=== PATIENT | female | born 1960 | race Caucasian/White ===

== ENCOUNTER 2019-03-04 09:10 | Outpatient (REF) | payer MEDICAID, SELFPAY ==
[2019-03-04 21:50] LABS: Anion Gap 12.1 mmol/L (3-11); BUN 16 mg/dL (7-18); CO2 26.9 mmol/L (21.0-32.0); CREATININE 0.81 mg/dL (0.55-1.02); Calcium 9.1 mg/dL (8.5-10.1); Calculated LDL 205 mg/dL; Chloride 103 mmol/L (98-107); Cholesterol 304 mg/dL (50-200); Glucose 200 mg/dL (70-100); HDL Cholesterol 51 mg/dL (40-60); Potassium 4.1 mmol/L (3.5-5.1); Sodium 142 mmol/L (136-145); Triglyceride 244 mg/dL (30-150)
== END 2019-03-04 09:30 ==
LOC: NCHCN 09:10
PROVIDERS: PCP Nurse Practitioner Family; Visit Provider Internal Medicine
DX: R03.0 Elevated blood-pressure reading, without diagnosis of hypertension (principal); Z13.220 Encounter for screening for lipoid disorders
CPT/HCPCS: 80048; 80061

== ENCOUNTER 2019-03-27 22:30 | Outpatient (REF) | payer MEDICAID, SELFPAY ==
[2019-03-27 21:12] LABS: BUN 13 mg/dL (7-18); CREATININE 0.79 mg/dL (0.55-1.02); Calcium 9.2 mg/dL (8.5-10.1); Chloride 104 mmol/L (98-107); Glucose 98 mg/dL (74-106); Potassium 4.3 mmol/L (3.5-5.1); Sodium 142 mmol/L (136-145)
[2019-03-30 11:51] LABS: Lyme Ab w Rflx to Lyme Confirm Negative (Negative)
[2019-03-31 15:48] LABS: Anaplasma phagocytophilum Negative (Negative); B. miyamotoi PCR Negative (Negative); Babesia divergens/MO-1 Negative (Negative); Babesia duncani Negative (Negative); Babesia microti Negative (Negative); Ehrlichia chaffeensis Negative (Negative); Ehrlichia ewingii/canis Negative (Negative); Ehrlichia muris eauclairensis Negative (Negative)
== END 2019-03-27 22:50 ==
LOC: NCHCN 22:30
PROVIDERS: PCP Nurse Practitioner Family; Visit Provider Internal Medicine
DX: M25.569 Pain in unspecified knee (principal); M54.5 Low back pain; I10 Essential (primary) hypertension
CPT/HCPCS: 80048; 87798; 86618

== ENCOUNTER 2019-06-12 08:41 | Outpatient (REF) | payer MEDICAID, SELFPAY ==
[2019-06-12 21:21] LABS: Calculated LDL 115 mg/dL (<100); Cholesterol 198 mg/dL (<200); HDL Cholesterol 49 mg/dL (40-60); Triglyceride 172 mg/dL (<150)
[2019-06-15 09:48] LABS: CA 125 17 U/mL (<30)
== END 2019-06-12 09:01 ==
LOC: NCHCN 08:41
PROVIDERS: PCP Internal Medicine; Visit Provider Internal Medicine
DX: E78.5 Hyperlipidemia, unspecified (principal); E11.9 Type 2 diabetes mellitus without complications; Z15.01 Genetic susceptibility to malignant neoplasm of breast
CPT/HCPCS: 80061; 86304; 83036

== ENCOUNTER 2019-10-02 16:27 | Outpatient (REF) | payer MEDICAID, SELFPAY ==
[2019-10-02 21:34] LABS: COMMENT (LAB VIEW ONLY) 131.05 mg/dL; Microalb ug/mg Crea 11.3 ug/mg Cr
== END 2019-10-02 16:47 ==
LOC: NCHCN 16:27
PROVIDERS: PCP Internal Medicine; Visit Provider Internal Medicine
DX: E11.9 Type 2 diabetes mellitus without complications (principal)
CPT/HCPCS: 82043; 82570

== ENCOUNTER 2020-04-18 19:16 | Outpatient (REF) | payer MEDICAID, SELFPAY ==
[2020-04-18 21:58] LABS: Hemoglobin A1C 6.9 % (<5.7)
[2020-04-18 22:08] LABS: ALT 31 U/L (14-59); AST 17 U/L (15-37); Albumin 4.2 g/dL (3.4-5.0); Alkaline Phosphatase 131 U/L (46-116); Anion Gap 10.7 mmol/L (3-11); BUN 17 mg/dL (7-18); Bilirubin, Total 0.5 mg/dL (0.2-1.0); CO2 26.3 mmol/L (21.0-32.0); Calcium 9.2 mg/dL (8.5-10.1); Calculated LDL 135 mg/dL (<100); Chloride 104 mmol/L (98-107); Cholesterol 221 mg/dL (<200); Glucose 122 mg/dL (74-106); HDL Cholesterol 56 mg/dL (40-60); Potassium 4.5 mmol/L (3.5-5.1); Sodium 141 mmol/L (136-145); Total Protein 7.2 g/dL (6.4-8.2); Triglyceride 150 mg/dL (<150)
== END 2020-04-18 19:36 ==
LOC: NCHCN 19:16
PROVIDERS: PCP Internal Medicine; Visit Provider Internal Medicine
DX: E11.9 Type 2 diabetes mellitus without complications (principal); E78.5 Hyperlipidemia, unspecified; I10 Essential (primary) hypertension
CPT/HCPCS: 80053; 80061; 83036

== ENCOUNTER 2020-04-25 16:54 | Outpatient (REF) | payer MEDICAID, SELFPAY ==
[2020-04-25 20:52] LABS: Alkaline Phosphatase 123 U/L (46-116); GGT 44 U/L (5-55)
== END 2020-04-25 17:14 ==
LOC: NCHCN 16:54
PROVIDERS: PCP Internal Medicine; Visit Provider Internal Medicine
DX: E11.9 Type 2 diabetes mellitus without complications (principal); R74.8 Abnormal levels of other serum enzymes
CPT/HCPCS: 82977; 84075

== ENCOUNTER 2020-05-18 22:23 | Outpatient (REF) | payer MEDICAID, SELFPAY ==
[2020-05-18 22:43] LABS: TSH 1.41 uIU/mL (0.36-3.74)
[2020-05-20 14:21] LABS: Parathyroid Hormone,Intact 47 pg/mL (19-88)
== END 2020-05-18 22:43 ==
LOC: NCHCN 22:23
PROVIDERS: PCP Internal Medicine; Visit Provider Internal Medicine
DX: R53.83 Other fatigue (principal); R74.8 Abnormal levels of other serum enzymes
CPT/HCPCS: 82306; 83970; 84443

== ENCOUNTER 2020-11-30 20:04 | Outpatient (REF) | payer MEDICAID, SELFPAY ==
[2020-11-30 22:04] LABS: COMMENT (LAB VIEW ONLY) 36.27 mg/dL; Microalb ug/mg Crea 32.3 ug/mg Cr
== END 2020-11-30 20:05 | disposition home or self-care (01) ==
LOC: NCHCN 20:04
PROVIDERS: PCP Internal Medicine; Visit Provider Internal Medicine
DX: E11.9 Type 2 diabetes mellitus without complications (principal)
CPT/HCPCS: 82043; 82570

== ENCOUNTER 2020-12-19 23:15 | Outpatient (REF) | payer MEDICAID, SELFPAY ==
[2020-12-19 21:33] LABS: Abs Immature Grans 0.02 10^3/uL (0.0-0.06); Absolute Basophil Count 0.05 10^3/uL (0.0-0.2); Absolute Eosinophil Count 0.29 10^3/uL (0.0-0.7); Absolute Lymphocyte Count 3.64 10^3/uL (1.2-3.4); Absolute Monocyte Count 0.57 10^3/uL (0.1-0.8); Basophils % 0.5; Eosinophils % 3.2; HCT 51.7 % (36.0-46.0); HGB 17.5 g/dL (11.2-15.7); Immature Grans % 0.2; Lymphocytes % 39.7; MCH 30.4 pg (27.0-33.0); MCHC 33.8 % (32.0-36.0); MCV 89.9 fL (80-95); MPV 12.1 fL (8.0-11.0); Monocytes % 6.2; Neutrophils % 50.2; Nucleated RBC 0 %; Platelet Count 207 10^3/uL (130-400); RBC 5.75 10^6/uL (3.93-5.22); RDW 12.6 % (11.7-14.6); RDW-SD 41.5 fL; WBC 9.17 10^3/uL (4.4-10.8)
[2020-12-19 21:43] LABS: Iron 127 ug/dL (50-170); Total Iron Binding Capacity 331 ug/dL (250-450); Transferrin Sat 38 % (15-50)
[2020-12-19 21:56] LABS: Ferritin 382 ng/mL (8-252)
== END 2020-12-19 23:16 | disposition home or self-care (01) ==
LOC: NCHCN 23:15
PROVIDERS: PCP Internal Medicine; Visit Provider Internal Medicine
DX: D64.9 Anemia, unspecified (principal)
CPT/HCPCS: 82728; 83540; 83550; 85025

== ENCOUNTER 2021-02-20 13:05 | Outpatient (REF) | payer MEDICAID, SELFPAY ==
[2021-02-20 22:28] LABS: Hemoglobin A1C 7.3 % (<5.7)
[2021-02-20 22:39] LABS: ALT 38 U/L (14-59); AST 21 U/L (15-37); Alkaline Phosphatase 139 U/L (46-116); Anion Gap 10.5 mmol/L (3-11); BUN 13 mg/dL (7-18); Bilirubin, Total 0.3 mg/dL (0.2-1.0); CO2 27.5 mmol/L (21.0-32.0); CREATININE 0.9 mg/dL (0.55-1.02); Calcium 9.2 mg/dL (8.5-10.1); Calculated LDL 107 mg/dL (<100); Chloride 107 mmol/L (98-107); Cholesterol 224 mg/dL (<200); Glucose 154 mg/dL (74-106); HDL Cholesterol 43 mg/dL (40-60); Potassium 4.1 mmol/L (3.5-5.1); Sodium 145 mmol/L (136-145); Total Protein 7.1 g/dL (6.4-8.2); Triglyceride 370 mg/dL (<150)
[2021-02-20 22:55] LABS: Vitamin D 25 Total 15.9 ng/mL (30-100)
[2021-02-22 10:02] LABS: CA 125 12 U/mL (<30)
== END 2021-02-20 13:06 | disposition home or self-care (01) ==
LOC: NCHCN 13:05
PROVIDERS: PCP Internal Medicine; Visit Provider Internal Medicine
DX: E11.9 Type 2 diabetes mellitus without complications (principal); E55.9 Vitamin D deficiency, unspecified; E78.5 Hyperlipidemia, unspecified; I10 Essential (primary) hypertension
CPT/HCPCS: 80053; 80061; 82306; 86304; 83036

== ENCOUNTER 2021-07-14 16:23 | Outpatient (REF) | payer MEDICAID, SELFPAY ==
[2021-07-14 14:29] LABS: Alkaline Phosphatase 133 U/L (46-116)
[2021-07-14 15:13] LABS: Hemoglobin A1C 7.2 % (<5.7)
[2021-07-17 03:17] LABS: Vitamin D 25 Total 30.3 ng/mL (30-100)
== END 2021-07-14 16:24 | disposition home or self-care (01) ==
LOC: NCHCN 16:23
PROVIDERS: PCP Internal Medicine; Visit Provider Internal Medicine
DX: E11.9 Type 2 diabetes mellitus without complications (principal); R74.8 Abnormal levels of other serum enzymes; E55.9 Vitamin D deficiency, unspecified
CPT/HCPCS: 82306; 83036; 84075

== ENCOUNTER 2021-09-01 13:34 | Outpatient (REF) | payer MEDICAID, SELFPAY ==
[2021-09-01 14:12] LABS: Hemoglobin A1C 7.3 % (<5.7)
[2021-09-01 14:39] LABS: Vitamin B12 494 pg/mL (193-986)
[2021-09-04 06:12] LABS: Vitamin D 25 Total 38.2 ng/mL (30-100)
== END 2021-09-01 13:35 | disposition home or self-care (01) ==
LOC: NCHCN 13:34
PROVIDERS: PCP Internal Medicine; Visit Provider Internal Medicine
DX: Z86.69 Personal history of other diseases of the nervous system and sense organs (principal); E11.9 Type 2 diabetes mellitus without complications; E55.9 Vitamin D deficiency, unspecified; R74.8 Abnormal levels of other serum enzymes
CPT/HCPCS: 82306; 82607; 83036

== ENCOUNTER 2021-10-09 16:03 | Outpatient (REF) | payer MEDICAID, SELFPAY ==
[2021-10-09 21:00] LABS: COMMENT (LAB VIEW ONLY) 67.43 mg/dL; Microalb ug/mg Crea 28.5 ug/mg Cr
== END 2021-10-09 16:04 | disposition home or self-care (01) ==
LOC: NCHCN 16:03
PROVIDERS: PCP Internal Medicine; Visit Provider Internal Medicine
DX: E11.9 Type 2 diabetes mellitus without complications (principal)
CPT/HCPCS: 82043; 82570

== ENCOUNTER 2022-07-23 09:01 | Outpatient (REF) | payer MEDICAID, SELFPAY ==
[2022-07-23 16:05] LABS: Hemoglobin A1C 6.3 % (<5.7)
[2022-07-23 16:40] LABS: ALT 26 U/L (14-59); AST 22 U/L (15-37); Albumin 4.1 g/dL (3.4-5.0); Alkaline Phosphatase 128 U/L (46-116); Anion Gap 11.6 mmol/L (3-11); BUN 13 mg/dL (7-18); Bilirubin, Total 0.5 mg/dL (0.2-1.0); CO2 24.4 mmol/L (21.0-32.0); CREATININE 0.9 mg/dL (0.55-1.02); Calcium 9.5 mg/dL (8.5-10.1); Calculated LDL 146 mg/dL (<100); Chloride 106 mmol/L (98-107); Cholesterol 241 mg/dL (<200); Estimated GFR 71.83 (mL/min/1.73m2); Glucose 108 mg/dL (74-106); HDL Cholesterol 60 mg/dL (40-60); Potassium 4.5 mmol/L (3.5-5.1); Sodium 142 mmol/L (136-145); Total Protein 7.4 g/dL (6.4-8.2); Triglyceride 178 mg/dL (<150)
[2022-07-24 10:44] LABS: CA 125 27 U/mL (<30)
== END 2022-07-23 09:02 | disposition home or self-care (01) ==
LOC: NCHCN 09:01
PROVIDERS: PCP Internal Medicine; Visit Provider Internal Medicine
DX: Z15.01 Genetic susceptibility to malignant neoplasm of breast (principal); E78.5 Hyperlipidemia, unspecified; E11.9 Type 2 diabetes mellitus without complications; I10 Essential (primary) hypertension
CPT/HCPCS: 80053; 80061; 86304; 83036

== ENCOUNTER 2023-02-04 18:02 | Outpatient (REF) | payer MEDICAID, SELFPAY ==
--- OUTSIDE RECORDS SUMMARY | 2023-02-04 18:10 | XMS_ITS | CCD ---
Author Name Unknown Address [address] [place] [address] [phone] Organization Unknown Address [address] [place] [address] [phone] Care Team Providers Care Nailing Machine Operator Name Role Phone JC SPAULDING Attending Physician [phone] Vital Signs Unknown or Not Available. Allergies Allergy Code Allergy Type Reaction Status CODEINE 2670 Drug allergy Nausea; Vomitin g; STOMACH CRAMPS Active CONTRAST MEDIA, IODINE RELATED 0 Drug allergy Anaphylaxis Active OXYCODONE 7804 Drug allergy Nausea; Vomitin g; STOMACH CRAMPS Active DILAUDID 018655 Drug allergy Vomiting; EXTRE ME SEDATION; Nausea Active Procedures Unknown or Not Available. History of Immunizations Unknown or Not Available. Problems Unknown or Not Available. Results Unknown or Not Available. Active Medications Unknown or Not Available. Medications Administered During Visit Unknown or Not Available. Encounters Encounter Diagnosis Diagnosis Code Start Date Consciousness and/or awareness finding [id number] 08/02/2021 Social History Smoking Status Code Start Date End Date Current every day smoker [id number] Patient Decision Aids Unknown or Not Available. Discharge Instructions You were admitted to [facility] on 08/02/2021 13:10 with a principal diagnosis of Other symptoms and signs involving cognitive functions and awareness You were discharged from [facility] on 08/02/2021 13:10 Should you have any questions prior to discharge, please contact a member of your healthcare team. If you have left the hospital and have any questions, please contact your primary care physician. Chief Complaint and Reason For Visit Chief Complaint Date of Onset COGNITIVE CHANGES Function Status Unknown or Not Available. Plan of Care Unknown or Not Available. Referral/Transition of Care Unknown or Not Available.
--- OUTSIDE RECORDS SUMMARY | 2023-02-04 18:11 | XMS_ITS | CCD ---
Author Name Unknown Address [address] [place] [address] [phone] Organization Unknown Address [address] [place] [address] [phone] Care Team Providers Care Main Entree Cook And Cashier Name Role Phone KAREN HERMOSILLO Attending Physician [phone] Vital Signs Unknown or Not Available. Allergies Allergy Code Allergy Type Reaction Status CODEINE 2670 Drug allergy Nausea; Vomitin g; STOMACH CRAMPS Active CONTRAST MEDIA, IODINE RELATED 0 Drug allergy Anaphylaxis Active OXYCODONE 7804 Drug allergy Nausea; Vomitin g; STOMACH CRAMPS Active DILAUDID 823940 Drug allergy Vomiting; EXTRE ME SEDATION; Nausea Active Procedures Unknown or Not Available. History of Immunizations Unknown or Not Available. Problems Unknown or Not Available. Results Unknown or Not Available. Active Medications Unknown or Not Available. Medications Administered During Visit Unknown or Not Available. Encounters Encounter Diagnosis Diagnosis Code Start Date Bilateral primary osteoarthritis of knee M170 12/25/2021 Social History Smoking Status Code Start Date End Date Current every day smoker [id number] Patient Decision Aids Unknown or Not Available. Discharge Instructions You were admitted to [facility] on 12/25/2021 11:19 with a principal diagnosis of Bilateral primary osteoarthritis of knee You were discharged from [facility] on 12/25/2021 11:19 Should you have any questions prior to discharge, please contact a member of your healthcare team. If you have left the hospital and have any questions, please contact your primary care physician. Chief Complaint and Reason For Visit Chief Complaint Date of Onset BILATERAL KNEE PAIN Function Status Unknown or Not Available. Plan of Care Unknown or Not Available. Referral/Transition of Care Unknown or Not Available.
--- OUTSIDE RECORDS SUMMARY | 2023-02-04 18:11 | XMS_ITS | CCD ---
Author Name Unknown Address [address] [place] [address] [phone] Organization Unknown Address [address] [place] [address] [phone] Care Team Providers Care Manager Of Distribution Name Role Phone JC SPAULDING Attending Physician [phone] Vital Signs Unknown or Not Available. Allergies Allergy Code Allergy Type Reaction Status CODEINE 2670 Drug allergy Nausea; Vomitin g; STOMACH CRAMPS Active CONTRAST MEDIA, IODINE RELATED 0 Drug allergy Anaphylaxis Active OXYCODONE 7804 Drug allergy Nausea; Vomitin g; STOMACH CRAMPS Active DILAUDID 980875 Drug allergy Vomiting; EXTRE ME SEDATION; Nausea Active Procedures Unknown or Not Available. History of Immunizations Unknown or Not Available. Problems Unknown or Not Available. Results Unknown or Not Available. Active Medications Unknown or Not Available. Medications Administered During Visit Unknown or Not Available. Encounters Unknown or Not Available. Social History Smoking Status Code Start Date End Date Current every day smoker [id number] Patient Decision Aids Unknown or Not Available. Discharge Instructions You were admitted to [facility] on 01/29/2023 12:02 You were discharged from [facility] on 01/29/2023 12:02 Should you have any questions prior to discharge, please contact a member of your healthcare team. If you have left the hospital and have any questions, please contact your primary care physician. Chief Complaint and Reason For Visit Unknown or Not Available. Function Status Unknown or Not Available. Plan of Care Unknown or Not Available. Referral/Transition of Care Unknown or Not Available.
--- OUTSIDE RECORDS SUMMARY | 2023-02-04 18:11 | XMS_ITS | CCD ---
Author Name Unknown Address [address] [place] [address] [phone] Organization Unknown Address [address] [place] [address] [phone] Care Team Providers Care Oyster Buyer Name Role Phone JC SPAULDING Attending Physician [phone] Vital Signs Unknown or Not Available. Allergies Allergy Code Allergy Type Reaction Status CODEINE 2670 Drug allergy Nausea; Vomitin g; STOMACH CRAMPS Active CONTRAST MEDIA, IODINE RELATED 0 Drug allergy Anaphylaxis Active OXYCODONE 7804 Drug allergy Nausea; Vomitin g; STOMACH CRAMPS Active DILAUDID 612394 Drug allergy Vomiting; EXTRE ME SEDATION; Nausea Active Procedures Unknown or Not Available. History of Immunizations Unknown or Not Available. Problems Unknown or Not Available. Results Unknown or Not Available. Active Medications Unknown or Not Available. Medications Administered During Visit Unknown or Not Available. Encounters Encounter Diagnosis Diagnosis Code Start Date Encounter for screening for malignant neoplasm of respiratory organs Z122 02/08/2022 Social History Smoking Status Code Start Date End Date Current every day smoker [id number] Patient Decision Aids Unknown or Not Available. Discharge Instructions You were admitted to [facility] on 02/08/2022 07:59 with a principal diagnosis of Encounter for screening for malignant neoplasm of respiratory organs You were discharged from [facility] on 02/08/2022 07:59 Should you have any questions prior to discharge, please contact a member of your healthcare team. If you have left the hospital and have any questions, please contact your primary care physician. Chief Complaint and Reason For Visit Chief Complaint Date of Onset SMOKER Function Status Unknown or Not Available. Plan of Care Unknown or Not Available. Referral/Transition of Care Unknown or Not Available.
[2023-02-04 23:08] LABS: COMMENT (LAB VIEW ONLY) 73.53 mg/dL
[2023-02-04 23:22] LABS: Microalb ug/mg Crea 236.4 ug/mg Cr
== END 2023-02-04 18:03 | disposition home or self-care (01) ==
LOC: NCHCN 18:02
PROVIDERS: PCP Internal Medicine; Visit Provider Internal Medicine
DX: E11.9 Type 2 diabetes mellitus without complications (principal); R39.89 Other symptoms and signs involving the genitourinary system
CPT/HCPCS: 82043; 82570; 87086

== ENCOUNTER 2023-02-12 16:18 | Outpatient (REF) | payer MEDICAID, SELFPAY ==
[2023-02-12 15:40] LABS: Bacteria Moderate HPF (Negative); C & S Indicated? Yes; Casts Negative LPF (Negative); Crystals Negative HPF (Negative); Epithelial Cells Few HPF (Negative); Mucus Negative (Negative)
== END 2023-02-12 16:19 | disposition home or self-care (01) ==
LOC: NCHCN 16:18
PROVIDERS: PCP Internal Medicine; Visit Provider Internal Medicine
DX: R31.9 Hematuria, unspecified (principal)
CPT/HCPCS: 87077; 81015; 87086; 87186

== ENCOUNTER 2023-05-20 05:42 | Outpatient (CLI) | payer MEDICAID, SELFPAY ==
--- OUTSIDE RECORDS SUMMARY | 2023-05-20 05:55 | XMS_ITS | CCD ---
Author Name Unknown Address [address] [place] [address] [phone] Organization Unknown Address [address] [place] [address] [phone] Care Team Providers Care Popcorn Candy Maker Name Role Phone JC SPAULDING Attending Physician [phone] Vital Signs Unknown or Not Available. Allergies Allergy Code Allergy Type Reaction Status CODEINE 2670 Drug allergy Nausea; Vomitin g; STOMACH CRAMPS Active CONTRAST MEDIA, IODINE RELATED 0 Drug allergy Anaphylaxis Active OXYCODONE 7804 Drug allergy Nausea; Vomitin g; STOMACH CRAMPS Active DILAUDID 116904 Drug allergy Vomiting; EXTRE ME SEDATION; Nausea Active Procedures Unknown or Not Available. History of Immunizations Unknown or Not Available. Problems Unknown or Not Available. Results Unknown or Not Available. Active Medications Unknown or Not Available. Medications Administered During Visit Unknown or Not Available. Encounters Unknown or Not Available. Social History Smoking Status Code Start Date End Date Current every day smoker [id number] Patient Decision Aids Unknown or Not Available. Discharge Instructions You were admitted to [facility] on 04/16/2023 13:55 You were discharged from [facility] on 04/16/2023 13:55 Should you have any questions prior to [...]
--- OUTSIDE RECORDS SUMMARY | 2023-05-20 05:55 | XMS_ITS | CCD ---
Author Name Unknown Address [address] [place] [address] [phone] Organization Unknown Address [address] [place] [address] [phone] Care Team Providers Care Chip Separator Name Role Phone JC SPAULDING Attending Physician [phone] Vital Signs Unknown or Not Available. Allergies Allergy Code Allergy Type Reaction Status CODEINE 2670 Drug allergy Nausea; Vomitin g; STOMACH CRAMPS Active CONTRAST MEDIA, IODINE RELATED 0 Drug allergy Anaphylaxis Active OXYCODONE 7804 Drug allergy Nausea; Vomitin g; STOMACH CRAMPS Active DILAUDID 338743 Drug allergy Vomiting; EXTRE ME SEDATION; Nausea Active Procedures Unknown or Not Available. History of Immunizations Unknown or Not Available. Problems Unknown or Not Available. Results Unknown or Not Available. Active Medications Unknown or Not Available. Medications Administered During Visit Unknown or Not Available. Encounters Encounter Diagnosis Diagnosis Code Start Date Chronic obstructive pulmonar y disease with (acute) exacerbation J441 01/29/2023 Social History Smoking Status Code Start Date End Date Current every day smoker [id number] Patient Decision Aids Unknown or Not Available. Discharge Instructions You were admitted to [facility] on 01/29/2023 12:02 with a principal diagnosis of Chronic obstructive pulmonary disease with (acute) exacerbation You were discharged from [facility] on 01/29/2023 12:02 Should you have [...]
--- OUTSIDE RECORDS SUMMARY | 2023-05-20 05:55 | XMS_ITS | CCD ---
Author Name Unknown Address [address] [place] [address] [phone] Organization Unknown Address [address] [place] [address] [phone] Care Team Providers Care Control Clerk Subassembly Name Role Phone JC SPAULDING Attending Physician [phone] Vital Signs Unknown or Not Available. Allergies Allergy Code Allergy Type Reaction Status CODEINE 2670 Drug allergy Nausea; Vomitin g; STOMACH CRAMPS Active CONTRAST MEDIA, IODINE RELATED 0 Drug allergy Anaphylaxis Active OXYCODONE 7804 Drug allergy Nausea; Vomitin g; STOMACH CRAMPS Active DILAUDID 728784 Drug allergy Vomiting; EXTRE ME SEDATION; Nausea Active Procedures Unknown or Not Available. History of Immunizations Unknown or Not Available. Problems Unknown or Not Available. Results Unknown or Not Available. Active Medications Unknown or Not Available. Medications Administered During Visit Unknown or Not Available. Encounters Encounter Diagnosis Diagnosis Code Start Date Consciousness and/or awareness finding [id number] 08/02/2021 Social History Smoking Status Code Start Date End Date Current every day smoker 060168523 Patient Decision Aids Unknown or Not Available. Discharge Instructions You were admitted to [facility] on 08/02/2021 13:10 with a principal diagnosis of Other symptoms and signs involving cognitive functions and awareness You were discharged from [facility] on 08/02/2021 13:10 Should you have any [...]
--- OUTSIDE RECORDS SUMMARY | 2023-05-20 05:55 | XMS_ITS | CCD ---
Author Name Unknown Address [address] [place] [address] [phone] Organization Unknown Address [address] [place] [address] [phone] Care Team Providers Care Statement Request Clerk Name Role Phone KAREN HERMOSILLO Attending Physician [phone] Vital Signs Unknown or Not Available. Allergies Allergy Code Allergy Type Reaction Status CODEINE 2670 Drug allergy Nausea; Vomitin g; STOMACH CRAMPS Active CONTRAST MEDIA, IODINE RELATED 0 Drug allergy Anaphylaxis Active OXYCODONE 7804 Drug allergy Nausea; Vomitin g; STOMACH CRAMPS Active DILAUDID 442101 Drug allergy Vomiting; EXTRE ME SEDATION; Nausea [...] Date End Date Current every day smoker [id number] Patient Decision Aids Unknown or Not Available. Discharge Instructions You were admitted to [facility] on 12/25/2021 11:19 with a principal diagnosis of Bilateral primary osteoarthritis of knee You were discharged from [facility] on 12/25/2021 11:19 Should you have any [...]
[2023-05-20] MEDS: Levalbuterol HFA 15 GM INH 4 PUFF IH (11:30)
[2023-05-20] MEDS: Inhaler, Assist Device 1 EACH MC (11:31)
--- NOTE | 2023-05-20 14:59 | W.PFT ---
Date of service: 05/20/23 Time of Service: 10:04 Pulmonary Function Test Result Indications: COPD Interpretation Spirometry: There is moderate airflow limitation. There is no significant bronchodilator response. The FVC is low. Lung Volumes: There is air trapping. Diffusion Capacity: Normal diffusion Airway Pressure: Increased airways resistance Impression Moderate airflow obstruction with air trapping and a normal diffusion. The FVC is likely low due to airflow obstruction. Clinical Correlation therefore is recommended.
== END 2023-05-20 05:43 | disposition home or self-care (01) ==
PROVIDERS: PCP Internal Medicine; Visit Provider Internal Medicine
DX: J44.9 Chronic obstructive pulmonary disease, unspecified (principal)
CPT/HCPCS: 94060; 94726; 94729

== ENCOUNTER → 2023-06-10 13:46 | Outpatient (BNVA) | payer MEDICAID, SELFPAY | PROVIDERS: PCP Internal Medicine; Referring Provider Internal Medicine; Visit Provider Physician Assistant Surgical | CPT/HCPCS: 94640; 99205; J7620 ==

== ENCOUNTER 2023-06-28 16:08 | Outpatient (REF) | payer MEDICAID, SELFPAY | END 2023-06-28 16:09 | disposition home or self-care (01) | LOC: NCHCN 16:08 | PROVIDERS: PCP Internal Medicine; Referring Provider Internal Medicine; Visit Provider Internal Medicine | DX: N39.0 Urinary tract infection, site not specified (principal) | CPT/HCPCS: 87086 ==

== ENCOUNTER 2023-07-01 18:15 | Outpatient (REF) | payer MEDICAID, SELFPAY ==
[2023-07-01 22:19] LABS: Abs Immature Grans 0.02 10^3/uL (0.0-0.06); Absolute Basophil Count 0.07 10^3/uL (0.0-0.2); Absolute Eosinophil Count 0.39 10^3/uL (0.0-0.7); Absolute Lymphocyte Count 4.06 10^3/uL (1.2-3.4); Absolute Monocyte Count 0.78 10^3/uL (0.1-0.8); Absolute Neutrophil Count 4.68 10^3/uL (1.2-6.7); Basophils % 0.7; Eosinophils % 3.9; HGB 18.5 g/dL (11.2-15.7); Immature Grans % 0.2; Lymphocytes % 40.6; MCH 30.2 pg (27.0-33.0); MCHC 34.3 % (32.0-36.0); MCV 88 fL (80-95); MPV 11.2 fL (8.0-11.0); Monocytes % 7.8; Neutrophils % 46.8; Platelet Count 272 10^3/uL (130-400); RBC 6.12 10^6/uL (3.93-5.22); RDW 12.6 % (11.7-14.6); RDW-SD 40.6 fL
[2023-07-01 22:31] LABS: ALT 26 U/L (14-59); AST 16 U/L (15-37); Albumin 3.9 g/dL (3.4-5.0); Alkaline Phosphatase 138 U/L (46-116); Anion Gap 14.8 mmol/L (3-11); BUN 16 mg/dL (7-18); Bilirubin, Total 0.3 mg/dL (0.2-1.0); CO2 23.2 mmol/L (21.0-32.0); CREATININE 0.8 mg/dL (0.55-1.02); Calcium 9.2 mg/dL (8.5-10.1); Chloride 105 mmol/L (98-107); Estimated GFR 82.23 (mL/min/1.73m2); Glucose 133 mg/dL (74-106); Potassium 4.1 mmol/L (3.5-5.1); Sodium 143 mmol/L (136-145); Total Protein 6.8 g/dL (6.4-8.2)
[2023-07-01 22:47] LABS: Diff Comment RBC Morph Reviewed; RBC Morphology Normal
[2023-07-02 18:38] LABS: CA 125 26 U/mL (<30)
== END 2023-07-01 18:16 | disposition home or self-care (01) ==
LOC: NCHCN 18:15
PROVIDERS: PCP Internal Medicine; Visit Provider Internal Medicine
DX: R30.0 Dysuria (principal); R82.89 Other abnormal findings on cytological and histological examination of urine
CPT/HCPCS: 80053; 86304; 85025; 87086

== ENCOUNTER 2023-08-06 09:01 | Outpatient (REF) | payer MEDICAID, SELFPAY ==
[2023-08-06 14:48] LABS: HCT 52.5 % (36.0-46.0); HGB 17.4 g/dL (11.2-15.7); MCH 30.2 pg (27.0-33.0); MCHC 33.1 % (32.0-36.0); MCV 91 fL (80-95); MPV 11.3 fL (8.0-11.0); Platelet Count 211 10^3/uL (130-400); RBC 5.76 10^6/uL (3.93-5.22); RDW 12.7 % (11.7-14.6); RDW-SD 42.7 fL; WBC 9.86 10^3/uL (4.4-10.8)
[2023-08-06 15:20] LABS: ALT 32 U/L (14-59); AST 19 U/L (15-37); Albumin 3.6 g/dL (3.4-5.0); Alkaline Phosphatase 130 U/L (46-116); BUN 12 mg/dL (7-18); Bilirubin, Total 0.4 mg/dL (0.2-1.0); CREATININE 0.7 mg/dL (0.55-1.02); Calcium 8.9 mg/dL (8.5-10.1); Calculated LDL 106 mg/dL (<100); Chloride 107 mmol/L (98-107); Cholesterol 203 mg/dL (<200); Estimated GFR 96.52 (mL/min/1.73m2); Glucose 125 mg/dL (74-106); HDL Cholesterol 60 mg/dL (40-60); Potassium 3.9 mmol/L (3.5-5.1); Sodium 145 mmol/L (136-145); Total Protein 6.7 g/dL (6.4-8.2); Triglyceride 185 mg/dL (<150)
== END 2023-08-06 09:02 | disposition home or self-care (01) ==
LOC: NCHCN 09:01
PROVIDERS: PCP Internal Medicine; Referring Provider Internal Medicine; Visit Provider Internal Medicine
DX: I10 Essential (primary) hypertension (principal); R73.09 Other abnormal glucose
CPT/HCPCS: 80053; 80061; 85027; 83036

== ENCOUNTER 2023-10-02 13:51 | Outpatient (REF) | payer MEDICAID, SELFPAY ==
[2023-10-02 15:50] LABS: BUN 23 mg/dL (7-18); CREATININE 0.8 mg/dL (0.55-1.02); Chloride 106 mmol/L (98-107); Estimated GFR 82.23 (mL/min/1.73m2); Glucose 192 mg/dL (74-106); Potassium 4.1 mmol/L (3.5-5.1); Sodium 139 mmol/L (136-145)
[2023-10-02 16:38] LABS: Vitamin D 25 Total 25.8 ng/mL (30-100)
== END 2023-10-02 13:52 | disposition home or self-care (01) ==
LOC: NCHCN 13:51
PROVIDERS: PCP Internal Medicine; Visit Provider Internal Medicine
DX: E55.9 Vitamin D deficiency, unspecified (principal); R60.0 Localized edema
CPT/HCPCS: 80048; 82306

== ENCOUNTER 2024-01-20 19:38 | Outpatient (REF) | payer MEDICARE, SELFPAY ==
[2024-01-20 17:48] LABS: COMMENT (LAB VIEW ONLY) 71.56 mg/dL; Microalb ug/mg Crea 22.9 ug/mg Cr
--- OUTSIDE RECORDS SUMMARY | 2024-01-20 19:53 | XMS_ITS | Encounter Summary ---
Author Organization [facility] Address [address] [place] [address] Care Team Providers Care Anode Crew Supervisor Name Role Phone None, Provider Primary Care Provider Unavailabl e Reason for Visit * Reason Onset Date Comments Appointment Related 12/10/2018 Encounter Details Date Type Department Care Team (Late st Contact Info) Description 12/10/[address] [facility] Surgical Oncology - [address] [address] Michelle Cuenca, PAKimberleyC [address] [place] [address], [address] [place] [phone] Appointment Related Social History Tobacco Use Types Packs/Day Years Used Date Smoking Tobacco: Every Day Cigarettes 1 35 Smokeless Tobacco: Never Alcohol Use Standard Drinks/Week Comments Yes 0 (1 standard drink = 0.6 oz pur e alcohol) Sex and Gender Information Value Date Recorded Sex Assigned at Not on file Gender Identity Not on file Sexual Orientation Not on file documented as of this encounter Miscellaneous Notes * Telephone Encounter - Marine Baires - 12/10/2018 1121 EDT LM for Pt saying I was able get her a cancellation spot in on 12/16/18 @ 3:30 @ [facility]. If Pt doesn't take this spot, mammography is booking out until Feb. I called [facility] and I had them send her last Mammo imaging from 2014. Marine Baires 12/10/2018 11:29 documented in this encounter Plan of Treatment Not on file documented as of this encounter Visit Diagnoses Not on filedocumented in this encounter Care Teams Anode Crew Supervisor Relationship Specialty Start Date End Date None, Provider PCP - General 12/02/18 documented as of this encounter
--- OUTSIDE RECORDS SUMMARY | 2024-01-20 19:53 | XMS_ITS | Encounter Summary ---
Author Organization [facility] Address [address] [place] [address] Care Team Providers Care Satellite Instruction Facilitator Name Role Phone Angel Chilel MD Primary Care Provider Unav ailable Reason for Visit * Reason Comments Genetic Evaluation * Consult (Routine) - Closed Specialty Diagnoses / Procedures Referred By Renita pratt Referred To Contact Cancer Genetics Diagnoses BRCA1 positive Delores Puga, MS [address] [place] [address] Referral ID Status Reason Start Date Expiration Date V isits Requested Visits Authorized [id number] Closed Specialty Services Required 10/10/2017 1 1 Encounter Details Date Type Department Care Team (Late st Contact Info) Description 11/26/2017 13:30 EDT Office Visit [facility] Hematology & Oncology - Main [place] [address] [place] [address] Unknown, Provider, Delores Puga, MS [address] [place], [place] [id number] Encounter for nonprocreative genetic counseling (Primary Dx); BRCA1 positive; History of ovarian cancer; Family history of ovarian cancer Discharge Disposition: Auto Discharge Social History Tobacco Use Types Packs/Day Years Used Date Smoking Tobacco: Every Day Cigarettes 1 35 Smokeless Tobacco: Never Alcohol Use Standard Drinks/Week Comments Yes 0 (1 standard drink = 0.6 oz pur e alcohol) Sex and Gender Information Value Date Recorded Sex Assigned at Not on file Gender Identity Not on file Sexual Orientation Not on file documented as of this encounter Discharge Diagnoses Diagnosis Z15.01 Genetic susceptibility to malignant neoplasm of breast-Z15.01[ICD-10-CM] Z71.83 Encounter for nonprocreative genetic counseling-Z71.83[ICD-10-CM] Z85.43 Personal history of malignant neoplasm of ovary-Z85.43[ICD-10-CM] Z80.41 Family history of malignant neoplasm of ovary-Z80.41[ICD-10-CM] Z15.09 Genetic susceptibility to other malignant neoplasm-Z15.09[ICD-10-CM] documented in this encounter Discharge Disposition Disposition Code Departure Means Destination Auto Discharge documented in this encounter Progress Notes * Delores Puga - 11/26/2017 1330 EDT See note dictated by Dr. Susan Munoz same day documented in this encounter Plan of Treatment Not on file documented as of this encounter Visit Diagnoses Diagnosis Encounter for nonprocreative genetic counseling- Primary BRCA1 positive Genetic susceptibility to malignant neoplasm of breast History of ovarian cancer Personal history of malignant neoplasm of ovary Family history of ovarian cancer Family history of malignant neoplasm of ovary documented in this encounter Care Teams Satellite Instruction Facilitator Relationship Specialty Start Date End Date Angel Chilel MD PCP - General 03/12/14 12/01/18 documented as of this encounter
--- OUTSIDE RECORDS SUMMARY | 2024-01-20 19:53 | XMS_ITS | Encounter Summary ---
Author Organization [facility] Address [address] [place] [address] Care Team Providers Care Crocodile Farmer Name Role Phone Angel Chilel MD Primary Care Provider Unav ailable Encounter Details Date Type Department Care Team (Late st Contact Info) Description 11/26/2017 Results Only Imaging [facility] Surgical Oncology - [address] [address] Michelle Cuenca PA-C [address] [facility], [address] [place] [phone] Social History Tobacco Use Types Packs/Day Years Used Date Smoking Tobacco: Every Day Cigarettes 1 35 Smokeless Tobacco: Never Alcohol Use Standard Drinks/Week Comments Yes 0 (1 standard drink = 0.6 oz pur e alcohol) Sex and Gender Information Value Date Recorded Sex Assigned at Not on file Gender Identity Not on file Sexual Orientation Not on file documented as of this encounter Plan of Treatment Not on file documented as of this encounter Visit Diagnoses Not on filedocumented in this encounter Care Teams Crocodile Farmer Relationship Specialty Start Date End Date Angel Chilel MD PCP - General 03/12/14 12/01/18 documented as of this encounter
--- OUTSIDE RECORDS SUMMARY | 2024-01-20 19:53 | XMS_ITS | Encounter Summary ---
Author Organization [facility] Address [address] [place] [address] Care Team Providers Care Customer Experience Strategist Name Role Phone None, Provider Primary Care Provider Unavailabl e Encounter Details Date Type Department Care Team (Late st Contact Info) Description 06/13/[address] [facility] Pathology & Laboratory Medicine - [facility] [address] [place] [address] Unknown, Provider, Social History Tobacco Use Types Packs/Day Years [...] on file documented as of this encounter Procedures Procedure Name Priority Date/Time Associated Diagnosis Comments CA 125 Routine 06/12/2019 8:15 EST documented in this encounter Results * CA 125 (06/12/2019 8:15 EST) CA 125 17 <30 U/mL 06/15/2019 9:43 EST [facility] Comment: NOTE: Serum CA 125 concentration should not be interpreted as absolute evidence for the presence or absence of malignant disease. Assayed on Siemens ADVIA Centaur XPT using chemiluminescent technology. ??Values obtained by using different assay methods cannot be used interchangeably. Blood VENOUS BLOOD / Unknown Venipuncture / Unknown 06/12/2019 8:15 EST 06/14/2019 15:56 EST Provider Unknown MD CHEMISTRY & BLOOD GA S ORDERABLES [facility] [address] [place] [address] documented in this encounter Visit Diagnoses Not on filedocumented in this encounter Care Teams Customer Experience Strategist Relationship Specialty Start Date End Date None, Provider PCP - General 12/02/18 documented as of this encounter
--- OUTSIDE RECORDS SUMMARY | 2024-01-20 19:53 | XMS_ITS | Referral Summary ---
Author Organization [facility] Address [address] [place] [address] Care Team Providers Care Glue Mixer Name Role Phone None, Provider Primary Care Provider Unavailabl e Allergies Active Allergy Reactions Criticality Noted Date Comments Adhesive Tape-Silicones Rash Medium 10/14/2009 Codeine Nausea And Vomiting Medium 08/15/2009 Hydromorphone (Pf) Nausea And Vomiting 08/28/19 10 Nausea & Vomiting with SUPERVISOR IN CIRCUIT TESTING dilaudid 08/27/09 Morphine Other (See Comments) 05/31/2020 Depression, extreme sadness Other - See Comments Hives,Angioedema High 0 CT CONTRAST- IV Oxycodone Shortness Of Breath,Nausea And Vomiting,Other (See Comments) 08/30/2009 Per pt & confirmed by daughter: previous SOB/N&V, diaphoresis with OXYCODONE. Medications Medication Sig Dispensed Refills Start Date End Date Status ibuprofen (MOTRIN) 400 mg tablet Take 400 mg by mouth every 6 hours as needed. Rarely uses due to BP meds 1 Tab 0 05/31/2020 Active albuterol (PROVENTIL, VENTOLIN) 90 mcg/Actuation inhaler Inhale 1 Puff as directed every 4 hours as needed for Wheezing. 2 Inhaler 0 01/12/2010 Active gabapentin (NEURONTIN) 100 mg capsule Take 100 mg by mouth. 200 morning and 600 mg at night Active canagliflozin (INVOKANA) 100 mg tablet Take 100 mg by mouth daily. Active atorvastatin (LIPITOR) 20 mg tablet Take 20 mg by mouth daily. Active amLODIPine (NORVASC) 10 mg tablet Take 10 mg by mouth daily. Active ergocalciferol, vitamin D2, (VITAMIN D2 ORAL) Take 50,000 Units by mouth daily. 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 Social History Tobacco Use Types Packs/Day Years Used Date Smoking Tobacco: Every Day Cigarettes 1 35 Smokeless Tobacco: Never Tobacco Cessation:Ready to Q uit: Yes; Counseling Given: No Alcohol Use Standard Drinks/Week Comments Yes 0 (1 standard drink = 0.6 oz pur e alcohol) Interpersonal Safety Answer Date Record ed Physically Hurt Never 12/06/2019 Verbally Threaten Not on file 12/06/2019 Sex and Gender Information Value Date Recorded Sex Assigned at Not on file Gender Identity Not on file Sexual Orientation Not on file Last Filed Vital Signs Vital Sign Reading Time Taken Comments Blood Pressure 150/86 05/31/2020 1114 EST Pulse 94 05/31/2020 1114 EST Temperature 36.2 ??C (97.2 ??F) 05/31/2020 1114 EST Respiratory Rate 18 03/19/2013 1040 EST Oxygen Saturation 96% 05/31/2020 1114 EST Inhaled Oxygen Concentration - - Weight 88.5 kg (195 lb 3.2 oz) 05/31/[address] Height 157.5 cm (5' 2) 05/31/2020 1114 EST Body Mass Index 35.7 05/31/2020 1114 EST Functional Status Functional Status Response Date of Assess ment Because of a physical, menta l, or emotional condition, does this person have difficulty doing errands alone such as visiting a doctor's office or shopping? No 05/31/2020 Cognitive Status Response Date of Assessm ent Because of a physical, menta l, or emotional condition, does this person have serious difficulty concentrating, remembering, or making decisions? No 05/31/2020 Plan of Treatment Not on file Procedures Procedure Name Priority Date/Time Associated Diagnosis Comments CT CHEST W CONTRAST 08/19/2009 1 5:19 EDT from Last 3 Months or Most Recently Relevant to Health Maintenance Results * CT CHEST W CONTRAST (08/19/2009 15:19 EDT) Anatomical Region Laterality Modality Other 08/19/2009 15:1 9 EDT 08/19/2009 15:52 EDT Narrative 08/19/2009 15:[address] CHEST W/CONTRAST ??Aug 19, 2009 03:19:00 PM Signs and Symptoms/Comments: ??Pt with new diagnosis of pelvic mass and elevated CA-125 Comparison: ??None ?? Technique: A single breath-hold helical CT acquisition was performed through the chest on a multidetector-row scanner with a reconstructed slice thickness of 3 mm and retrospectively reconstructed 0.9 mm thick sections with 0.45 mm overlapping intervals. ??The scans were obtained from the lung apices through the bases during the intravenous administration of 90-100 cc of 370 mg% nonionic contrast injected at a rate of 2 cc/second. Scans were reviewed on a dedicated PACS workstation for analysis. Findings: The chest wall shows no significant abnormality. The mediastinum shows calcified hilar and mediastinal lymph nodes. No enlarged lymph nodes are seen. The heart and pericardium are unremarkable. The lungs and airways show a calcified granuloma in the right upper lobe. A small 2 mm nodule is present in the right base likely a noncalcified granuloma. The airways are mildly diffusely thickened and ill-defined centrilobular groundglass opacities are present in the upper lobes,, likely reflective of respiratory bronchiolitis. No suspicious nodules or consolidations are seen. There is no pleural abnormality. The skeleton shows age-appropriate degenerative changes. No lytic or blastic lesions are seen. Impression: 1. No evidence of metastatic disease in the chest. 2. Findings consistent with probably smoking related chronic bronchitis, emphysema and respiratory bronchiolitis in the upper lobes. 3. Old granulomatous disease 4. Please see separate dictated report for findings in the abdomen and pelvis. I have personally reviewed the images and the above interpretation and agree with the findings. Procedure Note Murali Abdi MD / Murali Abdi MD / Murali Abdi MD - 08/19/2009 CT CHEST W/CONTRAST Aug 19, 2009 03:19:00 PM Signs and Symptoms/Comments: Pt with new diagnosis of pelvic mass and elevated CA-125 Comparison: None Technique: A single breath-hold helical CT acquisition was performed through the chest on a multidetector-row scanner with a reconstructed slice thickness of 3 mm and retrospectively reconstructed 0.9 mm thick sections with 0.45 mm overlapping intervals. The scans were obtained from the lung apices through the bases during the intravenous administration of 90-100 cc of 370 mg% nonionic contrast injected at a rate of 2 cc/second. Scans were reviewed on a dedicated PACS workstation for analysis. Findings: The chest wall shows no significant abnormality. The mediastinum shows calcified hilar and mediastinal lymph nodes. No enlarged lymph nodes are seen. The heart and pericardium are unremarkable. The lungs and airways show a calcified granuloma in the right upper lobe. A small 2 mm nodule is present in the right base likely a noncalcified granuloma. The airways are mildly diffusely thickened and ill-defined centrilobular groundglass opacities are present in the upper lobes,, likely reflective of respiratory bronchiolitis. No suspicious nodules or consolidations are seen. There is no pleural abnormality. The skeleton shows age-appropriate degenerative changes. No lytic or blastic lesions are seen. Impression: 1. No evidence of metastatic disease in the chest. 2. Findings consistent with probably smoking related chronic bronchitis, emphysema and respiratory bronchiolitis in the upper lobes. 3. Old granulomatous disease 4. Please see separate dictated report for findings in the abdomen and pelvis. I have personally reviewed the images and the above interpretation and agree with the findings. Osmar Benavides MD IMG CT ORDERABLES from Last 3 Months or Most Recently Relevant to Health Maintenance Advance Directives For more information, please contact: [phone] * Full Code (Latest Code Status on File) Date Activated Date Inactivated Comments 08/25/2009 22:25 08/31/2009 14:29 Care Teams Glue Mixer Relationship Specialty Start Date End Date None, Provider PCP - General 12/02/18
--- OUTSIDE RECORDS SUMMARY | 2024-01-20 19:53 | XMS_ITS | Encounter Summary ---
Author Organization [facility] Address [address] [place] [address] Care Team Providers Care Premises Technician Name Role Phone Angel Chilel MD Primary Care Provider Unav ailable Reason for Visit * Reason Onset Date Comments Referral Request 10/11/2017 Appointment Related 10/14/2017 Encounter Details Date Type Department Care Team (Late st Contact Info) Description 10/11/2017 Telephone [facility] Surgical Oncology - [facility] [address] [place], [place] [address] Delores Puga, [place] [address] [place], [place] [id number] Referral Request; Appointment Related Social History Tobacco Use Types [...] encounter Miscellaneous Notes * Telephone Encounter - Leticia Perez - 10/14/2017 1306 EDT Spoke with patient regarding new patient referral to the breast care center. Referring: Delores Puga Reason: BRCA 1+, history of ovarian cancer Scheduled to see PRUDENCIO Schultz on 11/26 at 10am. Patient informed to arrive 20 minutes prior to scheduled new patient visit. A letter with this appointment information was sent to the patient via mail along with the new patient paperwork. Referring aware. * Telephone Encounter - Leticia Perez - 10/11/2017 1342 EDT Voicemail left with patient to return music coordinator???s phone call at their earliest convenience. Direct phone number left with patient to discuss new patient referral and her need for an updated mammogram. (last was 04/2015). Will await call back. Leticia Perez [phone] [facility] Booking Supervisor documented in this encounter Plan of Treatment Not on file documented as of this encounter Visit Diagnoses Not on filedocumented in this encounter Care Teams Premises Technician Relationship Specialty Start Date End Date Angel Chilel MD PCP - General 03/12/14 12/01/18 documented as of this encounter
--- OUTSIDE RECORDS SUMMARY | 2024-01-20 19:53 | XMS_ITS | Encounter Summary ---
Author Organization [facility] Address [address] [place] [address] Care Team Providers Care Improvement Coordinator Name Role Phone None, Provider Primary Care Provider Unavailabl e Encounter Details Date Type Department Care Team (Late st Contact Info) Description 03/29/2019 Lab Requisition [facility] Pathology & Laboratory Medicine - [address] [address] Unknown, Provider, Social History Tobacco Use Types [...] Procedure Name Priority Date/Time Associated Diagnosis Comments LYME AB Routine 03/27/2019 14:50 EST documented in this encounter Results * LYME AB (03/27/2019 14:50 EST) Lyme Ab Negative Negative 03/30/2019 11:46 EST [facility] Blood VENOUS BLOOD / Unknown Non-Lab Collect / Unknown 03/27/2019 14:50 EST 03/29/2019 16:15 EST Provider Unknown IMMUNOLOGY AND SEROL OGY ORDERABLES [facility] [address] [place] [address] documented in this encounter Visit Diagnoses Not on filedocumented in this encounter Care Teams Improvement Coordinator Relationship Specialty Start Date End Date None, Provider PCP - General 12/02/18 documented as of this encounter
--- OUTSIDE RECORDS SUMMARY | 2024-01-20 19:53 | XMS_ITS | Encounter Summary ---
Author Organization [facility] Address [address] [place] [address] Care Team Providers Care Shipping Clerk/Admin Name Role Phone None, Provider Primary Care Provider Unavailabl e Reason for Visit * Reason Onset Date Comments Appointment Related 12/03/2019 Encounter Details Date Type Department Care Team (Late st Contact Info) Description 12/03/2019 Telephone [facility] Surgical Oncology - [address] [address] Michelle Cuenca, PA-C [address] [place] [address], [address] [place] [phone] Appointment Related Social History Tobacco Use Types [...] encounter Miscellaneous Notes * Telephone Encounter - Carol Mg - 12/03/2019 1303 EDT Called and lvm for patient; calling to reschedule the appt missed today with Michelle Cuenca. If you'd like to reschedule, please call [phone], Option 2. Noticed that you are due for MRI and Mammo, left number to call and reschedule the imaging. Carol Mg 12/03/2019 13:04 * Telephone Encounter - Carol Mg - 12/03/2019 1303 EDT ----- Message from Michelle Cuenca PA-C sent at 12/03/2019 12:32 EDT ----- Would one of you mind calling this patient to reschedule? I see that she had missed her appointment. I also see that she has not had her breast MRI. Thank you. documented in this encounter Plan of Treatment Not on file documented as of this encounter Visit Diagnoses Not on filedocumented in this encounter Care Teams Shipping Clerk/Admin Relationship Specialty Start Date End Date None, Provider PCP - General 12/02/18 documented as of this encounter
--- OUTSIDE RECORDS SUMMARY | 2024-01-20 19:53 | XMS_ITS | Encounter Summary ---
Author Organization [facility] Address [address] [place] [address] Care Team Providers Care Wire Insulator Name Role Phone None, Provider Primary Care Provider Unavailabl e Encounter Details Date Type Department Care Team (Late st Contact Info) Description 12/16/2018 Results Only Imaging [facility] [place] [facility] Surgical Oncology - [address] [address] Michelle Cuenca, PA-C [address] [facility], [address] [place] [phone] Social History Tobacco Use Types Packs/Day Years [...] on filedocumented in this encounter Care Teams Wire Insulator Relationship Specialty Start Date End Date None, Provider PCP - General 12/02/18 documented as of this encounter
--- OUTSIDE RECORDS SUMMARY | 2024-01-20 19:53 | XMS_ITS | Encounter Summary ---
Author Organization [facility] Address [address] [place] [address] Care Team Providers Care Chronic Specialist Name Role Phone Angel Chilel MD Primary Care Provider Unav ailable Encounter Details Date Type Department Care Team (Late st Contact Info) Description 10/11/2017 Results Only Imaging [facility]IOLOG[facility] [address] [place] [address] Lupis Kelly MD [address] [facility] [address] [place] [phone] Social History Tobacco Use Types Packs/Day Years [...] as of this encounter Plan of Treatment Pending Results Name Type Priority Associated Diagnoses Date /Time OUTSIDE IMAGES - MAMMO BREAST Imaging 05/05/2015 7:24 EST documented as of this encounter Visit Diagnoses Not on filedocumented in this encounter Care Teams Chronic Specialist Relationship Specialty Start Date End Date Angel Chilel MD PCP - General 03/12/14 12/01/18 documented as of this encounter
--- OUTSIDE RECORDS SUMMARY | 2024-01-20 19:53 | XMS_ITS | Encounter Summary ---
Author Organization [facility] Address [address] [place] [address] Care Team Providers Care Stewardesses Teacher Name Role Phone Angel Chilel MD Primary Care Provider Unav ailable Reason for Visit * Reason Comments New Patient Visit * Consult (Routine) - Closed Specialty Diagnoses / Procedures Referred By Renita pratt Referred To Contact Breast Clinic / Breast Center Diagnoses BRCA1 positive Delores Puga, MS [address] [place] [address] [place] [address] Bcc/Vcc [facility] [address] [place] [address] Referral ID Status Reason Start Date Expiration Date V isits Requested Visits Authorized [id number] Closed Specialty Services Required 10/10/2017 1 1 Encounter Details Date Type Department Care Team (Late st Contact Info) Description 11/26/2017 10:00 EDT Office Visit [facility] Surgical Oncology - [facility] [address] [place] [address] Michelle Cuenca PA-C [address] [facility], [address] [place] [address] BRCA1 positive (Primary Dx) Discharge Disposition: Auto Discharge Social History Tobacco [...] on file documented as of this encounter Last Filed Vital Signs Vital Sign Reading Time Taken Comments Blood Pressure 161/80 11/26/2017 1004 EDT Pulse 87 11/26/2017 1004 EDT Temperature 36.4 ??C (97.5 ??F) 11/26/2017 1004 EDT Respiratory Rate - - Oxygen Saturation - - Inhaled Oxygen Concentration - - Weight 79.2 kg (174 lb 11.2 oz) 11/26/2017 1004 EDT Height 154.2 cm (5' 0.71) 11/26/2017 1004 EDT Body Mass Index 33.33 11/26/2017 1004 EDT documented in this encounter Discharge Diagnoses Diagnosis Z15.01 Genetic susceptibility to malignant neoplasm of breast-Z15.01[ICD-10-CM] Z15.09 Genetic susceptibility to other malignant neoplasm-Z15.09[ICD-10-CM] documented in this encounter Discharge Disposition Disposition Code Departure Means Destination Auto Discharge documented in this encounter Progress Notes * Michelle Cuenca PA - 11/26/2017 1000 EDT Subjective: Patient ID: Marisol Lawson is an 57 y.o. y.o. female Chief Complaint: Chief Complaint Patient presents with ??? New Patient Visit HPI: Division of Surgical Oncology- [facility] CONSULTATION- 11/26/2017 PROBLEM: 1. 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 Personal history of ovarian cancer (at age 49). Patient underwent surgery followed by chemotherapy SUBJECTIVE: Marisol Lawson is a 57 year old female who presents to our high-risk clinic as a referral from Delores Puga. Patient has a personal history of ovarian cancer that was diagnosed at age 49. She underwent surgery followed by chemotherapy. Her mother was also diagnosed at ovarian cancer. She was diagnosed at age 76 and soon after diagnosed. Patient's maternal grandmother was also diagnosed with ovarian cancer at age 55. Patient did meet with [facility] as a result of her personal and family history and had genetic testing. Her genetic testing revealed she harbored a likely pathogenic variant in BRCA1. Patient is here today to discuss screening options. She does not have any concerns with respect to her breasts. She does practice breast awareness. She denies any pain, masses, skin changes or nipple discharge. AIRPLANE CLEANER HISTORY: Menarche at age 9. . Age at first childbirth 16. Patient is s/p hysterectomy with removal of both ovaries. She denies any history of OCPs or fertility medications. SOCIAL HISTORY: Patient is . She lives in [place], [place]. 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 She is a smoker. She smokes one pack/day. She has smoked for 40 years. She does not drink alcohol. FAMILY HISTORY: Patient is currently 57. She was diagnosed with ovarian cancer at age 48. She has one daughter who is 39 and two sons, ages 41, 37, who are all healthy. She has two sisters. Neither of these individuals have any malignancies. One of these sisters had genetic testing which patient reports was negative. Patient's father is currently 79 and without any malignancies. Patient's paternal grandfather and grandmother both in their 50s from cardiac issues (55 and 53 respectively). Patient's father has 3 brothers, none are with any malignancies. This side of the family is [place]. Patient's mother was diagnosed with ovarian cancer at age 78. She at 78 from her disease. Patient's maternal grandmother was diagnosed with ovarian cancer at 60 and passed at age 60 from her disease. Patient does not have information on her maternal grandfather. Patient's mother had 2 sisters and 3 brothers, none with cancer. This side of the family is [place]. Patient Active Problem List Diagnosis ??? Basosquamous carcinoma ??? Ovarian cancer (HCC-CMS) ??? Microhematuria Past Medical History: Diagnosis Date ??? Asthma ??? Basal cell carcinoma 12/2008 Left Cheek ??? Bronchospasm ??? Depression ??? Diabetes mellitus (HCC-CMS) diet control ??? GERD (gastroesophageal reflux disease) ??? Hyperlipidemia ??? IBS (irritable bowel syndrome) ??? Microhematuria 12/26/2010 ??? Ovarian cancer (HCC-CMS) 09/27/2010 ??? Ovarian carcinoma (HCC-CMS) stage 3 ??? Urinary tract infection Past Surgical History: Procedure Laterality Date ??? CHOLECYSTECTOMY 1980 ??? HYSTERECTOMY ??? LAPAROSCOPY 2001 removal of ovarian cyst (right?) ??? MOHS SURGERY 05/15/10 Left Cheek, BCC ??? [place] BSO, OMENTECTOMY W/KEE 08/25/2009 ??? [place] TOTAL ABDOM HYSTERECTOMY 08/25/2009 ??? SKIN BIOPSY Family History Problem Relation Age of Onset ??? Cancer Maternal Grandmother Ovarian Cancer Social History Substance Use Topics ??? Smoking status: Current Every Day Smoker Packs/day: 1.00 Years: 35.00 ??? Smokeless tobacco: Never Used ??? Alcohol use Yes Current Outpatient Prescriptions: albuterol (PROVENTIL, VENTOLIN) 90 mcg/Actuation inhaler ibuprofen (MOTRIN) 400 mg tablet No current facility-administered medications for this visit. Allergies Allergen Reactions ??? Other - See Comments Hives and Angioedema CT CONTRAST- IV ??? Adhesive Tape-Silicones Rash ??? Codeine Nausea And Vomiting ??? Dilaudid [Hydromorphone (Pf)] Nausea And Vomiting Nausea & Vomiting with FRONT LINE SUPERVISOR dilaudid 08/27/09 ??? Oxycodone Shortness Of Breath, Nausea And Vomiting and Other (See Comments) Per pt & confirmed by daughter: previous SOB/N&V, diaphoresis with OXYCODONE. BP (!) 161/80 Pulse 87 Temp 36.4 ??C (97.5 ??F) (Tympanic) Ht 154.2 cm (60.71) Wt 79.2 kg (174 lb 11.2 oz) BMI 33.33 kg/m2 Review of Systems: Constitutional: Positive for fatigue (chronic, since chemo), positive for weight gain since chemoNegative for chills, fever and weight loss Eyes: Positive for wears glasses Negative for pain Respiratory: Positive for asthma (under control) Negative for hemoptysis, shortness of breath and wheezing Cardiovascular: Negative for chest pain, claudication and leg swelling Gastrointestinal: Negative for abdominal pain Musculoskeletal: Positive for knee/ankle pain (chronic) Skin: Negative for rash Neurological: Positive for numbness/tingling (since chemo) Negative for speech change, seizures andloss of consciousness Positive for headaches Endo/Heme/Allergies: Does not bruise/bleed easily Psychiatric/Behavioral: Negative for hallucinations, substance abuse and suicidal ideas - See HPI Physical Exam: Constitutional: She is oriented to person, place and time. Vital signs are normal. She appears well-developed and well-nourished. No distress noted. Head: Normocephalic and atraumatic Eyes: Right eye exhibits no discharge. Left eye exhibits no discharge. No scleral icterus. Cardiovascular: Normal rate and regular rhythm. Pulmonary/Chest: Effort normal and breath sounds normal. No respiratory distress. She has no wheezes, rhonchi or rales. Breast Exam: Breasts and axilla are examined in the seated and the supine position. There are no discrete or obvious palpable abnormalities in either breast. There is no skin puckering, dimpling, nipple inversion/change, or nipple discharge. There is no obvious discoloration of the breast. There are no axillary masses Abdominal: Soft, no tenderness Lymphadenopathy: She has no cervical, supraclavicular or axillary adenopathy. Neurological: She is alert and oriented x3 Skin: Skin is warm and dry. No rash is present. No erythema or pallor is present. Psychiatric: Patient has normal mood and affect. Her behavior is normal. Vital signs have been reviewed. Assessment: Marisol presents to our office to establish care in our high-risk due to a personal history of ovarian cancer and well as harboring a likely pathogenic variant in BRCA1. Patient and I discussed risks associated with mutations in BRCA1. We did discuss an elevated risk of breast cancer. With that in mind, I have suggested aggressive screening. We reviewed options for high-risk screening which include breast MRIs, annual mammography and twice annual clinical breast exam. Patient states she had an anaphylactic reaction to IV contrast in the past and she is not interested in proceeding with breast MRI. It should be noted that according to her chart it looks like she had a reaction with IV contrast with a CT scan. This is different IV contrast and patient would likely not have the same reaction.I will call the Radiology Department to discuss this further with them. We did discuss obtaining annual mammography which she is now due. She is not overly interested in this either. We did discuss prophylactic total mastectomies and at this time she is not interested in this option either. [place] meeting with [facility] and Dr. Munoz later today and I will discuss this patient with them. Plan: 1. Schedule screening mammogram, patient due now 2. Strongly suggest breast MRI- Will discuss with Radiology Department 3. Return to clinic in 12 months for CBE, 6 months with PCP or AIRPLANE CLEANER for an additional CBE 4. Encouraged patient to perform self-breast exams/practice breast awareness and report any changesor new concerns to our office. Patient was seen for 45 minutes and 30 minutes were spent in face to face counseling regarding personal history of breast cancer and risk of recurrence. Screening plan for the way forward. I was directly supervised by our clinic physician, Dr. Perkins, who was in the suite and immediately available for the entire time for the above documented service was provided. Encounter Diagnoses Name Primary? BRCA1 positive Yes PRUDENCIO Schultz No orders of the defined types were placed in this encounter. documented in this encounter Plan of Treatment Not on file documented as of this encounter Visit Diagnoses Diagnosis BRCA1 positive- Primary Genetic susceptibility to malignant neoplasm of breast documented in this encounter Care Teams Stewardesses Teacher Relationship Specialty Start Date End Date Angel Chilel MD PCP - General 03/12/14 12/01/18 documented as of this encounter
--- OUTSIDE RECORDS SUMMARY | 2024-01-20 19:53 | XMS_ITS | Encounter Summary ---
Author Organization [facility] Address [address] [place] [address] Care Team Providers Care Water Resource Consultant Name Role Phone Angel Chilel MD Primary Care Provider Unav ailable Encounter Details Date Type Department Care Team (Late st Contact Info) Description 11/26/2017 Phlebotomy Only [facility] [address] [place] [address] Investigative Reporter, Outpatient History of benign ovarian tumor (Primary Dx) Social History Tobacco Use Types Packs/Day Years [...] Date/Time Associated Diagnosis Comments CA 125 Routine 11/26/2017 14:43 EDT History of benign ovarian tumor documented in this encounter Results * CA 125 (11/26/2017 14:43 EDT) CA 125 (New Method) 12 0 - 30 U/mL 11/27/2017 11:18 EDT [facility] Comment: Serum CA125 concentrations should not be interpreted as absolute evidence for the presence or absence of malignant disease. Assayed utilizing Siemens chemiluminescent technology. Values obtained by using different assay methods cannot be used interchangeably. Blood specimen (specimen) BLOOD SPECIMEN / Unknown 11/26/2017 14:43 EDT 11/26/2017 15:14 EDT Elidia Christianson PA-C CHEMISTRY & BL OOD GAS ORDERABLES [facility] [address] [place] [address] documented in this encounter Visit Diagnoses Diagnosis History of benign ovarian tumor- Primary Personal history of other genital system and obstetric disorders documented in this encounter Care Teams Water Resource Consultant Relationship Specialty Start Date End Date Angel Chilel MD PCP - General 03/12/14 12/01/18 documented as of this encounter
--- OUTSIDE RECORDS SUMMARY | 2024-01-20 19:53 | XMS_ITS | Encounter Summary ---
Author Organization [facility] Address [address] [place] [address] Care Team Providers Care Disbursing Agent Name Role Phone None, Provider Primary Care Provider Unavailabl e Encounter Details Date Type Department Care Team (Late st Contact Info) Description 06/30/2020 Results Only [facility] [phone] Susan Casarez MD [address] [place] [phone] Social History Tobacco Use Types Packs/Day Years [...] on file Sexual Orientation Not on file COVID-19 Exposure Response Date Recorded In the last month, have you been in contact with someone who was confirmed or suspected to have Coronavirus / COVID-19? No / Unsure 05/31/2020 11:13 EST documented as of this encounter Functional Status Functional Status Response Date of [...] concentrating, remembering, or making decisions? No 05/31/2020 documented as of this encounter Plan of Treatment Not on file documented as of this encounter Procedures Procedure Name Priority Date/Time Associated Diagnosis Comments POCT GLUCOSE, INTERFACED Routine 06/30/2020 10:02 EST documented in this encounter Results * (ABNORMAL) POCT GLUCOSE, INTERFACED (06/30/2020 10:02 EST) Glucose, POC 115(H) 70 - 100 mg/dL 06/30/2020 10:04 EST [facility] 06/30/2020 10:0 2 EST 06/30/2020 10:04 EST Susan Casarez MD POINT OF CARE TEST ORDERABLES Performing Organization Address City/State/[facility] Co de Phone Number [facility] [address] [place] [phone] documented in this encounter Visit Diagnoses Not on filedocumented in this encounter Care Teams Disbursing Agent Relationship Specialty Start Date End Date None, Provider PCP - General 12/02/18 documented as of this encounter
--- OUTSIDE RECORDS SUMMARY | 2024-01-20 19:53 | XMS_ITS | Encounter Summary ---
Author Organization [facility] Address [address] [place] [address] Care Team Providers Care Deli/Bakery Associate Name Role Phone Angel Chilel MD Primary Care Provider Unav ailable Encounter Details Date Type Department Care Team (Late st Contact Info) Description 09/08/2018 Orders Only [facility] O[facility] - [address] [phone] Elidia Christianson PA-C [address] [place] [address], [address] [place] [address] History of ovarian cancer (Primary Dx) Social History Tobacco Use Types [...] on file documented as of this encounter Progress Notes * Elidia Christianson PA - 09/08/2018 0959 EDT Found letter from [facility], stating that standing order for Ca 125 was going to . Order placed for CA 125, external referral at [facility]. Please fax order to [facility]. documented in this encounter Plan of Treatment Not on file documented as of this encounter Visit Diagnoses Diagnosis History of ovarian cancer- Primary Personal history of malignant neoplasm of ovary documented in this encounter Care Teams Deli/Bakery Associate Relationship Specialty Start Date End Date Angel Chilel MD PCP - General 03/12/14 12/01/18 documented as of this encounter
--- OUTSIDE RECORDS SUMMARY | 2024-01-20 19:53 | XMS_ITS | Clinical Summary ---
Author Organization [facility] Address [address] [place] [address] Care Team Providers Care Balance Bridge Assembler Name Role Phone None, Provider Primary Care Provider Unavailabl e Allergies Active Allergy Reactions Criticality Noted Date Comments Adhesive Tape-Silicones Rash Medium 10/14/2009 Codeine Nausea And Vomiting Medium 08/15/2009 Hydromorphone (Pf) Nausea And Vomiting 08/28/19 10 Nausea & Vomiting with TRAFFIC ROUTING ENGINEER dilaudid 08/27/09 Morphine Other (See Comments) 05/31/2020 [...] Date Diagnosed Date Microhematuria 12/26/2010 Ovarian cancer ([facility]) 09/27/2010 Basosquamous carcinoma 03/29/2009 Surgical History Surgery Date Site/Laterality Comments CHOLECYSTECTOMY 05/06/1980 - 05/05/1981 LAPAROSCOPY 05/06/2001 - 05/05/2002 removal of ovarian cyst (right?) [place] TOTAL ABDOMINAL HYSTERECT W/WO RMVL TUBE OVARY 08/25/2009 [place] BSO W/TOT OMENTECTOMY & HYSTERECTOMY MALIGNANC 08/25/2009 SKIN BIOPSY MOHS SURGERY 05/15/10 Left Cheek, BCC HYSTERECTOMY TONSILLECTOMY APPENDECTOMY Medical History Medical History Date Comments Diabetes mellitus ([facility]) diet control Depression Hyperlipidemia Asthma GERD (gastroesophageal reflux disease) Bronchospasm Urinary tract infection IBS (irritable bowel syndrome) Ovarian carcinoma ([facility]) stag e 3 Basal cell carcinoma 12/2008 Left Cheek Ovarian cancer ([facility]) 09/27/2010 Microhematuria 12/26/2010 Family History Medical History Relation Comments Heart Disease Father Cancer Maternal Grandmother Ovarian Can cer Cancer Mother Diabetes Mother Heart Disease Mother Diabetes Sister 1 Diabetes Sister 2 Relation Status Comments Father Maternal Grandmother Mother ovarian cancer Sister 1 Sister 2 Social History Tobacco Use Types Packs/Day Years [...] on file Sexual Orientation Not on file Obstetrics History Para Term AB IAB SAB Ectopic Multiple Livin g Live Births 6 4 2 2 2 2 3 4 Date Outcome GA Total Labor Labor/2nd/3rd Weight Sex Type Anes PTL Jennifer A1 A5 Name Clin Vag-S pont Living Term Vag-S pont Living Term Vag-S pont Living Vag-S pont SAB SAB Last Filed Vital Signs Vital Sign Reading [...] Body Mass Index 35.7 05/31/2020 1114 EST Plan of Treatment Health Maintenance Due Date Last Done Comments Hepatitis C Screen 1960 RSV Immunization ( o r 60+ Years) (1 - 1-dose 60+ series) 2018 COVID-19 Vaccine (2022-24 season) 2023 Fall Risk Screening 10/08/2023 Lung Cancer Screening Discontinued 08/19/2009 Procedures Procedure Name Priority Date/Time Associated Diagnosis [...] Advance Directives For more information, please contact: [phone] * Full Code (Latest Code Status on File) Date Activated Date Inactivated Comments 08/25/2009 22:25 08/31/2009 14:29 Care Teams Balance Bridge Assembler Relationship Specialty Start Date End Date None, Provider PCP - General 12/02/18
--- OUTSIDE RECORDS SUMMARY | 2024-01-20 19:53 | XMS_ITS | Encounter Summary ---
Author Organization [facility] Address [address] [place] [address] Care Team Providers Care Gore Seamer Name Role Phone None, Provider Primary Care Provider Unavailabl e Reason for Visit * Reason Onset Date Comments Appointment Related 12/16/2018 Encounter Details Date Type Department Care Team (Late st Contact Info) Description 12/16/2018 Telephone [facility] Surgical Oncology - [address] [address] Michelle Cuenca, PAKimberleyC [address] [place] [address], [address] [place] [phone] Appointment Related Social History Tobacco Use Types [...] encounter Miscellaneous Notes * Telephone Encounter - Dequan Marine - 12/16/2018 1119 EDT Left a second message for Pt regarding her mammo scheduled for Dec 16 @ 3:30. Pt called back and side she couldn't make this appt. And that she is not fond of Mammograms and would like [facility]. I rescheduled her appt for 03/26/19 @ 5:15 Spoke with Pt and gave her the new appt. She is aware to check in at 5pm. Marine Baires 12/16/2018 11:50 documented in this encounter Plan of Treatment Not on file documented as of this encounter Visit Diagnoses Not on filedocumented in this encounter Care Teams Gore Seamer Relationship Specialty Start Date End Date None, Provider PCP - General 12/02/18 documented as of this encounter
--- OUTSIDE RECORDS SUMMARY | 2024-01-20 19:53 | XMS_ITS | Encounter Summary ---
Author Organization [facility] Address [address] [place] [address] Care Team Providers Care Review Assistant Name Role Phone None, Provider Primary Care Provider Unavailabl e Reason for Visit * Reason Onset Date Comments Labs Only 06/01/2019 Encounter Details Date Type Department Care Team (Late st Contact Info) Description 06/01/2019 Telephone [facility] OBGYN Services - [address] [address] Elidia Christianson PA-C [address] [facility], [address] [place] [phone] Labs Only Social History Tobacco Use Types Packs/Day Years [...] encounter Miscellaneous Notes * Telephone Encounter - Laura Hyde RN - 06/01/2019 0912 EST Called [facility] Faxed order requisition * Telephone Encounter - Soria Allison - 06/01/2019 0903 EST Patient needs to have a CA125 lab sent to [facility]. She is going there on 06/12 and would like to get the lab done then. Allison Soria 06/01/2019 9:03 documented in this encounter Plan of Treatment Not on file documented as of this encounter Visit Diagnoses Not on filedocumented in this encounter Care Teams Review Assistant Relationship Specialty Start Date End Date None, Provider PCP - General 12/02/18 documented as of this encounter
--- OUTSIDE RECORDS SUMMARY | 2024-01-20 19:53 | XMS_ITS | Encounter Summary ---
Author Organization [facility] Address [address] [place] [address] Care Team Providers Care Microbiology Soil Scientist Name Role Phone None, Provider Primary Care Provider Unavailabl e Reason for Visit * Reason Comments Follow-up history of ovarian c ancer Encounter Details Date Type Department Care Team (Late st Contact Info) Description 01/22/2019 14:00 EDT Office Visit [facility] OBGYN Services - [address] [id number] Elidia Christianson PA-C [address] [place] [address], [address] [place] [address] History of ovarian cancer (Primary [...] Sign Reading Time Taken Comments Blood Pressure 140/84 01/22/2019 1401 EDT Pulse - - Temperature - - Respiratory Rate - - Oxygen Saturation - - Inhaled Oxygen Concentration - - Weight 86.4 kg (190 lb 6.4 oz) 01/22/2019 1401 E DT Height 154.2 cm (5' 0.71) 01/22/2019 1401 EDT Body Mass Index 36.32 01/22/2019 1401 EDT documented in this encounter Progress Notes * Elidia Christianson PA - 01/22/2019 1400 EDT Subjective: Patient ID: Marisol Lawson is an 58 y.o. female. Chief Complaint Patient presents with ??? Follow-up history of ovarian cancer HPI Marisol Lawson is a 58 y.o. 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 Following that, she was treated with 6 cycles of taxol/carboplatin chemotherapy which was completed in January of 2010 with normalization of her CA-125. Following that, she was followed with monthly CA- 125 levels. In April of 2010, she did complain of increasing abdominal discomfort, and at that time her CA 125 continued to be normal. An MRI of he abdomen and pelvis was performed, which did demonstrate some free fluid and evidence of intraabdominal And peritoneal disease. A repeat CA-125 at that time was elevated in the range of 600. At that time, a plan was put in place for her to receive second line chemotherapy with Doxil, however, at the time that her treatment was to begin, her CA-125 had spontaneouslyregressed to 154, then weekly progressively returned to normal, therefore she has received no further therapy. She has been followed regularly since that time and her CA 125 has remained in the rangeof 9-10. She was last seen by me in November, Currently having flank pain, history of kidney stones, seeing her urologist tomorrow. She thinks that she may have recently passed some kidney stones. Her urologist is Dr. Ketty Eddy. ?? Today she continues to feel well, specifically denies any fevers, chills, chest pain, shortness of breath, nausea, vomiting, abdominal pain, pressure or bloating, any changes in her bowel or bladder habits or any change in her urinary habits. She denies any vaginal bleeding. ?? Of note, when we last met, Marisol had not been undergoing routine mammography as she was discouraged that when she would normally have a mammogram it would lead to a finding and further workup with an ultrasound, but ultimately no concerning findings. Santy mother from breast cancer. Marisol therefore underwent BRCA testing and was found to carry a BRCA1 mutation. She met with the Familial Cancer Program and is going to start initiating high-risk breast cancer screening. Her daughter was tested, and also has a BrCa 1 mutation, and sees me for high risk ovarian cancer screening. Marisol has recently reestablished with Michelle Krishnamurthy, and is scheduled for her breast MRI in May, and a mammogram in March. Today she mentions a few concerns. She states that she has had ongoing weight gain since her hysterectomy. Per our records, in 2009 her weight was 63 kg, and is currently 86 kg., So this is consistent. She also notes that at times she will have increased swelling in her feet. When she has this, shewill have some numbness in her feet as well. She wonders if this is due to lymphedema. Patient Active Problem List Diagnosis ??? Basosquamous [...] ??? CHOLECYSTECTOMY 1980 ??? HYSTERECTOMY ??? LAPAROSCOPY 2002 removal of ovarian cyst (right?) ??? MOHS SURGERY 05/15/10 Left Cheek, BCC ??? SC BSO, OMENTECTOMY W/KEE 08/25/2009 ??? SC TOTAL ABDOM HYSTERECTOMY 08/25/2009 ??? SKIN BIOPSY Family History Problem Relation Age of Onset ??? Cancer Maternal Grandmother Ovarian Cancer Social Social History Tobacco Use ??? Smoking status: Current Every Day Smoker Packs/day: 1.00 Years: 35.00 Pack years: 35.00 ??? Smokeless tobacco: Never Used Substance Use Topics ??? Alcohol use: Yes ??? Drug use: No Current Outpatient Medications on File Prior to Visit Medication Sig Dispense Refill ??? albuterol (PROVENTIL, VENTOLIN) 90 mcg/Actuation inhaler Inhale 1 Puff as directed every 4 hours as needed for Wheezing. 2 Inhaler 0 ??? ibuprofen (MOTRIN) 400 mg tablet Take 1 Tab by mouth every 4 hours. 1 Tab 0 No current facility-administered medications on file prior to visit. Allergies Allergen Reactions ??? Other - See Comments Hives and Angioedema CT CONTRAST- IV ??? Adhesive Tape-Silicones Rash ??? Codeine Nausea And Vomiting ??? Dilaudid [Hydromorphone (Pf)] Nausea And Vomiting Nausea & Vomiting with SINGLE SPINDLE SCREW MACHINE OPERATOR dilaudid 08/27/09 ??? Oxycodone Shortness Of Breath, Nausea And Vomiting and Other (See Comments) Per pt & confirmed by daughter: previous SOB/N&V, diaphoresis with OXYCODONE. Review of Systems Constitutional: Negative. HENT: Negative. Eyes: Negative. Respiratory: Negative. Cardiovascular: Negative. Gastrointestinal: Negative. Endocrine: Negative. Genitourinary: Negative. Musculoskeletal: Negative. Skin: Negative. Allergic/Immunologic: Negative. Neurological: Negative. Hematological: Negative. Psychiatric/Behavioral: Negative. - See HPI Objective: BP 140/84 Ht 154.2 cm (60.71) Wt 86.4 kg (190 lb 6.4 oz) BMI 36.32 kg/m?? Physical Exam Constitutional: She is oriented to person, place, and time. She appears well- developed and well-nourished. No distress. HENT: Head: Normocephalic and atraumatic. Eyes: Pupils are equal, round, and reactive to light. Neck: Normal range of motion. No thyromegaly present. Cardiovascular: Normal rate, regular rhythm and normal heart sounds. Exam reveals no gallop and no friction rub. No murmur heard. Pulmonary/Chest: Effort normal and breath sounds normal. No respiratory distress. She has no wheezes. She has no rales. Abdominal: Soft. Bowel sounds are normal. She exhibits no distension. There is no tenderness. Thereis no rebound. Genitourinary: Vagina normal. There is no rash, tenderness, lesion or injury on the right labia. There is no rash, tenderness, lesion or injury on the left labia. No vaginal erythema, tenderness or bleeding. No signs of injury around the vagina. No vaginal discharge found. Speculum exam reveals that the vaginal cuff is well healed, without any evidence of masses or or exophytic lesions. Bimanual exam is without any masses or nodularity. Cervix, uterus and adnexa are surgically absent. Musculoskeletal: Normal range of motion. She exhibits no edema (She does not have significant edemanoted in her lower legs or feet today.). Lymphadenopathy: She has no cervical adenopathy. She has no axillary adenopathy. Neurological: She is alert and oriented to person, place, and time. Skin: Skin is warm and dry. No erythema. No pallor. Psychiatric: She has a normal mood and affect. Her behavior is normal. Judgment and thought contentnormal. Assessment: History of stage IIIC papillary serous ovarian cancer, now 9 years out. And LEGIH. Plan: Marisol was seen today for follow-up. Diagnoses and all orders for this visit: History of ovarian cancer - CA 125; Future Marisol did not have a Ca1 25 level drawn prior to her appointment, and as she is currently experiencing kidney stones she felt that she like to take care of this before having this drawn. She will see Dr. Eddy, and confirm that this is the cause of her flank pain, and will follow up to have a Ca 125 drawn once that is resolved. Discussed that if this remains within normal limits, would advise that she is without evidence of recurrent disease. If any elevation, or if any ongoing symptoms that are not attributed to kidney stones, then would consider imaging for further evaluation of the symptoms. In review of her operative report, she did not undergo pelvic lymph node dissection. The hysterectomy alone and treatment of cancer may be a stretch for lymphedema, she does not have significant swelling in her lower extremities or feet today. She is establishing with a new primary care provider. Iadvised discussing the symptom with them, as it may be due to general health status. If worsening symptoms, then would refer to the lymphedema clinic. In regards to her weight gain over the last 10 years, confirms being approximately 50 pounds. Discussed that I do not know that I can attribute this to her surgery or cancer treatment, but that I would look a general wellness and acknowledged that maintenance or loss of weight following a hysterectomy when her postmenopausal status can be challenging. We briefly touched on strategies such as portion control, eliminating unnecessary calories, and increasing activity level, but other than that encouraged her to follow-up with a senior asset manager for more detailed information about weight loss strategies. Follow-up plan at this time, is to follow-up on her Ca1 25 level when it is drawn, and then touch base after that to follow-up regarding her other symptoms. PRUDENCIO Gleason documented in this encounter Plan of Treatment Not on file documented as of this encounter Visit Diagnoses Diagnosis History of ovarian cancer- Primary Personal history of malignant neoplasm of ovary documented in this encounter Care Teams Microbiology Soil Scientist Relationship Specialty Start Date End Date None, Provider PCP - General 12/02/18 documented as of this encounter
--- OUTSIDE RECORDS SUMMARY | 2024-01-20 19:53 | XMS_ITS | Encounter Summary ---
Author Organization [facility] Address [address] [place] [address] Care Team Providers Care Transport Company Manager Name Role Phone Angel Chilel MD Primary Care Provider Unav ailable Reason for Visit * Reason Onset Date Comments Results 11/28/2017 Encounter Details Date Type Department Care Team (Late st Contact Info) Description 11/28/2017 Telephone [facility] OBGYN Services - Main [address] [id number] Rupal Torrez RN Results Social History Tobacco Use Types Packs/Day Years [...] encounter Miscellaneous Notes * Telephone Encounter - Rupal Torrez RN - 11/28/2017 1707 EDT LM on pt identified VM to advise of below message: CA-125 level normal/stable at 12. Advised to call UTILITY MANAGER triage with further questions. * Telephone Encounter - Rupal Torrez RN - 11/28/2017 3512 EDT ----- Message from PRUDENCIO Gleason sent at 11/28/2017 16:47 EDT ----- Please let pt know her ca 125 is normal/stable at 12. documented in this encounter Plan of Treatment Not on file documented as of this encounter Visit Diagnoses Not on filedocumented in this encounter Care Teams Transport Company Manager Relationship Specialty Start Date End Date Angel Chilel MD PCP - General 03/12/14 12/01/18 documented as of this encounter
--- OUTSIDE RECORDS SUMMARY | 2024-01-20 19:53 | XMS_ITS | Encounter Summary ---
Author Organization [facility] Address [address] [place] [address] Care Team Providers Care Dye Jig Operator Name Role Phone Angel Chilel MD Primary Care Provider Unav ailable Reason for Visit * Reason Onset Date Comments Appointment Related 10/10/2017 Encounter Details Date Type Department Care Team (Late st Contact Info) Description 10/10/2017 Telephone [facility] OBGYN Services - [address] [id number] Elidia Christianson PA-C [address] [facility], [address] [place] [address] Appointment Related Social History Tobacco Use Types [...] encounter Miscellaneous Notes * Telephone Encounter - Tran Webber - 10/10/2017 1614 EDT Correction to previous telephone encounter:Called patient and she was in the car, driving. She willcall back to schedule. Per Claudia, please schedule a YRL appt with jaun Brenner NP documented in this encounter Plan of Treatment Not on file documented as of this encounter Visit Diagnoses Not on filedocumented in this encounter Care Teams Dye Jig Operator Relationship Specialty Start Date End Date Angel Chilel MD PCP - General 03/12/14 12/01/18 documented as of this encounter
--- OUTSIDE RECORDS SUMMARY | 2024-01-20 19:53 | XMS_ITS | Encounter Summary ---
Author Organization [facility] Address [address] [place] [address] Care Team Providers Care Computer Network Support Specialist Name Role Phone Angel Chilel MD Primary Care Provider Unav ailable Reason for Visit * Reason Comments Follow-up ovarian cancer * Consult (Routine) - Closed Specialty Diagnoses / Procedures Referred By Renita pratt Referred To Contact Gynecologic Oncology Diagnoses BRCA1 positive Delores Puga, MS [address] [place] [address] [facility] Human Service Worker Oncology [address] [place] [address] Referral ID Status Reason Start Date Expiration Date V isits Requested Visits Authorized [id number] Closed Specialty Services Required 10/10/2017 1 1 Encounter Details Date Type Department Care Team (Late st Contact Info) Description 11/26/2017 11:00 EDT Office Visit [facility] OBGYN Services - [facility] [address] [place] [address] Elidia Christianson PA-C [address] [facility], [address] [place] [address] History of benign ovarian tumor (Primary Dx); Personal history of ovarian cancer Discharge Disposition: Auto [...] Sign Reading Time Taken Comments Blood Pressure 126/84 11/26/2017 1127 EDT Pulse - - Temperature - - Respiratory Rate - - Oxygen Saturation - - Inhaled Oxygen Concentration - - Weight 78.9 kg (174 lb) 11/26/2017 1127 EDT Height 154.2 cm (5' 0.71) 11/26/2017 1127 EDT Body Mass Index 33.19 11/26/2017 1127 EDT documented in this encounter Discharge Diagnoses Diagnosis Z86.018 Personal history of other benign neoplasm-Z86.018[ICD-10-CM] Z85.43 Personal history of malignant neoplasm of ovary-Z85.43[ICD-10-CM] documented in this encounter Discharge Disposition Disposition Code Departure Means Destination Auto Discharge documented in this encounter Progress Notes * Elidia Christianson PA - 11/26/2017 1100 EDT Subjective: Patient ID: Marisol Lawson is an 57 y.o. female. Chief Complaint Patient presents with ??? Follow-up ovarian cancer HPI Marisol Lawson is a 57 y.o. woman who was initially diagnosed with [...] She was last seen by me in Sep, 2014. ?? Today she continues to feel well, specifically denies any fevers, chills, chest pain, shortness of breath, nausea, vomiting, abdominal pain, pressure or bloating, any changes in her bowel or bladder habits or any change in her urinary habits. She denies any vaginal bleeding or pain or swelling in her lower extremities. ?? Of note, when we last met, Marisol had not been undergoing routine mammography as she was discouraged that when she would normally have a mammogram it would lead to a finding and further workup with an ultrasound, but ultimately no concerning findings. Since we last met, her mother was diagnosed with and from ovarian cancer. Marisol therefore underwent BRCA testing and was found to carry a BRCA1 mutation. She met with the Familial Cancer Program and is going to start initiating high-risk breast cancer screening. Her daughter is with us as well and also plans to undergo testing for BRCA mutation. Patient Active Problem List Diagnosis ??? Basosquamous [...] MOHS SURGERY 05/15/10 Left Cheek, BCC ??? [place] BSO, OMENTECTOMY W/KEE 08/25/2009 ??? [place] TOTAL ABDOM HYSTERECTOMY 08/25/2009 ??? SKIN BIOPSY Family History Problem Relation Age of Onset ??? Cancer Maternal Grandmother Ovarian Cancer Social Social History Substance Use Topics ??? Smoking status: Current Every Day Smoker Packs/day: 1.00 Years: 35.00 ??? Smokeless tobacco: Never Used ??? Alcohol use Yes Current Outpatient Prescriptions on File Prior to Visit Medication Sig [...] Nausea And Vomiting Nausea & Vomiting with POLITICAL ANTHROPOLOGIST dilaudid 08/27/09 ??? Oxycodone Shortness Of Breath, Nausea And Vomiting and Other (See Comments) Per pt & confirmed by daughter: previous SOB/N&V, diaphoresis with OXYCODONE. Review of Systems - See HPI Objective: BP 126/84 Ht 154.2 cm (60.71) Wt 78.9 kg (174 lb) BMI 33.19 kg/m2 Physical Exam Constitutional: She is oriented to [...] has no wheezes. She has no rales. Right breast exhibits no inverted nipple, no mass, no nipple discharge, no skinchange and no tenderness. Left breast exhibits no inverted nipple, no mass, no nipple discharge, noskin change and no tenderness. Breasts are symmetrical. There is no breast swelling. Breast bleeding is absent. Abdominal: Soft. Bowel sounds are normal. She exhibits no distension. There is no tenderness. Thereis no rebound. Genitourinary: Vagina normal. There is no rash, tenderness, lesion or injury on the right labia. There is no rash, tenderness, lesion or injury on the left labia. No vaginal discharge found. Speculum exam reveals that the vaginal cuff is well healed, without any evidence of masses or or exophytic lesions. Bimanual exam is without any masses or nodularity. Cervix, uterus and adnexa are surgically absent. Musculoskeletal: Normal range of motion. Lymphadenopathy: She has no cervical adenopathy. She has no axillary adenopathy. Neurological: She is alert and oriented to person, place, and time. Skin: Skin is warm and dry. No erythema. No pallor. Psychiatric: She has a normal mood and affect. Her behavior is normal. Judgment and thought contentnormal. Assessment: History of stage IIIC papillary serous ovarian cancer, LEIGH. Plan: There are no diagnoses linked to this encounter. Today I reviewed with Marisol that based on her lack of worrisome symptoms and normal CA-125, she continues to be clinically without evidence of recurrent ovarian cancer. We will see her back on an annual basis. She knows to return to see us sooner should she have any new or different abdominal pain, pressure or bloating, change in her bowel or bladder habits, or any other concerns. Marisol's daughter was present for her visit today and she plans to undergo BRCA testing. I discussed with Marisol and her daughter that should she be found to be positive for a BRCA1 mutation, then she will return to us so we can talk about high-risk ovarian cancer screening or the availability of prophylactic bilateral salpingo-oophorectomy for risk reduction if she would like to undergo that. PRUDENCIO Gleason documented in this encounter Plan of Treatment Not on file documented as of this encounter Results * CA 125 (11/26/2017 14:43 EDT) Pathologist [facility] CA 125 (New Method) 12 0 - 30 U/mL 11/27/2017 11:18 EDT [facility] Comment: Serum CA125 concentrations should not be interpreted as absolute evidence for the presence or absence of malignant disease. Assayed utilizing Siemens chemiluminescent technology. Values obtained by using different assay methods cannot be used interchangeably. Blood specimen (specimen) BLOOD SPECIMEN / Unknown 11/26/2017 14:43 EDT 11/26/2017 15:14 EDT Elidia Christianson PA-C CHEMISTRY & BL OOD GAS ORDERABLES [facility] [address] [place] [address] documented in this encounter Visit Diagnoses Diagnosis History of benign ovarian tumor- Primary Personal history of other genital system and obstetric disorders Personal history of ovarian cancer Personal history of malignant neoplasm of ovary documented in this encounter Care Teams Computer Network Support Specialist Relationship Specialty Start Date End Date Angel Chilel MD PCP - General 03/12/14 12/01/18 documented as of this encounter
--- OUTSIDE RECORDS SUMMARY | 2024-01-20 19:53 | XMS_ITS | Encounter Summary ---
Author Organization [facility] Address [address] [place] [address] Care Team Providers Care Bakery Assistant Name Role Phone None, Provider Primary Care Provider Unavailabl e Encounter Details Date Type Department Care Team (Latest Contact Info) Description 05/31/2020 Travel Social History Tobacco Use Types Packs/Day Years [...] on filedocumented in this encounter Care Teams Bakery Assistant Relationship Specialty Start Date End Date None, Provider PCP - General 12/02/18 documented as of this encounter
--- OUTSIDE RECORDS SUMMARY | 2024-01-20 19:53 | XMS_ITS | Encounter Summary ---
Author Organization [facility] Address [address] [place] [address] Care Team Providers Care Automatic Chief Name Role Phone Angel Chilel MD Primary Care Provider Unav ailable None, Provider Primary Care Provider Unavailabl e Reason for Visit * Reason Onset Date Comments Appointment Related 11/26/2018 11/27/18 resc hedule Encounter Details Date Type Department Care Team (Late st Contact Info) Description 11/26/2018 Telephone [facility] Surgical [facility] [address] [place], [place] [phone] Michelle Cuenca, PA-C [address] [facility], [address] [place] [address] Appointment Related (11/27/18 reschedule) Social History Tobacco Use Types Packs/Day Years [...] encounter Miscellaneous Notes * Telephone Encounter - Sivan Jaime - 11/26/2018 1537 EDT Spoke with patient she is rescheduled to 12/03/18 with Michelle Cuenca. * Telephone Encounter - Lorraine Galan - 11/26/2018 1516 EDT Patient needs to reschedule 11/27/18. Please call. She is asking if any openings 12/03/18 or 12/04/18. documented in this encounter Plan of Treatment Not on file documented as of this encounter Visit Diagnoses Not on filedocumented in this encounter Care Teams Automatic Chief Relationship Specialty Start Date End Date Angel Chilel MD PCP - General 03/12/14 12/01/18 None, Provider PCP - General 12/02/18 documented as of this encounter
--- OUTSIDE RECORDS SUMMARY | 2024-01-20 19:53 | XMS_ITS | Encounter Summary ---
Author Organization [facility] Address [address] [place] [address] Care Team Providers Care Vegetable Buncher Name Role Phone None, Provider Primary Care Provider Unavailabl e Encounter Details Date Type Department Care Team (Late st Contact Info) Description 07/02/2023 Lab Requisition [facility] Pathology & Laboratory Medicine - [facility] [address] [place] [address] Outr Resulting Lab, Provider Social History Tobacco Use Types Packs/Day Years [...] on file documented as of this encounter Functional Status [...] Date/Time Associated Diagnosis Comments CA 125 Routine 07/01/2023 15:45 EST documented in this encounter Results * CA 125 (07/01/2023 15:45 EST) CA 125 26 <30 U/mL 07/02/2023 18:33 EST [facility] Comment: NOTE: Serum CA 125 concentration should not be interpreted as absolute evidence for the presence or absence of malignant disease. Assayed on Siemens OfferWire[employer] REQQIaur XPT using chemiluminescent technology. ??Values obtained by using different assay methods cannot be used interchangeably. Blood VENOUS BLOOD / Unknown 07/01/2023 15:45 EST 07/02/2023 16:44 EST Provider Outr Resulting Lab CHEMISTRY & BLOOD GAS ORDERABLES [facility] [address] [place] [address] documented in this encounter Visit Diagnoses Not on filedocumented in this encounter Care Teams Vegetable Buncher Relationship Specialty Start Date End Date None, Provider PCP - General 12/02/18 documented as of this encounter
--- OUTSIDE RECORDS SUMMARY | 2024-01-20 19:53 | XMS_ITS | Encounter Summary ---
Author Organization [facility] Address [address] [place] [address] Care Team Providers Care Heel Sorter Name Role Phone None, Provider Primary Care Provider Unavailabl e Encounter Details Date Type Department Care Team (Late st Contact Info) Description 12/16/2018 6:22 EDT - 12/16/2018 23:59 EDT Hospital Encounter [address] [address] Michelle Cuenca, PAKimberleyC [address] [facility], [address] [place] [address] Discharge Disposition: Home or Self Care Social History Tobacco Use Types Packs/Day Years [...] as of this encounter Discharge Diagnoses Diagnosis Z01.89 Encounter for other specified special examinations-Z01.89[ICD-10-CM] documented in this encounter Medications at Time of Discharge Medication Sig Dispensed Refills Start Date End Date albuterol (PROVENTIL, VENTOLIN) 90 mcg/Actuation inhaler Inhale 1 Puff as directed every 4 hours as needed for Wheezing. 2 Inhaler 0 01/12/2010 ibuprofen (MOTRIN) 400 mg tablet Take 400 mg by mouth every 6 hours as needed. Rarely uses due to BP meds 1 Tab 0 05/31/2020 documented as of this encounter Discharge Disposition Disposition Code Departure Means Destination Home or Self Fdc documented in this encounter Plan of Treatment Not on file documented as of this encounter Visit Diagnoses Not on filedocumented in this encounter Care Teams Heel Sorter Relationship Specialty Start Date End Date None, Provider PCP - General 12/02/18 documented as of this encounter
--- OUTSIDE RECORDS SUMMARY | 2024-01-20 19:53 | XMS_ITS | Encounter Summary ---
Author Organization [facility] Address [address] [place] [address] Care Team Providers Care Greaser Helper Name Role Phone Angel Chilel MD Primary Care Provider Unav ailable Reason for Visit * Reason Comments Genetic Evaluation Encounter Details Date Type Department Care Team (Latest Contact Info) Description 11/26/2017 14:00 EDT Office Visit [facility] Hematology & Oncology - [facility] [address] [place] [address] [place] [id number] [place] [phone] Encounter for nonprocreative genetic counseling (Primary Dx); [...] as of this encounter Discharge Diagnoses Diagnosis Z80.41 Family history of malignant neoplasm of ovary-Z80.41[ICD-10-CM] Z71.83 Encounter for nonprocreative genetic counseling-Z71.83[ICD-10-CM] Z15.01 Genetic susceptibility to malignant neoplasm of breast-Z15.01[ICD-10-CM] Z15.09 Genetic susceptibility to other malignant neoplasm-Z15.09[ICD-10-CM] documented in this encounter Discharge Disposition Disposition Code Departure Means Destination Auto Discharge documented in this encounter Progress Notes * Susan Munoz MD - 11/26/2017 1400 EDT This office note has been dictated. * Susan Munoz MD - 11/26/2017 0000 EDT [facility] NEW PATIENT EVALUATION - 11/26/2017 REASON FOR VISIT: Marisol is a 57-year-old female here to discuss her genetic testing results. HISTORY OF PRESENT ILLNESS: Marisol was diagnosed with ovarian cancer at the age of 49. 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 She underwent surgery followed by chemotherapy and has been disease-free since that time. 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 PAST MEDICAL HISTORY: 1. Ovarian cancer as outlined above. CURRENT MEDICATIONS: Inhalers and Motrin p.r.n. Menstrual History: Marisol does not remember when she started menstruating. She is G3, P3 and she had her first full-term at the age of 16. She did not take oral contraceptives or fertility medications and she became postmenopausal in 2006. SOCIAL HISTORY: Marisol is . She smokes a pack a day for the past 35 years but consumes no alcohol. FAMILY HISTORY: Marisol has 3 children and 8 grandchildren, none of these individuals are affected by malignancy. Marisol has 2 female siblings, one of which had cervical cancer at 34. She has 5 nieces, none of whom are known to have cancer. The patient's mother was diagnosed with ovarian cancer at the age of 76 and soon after her diagnosis. Her mother had 3 brothers and 2 sisters, noneof whom are known to have cancer. The maternal grandmother was also diagnosed with ovarian cancer at the age of 55. This side of the family is [place]. On the paternal side of the family, the patient's father had 3 brothers, none of whom had cancer and there appear to be no cases of cancer on this side of the family. This side of the family is [place]. PHYSICAL EXAMINATION: Not performed. LABORATORY TESTING: Complete sequencing of a 20-gene panel was performed through [facility] and a pathogenic mutation in BRCA1 ([id number]) was identified. IMPRESSION AND PLAN: Marisol is a 57-year-old female with a history of high-grade papillary serous ovarian cancer at 49, who has been disease-free since that time. She is now found to have a pathogenic mutation in BRCA1. We reviewed the risks associated with mutations in BRCA1 and options to addressthose risks. We discussed with Marisol that there is a 50% to 85% lifetime risk for individuals withBRCA1 mutations; however, for those individuals who had a prior diagnosis of ovarian cancer there seems to be about a 10-year incidence of a second primary breast cancer at about 10 years after diagnosis. We reviewed options for screening, which includes annual mammogram, annual screening breast MRI and twice yearly clinical breast exam. Marisol was not particularly interested in either screening mammogram or screening breast MRI, but we will refer her to the breast care center to further discuss these options. She is not interested in bilateral mastectomies at this time. We did review that aggressive screening with the aforementioned regimen does find things at an earlier much more treatable stage. We discussed with Marisol the risk of ovarian cancer associated with BRCA1 mutations. She has been diagnosed with ovarian cancer and no further treatment is recommended. We discussed with Marisol that her children and siblings are each at 50% risk of harboring this same mutation. Marisol came with jerry and her sister and those individuals will go forward with genetic testing. Marisol will return on an as-needed basis and was seen for 1 hour. She was counseled for 50 minutes. Susan Munoz MD 09 53 PM - Susan Munoz MD cn Dictation ID: [id number] documented in this encounter Plan of Treatment Not on file documented as of this encounter Visit Diagnoses Diagnosis Encounter for nonprocreative genetic counseling- Primary BRCA1 positive Genetic susceptibility to malignant neoplasm of breast History of ovarian cancer Personal history of malignant neoplasm of ovary Family history of ovarian cancer Family history of malignant neoplasm of ovary documented in this encounter Care Teams Greaser Helper Relationship Specialty Start Date End Date Angel Chilel MD PCP - General 03/12/14 12/01/18 documented as of this encounter
--- OUTSIDE RECORDS SUMMARY | 2024-01-20 19:53 | XMS_ITS | Encounter Summary ---
Author Organization [facility] Address [address] [place] [address] Care Team Providers Care Sprinkling Truck Driver Name Role Phone None, Provider Primary Care Provider Unavailabl e Reason for Visit * Reason Comments Follow-up Encounter Details Date Type Department Care Team (Late st Contact Info) Description 12/03/2018 9:30 EDT Office Visit [facility] Surgical Oncology - [address] [address] Michelle Cuenca, PA-C [address] [place] [address], [address] [place] [phone] BRCA1 positive (Primary Dx); History of ovarian cancer Social History Tobacco Use Types Packs/Day Years [...] Sign Reading Time Taken Comments Blood Pressure 168/88 12/03/2018 0925 EDT Pulse 88 12/03/2018 0925 EDT Temperature 36.5 ??C (97.7 ??F) 12/03/2018 0925 EDT Respiratory Rate - - Oxygen Saturation - - Inhaled Oxygen Concentration - - Weight - - Height - - Body Mass Index - - documented in this encounter Progress Notes * Michelle Eduardo PA - 12/03/2018 0930 EDT Subjective: Patient ID: Marisol Lawson is an 58 y.o. y.o. female Chief Complaint: Chief Complaint Patient presents with ??? Follow-up HPI: Division of Surgical Oncology- Breast [facility] PROGRESS NOTE/FOLLOW UP- 12/03/2018 PROBLEM: 1. 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 Personal history of ovarian cancer (at age 49). Patient underwent surgery followed by chemotherapy SUBJECTIVE: Marisol Lawson is a 58 year old female who returns to the high-risk clinic for her clinical breast exam. Patient established care in our clinic previously due to her personal history of harboring a BRCA1 mutation. She does have a personal history of ovarian cancer that was diagnosed at age 49. As you'll recall, patient has been very reluctant to proceed with high-risk breast screening. Her last mammogram was performed at another institution in 2014. Patient states that was a bad experience for her as she had pain for two weeks afterwards. She did not end up having a mammogram or breast MRIlast year. She did have some concerns regarding the IV contrast for a breast MRI. We did again review this is different contrast use with a breast MRI compared to the CT scan with contrast that she had a reaction with. I did explain that I had discussed this with Radiology given her concerns previously. Patient does not have any concerns today with respect to her breasts. She denies any masses, skin changes or nipple discharge. Of note, she is scheduled to see PRUDENCIO Gleason for follow up in January. Of note, patient's blood pressure was noted to be elevated at today's visit. She states this has been elevated several times over the past year. She has not discussed this with her PCP. She has remained asymptomatic with this. 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 . Age at first childbirth 16. Patient is s/p hysterectomy with removal of both ovaries. She denies any history of OCPs or fertility medications. ?? SOCIAL HISTORY: Patient is . She lives in [place], [place]. 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 She is a smoker. She smokes one pack/day. She has smoked for 40 years. She does not drink alcohol. ? FAMILY HISTORY: Patient is currently 57. She [...] malignancies. This side of the family is [place]. Patient's mother was diagnosed with ovarian cancer at age 78. She at 78 from her disease. Patient's maternal grandmother was diagnosed with ovarian cancer at 60 and passed at age 60 from her disease. Patient does not have information on her maternal grandfather. Patient's mother had 2 sisters and 3 brothers, none with cancer. This side of the family is Spanish. ?? 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 CHOLECYSTECTOMY 1981 ??? HYSTERECTOMY ??? LAPAROSCOPY 2002 removal of ovarian cyst (right?) ??? MOHS SURGERY 05/15/10 Left Cheek, BCC ??? MO BSO, OMENTECTOMY W/KEE 08/25/2009 ??? MO TOTAL ABDOM HYSTERECTOMY 08/25/2009 ??? SKIN BIOPSY Family History Problem Relation Age of Onset ??? Cancer Maternal Grandmother Ovarian Cancer Social History Tobacco Use ??? Smoking status: Current Every Day Smoker Packs/day: 1.00 Years: 35.00 Pack years: 35.00 ??? Smokeless tobacco: Never Used Substance Use Topics ??? Alcohol use: Yes ??? Drug use: No Current Outpatient Medications: albuterol (PROVENTIL, VENTOLIN) 90 mcg/Actuation inhaler ibuprofen (MOTRIN) 400 mg tablet No current facility-administered medications for this visit. Allergies Allergen Reactions ??? Other - See Comments Hives and Angioedema CT CONTRAST- IV ??? Adhesive Tape-Silicones Rash ??? Codeine Nausea And Vomiting ??? Dilaudid [Hydromorphone (Pf)] Nausea And Vomiting Nausea & Vomiting with STONE CRUSHER OPERATOR dilaudid 08/27/09 ??? Oxycodone Shortness Of Breath, Nausea And Vomiting and Other (See Comments) Per pt & confirmed by daughter: previous SOB/N&V, diaphoresis with OXYCODONE. BP (!) 168/88 Pulse 88 Temp 36.5 ??C (97.7 ??F) (Tympanic) Review of Systems: Constitutional: Negative for chills, fever, malaise/fatigue and weight loss Eyes: Negative for pain Respiratory: Negative for hemoptysis, shortness of breath and wheezing Cardiovascular: Negative for chest pain, claudication and leg swelling Gastrointestinal: Negative for abdominal pain Musculoskeletal: Negative for myalgias Skin: Negative for rash Neurological: Negative for sensory change, speech change, seizures and loss of consciousness Endo/Heme/Allergies: Does not bruise/bleed easily Psychiatric/Behavioral: Negative for hallucinations, substance abuse and suicidal ideas - See HPI Physical Exam: Constitutional: She is oriented to person, place and time. Vital signs are normal. She appears well-developed and well-nourished.No distress noted. Head: Normocephalic and atraumatic Eyes: No discharge. No scleral icterus. Cardiovascular: Normal rate and regular rhythm. Pulmonary/Chest: Effort normal and breath sounds normal. No respiratory distress. She has no wheezes,rhonchi or rales. Breast Exam: Breasts and axilla are examined in the seated and the supine position. Breasts are symmetric, large, pendulous. There are no discrete or obvious palpable abnormalities in either breast. There is no skin puckering, dimpling, nipple inversion/change, or nipple discharge. There are no concerning skin changes to either breast. There are no axillary masses Abdominal: Soft, no tenderness Lymphadenopathy: She has no cervical, supraclavicular or axillary adenopathy. Neurological: She is alert and oriented x3, Coordination is normal Skin: Skin is warm and dry. No rash is present. No erythema or pallor is present. Psychiatric: Patient has normal mood and affect. Her behavior is normal. Vital signs have been reviewed. Assessment: Marisol continues to follow in our high-risk clinic due to her personal history of harboring a pathogenic variant in BRCA1. She does have a personal history of ovarian cancer and does have scheduled follow up with Elidia Christianson in January. Patient and I discussed her elevated risk for breast cancer. We did discuss high-risk screening including annual mammography, breast MRI and twice annual clinical breast exams. Patient has been reluctant to have any breast imaging performed and has not hada screening mammogram since 2014. She states she had a lot of pain following this and didn't want to pursue this. After a thorough discussion, I have offered to contact one of the supervisors in [employer] to be aware of this patient and her needs. She would be willing to try a screening mammogram for this year. We did also discuss a breast MRI which she is also willing to do this year. We did discuss the benefits and limitations of breast MRI including its sensitivity, risk of callbacks, possibility of biopsies and false positives. She does understand this is with IV contrast which is different than what she had a reaction with her CT scan. She is interested in scheduling this 6 months after her screening mammogram. Risk-reducing mastectomies had been discussed in the past and she is not interested in this. Her breast exam today was stable and without any concerning findings suggestive of breast malignancy. Patient's blood pressure was elevated today. She was not symptomatic with this. Patient reports this has been elevated several times of this past year. She is able to recheck this later today. I haveencouraged her to make a follow up appointment with her PCP regarding this. Plan: 1. Schedule screening mammogram, overdue. Will schedule next available appointment 2. Schedule breast MRI, due 05/2019 3. Return to clinic in 6 months for clinical breast exam. 4. Encouraged patient to practice breast awareness and report any changes or new concerns to our office. 5. Follow up with PRUDENCIO Gleason as scheduled 6. Encouraged patient to recheck her blood pressure later today and to follow up with her PCP regarding this 7. Encouraged patient to stop smoking. Patient was seen for 25 minutes and 15 minutes were spent in face to face counseling regarding personal history of harboring a BRCA1 mutation and risk of occurrence. Screening plan was discussed as above. I was directly supervised by our clinic physician, Dr. Ann, who was in the suite and immediatelyavailable for the entire time for the above documented service was provided. Encounter Diagnoses Name Primary? BRCA1 positive Yes ??? History of ovarian cancer PRUDENCIO LUNA No orders of the defined types were placed in this encounter. documented in this encounter Plan of Treatment Not on file documented as of this encounter Procedures Procedure Name Priority Date/Time Associated Diagnosis Comments ORDERS - SCANNED 01/15/2019 12:35 EDT documented in this encounter Results * ORDERS - SCANNED (01/15/2019 12:35 EDT) 01/15/2019 12:3 5 EDT Scan 2 Air Tester ADMISSION ORDERABLE S documented in this encounter Visit Diagnoses Diagnosis BRCA1 positive- Primary Genetic susceptibility to malignant neoplasm of breast History of ovarian cancer Personal history of malignant neoplasm of ovary documented in this encounter Care Teams Sprinkling Truck Driver Relationship Specialty Start Date End Date None, Provider PCP - General 12/02/18 documented as of this encounter
--- OUTSIDE RECORDS SUMMARY | 2024-01-20 19:53 | XMS_ITS | Encounter Summary ---
Author Organization [facility] Address [address] [place] [address] Care Team Providers Care Materials Coordinator Name Role Phone None, Provider Primary Care Provider Unavailabl e Encounter Details Date Type Department Care Team (Late st Contact Info) Description 04/08/2019 Documentation Visit [facility] OBGYN Services - [address] [address] Elidia Christianson PA-C [address] [facility], [address] [place] [phone] Social History Tobacco Use Types Packs/Day Years [...] Progress Notes * Elidia Christianson PA - 04/08/2019 1020 EST TC to pt again to follow up on whether she has, or plans to, go to the lab to have a CA 125 level drawn. Asked that she call back to confirm receipt of message, and let us know. documented in this encounter Plan of Treatment Not on file documented as of this encounter Visit Diagnoses Not on filedocumented in this encounter Care Teams Materials Coordinator Relationship Specialty Start Date End Date None, Provider PCP - General 12/02/18 documented as of this encounter
--- OUTSIDE RECORDS SUMMARY | 2024-01-20 19:53 | XMS_ITS | Encounter Summary ---
Author Organization [facility] Address [address] [place] [address] Care Team Providers Care Fingerprint Technician Name Role Phone None, Provider Primary Care Provider Unavailabl e Reason for Visit * Reason Onset Date Comments Follow-up 12/03/2018 Encounter Details Date Type Department Care Team (Late st Contact Info) Description 12/03/2018 Orders Only [facility] Surgical Oncology - [address] [address] Michelle Cuenca, PA-C [address] [facility], [address] [place] [phone] BRCA1 positive (Primary Dx) Social History Tobacco Use Types [...] breast documented in this encounter Care Teams Fingerprint Technician Relationship Specialty Start Date End Date None, Provider PCP - General 12/02/18 documented as of this encounter
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
--- OUTSIDE RECORDS SUMMARY | 2024-01-20 19:53 | XMS_ITS | Encounter Summary ---
Author Organization [facility] Address [address] [place] [address] Care Team Providers Care Fur Glosser Name Role Phone None, Provider Primary Care Provider Unavailabl e Encounter Details Date Type Department Care Team (Late st Contact Info) Description 07/23/2022 Lab Requisition [facility] Pathology & Laboratory Medicine - [facility] [address] [place] [address] Outr Resulting Lab, Provider Social History Tobacco [...] Date/Time Associated Diagnosis Comments CA 125 Routine 07/23/2022 9:05 EDT documented in this encounter Results * CA 125 (07/23/2022 9:05 EDT) CA 125 27 <30 U/mL 07/24/2022 10:38 EDT [facility] Comment: NOTE: Serum CA 125 concentration should not be interpreted as absolute evidence for the presence or absence of malignant disease. Assayed on Siemens [employer] Apostrophe Appsaur XPT using chemiluminescent technology. ??Values obtained by using different assay methods cannot be used interchangeably. Blood VENOUS BLOOD / Unknown 07/23/2022 9:05 EDT 07/23/2022 21:28 EDT Provider Outr Resulting Lab CHEMISTRY & BLOOD GAS ORDERABLES [facility] [address] [place] [address] documented in this encounter Visit Diagnoses Not on filedocumented in this encounter Care Teams Fur Glosser Relationship Specialty Start Date End Date None, Provider PCP - General 12/02/18 documented as of this encounter
--- OUTSIDE RECORDS SUMMARY | 2024-01-20 19:53 | XMS_ITS | Encounter Summary ---
Author Organization [facility] Address [address] [place] [address] Care Team Providers Care Torque Tester Name Role Phone Angel Chilel MD Primary Care Provider Unav ailable None, Provider Primary Care Provider Unavailabl e Encounter Details Date Type Department Care Team (Late st Contact Info) Description 09/25/2018 Historical Results Only [facility] Radiology Results [address] [place] [address] Suzanne Barrett PA-C [address] [place] [phone] Social History Tobacco Use Types Packs/Day Years [...] Name Priority Date/Time Associated Diagnosis Comments XR KNEE 4 OR MORE VIEWS 09/25/2018 14:33 EDT documented in this encounter Results * XR KNEE 4 OR MORE VIEWS (09/25/2018 14:33 EDT) Anatomical Region Laterality Modality Lower Extremities Other 09/25/2018 14:3 3 EDT Narrative 09/25/2018 14:36 EDT ? EXAM: RADIOLOGY/KNEE COMPLETE RT 4+VIEW ?? EX. D/ (1142) ? CLINICAL INFORMATION: ? M25.561 RIGHT KNEE PAIN ? INDICATION: M25.561 RIGHT KNEE PAIN KNEE PAIN, RIGHT ? TECHNIQUE: 4 views right knee. ? COMPARISON: None. ? FINDINGS: There is mild/moderate narrowing of the medial femorotibial ? compartment joint space and a small osteophyte arises from the medial ? tibial plateau. The lateral compartment joint space is preserved. ? Mild patellofemoral compartment joint base narrowing is present. No ? acute fracture is detected. There is no sizable joint effusion. ? IMPRESSION: ? 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 compartment. ? REPORT SIGNED IN OTHER VENDOR SYSTEM 09/25/2018 ?Reported By: Reyes Alford MD ? CC: ? Transcribed Date/Time: 09/25/2018 (1436) ? Resident Services Coordinator: ? Printed Date/Time: 01/21/2019 (2767) ? PAGE 1 ? Signed Report ? Procedure Note Reyes Alford E - 03/10/2019 EXAM: RADIOLOGY/KNEE COMPLETE RT 4+VIEW EX. D/ (1142) CLINICAL INFORMATION: M25.561 RIGHT KNEE PAIN INDICATION: M25.561 RIGHT KNEE PAIN KNEE PAIN, RIGHT TECHNIQUE: 4 views right knee. COMPARISON: None. FINDINGS: There is mild/moderate narrowing of the medialfemorotibial compartment joint space and a small osteophyte arises from themedial tibial plateau. The lateral compartment joint space is preserved. Mild patellofemoral compartment joint base narrowing is present. No acute fracture is detected. There is no sizable joint effusion. IMPRESSION: Osteoarthritis with preferential involvement of the medial compartment. REPORT SIGNED IN OTHER VENDOR SYSTEM 09/25/2018 Reported By: Reyes Alford MD CC: Transcribed Date/Time: 09/25/2018 (8112) Resident Services Coordinator: Printed Date/Time: 01/21/2019 (1320) PAGE 1 Signed Report Suzanne Barrett PA-C IMG DIAGNOSTIC IMAGING ORDERABLES documented in this encounter Visit Diagnoses Not on filedocumented in this encounter Care Teams Torque Tester Relationship Specialty Start Date End Date Angel Chilel MD PCP - General 03/12/14 12/01/18 None, Provider PCP - General 12/02/18 documented as of this encounter
--- OUTSIDE RECORDS SUMMARY | 2024-01-20 19:53 | XMS_ITS | Encounter Summary ---
Author Organization [facility] Address [address] [place] [address] Care Team Providers Care Bookkeeping Service Sales Agent Name Role Phone None, Provider Primary Care Provider Unavailabl e Reason for Visit * Reason Onset Date Comments Returning Call 12/09/2018 Mammogram 12/09/2018 Thiago 2014 Encounter Details Date Type Department Care Team (Late st Contact Info) Description 12/09/2018 Telephone [facility] Surgical Oncology - [facility] [address] [place], [place] [address] Michelle Cuenca PAJaiden [address] [facility], [address] [place] [address] Returning Call; Mammogram ([facility] 2014) Social History Tobacco Use Types Packs/Day Years [...] encounter Miscellaneous Notes * Telephone Encounter - Jasper Thrasher - 12/09/2018 1159 EDT Rody is returning call to [place]. Last mammo at [facility] was done 2014. Please call Rody back if youhave any other questions. documented in this encounter Plan of Treatment Not on file documented as of this encounter Visit Diagnoses Not on filedocumented in this encounter Care Teams Bookkeeping Service Sales Agent Relationship Specialty Start Date End Date None, Provider PCP - General 12/02/18 documented as of this encounter
--- OUTSIDE RECORDS SUMMARY | 2024-01-20 19:53 | XMS_ITS | Encounter Summary ---
Author Organization [facility] Address [address] [place] [address] Care Team Providers Care Workers' Compensation Mediator Name Role Phone None, Provider Primary Care Provider Unavailabl e Reason for Visit * Reason Onset Date Comments Follow-up 02/16/2019 Encounter Details Date Type Department Care Team (Late st Contact Info) Description 02/16/2019 Telephone [facility] - [address] [phone] Elidia Christianson PA-C [address] [facility], [address] [place] [phone] Follow-up Social History Tobacco Use Types Packs/Day Years [...] encounter Miscellaneous Notes * Telephone Encounter - Elidia Christianson PA - 02/16/2019 1539 EDT TC to pt, in follow up to our last appointment, asking if she had a CA 125 level drawn following our appointment. Asked that she call back to advise. documented in this encounter Plan of Treatment Not on file documented as of this encounter Visit Diagnoses Not on filedocumented in this encounter Care Teams Workers' Compensation Mediator Relationship Specialty Start Date End Date None, Provider PCP - General 12/02/18 documented as of this encounter
--- OUTSIDE RECORDS SUMMARY | 2024-01-20 19:53 | XMS_ITS | Encounter Summary ---
Author Organization [facility] Address [address] [place] [id number] Care Team Providers Care Bark Peeler Name Role Phone None, Provider Primary Care Provider Unavailabl e Encounter Details Date Type Department Care Team (Late st Contact Info) Description 05/19/2020 Lab Requisition [facility] Pathology & Laboratory Medicine - [address] [address] Outr Resulting Lab, Provider Social History Tobacco [...] Procedure Name Priority Date/Time Associated Diagnosis Comments PTH INTACT Routine 05/18/2020 20:50 EST documented in this encounter Results * PTH INTACT (05/18/2020 20:50 EST) Intact PTH 47 19 - 88 pg/mL 05/20/2020 14:15 EST [facility] Blood VENOUS BLOOD / Unknown 05/18/2020 20:50 EST 05/19/2020 16:11 EST Provider Outr Resulting Lab CHEMISTRY & BLOOD GAS ORDERABLES Performing Organization Address [facility]/State/ZIP Co de Phone Number [facility] [address] [place] [address] documented in this encounter Visit Diagnoses Not on filedocumented in this encounter Care Teams Bark Peeler Relationship Specialty Start Date End Date None, Provider PCP - General 12/02/18 documented as of this encounter
--- OUTSIDE RECORDS SUMMARY | 2024-01-20 19:53 | XMS_ITS | Encounter Summary ---
Author Organization [facility] Address [address] [place] [address] Care Team Providers Care Oil Field Laborer Name Role Phone Angel Chilel MD Primary Care Provider Unav ailable Encounter Details Date Type Department Care Team (Latest Contact Info) Description 09/25/2018 14:41 EDT - 09/25/2018 23:59 EDT Hospital Encounter [facility] [address] [place] [address] Unknown, Provider, Discharge Disposition: Home or Self Care Social [...] on file documented as of this encounter Medications at Time of Discharge [...] on filedocumented in this encounter Care Teams Oil Field Laborer Relationship Specialty Start Date End Date Angel Chilel MD PCP - General 03/12/14 12/01/18 documented as of this encounter
--- OUTSIDE RECORDS SUMMARY | 2024-01-20 19:53 | XMS_ITS | Encounter Summary ---
Author Organization [facility] Address [address] [place] [address] Care Team Providers Care Counter Manager Name Role Phone Angel Chilel MD Primary Care Provider Unav ailable Reason for Visit * Reason Onset Date Comments Appointment Related 11/26/2018 Encounter Details Date Type Department Care Team (Late st Contact Info) Description 11/26/2018 Telephone [facility] - [address] [phone] Elidia Christianson PA-C [address] [facility], [address] [place] [address] Appointment Related Social History Tobacco [...] encounter Miscellaneous Notes * Telephone Encounter - Liz Virk - 11/26/2018 1540 EDT The patient called to reschedule her upcoming appointment with us tomorrow. She is rescheduled to 01/22. documented in this encounter Plan of Treatment Not on file documented as of this encounter Visit Diagnoses Not on filedocumented in this encounter Care Teams Counter Manager Relationship Specialty Start Date End Date Angel Chilel MD PCP - General 03/12/14 12/01/18 documented as of this encounter
--- OUTSIDE RECORDS SUMMARY | 2024-01-20 19:53 | XMS_ITS | Encounter Summary ---
Author Organization [facility] Address [address] [place] [address] Care Team Providers Care Ct Mri Technologist Name Role Phone None, Provider Primary Care Provider Unavailabl e Encounter Details Date Type Department Care Team (Late st Contact Info) Description 09/23/2020 Results Only [facility] Interventional Pain [address] [place] [address] Rafael Hardy MD [address] [place] [address] Social History Tobacco Use Types Packs/Day Years [...] Associated Diagnosis Comments POCT GLUCOSE, INTERFACED Routine 09/23/2020 11:08 EDT documented in this encounter Results * (ABNORMAL) POCT GLUCOSE, INTERFACED (09/23/2020 11:08 EDT) Glucose, POC 181(H) 70 - 100 mg/dL 09/26/2020 5:45 EDT [facility] 09/23/2020 11:0 8 EDT 09/26/2020 5:45 EDT Rafael aHrdy MD POINT OF CARE TEST O RDERABLES [facility] [address] [place] [address] documented in this encounter Visit Diagnoses Not on filedocumented in this encounter Care Teams Ct Mri Technologist Relationship Specialty Start Date End Date None, Provider PCP - General 12/02/18 documented as of this encounter
--- OUTSIDE RECORDS SUMMARY | 2024-01-20 19:53 | XMS_ITS | Encounter Summary ---
Author Organization [facility] Address [address] [place] [address] Care Team Providers Care Shrimping Boat Captain Name Role Phone None, Provider Primary Care Provider Unavailabl e Encounter Details Date Type Department Care Team (Late st Contact Info) Description 02/21/2021 Lab Requisition [facility] Pathology & Laboratory Medicine - [facility] [address] [place] [address] Outr Resulting Lab, Provider Social History Tobacco [...] Date/Time Associated Diagnosis Comments CA 125 Routine 02/20/2021 12:00 EDT documented in this encounter Results * CA 125 (02/20/2021 12:00 EDT) CA 125 12 <30 U/mL 02/22/2021 9:57 EDT [facility] Comment: NOTE: Serum CA 125 concentration should not be interpreted as absolute evidence for the presence or absence of malignant disease. Assayed on [employer] XPT using chemiluminescent technology. ??Values obtained by using different assay methods cannot be used interchangeably. Blood VENOUS BLOOD / Unknown 02/20/2021 12:00 EDT 02/21/2021 16:51 EDT Provider Outr Resulting Lab CHEMISTRY & BLOOD GAS ORDERABLES [facility] [address] [place] [address] documented in this encounter Visit Diagnoses Not on filedocumented in this encounter Care Teams Shrimping Boat Captain Relationship Specialty Start Date End Date None, Provider PCP - General 12/02/18 documented as of this encounter
--- OUTSIDE RECORDS SUMMARY | 2024-01-20 19:54 | XMS_ITS | Encounter Summary ---
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 Marisol has successfully completed 6 courses of Taxol/carboplatin chemotherapy Encounter Details Date Type Department Care Team (Late st Contact Info) Description 11/13/2010 15:30 EDT Office Visit [facility] OBGYN Services - [address] [address] Elidia Christianson PA-C [address] [place] [address], [address] [place] [address] Low back pain (Primary Dx) Social History Tobacco Use Types [...] Sign Reading Time Taken Comments Blood Pressure 110/70 11/13/2010 1538 EDT Pulse - - Temperature - - Respiratory Rate - - Oxygen Saturation - - Inhaled Oxygen Concentration - - Weight 70.3 kg (155 lb) 11/13/2010 1538 EDT Height 154.9 cm (5' 1) 11/13/2010 1538 EDT Body Mass Index 29.29 11/13/2010 1538 EDT documented in this encounter Progress Notes * Alexus Mcwilliams - 11/13/2010 1620 EDT Recent Labs Basename 11/13/10 1616 ??? COLOR YELLOW ??? CLARITYU Clear ??? GLUCOSEUAPOC Neg ??? BILIRUBIN Neg ??? KETONES Neg ? ? SPECGRAV >=1.030 ??? BLOOD 3+* ??? PHUA 5.5 ??? PROTEINUAPOC Neg ??? UROBILINOGEN 0.2 ??? NITRITE Neg ??? LEUKESTER Neg * Elidia Christianson PA - 11/13/2010 1620 EDT Subjective: Patient ID: Marisol Lawson is an 50 y.o. female. Chief Complaint Patient presents with ??? Follow-up three month visit ??? 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 Marisol has successfully completed 6 courses of Taxol/carboplatin chemotherapy HPI Marisol Lawson is a 50 y.o. female who was initially diagnosed with stage IIIC [...] treatment was to begin, her CA-125 had spontaneously regressed to 154, then weekly progressively returned to normal to where it is now 9. She has received no further therapy. Today she is concerned that she is generally feeling unwell. She specifically complains of swellingand weakness in her lower extremities, she is going to regular physical therapy Patient Active Problem List Diagnoses Code ??? Mixed Basal-Squamous Cell Carcinoma 173.9DF ??? Ovarian cancer 183.0C Past Medical History Diagnosis Date ??? Diabetes mellitus diet control ??? Depression ??? Hyperlipidemia ??? Asthma ??? GERD (gastroesophageal reflux disease) ??? Bronchospasm ??? Urinary tract infection ??? IBS (irritable bowel syndrome) ??? Ovarian carcinoma stage 3 ??? Basal cell carcinoma 12/2008 Left Cheek ??? Ovarian cancer 09/27/2010 Past Surgical History Procedure Date ??? Cholecystectomy 1980 ??? Laparoscopy 2002 removal of ovarian cyst (right?) ??? Pr total abdom hysterectomy 08/25/2009 ??? Pr bso, omentectomy w/ofelia 08/25/2009 ??? Skin biopsy ??? Mohs surgery 05/15/10 Left Cheek, BCC ??? Hysterectomy Family History Problem Relation Age of Onset ??? Cancer Maternal Grandmother Ovarian Cancer Social History Substance Use Topics ??? Smoking status: Current Everyday Smoker -- 1.0 packs/day for 35 years ??? Smokeless tobacco: Never Used ??? Alcohol Use: Yes Current outpatient prescriptions ordered prior to encounter Medication Sig Dispense Refill ??? albuterol (PROVENTIL, VENTOLIN) 90 mcg/Actuation inhaler Inhale 1 Puff as directed every 4 hours as needed for Wheezing. 2 Inhaler 0 ??? UNABLE TO FIND Take 1 Tab by mouth 2 times daily. Med Name: Emma Root ??? lorazepam (ATIVAN) 1 mg tablet Take 1 Tab by mouth every 6 hours as needed for Anxiety. Nausea 20 Tab 3 ??? acetaminophen (TYLENOL) 325 mg tablet Take 1-2 Tabs by mouth every 4 hours. 1 Tab 0 ??? ibuprofen (MOTRIN) 400 mg tablet Take 1 Tab by mouth every 4 hours. 1 Tab 0 Allergies Allergen Reactions ??? Other - See Comments Hives and Angioedema CT CONTRAST- IV ??? Codeine Nausea And Vomiting ??? Adhesive Tape-silicons Rash ??? Dilaudid (Hydromorphone (Pf)) Nausea And Vomiting Nausea & Vomiting with LIBRARY DIRECTOR dilaudid 08/27/09 ??? Oxycodone Shortness Of Breath, Nausea And Vomiting and Other (See Comments) Per pt & confirmed by daughter: previous SOB/N&V, diaphoresis with OXYCODONE. ROS - See HPI Objective: BP 110/70 Ht 154.9 cm (61) Wt 70.308 kg (155 lb) BMI 29.29 kg/m2 Physical Exam Assessment: 50 y.o. female with a history of Stage IIIC ovarian cancer, s/p 6 cycles of taxol and carboplatin chemotherapy, without clinical evidence of disease, but with symptoms of fatigue and weakness. Plan: Marisol was seen today for follow-up and cancer. Diagnoses and associated orders for this visit: Low back pain - POCT Urine Dipstick Today we have drawn labwork for a CA 125 level, and will contact marisol with these results. Assuming that they return normal, we will see her for follow up in 3months. I did obtain a urinalysis todaygiven her concern for back pain and recurrent UTIs. It was without leukocyte esterace or nitrites, but did have 3+ blood. Given that she is a smoker, I did send the sample for cytology to ensure no malignancy in the bladder. WE discussed her constellation of symptoms, and if she continues to be without evidence of disease at this time, I would expect that she would be recovering from any side effects that she would have had from her chemotherapy. She is currently involved in physical therapy, which I would recommend, but it does not seem to be helping much. I would touch base with her primary care provider, to discuss potentially working up other causes for her fatigue and lower extremity weakness,she states that she has had her thyroid evaluated recently. documented in this encounter Plan of Treatment Scheduled Orders Name Type Priority Associated Diagnoses Orde r Schedule POCT URINE DIPSTICK Point of Care Testing Routine Low back pain Ordered: 11/13/2010 CYTOLOGY (NON-GYNECOLOGIC INCLUDING FLUIDS AND FINE NEEDLE ASPIRATION)- ORDER ONLY Pathology Routine Low back pain Expected: 11/13/2010 (Approximate), Expires: 11/14/2011 documented as of this encounter Visit Diagnoses Diagnosis Low back pain- Primary Lumbago documented in this encounter Care Teams Public Area Attendant Relationship Specialty Start Date End Date Angel Chilel MD PCP - General 12/16/09 05/13/12 documented as of this encounter
--- OUTSIDE RECORDS SUMMARY | 2024-01-20 19:54 | XMS_ITS | Encounter Summary ---
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 Encounter Details Date Type Department Care Team (Late st Contact Info) Description 03/15/2014 13:30 EST Office Visit [facility] OBGYN Services - [address] [id number] Osmar Benavides MD [address] [place] [address], [address] [place] [address] Malignant neoplasm of ovary (HCC-CMS) (Primary Dx) Social History Tobacco Use Types [...] Sign Reading Time Taken Comments Blood Pressure 118/78 03/15/2014 1331 EST Pulse - - Temperature - - Respiratory Rate - - Oxygen Saturation - - Inhaled Oxygen Concentration - - Weight 74.8 kg (165 lb) 03/15/2014 1331 EST Height 152.4 cm (5') 03/15/2014 1331 EST Body Mass Index 32.22 03/15/2014 1331 EST documented in this encounter Progress Notes * Osmar Benavides MD - 03/15/2014 1800 EST Just a note to keep you updated with regards to your patient, Marisol Martinez. 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 Campos successfully completed 6 courses of Taxol/carboplatin chemotherapy. In 2000, Marisol had an episode where she had an elevated CA-125. Marisol underwent an extensive workup, the radiographic imaging was negative, but as we were just about to treat her with chemotherapy, Marisol's CA-125 has spontaneously dropped back down to the single digits. Marisol continues to be followed with CA-125s, and herCA-125 continues to be within normal limitis. She presents today for reassessment for her history of ovarian cancer. CA 125 is pending. Of note, She denies any nausea, vomiting, constipation or diarrhea. She denies any abnormal vaginal bleeding,odor, or discharge. Results for MARISOL MARTINEZ ( ) as of 03/15/2014 13:50 Ref. Range 03/20/2012 00:00 03/16/2013 00:00 06/25/2013 00:00 09/23/2013 00:00 01/19/2014 16:46 CA 125, External Latest Range: 0-35 U/ml 9 13 12 11 10 Current Outpatient Prescriptions Medication Sig Dispense Refill ??? albuterol (PROVENTIL, VENTOLIN) 90 mcg/Actuation inhaler Inhale 1 Puff as directed every 4 hours as needed for Wheezing. 2 Inhaler 0 ??? ibuprofen (MOTRIN) 400 mg tablet Take 1 Tab by mouth every 4 hours. 1 Tab 0 No current facility-administered medications for this visit. Allergies Allergen Reactions ??? Other - See Comments Hives and Angioedema CT CONTRAST- IV ??? Adhesive Tape-Silicones Rash ??? Codeine Nausea And Vomiting ??? Dilaudid [Hydromorphone (Pf)] Nausea And Vomiting Nausea & Vomiting with PARTS FABRICATOR dilaudid 08/27/09 ??? Oxycodone Shortness Of Breath, Nausea And Vomiting and Other (See Comments) Per pt & confirmed by daughter: previous SOB/N&V, diaphoresis with OXYCODONE. History Social History ??? Marital Status: Legally Spouse Name: N/A Number of Children: N/A ??? Years of Education: N/A Occupational History ??? Not on file. Social History Main Topics ??? Smoking status: Current Every Day Smoker -- 1.00 packs/day for 35 years ??? Smokeless tobacco: Never Used ??? Alcohol Use: Yes ??? Drug Use: No ??? Sexual Activity: Yes Partners: Male Control/ Protection: Post-menopausal Other Topics Concern ??? Not on file Social History Narrative ??? No narrative on file Review of Systems As dictated above and ROS is otherwise negative. Objective: BP 118/78 Ht 152.4 cm (60) Wt 74.844 kg (165 lb) BMI 32.22 kg/m2 Physical Exam Abdomen is soft, nontender, nondistended, no rebound or guarding. Pelvic exam demonstrates that the external genitalia has no evidence of any exophytic lesions. Vagina demonstrates no evidence of any exophytic lesions. The uterus and cervix are surgically absent. No adnexal masses. Periurethral and perianal areas grossly within normal limits. Assessment & Plan: Today, I explained to Marisol that I am very pleased with how she is doing. Her CA-125 levels demonstrate that she has no evidence of disease. We will continue to see her once a year. As always, I thank you very much for allowing me to participate in the care of your patient. I willkeep you informed of her progress. Sincerely and Respectfully, Osmar Benavides MD Director of Gynecologic Oncology [facility] documented in this encounter Plan of Treatment Not on file documented as of this encounter Visit Diagnoses Diagnosis Malignant neoplasm of ovary (HCC-CMS)- Primary Malignant neoplasm of ovary documented in this encounter Care Teams Supervisor Compounding And Finishing Relationship Specialty Start Date End Date Anegl Chilel MD PCP - General 03/12/14 12/01/18 documented as of this encounter
--- OUTSIDE RECORDS SUMMARY | 2024-01-20 19:54 | XMS_ITS | Encounter Summary ---
Author Organization [facility] Address [address] [place] [address] Care Team Providers Care Gas Analyst Name Role Phone Angel Chilel MD Primary Care Provider Unav ailable Reason for Visit * Reason Comments Basal Cell Carcinoma Left cheek Encounter Details Date Type Department Care Team (Late st Contact Info) Description 05/15/2010 8:00 EST Office Visit [facility] Dermatology 5th Floor [address] [id number] Willie Menjivar MD [address] [facility], [address] [place] [address] BCC (basal cell carcinoma), face (Primary Dx) Social History Tobacco Use Types [...] Sign Reading Time Taken Comments Blood Pressure 116/74 05/15/2010 0825 EST Pulse 108 05/15/2010 0825 EST Temperature 36.3 ??C (97.3 ??F) 05/15/2010 0825 EST Respiratory Rate - - Oxygen Saturation - - Inhaled Oxygen Concentration - - Weight - - Height - - Body Mass Index - - documented in this encounter Patient Instructions * Patient Instructions* Willie Menjivar MD - 05/15/2010 8:20 EST [facility] SURGERY UNIT CARE FOLLOWING YOUR SKIN SURGERY ACTIVITY: ?? If you have sutures (stitches), avoid strenuous activities until your sutures are removed ?? Walking is an excellent light activity during recovery. Running and weightlifting are not. ?? If your surgery was on your head or neck, elevate your head with pillows when you lie down, and do not bend over to pick pulling machine operator objects or tie your shoes. . BATHING: ?? Keep the area of your surgery dry for the first 24 hours. ?? After 24 hours, you may shower. Remove your bandage, and replace it after the shower. If you bathe in a tub, the bath should be brief. DISCOMFORT: ?? Do not use aspirin, products containing aspirin, ibuprofen (AdvilTM or MotrinTM), or naproxen (AleveTM) for five days after your surgery, unless approved by your physician. ?? To relieve discomfort, you may take acetaminophen (for example, TylenolTM or Extra-Strength TylenolTM) as directed. If your doctor has given you a prescription for Tylenol with codeine or Percocet, you may use this as directed. BLEEDING, BRUISING, AND SWELLING: ?? It is normal for your wound to ooze a small amount of blood and stain the dressing. ?? Expect bruising and swelling in the area of your surgery to be the most noticeable 48 to 72 hours after surgery. Bruising and swelling usually begin to lessen 4 to 5 days after surgery. ?? You may minimize swelling by sleeping with your head elevated on several pillows. ?? If the swelling worsens rapidly or becomes increasingly tender, contact your physician. ?? If your wound bleeds enough that the blood heavily soaks through to the outside of your bandage,do the following 1) Remove the bandage 2) If the site is slowly bleeding, but not gushing blood, then place a clean moist gauze on the wound and hold continuous pressure for 15 to 20 minutes. 3) Remove the gauze carefully, and if the bleeding has stopped, redress the wound with the suppliesgiven to you at the time of your surgery. 4) If the bleeding does not stop or if the bleeding is severe, renew pressure and contact your physician for further instructions. If there is substantial bleeding that does not resolve with pressure, please proceed to the nearest emergency room or call 911 for assistance. INFECTION: ?? It is normal for your wound to be slightly sore and pink. ?? If the area becomes increasingly tender, red or warm, or if you develop fever and chills, then contact your physician. DIETARY RESTRICTIONS: ?? If your surgery involved your lips or mouth, avoid hot liquids and foods for the first two to three hours after surgery. Eat soft foods and be careful when brushing your teeth until sutures are removed. ?? If you are a smoker try to limit your smoking as much as possible around the time of surgery. DAILY WOUND CARE: ?? Always wash your hands with soap and water before your daily wound care. ?? Gently remove your bandage 24 hours after surgery. Then change the dressing each day or wheneverit becomes wet, according to these instructions: 1) Gently clean the area with cotton swabs dipped in warm soapy water. 2) As you clean the area, remove all crusty material. If you cannot easily remove the crust, soak the area with wet gauze for 15 to 20 minutes. Do not let thick crusts or scabs form. Your wound will heal faster if you keep it clean and moist. 3) After cleaning the wound, pat the area dry with clean gauze or cotton-tipped swabs. 4) Next, use a clean cotton swab to apply bacitracin ointment or petroleum jelly. 5) Cover the area with nonstick gauze (Telfa). Secure the dressing with tape. WHEN TO CONTACT YOUR PHYSICAN: ?? Your wound continues to bleed after you have applied firm pressure for 20 minutes. ?? Acetaminophen has not relieved your discomfort. ?? Your wound becomes increasingly sore, tender, red, or warm. ?? Your surgery site rapidly swells. CONTACT INFORMATION: To reach the customer solutions specialist physician: During office hours: 8:00 am - 5:00 PM Saturday through Saturday Call: [phone] Ask to speak with a surgery nurse After hours: Call [phone] for [facility] customer solutions specialist. WEEKENDS and HOLIDAYS call: [phone] [facility] documented in this encounter Progress Notes * Inpatient, Physician - 05/16/2010 1346 EST * Betty Bailey - 05/15/2010 1111 EST Patient Education Topic: Wound care ?Method: Handout, Demonstration and Verbal ?Taught to: Patient ?Barriers: None ?Outcomes: independent ?Signature: Betty Bailey 05/15/2010 11:11 ?? * Willie Menjivar MD - 05/15/2010 1041 EST Images from the original note were not included. MOHS SURGERY - POSTOP SUMMARY Marisol Lawson is a 49 y.o. year old female who underwent Mohs surgery today 05/15/2010. The following is a summary of the operative findings: Lesion 1 basal cell carcinoma Location left cheek Size Preop (cm) 0.9 x 0.9 cm Size Postop (cm) 1.3 x 1.3 cm Stages 1 Depth of Excision subcutis Repair complex linear repair Ms. Lawson was discharged from the operative suite in good condition. She was carefully instructed in postoperative wound care both verbally and in writing. The patient will return for follow up with me in 6 months, sooner as needed. Note: Dilaudid for pain control. WILLIE MENJIVAR MD 05/15/2010 10:40 * Willie Menjivar MD - 05/15/2010 0819 EST MOHS OPERATIVE REPORT Patient Name: Marisol Lawson Date of Service: May 15, 2010 Surgeon: WILLIE MENJIVAR MD Crack Off Person: Betty Bailey MA Case #: [id number] Preoperative Diagnosis: basal cell carcinoma Preoperative Procedure: Mohs micrographic surgery Location of Lesion: left cheek Preoperative Lesion Size: 0.9 cm x 0.9 cm Preoperative Procedure: Mohs microscopically-controlled fresh tissue excision Indications: The patient presents with a basal cell carcinoma. Because of the histologic and clinical nature of the lesion, as well as its location, the need to achieve the highest cure rate while providing maximum tissue preservation warranted tumor extirpation via microscopically-controlled excision using the Mohs fresh tissue technique. Alternate therapeutic options were discussed on several occasions prior to surgery. After informed consent was obtained and appropriate instruction was provided, the patient underwent tumor extirpation by the Mohs fresh tissue technique as follows: PROCEDURE - INITIAL STAGE: Patient position: supine Anesthesia: 1% lidocaine with epinephrine 1:100,000 local infiltration Prep: Povodine Iodine The patient was brought to the operative suite. The lesion was identified and was prepped in a sterile fashion. The area was infiltrated with lidocaine/epinephrine to achieve complete anesthesia and to augment hemostasis. An initial beveled excision was performed to the subcutis with a scalpel blade and tissue scissors as indicated. A hash was created in the specimen and within the adjacent epidermis for marking purposes. The Mohs specimen was excised in a sharp manner, and carefully placed in proper orientation on the surgical tray. Hemostasis of the operative wound was obtained with carefulspot electrocoagulation. A sterile non-adherent dressing was applied to the operative wound. The Mohs tissue specimen was carefully transferred to the lab where the tissue was divided, and color inked for orientation. These sections were mapped and handed personally to the setup technician for frozen sectioning. The tissue was embedded so that the deep and surface margins lay in the same plane, and sections were made through this plane. All specimens were then evaluated histologically by me. Stage 1 findings: Wound Depth subcutis Sections Created 2 Number of Sections Containing Tumor 0 With the patient clear of microscopic tumor, surgery was considered complete. Postoperative Wound Size: 1.3 x 1.3 cm Final Diagnosis: basal cell carcinoma Final Procedure: Mohs micrographic surgery Blood Loss: minimal Operative Time: 30 minutes Complications: None Note: It has been over a year since the Mohs consultation with me. Patient developed uterine and ovarian cancer in the interim and had to delay surgery until today. It has grown a few millimeters since her consultation. WILLIE MENJIVAR MD 05/15/2010 10:40 COMPLEX REPAIR Patient Information: Marisol Lawson 49 y.o. female Referring Provider: Self, Referral Surgeon: WILLIE MENJIVAR MD Crack Off Person: Apoorva Benavides MD Preoperative Diagnosis: basal cell carcinoma Preoperative Procedure: Complex Linear Closure Wound Location: Left nasofacial sulcus Wound Dimensions: 1.3 cm x 1.3 cm INDICATIONS: The patient presents with an operative wound following tumor removal. After careful consideration and discussion of all repair options, it was determined that, given the location and nature of the defect, a multilayered complex linear closure offered the best chance for preservation of normal anatomic and functional relationships. Alternate options were discussed and the patient was encouraged toask questions, which, I believe, were answered appropriately. Informed consent was obtained in writing. After informed consent was obtained and appropriate instruction was provided, the patient underwent operative repair as follows. PROCEDURE: Patient Position: supine Anesthesia: 1% lidocaine with epinephrine 1:100,000 local infiltration Prep: Povodine Iodine The Mohs operative defect was identified, and the area was infiltrated with lidocaine/epinephrine to achieve complete anesthesia and to augment hemostasis. The area was prepped in the usual sterile fashion and was draped with sterile drapes. A linear closure was designed with care to place the operative repair within functional and cosmetic lines to minimize the postoperative distortion of normaltissues. The wound edges were prepared using a # 15 scalpel blade to precisely delineate the operative repair and were then extensively undermined with combined blunt and, as needed, sharp dissectiontaking great care to avoid functionally important vessels and nerves. Undermining was carried out at the level of the subcutaneous fat. Hemostasis of the operative wound was obtained with careful spot electrocoagulation, and ligature as indicated. The wound edges were then approximated using 5.0 Monocryl buried interrupted sutures at the level of the subcutis and dermis. The epidermis was then approximated using 6.0 Fast absorbing plain gut. The final wound length was 4.4 cm Final Diagnosis: Defect following microscopically controlled excision. Final Procedure: Complex linear closure Blood Loss: minimal Operative Time: 45 minutes Complications: none Note: none I was present during all smart and critical portions of this procedure and remained immediately available throughout. I performed the smart elements of the procedure. WILLIE MENJIVAR MD 05/15/2010 11:51 documented in this encounter Miscellaneous Notes * Scanned Note-Null - Inpatient, Physician - 05/16/2010 1227 EST documented in this encounter Plan of Treatment Not on file documented as of this encounter Visit Diagnoses Diagnosis BCC (basal cell carcinoma), face- Primary Basal cell carcinoma of skin of other and unspecified parts of face documented in this encounter Care Teams Gas Analyst Relationship Specialty Start Date End Date Angel Chilel MD PCP - General 12/16/09 05/13/12 documented as of this encounter
--- OUTSIDE RECORDS SUMMARY | 2024-01-20 19:54 | XMS_ITS | Encounter Summary ---
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, 6 cycles taxol carbo completed 01/05/10 Encounter Details Date Type Department Care Team (Late st Contact Info) Description 05/25/2010 13:30 EST Office Visit [facility] OBGYN Services - [address] [phone] Osmar Benavides MD [address] [facility], [address] [place] [address] Malignant neoplasm of ovary (HCC-CMS) [...] Sign Reading Time Taken Comments Blood Pressure 110/68 05/25/2010 1344 EST Pulse - - Temperature - - Respiratory Rate - - Oxygen Saturation - - Inhaled Oxygen Concentration - - Weight 70.3 kg (155 lb) 05/25/2010 1344 EST Height - - Body Mass Index 29.26 01/12/2010 0822 EDT documented in this encounter Progress Notes * Osmar Benavides MD - 05/25/2010 1516 EST DIAMOND ROJAS MD [address] [facility] [address] Rojas: Just a note to keep you updated to your patient, Marisol Lawson. As you recall, Marisol Lawson is a 48 y.o. 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 Marisol has successfully completed 6 treatments of Taxol carboplatin chemotherapy. Her last treatment was inSept of 2009. I have been following Marisol after her chemotherapy with monthly CA-125. In April of 2010, Marisol stated that she was having some abdominal discomfort. At that time, a CA-125 was obtained and it was normal at 12. I had also requested an MRI at that time. The MRI demonstrated some slight free fluid and evidence of intraabdominal/peritoneal disease (the MRI was reviewed here at [facility], which concurs with these findings). A repeat CA-125 in 05/2010 demonstrates that her CA-125 is elevated in the 600 range. Marisol and her daughter present to the office today to discuss future treatment plans. Of note, she denies any shortness of breath or chest pain. Shehas early satiety and some abdominal fullness but she has no nausea or vomiting. She has no constipation or diarrhea. She has no urinary symptoms. Remainder of review of systems is negative. Current outpatient prescriptions Medication Sig Dispense Refill ??? albuterol (PROVENTIL, [...] Nausea And Vomiting Nausea & Vomiting with BUSINESS CONTINUITY PLANNER dilaudid 08/27/09 ??? Oxycodone Shortness Of Breath, Nausea And Vomiting and Other (See Comments) Per pt & confirmed by daughter: previous SOB/N&V, diaphoresis with OXYCODONE. Review of Systems Pertinent items are noted in Subjective/HPI Objective: BP 110/68 Wt 70.308 kg (155 lb) Abdomen was soft but slightly distended, no rebound or guarding. No appreciable abdominal masses. Pelvic exam was deferred. Extremities demonstrate no cyanosis, clubbing or edema. Assessment and Plan: Impression and plan: Today I had a lengthy discussion with Marisol and her daughter with regards to her MRI findings and her elevated CA-125. I explained to Marisol that given these findings, the MRI and CA-125 demonstrate that she has recurrence of her ovarian cancer. I explained to her that she hasrecurred in less than 6 months of her last Taxol/carboplatin chemotherapy treatments. I explained to her that given the current situation, the likelihood of a cure with any chemotherapy is very smallto none, (mostly none). The treatment options fully discussed with Marisol are as follows: 1. Proceed with palliative care. 2. Restart chemotherapy. Given the fact that she recurred in less than 6 months, I would recommend not treating her with carboplatin or Taxol; however, I would recommend considering treating her withDoxil. I clearly explained to her that treating her with Doxil does not mean that we will be able to cure all of her cancer, but we may be able to control the growth of the cancer. 3. Surgery and radiation therapy are not appropriate at this time. Today, after discussing each of the treatment options and the risks and benefits of each of these options, Marisol states that she understands, and she would like to proceed with chemotherapy. Given the fact that Marisol lives near [facility] I have taken the liberty of making an appointment forher to see Dr Efren Vo for treatment. She is agreeable to this. As always, I thank you very much for allowing me to participate in the care of your patient. I willkeep you informed of her progress. Sincerely and Respectfully, Osmar Benavides MD Director of Gynecologic Oncology [facility] CC: Diamond Rojas MD; Angel Chilel MD; Efren Vo MD documented in this encounter Plan of Treatment Not on file documented as of this encounter Visit Diagnoses Diagnosis Malignant neoplasm of ovary (HCC-CMS)- Primary Malignant neoplasm of ovary documented in this encounter Discontinued Medications Medication Sig Discontinue Reason Start Date End Da te prochlorperazine (COMPAZINE) 10 mg tablet Take 1 Tab by mouth every 6 hours as needed for Nausea. 11/25/2009 05/25/2010 docusate sodium (COLACE) 100 mg capsule Take 1 Cap by mouth 2 times daily. 08/31/2009 05/25/2010 dexamethasone (DECADRON) 4 mg tablet Take 1 Tab by mouth 2 times daily. For three days following chemotherapy 01/12/2010 05/25/2010 documented as of this encounter Care Teams Compensation Programs Manager Relationship Specialty Start Date End Date Angel Chilel MD PCP - General 12/16/09 05/13/12 documented as of this encounter
--- OUTSIDE RECORDS SUMMARY | 2024-01-20 19:54 | XMS_ITS | Encounter Summary ---
Author Organization [facility] Address [address] [place] [address] Care Team Providers Care Oak Tanner Name Role Phone None, Provider Primary Care Provider Unavailabl e Encounter Details Date Type Department Care Team (Late st Contact Info) Description 09/10/2012 Orders Only [facility] OBGYN Services - [facility] [address] [place], [place] [address] Mag Calhoun RN Hx of ovarian cancer (Primary Dx) Social History [...] as of this encounter Visit Diagnoses Diagnosis Hx of ovarian cancer- Primary Personal history of malignant neoplasm of ovary documented in this encounter Care Teams Oak Tanner Relationship Specialty Start Date End Date None, Provider PCP - General 05/14/12 03/11/14 documented as of this encounter
--- OUTSIDE RECORDS SUMMARY | 2024-01-20 19:54 | XMS_ITS | Encounter Summary ---
Author Organization [facility] Address [address] [place] [address] Care Team Providers Care Snaker Tractor Driver Name Role Phone Angel Chilel MD Primary Care Provider Unav ailable Reason for Referral * Radiology Services (Routine) - Closed Specialty Diagnoses / Procedures Referred By Contjam pratt Referred To Contact Diagnoses Malignant neoplasm of ovary (HCC-CMS) Procedures MRI PELVIS Alexus Mcwilliams RN Referral ID Status Reason Start Date Expiration Date Visits Re quested Visits Authorized [id number] Closed 04/21/2010 1 1 Reason for Visit * Reason Onset Date Comments Orders (Non Pre-visit) 04/21/2010 CT Encounter Details Date Type Department Care Team (Late st Contact Info) Description 04/21/2010 Orders Only [facility] OBGYN Services - [facility] [place] [address] [place] [address] Alexus Mcwilliams RN Malignant neoplasm of ovary (HCC-CMS) (Primary Dx) Social History Tobacco Use Types Packs/Day Years Used Date Smoking Tobacco: Every Day Cigarettes 0.5 35 Alcohol Use Standard Drinks/Week Comments No 0 (1 standard drink = 0.6 oz pur e alcohol) Sex and Gender Information Value Date Recorded Sex Assigned at Not on file Gender Identity Not on file Sexual Orientation Not on file documented as of this encounter Progress Notes * Alexus Mcwilliams - 04/21/2010 1525 EST MRI pelvis scheduled at [facility] for 04/26/10 @ 10AM. Left message for patient notifying of appointment.Alexus Mcwilliams RN documented in this encounter Plan of Treatment Scheduled Orders Name Type Priority Associated Diagnoses Orde r Schedule MRI PELVIS Imaging Routine Malignant neoplasm of ovary (HCC-CMS) Ordered: 04/21/2010 documented as of this encounter Visit Diagnoses Diagnosis Malignant neoplasm of ovary (HCC-CMS)- Primary Malignant neoplasm of ovary documented in this encounter Care Teams Snaker Tractor Driver Relationship Specialty Start Date End Date Angel Chilel MD PCP - General 12/16/09 05/13/12 documented as of this encounter
--- OUTSIDE RECORDS SUMMARY | 2024-01-20 19:54 | XMS_ITS | Encounter Summary ---
Author Organization [facility] Address [address] [place] [address] Care Team Providers Care Band Director Name Role Phone None, Provider Primary Care Provider Unavailabl e Encounter Details Date Type Department Care Team (Late st Contact Info) Description 03/17/2013 Orders Only [facility] O[facility] Services - [facility] [address], [place] [id number] Mag Calhoun RN Hx of ovarian cancer [...] Procedure Name Priority Date/Time Associated Diagnosis Comments ZZCA 125 Routine 03/16/2013 Hx of ovarian cancer documented in this encounter Results * CA 125 (03/16/2013) CA 125, External 13 0 - 35 U/mL LAB Blood specimen (specimen) 03/16/2013 Osmar Benavides MD CHEMISTRY & BLOOD GA S ORDERABLES LAB documented in this encounter Visit Diagnoses Diagnosis Hx of ovarian cancer- Primary Personal history of malignant neoplasm of ovary documented in this encounter Care Teams Band Director Relationship Specialty Start Date End Date None, Provider PCP - General 05/14/12 03/11/14 documented as of this encounter
--- OUTSIDE RECORDS SUMMARY | 2024-01-20 19:54 | XMS_ITS | Encounter Summary ---
Author Organization [facility] Address [address] [place] [address] Care Team Providers Care Storage Battery Tester Name Role Phone Angel Chilel MD Primary Care Provider Unav ailable Encounter Details Date Type Department Care Team (Latest Contact Info) Description 09/26/2017 13:25 EDT - 09/26/2017 23:59 EDT Hospital Encounter [facility] [address] [place] [address] [place] [id number] [place] [phone] Discharge Disposition: Home or Self Care Social [...] as of this encounter Discharge Diagnoses Diagnosis C56.9 Malignant neoplasm of unspecified ovary-C56.9[ICD-10-CM] Z80.41 Family history of malignant neoplasm of ovary-Z80.41[ICD-10-CM] documented in this encounter Medications at Time [...] Code Departure Means Destination Home or Self [facility] documented in this encounter Plan of Treatment Not on file documented as of this encounter Procedures Procedure Name Priority Date/Time Associated Diagnosis Comments PATHOLOGY - SCANNED 2017 20:05 EDT documented in this encounter Results * PATHOLOGY - SCANNED (2017 20:05 EDT) 2017 20:0 5 EDT Scan 2 Assistant Professor LAB INFO SERVICE AN D SUPPORT & PHONE RESULT documented in this encounter Visit Diagnoses Not on filedocumented in this encounter Care Teams Storage Battery Tester Relationship Specialty Start Date End Date Angel Chilel MD PCP - General 03/12/14 12/01/18 documented as of this encounter
--- OUTSIDE RECORDS SUMMARY | 2024-01-20 19:54 | XMS_ITS | Encounter Summary ---
Author Organization [facility] Address [address] [place] [address] Care Team Providers Care Wet Room Supervisor Name Role Phone Angel Chilel MD Primary Care Provider Unav ailable Reason for Referral * Consult (Routine) - Closed Specialty Diagnoses / Procedures Referred By Renita pratt Referred To Contact Cancer Genetics Diagnoses BRCA1 positive Delores Puga, MS [address] [place] [address] Referral ID Status Reason Start Date Expiration Date V isits Requested Visits Authorized [id number] Closed Specialty Services Required 10/10/2017 1 1 Question Answer Reason for Request: BRCA1+ Comments Please schedule Marisol for results appointment with Delores and Dr. Munoz (). Marisol may bring other family members, likely her daughter, who could also be put on the schedule for the Delores portion only. I'm also putting in a referral for BCC, same day if possible, no imaging. Separate referral for Dr. Benavides but doesn't have to be same day. Reason for Visit * Reason Onset Date Comments Appointment Related 10/10/2017 Encounter Details Date Type Department Care Team (Late st Contact Info) Description 10/10/2017 Orders Only [facility] Cancer Center Hematology & Oncology - [facility] [address] [place], [place] [address] Delores Puga, MS [address] [place], [place] [address] BRCA1 positive (Primary Dx) Social History Tobacco [...] as of this encounter Plan of Treatment Scheduled Referrals Name Type Priority Associated Diagnoses Orde r Schedule AMB CONS/FOLLOW UP FAMILIAL CANCER PROGRAM Outpatient Referral Routine BRCA1 positive Ordered: 10/10/2017 documented as of this encounter Visit Diagnoses Diagnosis BRCA1 positive- Primary Genetic susceptibility to malignant neoplasm of breast documented in this encounter Care Teams Wet Room Supervisor Relationship Specialty Start Date End Date Angel Chilel MD PCP - General 03/12/14 12/01/18 documented as of this encounter
--- OUTSIDE RECORDS SUMMARY | 2024-01-20 19:54 | XMS_ITS | Encounter Summary ---
Author Organization [facility] Address [address] [place] [address] Care Team Providers Care Compressor Station Engineer Name Role Phone Angel Chilel MD Primary Care Provider Unav ailable Reason for Visit * Reason Onset Date Comments Results 11/09/2011 Encounter Details Date Type Department Care Team (Late st Contact Info) Description 11/09/2011 Telephone [facility] OBGYN Services - [facility] [address] [place] [address] Mag Calhoun RN Results Social History Tobacco Use Types [...] encounter Miscellaneous Notes * Telephone Encounter - Mag Calhoun RN - 11/09/2011 1140 EDT Phone call to Marisol advising of normal CA-125 results. Results for MARISOL MARTINEZ ( ) as of 11/09/2011 11:41 Ref. Range 11/06/2011 00:00 CA 125, External Latest Range: 0-35 10 Mag Calhoun RN 11/09/2011 11:41 documented in this encounter Plan of Treatment Not on file documented as of this encounter Procedures Procedure Name Priority Date/Time Associated Diagnosis Comments ZZCA 125 Routine 11/06/2011 Malignant neoplasm of ovary (HCC-CMS) documented in this encounter Results * CA 125 (11/06/2011) CA 125, External 10 0 - 35 [facility] Blood specimen (specimen) Osmar Benavides MD CHEMISTRY & BLOOD GA S ORDERABLES [facility] documented in this encounter Visit Diagnoses Diagnosis Malignant neoplasm of ovary (HCC-CMS)- Primary Malignant neoplasm of ovary documented in this encounter Care Teams Compressor Station Engineer Relationship Specialty Start Date End Date Angel Chilel MD PCP - General 12/16/09 05/13/12 documented as of this encounter
--- OUTSIDE RECORDS SUMMARY | 2024-01-20 19:54 | XMS_ITS | Encounter Summary ---
Author Organization [facility] Address [address] [place] [address] Care Team Providers Care Rigging Engineer Name Role Phone Angel Chilel MD Primary Care Provider Unav ailable Reason for Visit * Reason Onset Date Comments Results 10/12/2011 Encounter Details Date Type Department Care Team (Late st Contact Info) Description 10/12/2011 Telephone [facility] OBGYN Services - [facility] [address] [place] [address] Mag Calhoun RN Results Social [...] Telephone Encounter - Mag Calhoun RN - 10/12/2011 1136 EDT Pt phoned with normal CA-125 results Results for MARISOL MARTINEZ ( ) as of 10/12/2011 11:37 Ref. Range 10/09/2011 00:00 CA 125, External Latest Range: 0-35 11 Mag Calhoun RN 10/12/2011 11:37 documented in this encounter Plan of Treatment Not on file documented as of this encounter Procedures Procedure Name Priority Date/Time Associated Diagnosis Comments ZZCA 125 Routine 10/09/2011 Malignant neoplasm of ovary (HCC-CMS) documented in this encounter Results * CA 125 (10/09/2011) CA 125, External 11 0 - 35 [facility] Blood specimen (specimen) Osmar Benavides MD CHEMISTRY & BLOOD GA S ORDERABLES [facility] documented in this encounter Visit Diagnoses Diagnosis Malignant neoplasm of ovary (HCC-CMS)- Primary Malignant neoplasm of ovary documented in this encounter Care Teams Rigging Engineer Relationship Specialty Start Date End Date Angel Chilel MD PCP - General 12/16/09 05/13/12 documented as of this encounter
--- OUTSIDE RECORDS SUMMARY | 2024-01-20 19:54 | XMS_ITS | Encounter Summary ---
Author Organization [facility] Address [address] [place] [address] Care Team Providers Care Agent Producer Name Role Phone Angel Chilel MD Primary Care Provider Unav ailable Encounter Details Date Type Department Care Team (Late st Contact Info) Description 05/09/2015 Documentation Visit [facility] OBGYN Services - [address] [address] Elidia Christianson PA-C [address] [place] [address], [address] [place] [phone] Social History Tobacco Use Types Packs/Day Years [...] Progress Notes * Elidia Christianson PA - 05/09/2015 0903 EST Outside mammogram report received (in scanned documents). Normal, pt notified by letter. documented in this encounter Plan of Treatment Not on file documented as of this encounter Visit Diagnoses Not on filedocumented in this encounter Care Teams Agent Producer Relationship Specialty Start Date End Date Angel Chilel MD PCP - General 03/12/14 12/01/18 documented as of this encounter
--- OUTSIDE RECORDS SUMMARY | 2024-01-20 19:54 | XMS_ITS | Encounter Summary ---
Author Organization [facility] Address [address] [place] [address] Care Team Providers Care Bail Attacher Name Role Phone None, Provider Primary Care Provider Unavailabl e Reason for Visit * Reason Comments Follow-up Encounter Details Date Type Department Care Team (Late st Contact Info) Description 09/11/2012 13:45 EDT Office Visit [facility] Gynecologic Oncology [facility] [address] [place], [place] [phone] Osmar Benavides MD [address] [facility] [address] [place] [address] Malignant neoplasm of ovary (HCC-CMS) [...] Sign Reading Time Taken Comments Blood Pressure 140/80 09/11/2012 1400 EDT Pulse 100 09/11/2012 1400 EDT Temperature - - Respiratory Rate 20 09/11/2012 1400 EDT Oxygen Saturation - - Inhaled Oxygen Concentration - - Weight 71.7 kg (158 lb) 09/11/2012 1400 EDT Height - - Body Mass Index 29.85 06/18/2011 1056 EST documented in this encounter Progress Notes * Osmar Benavides MD - 09/11/2012 1401 EDT Just a note to keep you updated with regards to your patient, Marisol Lawson. As you recall, Marisol was previously diagnosed [...] denies any abnormal vaginal bleeding,odor, or discharge. The remainder of review of systems is otherwise negative. Current Outpatient Prescriptions Medication Sig Dispense Refill [...] ??? Codeine Nausea And Vomiting ??? Dilaudid (Hydromorphone (Pf)) Nausea And Vomiting Nausea & Vomiting with ENVIRONMENTAL COMPLIANCE INSPECTOR dilaudid 08/27/09 ??? Oxycodone Shortness Of Breath, Nausea And Vomiting and Other (See Comments) Per pt & confirmed by daughter: previous SOB/N&V, diaphoresis with OXYCODONE. History Social History ??? Marital Status: Legally Spouse Name: N/A Number of Children: N/A ??? Years of Education: N/A Occupational History ??? Not on file. Social History Main Topics ??? Smoking status: Current Everyday Smoker -- 1.0 packs/day for 35 years ??? Smokeless tobacco: Never Used ??? Alcohol Use: Yes ??? Drug Use: No ??? Sexually Active: Yes -- Male partner(s) Control/ Protection: Post-menopausal Other Topics Concern ??? Not on file Social History Narrative ??? No narrative on file Review of Systems As dictated above and ROS is otherwise negative. Objective: BP 140/80 Pulse 100 Resp 20 Wt 71.668 kg (158 lb) Physical Exam Abdomen-soft, NT, ND Pelvic-external: no lesions; uterus, cervix and adnexa are absent; no pelvic mass; renata-urethral and renata-anal area are WNL Assessment & Plan: Today, I explained to Marisol that I am very pleased with how she is doing. She is clinically without any evidence of disease. I will see her back in 6 months for followup visit. As always, I thank you for allowing me to participate in the care of your patients. I will keep youinformed of her progress. Sincerely, Osmar Benavides MD Director, Division of Punch [facility] Hand Oncology [facility] documented in this encounter Plan of Treatment Not on file documented as of this encounter Visit Diagnoses Diagnosis Malignant neoplasm of ovary (HCC-CMS)- Primary Malignant neoplasm of ovary documented in this encounter Care Teams Bail Attacher Relationship Specialty Start Date End Date None, Provider PCP - General 05/14/12 03/11/14 documented as of this encounter
--- OUTSIDE RECORDS SUMMARY | 2024-01-20 19:54 | XMS_ITS | Encounter Summary ---
Author Organization [facility] Address [address] [place] [address] Care Team Providers Care Mosaic Layer Name Role Phone Angel Chilel MD Primary Care Provider Unav ailable Reason for Referral * Consult (Routine) - Closed Specialty Diagnoses / Procedures Referred By Renita pratt Referred To Contact Gynecologic Oncology Diagnoses BRCA1 positive Delores Puga, MS [address] [place] [address] [facility] [address] [place] [address] Referral ID Status Reason Start Date Expiration Date V isits Requested Visits Authorized [id number] Closed Specialty Services Required 10/10/2017 1 1 Question Answer Reason for Request: BRCA1+, previous patient of Dr. Benavides Comments Marisol is 57, was diagnosed and treated age 49 for ovarian cancer by Dr. Benavides. Last saw Zaida Meghan in 2014, and then Marisol admits she stopped following up. Now found to be BRCA1 positive (came to [facility] with unaffected sister, and Marisol was the better person to test). Would like to re-establish care with [facility]. Will defer to you as to who she should see. Thanks. Referrals also placed for FCP and BCC, but [facility] does not have to be same day. Reason for Visit * Reason Onset Date Comments Appointment Related 10/10/2017 Encounter Details Date Type Department Care Team (Late st Contact Info) Description 10/10/2017 Orders Only [facility] Cancer Center Hematology & Oncology - [address] [address] Delores Puga, MS [address] [place], [place] [phone] BRCA1 positive (Primary Dx) Social History Tobacco [...] Scheduled Referrals Name Type Priority Associated Diagnoses Order Schedule AMB CONS/FOLLOW UP GYNECOLOGIC ONCOLOGY Outpatient Referral Routine BRCA1 positive Ordered: 10/10/2017 documented as of this encounter Visit Diagnoses Diagnosis BRCA1 positive- Primary Genetic susceptibility to malignant neoplasm of breast documented in this encounter Care Teams Mosaic Layer Relationship Specialty Start Date End Date Angel Chilel MD PCP - General 03/12/14 12/01/18 documented as of this encounter
--- OUTSIDE RECORDS SUMMARY | 2024-01-20 19:54 | XMS_ITS | Encounter Summary ---
Author Organization [facility] Address [address] [place] [address] Care Team Providers Care Work Order Clerk Name Role Phone None, Provider Primary Care Provider Unavailabl e Reason for Visit * Reason Onset Date Comments Appointment Related 06/20/2012 Encounter Details Date Type Department Care Team (Late st Contact Info) Description 06/20/2012 Telephone [facility] Center Reproductive Medicine & Infertility Center - [address] [address] Osmar Benavides MD [address] [facility] [address] [place] [phone] Appointment Related Social History Tobacco Use Types [...] encounter Miscellaneous Notes * Telephone Encounter - Delores Kearney - 06/20/2012 1400 EST 06/20/12 left message on voice mail rescheduling july appointment at [facility] to September 11 at 1:45 at [facility]. documented in this encounter Plan of Treatment Not on file documented as of this encounter Visit Diagnoses Not on filedocumented in this encounter Care Teams Work Order Clerk Relationship Specialty Start Date End Date None, Provider PCP - General 05/14/12 03/11/14 documented as of this encounter
--- OUTSIDE RECORDS SUMMARY | 2024-01-20 19:54 | XMS_ITS | Encounter Summary ---
Author Organization [facility] Address [address] [place] [address] Care Team Providers Care Irrigator Head Name Role Phone Angel Chilel MD Primary Care Provider Unav ailable Encounter Details Date Type Department Care Team (Late st Contact Info) Description 05/11/2010 Abstract [facility] Dermatology 5th [address] [phone] Willie Menjivar MD [address] [facility], [address] [place] [phone] Social History Tobacco Use Types Packs/Day Years [...] on filedocumented in this encounter Care Teams Irrigator Head Relationship Specialty Start Date End Date Angel Chilel MD PCP - General 12/16/09 05/13/12 documented as of this encounter
--- OUTSIDE RECORDS SUMMARY | 2024-01-20 19:54 | XMS_ITS | Encounter Summary ---
Author Organization [facility] Address [address] [place] [address] Care Team Providers Care Adjunct Professor Of English Name Role Phone Angel Chilel MD Primary Care Provider Unav ailable Encounter Details Date Type Department Care Team (Late st Contact Info) Description 05/12/[address] [facility] OBGYN Services - [facility] [address] [place] [address] Margaret Ornelas, RN [address] [place] [address] Ovarian cancer (CMS-HCC) (HCC-CMS) (Primary Dx) Social History Tobacco Use [...] as of this encounter Visit Diagnoses Diagnosis Ovarian cancer (HCC-CMS)- Primary Malignant neoplasm of ovary documented in this encounter Care Teams Adjunct Professor Of English Relationship Specialty Start Date End Date Angel Chilel MD PCP - General 12/16/09 05/13/12 documented as of this encounter
--- OUTSIDE RECORDS SUMMARY | 2024-01-20 19:54 | XMS_ITS | Encounter Summary ---
Author Organization [facility] Address [address] [place] [address] Care Team Providers Care Storeroom Clerk Name Role Phone Angel Chilel MD Primary Care Provider Unav ailable Reason for Visit * Reason Comments Hematuria Encounter Details Date Type Department Care Team (Latest Contact Info) Description 12/25/2010 16:00 EDT Office Visit [facility] Pelvic Medicine and Reconstructive Surgery - Medical Office [facility] [address] [place] [address] George Ortega MD [address] [place] [phone] Microhematuria (Primary Dx) Social History Tobacco Use Types [...] Sign Reading Time Taken Comments Blood Pressure - - Pulse - - Temperature - - Respiratory Rate - - Oxygen Saturation - - Inhaled Oxygen Concentration - - Weight 77.1 kg (170 lb) 12/25/2010 1454 EDT Height 154.9 cm (5' 1) 12/25/2010 1454 EDT Body Mass Index 32.12 12/25/2010 1454 EDT documented in this encounter Progress Notes * George Ortega MD - 01/03/2011 1012 EDT [facility] [place] [address] Telephone Toll-Free PROGRESS/FOLLOWUP NOTE - 12/25/2010 SUBJECTIVE: Marisol Lawson is seen in urologic consultation today at the request of Dr Osmar Benavides for microhematuria as well as an atypical urine cytology. This is a patient of Dr Benavides's with a history of ovarian cancer, status post previous chemotherapy. She is also status post resection. The p atient recently has some lower urinary tract symptoms and a urinalysis was sent. At that time 3+ blood was seen. Cytology was sent, which came back atypical. We were contacted via email, and I recommended that an upper tract study be performed. A retroperitoneal ultrasound was performed on 12/25/2010. This showed multiple bilateral small nonobstructing kidney stones, which were too small to characterize, and some calcifications seen in the spleen likely from prior granulomas. There was no evidence of hydronephrosis or any other abnormalities. A UroVysion test was sent from an outside hospital (fluorescent in situ hybridization study). This demonstrated no findings consistent with urothelial c ancer (negative result, no evidence of urothelial carcinoma. The patient denies gross hematuria. From a urinary standpoint she has mildly bothersome stress incontinence, but no other complaints. The patient's past medical history, social history, medications, allergies and review of systems are otherwise documented in the scanned paper documents in the electronic medical record. OBJECTIVE: Examination does not show any evidence of pelvic prolapse. There is no urethral caruncle. After obtaining informed consent, we presented to flexible cystoscopy. This revealed a normal urethra and bladder. There were no intravesical tumors, stones or diverticula and the ureteral orifices appear normal. ASSESSMENT AND PLAN: At this point, Marisol's microhematuria appears to be benign. She does have some small kidney stones, which are too small to cause obstruction at this point, but they may grow over time, so followup renal ultrasound might be appropriate in the future. In the meantime, given her n egative FISH examination and negative cystoscopy, I do not believe further evaluation for microhematuria is required at this point. Should she develop gross hematuria, further evaluation with a CT urogram and repeat cystoscopy would be indicated, however. I told the patient should she develop flankpain, nausea or vomiting or any other complaints to contact my office. At this point, no further evaluation would be indicated, however. Electronically Signed by George Ortega MD 01/03/2011 10:12 George Ortega MD - George Ortega MD - KARLIE Job ID: SM Doc ID: [id number] Ext Doc ID: [id number] cc: MD Elidia Valentin PA Cheung Wong, MD * George Ortega MD - 12/26/2010 1859 EDT Subjective: Patient ID: Marisol Lawson is an 50 y.o. female. Chief Complaint Patient presents with ??? Hematuria HPI Patient Active Problem List Diagnoses Code ??? Mixed Basal-Squamous Cell Carcinoma 173.9DF ??? Ovarian cancer 183.0C ??? Microhematuria 599.72H Past Medical History Diagnosis Date ??? Diabetes mellitus diet control ??? Depression ??? Hyperlipidemia ??? Asthma ??? GERD (gastroesophageal reflux disease) ??? Bronchospasm ??? Urinary tract infection ??? IBS (irritable bowel syndrome) ??? Ovarian carcinoma stage 3 ??? Basal cell carcinoma 12/2008 Left Cheek ??? Ovarian cancer 09/27/2010 ??? Microhematuria 12/26/2010 Past Surgical History Procedure Date ??? Cholecystectomy [...] times daily. Med Name: Emma Root ??? acetaminophen (TYLENOL) 325 mg tablet Take [...] Nausea And Vomiting Nausea & Vomiting with BOLT MACHINE OPERATOR dilaudid 08/27/09 ??? Oxycodone Shortness Of Breath, Nausea And Vomiting and Other (See Comments) Per pt & confirmed by daughter: previous SOB/N&V, diaphoresis with OXYCODONE. ROS - See HPI Objective: Ht 154.9 cm (61) Wt 77.111 kg (170 lb) BMI 32.12 kg/m2 Physical Exam Assessment: Plan: Marisol was seen today for hematuria. Diagnoses and associated orders for this visit: Microhematuria * George Ortega MD - 12/26/2010 1859 EDT Dictated. Past Medical history, past surgical history, social history, medications, and drug allergies all reviewed in EMR ([facility]) and updated where appropriate. documented in this encounter Miscellaneous Notes * Scanned Note-Null - Magdiel Informatics Physician Liaison - 12/26/2010 1447 EDT documented in this encounter Plan of Treatment Not on file documented as of this encounter Visit Diagnoses Diagnosis Microhematuria- Primary Microscopic hematuria documented in this encounter Discontinued Medications Medication Sig Discontinue Reason Start Date End Da te lorazepam (ATIVAN) 1 mg tablet Take 1 Tab by mouth every 6 hours as needed for Anxiety. Nausea Patient Stopped Taking 09/22/2009 12/25/2010 documented as of this encounter Care Teams Storeroom Clerk Relationship Specialty Start Date End Date Angel Chilel MD PCP - General 12/16/09 05/13/12 documented as of this encounter
--- OUTSIDE RECORDS SUMMARY | 2024-01-20 19:54 | XMS_ITS | Encounter Summary ---
Author Organization [facility] Address [address] [place] [address] Care Team Providers Care Manufacturing Teacher Name Role Phone Angel Chilel MD Primary Care Provider Unav ailable Reason for Visit * Reason Onset Date Comments Results 04/19/2015 Encounter Details Date Type Department Care Team (Late st Contact Info) Description 04/19/[address] [facility] OBGYN Services - [facility] [address] [place], [place] [phone] Fidelina Veliz, RN Results Social History Tobacco Use Types [...] encounter Miscellaneous Notes * Telephone Encounter - Fidelina Veliz RN - 04/19/2015 1030 EST Called to [facility] lab. Pt has not been for lab work (CA 125). Lft msg with Pt to return call to PUBLIC HEALTH STAFF NURSE triage to see when she may be going to lab. documented in this encounter Plan of Treatment Not on file documented as of this encounter Visit Diagnoses Not on filedocumented in this encounter Care Teams Manufacturing Teacher Relationship Specialty Start Date End Date Angel Chilel MD PCP - General 03/12/14 12/01/18 documented as of this encounter
--- OUTSIDE RECORDS SUMMARY | 2024-01-20 19:54 | XMS_ITS | Encounter Summary ---
Author Organization [facility] Address [address] [place] [address] Care Team Providers Care Crib Pad Maker Name Role Phone Angel Chilel MD Primary Care Provider Unav ailable Encounter Details Date Type Department Care Team (Late st Contact Info) Description 12/25/2010 14:13 EDT - 12/25/2010 23:59 EDT Hospital Encounter [facility] [address] [place] [address] Elidia Christianson PA-C [address] [facility], [address] [place] [phone] Discharge Disposition: Home or Self Care Social [...] to BP meds 1 Tab 0 05/31/2020 acetaminophen (TYLENOL) 325 mg tablet Take 1-2 Tabs by mouth every 4 hours. 1 Tab 0 08/31/2009 05/15/2012 UNABLE TO FIND Take 1 Tab by mouth 2 times daily. Med Name: Emma Root 05/15/2012 documented as of this encounter Discharge Disposition Disposition Code Departure Means Destination Home or Self Penitentiary documented in this encounter Plan of Treatment Not on file documented as of this encounter Visit Diagnoses Not on filedocumented in this encounter Care Teams Crib Pad Maker Relationship Specialty Start Date End Date Angel Chilel MD PCP - General 12/16/09 05/13/12 documented as of this encounter
--- OUTSIDE RECORDS SUMMARY | 2024-01-20 19:54 | XMS_ITS | Encounter Summary ---
Author Organization [facility] Address [address] [place] [address] Care Team Providers Care Simulation Tech Name Role Phone Angel Chilel MD Primary Care Provider Unav ailable Encounter Details Date Type Department Care Team (Late st Contact Info) Description 11/21/2010 Orders Only [facility] OBGYN Services - [address] [phone] Elidia Christianson PA-C [address] [place] [address], Level [address] [place] [address] Hematuria, microscopic (Primary Dx) Social History Tobacco Use Types [...] as of this encounter Progress Notes * Mag Calhoun RN - 12/13/2010 1137 EDT Renal US scheduled for 12/25/10 check in at registration at 2:00pm at [facility]. Pt instructed to hydrate with 2-3 glasses of plain water (no carbonation, no flavoring) 4 hours prior to exam. Must have full bladder. Has appt with Dr Ortega same day at 4:00pm--new pt info packet has been mailed per his office. Pt advised of appts and instructions. Mag Spina, RN * Elidia Christianson PA - 11/21/2010 1633 EDT Contacted Marisol today regarding atypical urothelial cells seen on cytology of urine sample. I had contacted Dr. Ortega with urology to inquire about further work up for this, who recommended repeating a UA with microscopic and cytology, with FISH analysis to r/o TCCA. I spoke with Marisol, who advised that [facility] would be the most convenient lab for her to go to for this, and I called them to confirm that they are able to do this test, which they are (they will send it out). External referral order placed, and Marisol will go later this week to give a sample. If abnormal, will refer to Dr. Ortega for cystoscopy, as well as for renal ultrasound or CT urogram. documented in this encounter Plan of Treatment Not on file documented as of this encounter Visit Diagnoses Diagnosis Hematuria, microscopic- Primary Microscopic hematuria documented in this encounter Care Teams Simulation Tech Relationship Specialty Start Date End Date Angel Chilel MD PCP - General 12/16/09 05/13/12 documented as of this encounter
--- OUTSIDE RECORDS SUMMARY | 2024-01-20 19:54 | XMS_ITS | Encounter Summary ---
Author Organization [facility] Address [address] [place] [address] Care Team Providers Care Transformation Lead Name Role Phone Angel Chilel MD Primary Care Provider Unav ailable Reason for Visit * Reason Comments Follow-up Encounter Details Date Type Department Care Team (Late st Contact Info) Description 01/17/2012 15:00 EDT Office Visit [facility] Gynecologic Oncology [facility] [address] [place], [place] [phone] Osmar Benavides MD [address] [facility], [facility] [address] [place] [phone] Malignant neoplasm of ovary (HCC-CMS) (Primary Dx) [...] on file documented as of this encounter Ordered Prescriptions Prescription Sig Dispensed Refills Start Date End Da te azithromycin (ZITHROMAX) 250 mg tablet Take 2 tablets (500mg) by mouth on day 1, followed by 1 tablet (250mg) by mouth once daily on days 2 through 5. 6 Tab 0 01/17/2012 01/21/2012 documented in this encounter Progress Notes * Osmar Benavides MD - 01/18/2012 0615 EDT Just a note to keep you [...] reassessment for her history of ovarian cancer. Of note, She denies any nausea, vomiting, constipation or diarrhea. She denies any abnormal vaginal bleeding, odor, or discharge. Marisol is complaining of a productive cough. She states that she typically has upper respiratory infections during this season because of her significant allergies. The remainder of review of systems is otherwise negative. Results for MARISOL MARTINEZ ( ) as of 01/18/2012 06:18 Ref. Range 09/06/2011 00:00 10/09/2011 00:00 11/06/2011 00:00 12/10/2011 12:30 01/08/2012 00:00 CA 125, External Latest Range: 0-35 10 11 10 8 9 Current Outpatient Prescriptions Medication Sig Dispense Refill ??? azithromycin (ZITHROMAX) 250 mg tablet Take 2 tablets (500mg) by mouth on day 1, followed by 1 tablet (250mg) by mouth once daily on days 2 through 5. 6 Tab 0 ??? clobetasol (TEMOVATE) 0.05 % cream Apply topically. Apply topically twice daily as needed for psoriasis. 60 g 3 ??? albuterol (PROVENTIL, VENTOLIN) 90 mcg/Actuation inhaler [...] Nausea And Vomiting Nausea & Vomiting with AREA CAPTAIN dilaudid 08/27/09 ??? Oxycodone Shortness Of Breath, [...] and ROS is otherwise negative. Objective: BP 100/80; 170 lobs; 61 inches Physical Exam Pt is A&Ox3 and in NAD HEENT: NC/AT Neck: no cervical or supra-clavicular lymphadenopathy Heart: S1S2 Lungs: rhonchi in right lung base otherwise Clear; no wheezing Abdomen: soft, NT,ND, no rebound or guarding, no hepatosplenomegaly Pelvic: Ext: no exophytic lesion; Vagina: no lesions; Uterus:absent; Cervix:absent; Adnexa:no mass;renata-urethral and pre-anal area:normal Ext: no CCE Assessment & Plan: Today, I explained to Marisol that I am very pleased with how she is doing. She is clinically without any evidence of disease. With regards to her ovarian cancer status, I explained to Marisol that we can increase her followup visits to every 6 months. Marisol would also like to have her Jjdvxp-k-Oxtwogioktb and I explained to Marisol that this is not unreasonable, but I would like her to resolve her upper respiratory symptoms before we take out her Dsfzhb-m-Nwcp. With regards to her upper respiratory symptoms, I have taken the liberty of treating Marisol with a Z-Shon, and she will call our office if the respiratory symptoms get worse. As always, I thank you very much for allowing me to participate in the care of your patient. I willkeep you informed of progress. Sincerely and Respectfully, Osmar Benavides MD Director of Gynecologic Oncology [facility] documented in this encounter Plan of Treatment Not on file documented as of this encounter Visit Diagnoses Diagnosis Malignant neoplasm of ovary (HCC-CMS)- Primary Malignant neoplasm of ovary documented in this encounter Care Teams Transformation Lead Relationship Specialty Start Date End Date Angel Chilel MD PCP - General 12/16/09 05/13/12 documented as of this encounter
--- OUTSIDE RECORDS SUMMARY | 2024-01-20 19:54 | XMS_ITS | Encounter Summary ---
Author Organization [facility] Address [address] [place] [address] Care Team Providers Care Partner Marketing Intern Name Role Phone None, Provider Primary Care Provider Unavailabl e Encounter Details Date Type Department Care Team (Late st Contact Info) Description 05/15/2012 12:37 EST - 05/15/2012 21:21 EST Hospital Encounter [facility] Cardiovascular Unit [address] [place] [address] Osmar Benavides MD 111 [facility] [address] [place] [phone] Discharge Disposition: Home or Self Care Social [...] file documented as of this encounter Discharge Instructions * Discharge Instructions* Alondra Puckett RN - 05/15/2012 14:02 EST RADIOLOGY PATIENT EDUCATION INSTRUCTIONS FOLLOWING CHEST PORT (under the skin)removal Procedure Site - Chest, Right Physician Performing Procedure - Saúl Santos MD, Christiano FLANNERY ?? Return home and rest quietly for the remainder of the day. You may resume normal activity tomorrow with exception of heavy lifting for 5days. You may resume your normal diet after the procedure. ?? DO NOT take aspirin-containing products, ibuprofen, vitamin E, or blood thinning medicine for 24hours after the procedure. You may take Tylenol for mild discomfort. Call your physician for pain unrelieved with Tylenol. ?? Chest Wound Care - The CHEST SITE or wound is closed like a surgical incision. The doctor used absorbable sutures to close the wound. You will not be able to see them, they are under the skin. Change dressing daily following the removal. Thoroughly wash your hands. Remove the old Tegaderm and gauze. Check the incision daily for early signs of infection; redness, drainage, fever >100 degrees Fahrenheit or 38 degrees Celsius, or increased pain around port site. Dermabond is a sterile liquid skin adhesive that holds wound edges together. The film usually remains in place for 5-15days then naturally falls off. Some swelling,redness and pain are common with all wounds and normally will go away as th wound heals. If redness or pain increases or if the wound feels warm contact the number below. If your wound is bandaged, keep the bandage dry. Replace dressing daily until the adhesive film falls off Do not apply any ointment to the wound. You may briefly wet your wound in the shower. Do Not soak or scrub your wound, do not pick or scratch at the dermabond. Protect the wound from prolonged exposure to sunlight or tanning lamps while the film is in place. ?? You must keep your incision site clean and dry. Do not take a tub bath or submerge in water for 7 days after the procedure. INFECTION - Implanted ports may be susceptible to infection. This is why the utmost care has been taken during its placement and access to avoid infection. Signs of infection include pain, redness, and swelling. If you experience these please call your doctor. ?? IF YOU HAVE ANY QUESTIONS OR CONCERNS REGARDING THE PROCEDURE, PLEASE CALL THE INTERVENTIONAL RADIOLOGY CLINIC AT . SOMEONE IS AVAILABLE TO TAKE YOUR CALL 24 HOURS A DAY. documented in this encounter Medications at Time [...] Code Departure Means Destination Home or Self Care documented in this encounter Procedure Notes * Donald Santos MD - 05/15/2012 1412 EST IR Procedure Note Procedure: Chest port removal Date Performed: 05/15/2012 Radiologist/Package Dyeing Machine Operator(s): Marcia Quiroga J. Myers Sedation/Anesthesia: lidocaine Time Out: A time-out was completed prior to procedure verifying correct patient, procedure, site, positioning, and special equipment if applicable. Estimated Blood Loss: Unless otherwise noted, there was no blood loss, specimens removed, cultures obtained, or drains retained. Specimens: none Fluoroscopy Time: n/a Contrast Volume: n/a Complications: none Condition: stable Post Procedure Diagnosis: R chest port removal Findings: Successful removal of R chest port Recommendations: none Donald Santos MD 05/15/2012 14:12 documented in this encounter Miscellaneous Notes * Scanned Note-Null - POLICY INTERN, SCAN 2 - 05/20/2012 0817 EST * Scanned Note-Null - POLICY INTERN, SCAN 2 - 05/15/2012 1245 EST * Scanned Note-Null - POLICY INTERN, SCAN 2 - 05/15/2012 1245 EST documented in this encounter Plan of Treatment Not on file documented as of this encounter Visit Diagnoses Not on filedocumented in this encounter Discontinued Medications Medication Sig Discontinue Reason Start Date End Da te acetaminophen (TYLENOL) 325 mg tablet Take 1-2 Tabs by mouth every 4 hours. Patient Stopped Taking 08/31/2009 05/15/2012 clobetasol (TEMOVATE) 0.05 % cream Apply topically. Apply topically twice daily as needed for psoriasis. Patient Stopped Taking 12/29/2010 05/15/2012 UNABLE TO FIND Take 1 Tab by mouth 2 times daily. Med Name: Emma Root Patient Stopped Taking 05/15/2012 documented as of this encounter Care Teams Partner Marketing Intern Relationship Specialty Start Date End Date None, Provider PCP - General 05/14/12 03/11/14 documented as of this encounter
--- OUTSIDE RECORDS SUMMARY | 2024-01-20 19:54 | XMS_ITS | Encounter Summary ---
Author Organization [facility] Address [address] [place] [address] Care Team Providers Care Spectrograph Operator Name Role Phone Angel Chilel MD Primary Care Provider Unav ailable Encounter Details Date Type Department Care Team (Late st Contact Info) Description 08/10/2011 Orders Only [facility] OBGYN Services - [address] [phone] Mag Calhoun RN Malignant neoplasm of ovary (HCC-CMS) (Primary [...] Date/Time Associated Diagnosis Comments ZZCA 125 Routine 08/07/2011 Malignant neoplasm of ovary (HCC-CMS) documented in this encounter Results * CA 125 (08/07/2011) CA 125, External 9 [facility] Blood specimen (specimen) Osmar Benavides MD CHEMISTRY & BLOOD GA S ORDERABLES [facility] documented in this encounter Visit Diagnoses Diagnosis Malignant neoplasm of ovary (HCC-CMS)- Primary Malignant neoplasm of ovary documented in this encounter Care Teams Spectrograph Operator Relationship Specialty Start Date End Date Angel Chilel MD PCP - General 12/16/09 05/13/12 documented as of this encounter
--- OUTSIDE RECORDS SUMMARY | 2024-01-20 19:54 | XMS_ITS | Encounter Summary ---
Author Organization [facility] Address [address] [place] [address] Care Team Providers Care Telegraph Lineman Name Role Phone Angel Chilel MD Primary Care Provider Unav ailable Reason for Referral * Consult (Routine) - Closed Specialty Diagnoses / Procedures Referred By Renita pratt Referred To Contact Breast Clinic / Breast Center Diagnoses BRCA1 positive Delores Puga, MS [address] [place] [address] [place] [address] Bcc/Vcc [facility] [place] [place] [address] [place] [address] Referral ID Status Reason Start Date Expiration Date V isits Requested Visits Authorized [id number] Closed Specialty Services Required 10/10/2017 1 1 Question Answer High Risk Breast Clinic Criteria: A known genetic predisposition (e.g. BRCA1, BRCA2) Please Elaborate (specific family history, treatment history etc.): BRCA1+, history of ovarian cancer age 49, treated with chemo. Pt is not interested in mammograms, please discuss screening options. Comments See above for details. If possible, Marisol would like to be seen on the same day as her results appointment with Delores and Dr. Munoz. BCC should happen after FCP appointment. Reason for Visit * Reason Onset Date Comments Appointment Related 10/10/2017 Encounter Details Date Type Department Care Team (Late st Contact Info) Description 10/10/2017 Orders Only [facility] Hematology & Oncology - [address] [place] [address] [place] [address] Delores Puga, MS [address] [place] [address] BRCA1 positive (Primary Dx) Social History Tobacco [...] Diagnoses Orde r Schedule AMB CONS/FOLLOW UP TO HIGH RISK BREAST CLINIC Outpatient Referral Routine BRCA1 positive Ordered: 10/10/2017 documented as of this encounter Visit Diagnoses Diagnosis BRCA1 positive- Primary Genetic susceptibility to malignant neoplasm of breast documented in this encounter Care Teams Telegraph Lineman Relationship Specialty Start Date End Date Angel Chilel MD PCP - General 03/12/14 12/01/18 documented as of this encounter
--- OUTSIDE RECORDS SUMMARY | 2024-01-20 19:54 | XMS_ITS | Encounter Summary ---
Author Organization [facility] Address [address] [place] [address] Care Team Providers Care Plow Mechanic Name Role Phone Angel Chilel MD Primary Care Provider Unav ailable Reason for Referral * Consult, Test and Treat (Routine) - Closed Specialty Diagnoses / Procedures Referred By Contact Referred To Contact Gastroenterology and Hepatology Diagnoses Encounter for screening colonoscopy Procedures COLONOSCOPY Elidia Christianson PA-C [address] [place] [phone] Referral ID Status Reason Start Date Expiration Date Visits Re quested Visits Authorized [id number] Closed 01/20/2015 1 1 * Radiology Services (Routine) - Closed Specialty Diagnoses / Procedures Referred By Contac t Referred To Contact Diagnoses Other screening mammogram Procedures MA MAMMO DIAG BILAT DIGITAL Elidia Christianson PA-C [address] [place] [phone] Referral ID Status Reason Start Date Expiration Date Visits Re quested Visits Authorized [id number] Closed 01/20/2015 1 1 * Laboratory Services (Routine) - Closed Specialty Diagnoses / Procedures Referred By Contac t Referred To Contact Diagnoses History of ovarian cancer Procedures CA 125 Elidia Christianson PA-C [address] [place], [place] [address], [place] [address] Referral ID Status Reason Start Date Expiration Date Visits Re quested Visits Authorized [id number] Closed 01/20/2015 1 1 Encounter Details Date Type Department Care Team (Late st Contact Info) Description 01/20/2015 Orders Only [facility] OBGYN Services - [address] [address] Elidia Christianson PA-C [address] [place] [phone] History of ovarian cancer (Primary Dx); Other screening mammogram; Encounter for screening colonoscopy Social History Tobacco Use Types Packs/Day Years [...] Progress Notes * Elidia Christianson PA - 01/20/2015 1230 EDT Spoke with Marisol. She did not have her CA 125 level drawn following our last visit in September due to other health issues (kidney stones), but would like to do so now, order sent to [facility]. Additionally, we had ordered a mammogram and colonoscopy, she had not done those either. These tests were re-ordered as well. Order for colonoscopy sent to Dr. Nicolas's office, fax [phone], phone [phone]. documented in this encounter Plan of Treatment Scheduled Orders Name Type Priority Associated Diagnoses Orde r Schedule MA MAMMO DIAG BILAT DIGITAL Imaging Routine Other screening mammogram Ordered: 01/20/2015 COLONOSCOPY GI Routine Encounter for screening colonoscopy Ordered: 01/20/2015 documented as of this encounter Results * CA 125 (05/02/2015) CA 125, External 12 0 - 35 U/mL [facility] Blood specimen (specimen) 05/02/2015 Elidia Christianson PA-C CHEMISTRY & BL OOD GAS ORDERABLES [facility] documented in this encounter Visit Diagnoses Diagnosis History of ovarian cancer- Primary Personal history of malignant neoplasm of ovary Other screening mammogram Encounter for screening colonoscopy Special screening for malignant neoplasms, colon documented in this encounter Discontinued Medications Medication Sig Discontinue Reason Start Date End Da te PEG 3350-Electrolytes (GOLYTELY) 227.1-21.5-6.36 gram powder in packet Instructions mailed once procedure scheduled. Questions: [facility] Gastroenterology: [phone] or GI Doctor's Office. Duplicate Therapy 09/09/2014 01/20/2015 documented as of this encounter Care Teams Plow Mechanic Relationship Specialty Start Date End Date Angel Chilel MD PCP - General 03/12/14 12/01/18 documented as of this encounter
--- OUTSIDE RECORDS SUMMARY | 2024-01-20 19:54 | XMS_ITS | Encounter Summary ---
Author Organization [facility] Address [address] [place] [address] Care Team Providers Care Digital Director Name Role Phone Angel Chilel MD Primary Care Provider Unav ailable Reason for Referral * Consult, Test and Treat (Routine/Next Available) - Closed Specialty Diagnoses / Procedures Referred By Renita pratt Referred To Contact Diagnoses Malignant neoplasm of ovary (HCC-CMS) Edema of lower extremity Osmar Benavides MD [address] [place] [address] [address] [place] [address] Referral ID Status Reason Start Date Expiration Date V isits Requested Visits Authorized [id number] Closed Specialty Services Required 09/26/2011 1 1 Question Answer Reason for Request: lower extremity edema and weakness Date of Onset or Injury: 2009 Surgery (and Date): 08/25/09 Exploratory laparotomy, total abdominal hysterectomy, bilateral salpingo-oophorectomy and omentectomy, and aspiration of ascites. 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 Treated with 6 cycles taxol/carbo chemotherapy. Clinically LEIGH since completion of treatment. Persistent lower extremity edema and weakness. Please evaluate and treat. Encounter Details Date Type Department Care Team (Late st Contact Info) Description 09/26/2011 Orders Only [facility] OBGYN Services - [address] [phone] Mag Calhoun RN Malignant neoplasm of ovary (HCC-CMS); Edema of lower extremity Social History Tobacco Use Types Packs/Day Years [...] as of this encounter Progress Notes * Erci Ornelas RN - 12/12/2011 1300 EDTAddended by: ERIC ORNELAS on: 12/12/2011 13:00 Modules accepted: Orders * Mag Calhoun RN - 09/26/2011 1040 EDT Marisol requesting that we fax a referral to [facility] rehab for PT (ph. [phone]). Had discussed sx and PT with Dr Benavides at time of last visit. She has scheduled an appt for 10/12/11. Referralorder and last office note faxed to [phone] per request. Mag Calhoun RN 09/26/2011 10:42 documented in this encounter Plan of Treatment Scheduled Referrals Name Type Priority Associated Diagnoses Orde r Schedule AMB CONSULT PHYSICAL THERAPY Outpatient Referral Routine Malignant neoplasm of ovary (HCC-CMS) Edema of lower extremity Ordered: 09/26/2011 documented as of this encounter Procedures Procedure Name Priority Date/Time Associated Diagnosis Comments ZZCA 125 Routine 12/10/2011 12:30 EDT Malignant neoplasm of ovary (HCC-CMS) documented in this encounter Results * CA 125 (12/10/2011 12:30 EDT) CA 125, External 8 0 - 35 U/ml POINT OF CARE Blood specimen (specimen) 12/10/2011 12:30 EDT Osmar Benavides MD CHEMISTRY & BLOOD GA S ORDERABLES POINT OF CARE documented in this encounter Visit Diagnoses Diagnosis Malignant neoplasm of ovary (HCC-CMS) Malignant neoplasm of ovary Edema of lower extremity Edema documented in this encounter Care Teams Digital Director Relationship Specialty Start Date End Date Angel Chilel MD PCP - General 12/16/09 05/13/12 documented as of this encounter
--- OUTSIDE RECORDS SUMMARY | 2024-01-20 19:54 | XMS_ITS | Encounter Summary ---
Author Organization [facility] Address [address] [place] [address] Care Team Providers Care Eap Clinician Name Role Phone Angel Chilel MD Primary Care Provider Unav ailable Reason for Visit * Reason Onset Date Comments Results 02/27/2011 Encounter Details Date Type Department Care Team (Late st Contact Info) Description 02/27/2011 Orders Only [facility] OBGYN Services - [address] [phone] Alexus Mcwilliams RN Ovarian cancer (CMS-HCC) (HCC-CMS) (Primary Dx) Social [...] as of this encounter Progress Notes * Osmar Benavides MD - 02/28/2011 0718 EDTQuick Note: L, normal ca125 documented in this encounter Plan of Treatment Not on file documented as of this encounter Procedures Procedure Name Priority Date/Time Associated Diagnosis Comments ZZCA 125 Routine 02/19/2011 10:46 EDT documented in this encounter Results * CA 125 (02/19/2011 10:46 EDT) CA 125, External 9 0 - 35 u/ml POINT OF CARE Blood specimen (specimen) 02/19/2011 10:46 EDT Osmar Benavides MD CHEMISTRY & BLOOD GA S ORDERABLES POINT OF CARE documented in this encounter Visit Diagnoses Diagnosis Ovarian cancer (HCC-CMS)- Primary Malignant neoplasm of ovary documented in this encounter Care Teams Eap Clinician Relationship Specialty Start Date End Date Angel Chilel MD PCP - General 12/16/09 05/13/12 documented as of this encounter
--- OUTSIDE RECORDS SUMMARY | 2024-01-20 19:54 | XMS_ITS | Encounter Summary ---
Author Organization [facility] [place] Address [address] [place] [address] Care Team Providers Care Heel Nail Rasper Name Role Phone Angel Chilel MD Primary Care Provider Unav ailable Encounter Details Date Type Department Care Team (Late st Contact Info) Description 05/16/2011 Orders Only [facility] OBGYN Services - [facility] [address] [place] [address] Margaret Ornelas RN [address] [place] [address] Malignant neoplasm of ovary (HCC-CMS) (Primary Dx) [...] as of this encounter Progress Notes * Margaret Ornelas RN - 05/16/2011 1630 EST Results for MARISOL MARTINEZ ( ) as of 05/16/2011 16:31 Ref. Range 05/08/2011 00:00 CA 125, External Latest Range: 0-35 U/ml [address] Benavides's request. Appt for follow up given 06/04/11. documented in this encounter Plan of Treatment Not on file documented as of this encounter Procedures Procedure Name Priority Date/Time Associated Diagnosis Comments ZZCA 125 Routine 07/12/2011 Malignant neoplasm of ovary (HCC-CMS) ZZCA 125 Routine 05/08/2011 Malignant neoplasm of ovary (HCC-CMS) documented in this encounter Results * CA 125 (07/12/2011) CA 125, External 8 [facility] Blood specimen (specimen) Osmar Benavides MD CHEMISTRY & BLOOD GA S ORDERABLES [facility] * CA 125 (05/08/2011) CA 125, External 7 0 - 35 U/ml [facility] Blood specimen (specimen) Osmar Benavides MD CHEMISTRY & BLOOD GA S ORDERABLES [facility] documented in this encounter Visit Diagnoses Diagnosis Malignant neoplasm of ovary (HCC-CMS)- Primary Malignant neoplasm of ovary documented in this encounter Care Teams Heel Nail Rasper Relationship Specialty Start Date End Date Angel Chilel MD PCP - General 12/16/09 05/13/12 documented as of this encounter
--- OUTSIDE RECORDS SUMMARY | 2024-01-20 19:54 | XMS_ITS | Encounter Summary ---
Author Organization [facility] Address [address] [place] [address] Care Team Providers Care Assembler Watch Train Name Role Phone Angel Chilel MD Primary Care Provider Unav ailable Reason for Visit * Reason Onset Date Comments Labs Only 07/20/2010 external results Encounter Details Date Type Department Care Team (Late st Contact Info) Description 07/20/2010 Orders Only [facility] OBGYN Services - Main [place] [address] [place], [place] [id number] Mag Calhoun, NICK Malignant neoplasm of ovary (HCC-CMS) (Primary Dx) [...] Date/Time Associated Diagnosis Comments ZZCA 125 Routine 07/18/2010 ZZCA 125 Routine 06/20/2010 ZZCA 125 Routine 06/02/2010 documented in this encounter Results * CA 125 (07/18/2010) CA 125, External 9 0 - 35 U/ml [facility] Blood specimen (specimen) Historical Provider CHEMISTRY & BLOOD GAS ORDERABLES [facility] * CA 125 (06/20/2010) CA 125, External 23 0 - 35 U/ml [facility] Blood specimen (specimen) Historical Provider CHEMISTRY & BLOOD GAS ORDERABLES Performing Organization Address City/[facility]/ZIP Co de Phone Number [facility] * CA 125 (06/02/2010) CA 125, External 154 0 - 35 U/ml [facility] Blood specimen (specimen) Historical Provider CHEMISTRY & BLOOD GAS ORDERABLES Performing Organization Address City/[facility]/ZIP Co de Phone Number [facility] documented in this encounter Visit Diagnoses Diagnosis Malignant neoplasm of ovary (HCC-CMS)- Primary Malignant neoplasm of ovary documented in this encounter Care Teams Assembler Watch Train Relationship Specialty Start Date End Date Angel Chilel MD PCP - General 12/16/09 05/13/12 documented as of this encounter
--- OUTSIDE RECORDS SUMMARY | 2024-01-20 19:54 | XMS_ITS | Encounter Summary ---
Author Organization [facility] Address [address] [place] [address] Care Team Providers Care Bank Teller Machine Mechanic Name Role Phone Angel Chilel MD Primary Care Provider Unav ailable Encounter Details Date Type Department Care Team (Late st Contact Info) Description 09/26/2017 Documentation Visit [facility] [place] [facility] - [facility] [address] [place] [address] Delores Puga, [place] [address] [place], [place] [address] Social History Tobacco Use Types Packs/Day Years [...] as of this encounter Progress Notes * Delores Puga S - 09/26/2017 1698 EDT Marisol came to the [facility] along with her sister Anjelica, who had an appointment and is unaffected by cancer. Since Marisol was diagnosed with ovarian cancer at age 49, her mother was diagnosed with ovarian cancer at age 76, and the maternal grandmother diagnosed with ovarian cancer age55, Marisol would be the best person in this family to undergo genetic testing for BRCA1/2 along with other genes associated with ovarian cancer. Marisol agreed and her blood was drawn 09/26/17 and sentto [facility]. I will call Marisol by phone with her results. If they are positive she wouldreturn to the P for an appointment with myself and Dr. Munoz. Marisol was last seen in 2014 by Elidia Christianson, and was hoping to be followed closer to home by Dr. Vo, but she would like to return for follow up in [facility] Director Onc at [facility] if she tests positive. documented in this encounter Plan of Treatment Not on file documented as of this encounter Visit Diagnoses Not on filedocumented in this encounter Care Teams Bank Teller Machine Mechanic Relationship Specialty Start Date End Date Angel Chilel MD PCP - General 03/12/14 12/01/18 documented as of this encounter
--- OUTSIDE RECORDS SUMMARY | 2024-01-20 19:54 | XMS_ITS | Encounter Summary ---
Author Organization [facility] Address [address] [place] [address] Care Team Providers Care Carpet Technician Name Role Phone Angel Chilel MD Primary Care Provider Unav ailable Reason for Visit * Reason Onset Date Comments Results 04/12/2015 Encounter Details Date Type Department Care Team (Late st Contact Info) Description 04/12/2015 Telephone [facility] OBGYN Services - Main [place] [address] [place], [place] [id number] Fidelina Veliz, RN Results Social History Tobacco [...] Telephone Encounter - Elidia Christianson PA - 04/12/2015 1042 EST Reviewed, please keep an eye out for her result and forward to me when received. * Telephone Encounter - Fidelina Veliz RN - 04/12/2015 1008 EST Pt called to report that she will be going to [facility] today or tomorrow (04/13/15) for her CA 125 lab work. Pt states she is very anxious about the results as she is experiencing some stomachissues and would like to be called as soon as results are available. Pt states she is scheduled for her colonoscopy in 06/2015 and will call [facility] radiology to schedule her mammogram per Elidia Christianson's note and orders placed 01/20/15. documented in this encounter Plan of Treatment Not on file documented as of this encounter Visit Diagnoses Not on filedocumented in this encounter Care Teams Carpet Technician Relationship Specialty Start Date End Date Angel Chilel MD PCP - General 03/12/14 12/01/18 documented as of this encounter
--- OUTSIDE RECORDS SUMMARY | 2024-01-20 19:54 | XMS_ITS | Encounter Summary ---
Author Organization 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 Encounter Details Date Type Department Care Team (Late st Contact Info) Description 06/18/2011 10:45 EST Office Visit [facility] OBGYN Services - [facility] [address] [place], [place] [address] Osmar Benavides MD [address] [facility], [address] [place] [address] Ovarian cancer (CMS-HCC) (HCC-CMS) (Primary Dx) Discharge Disposition: Auto Discharge Social [...] Sign Reading Time Taken Comments Blood Pressure 130/78 06/18/2011 1056 EST Pulse 82 06/18/2011 1056 EST Temperature - - Respiratory Rate - - Oxygen Saturation 98% 06/18/2011 1056 EST Inhaled Oxygen Concentration - - Weight 77.1 kg (170 lb) 06/18/2011 1056 EST Height 154.9 cm (5' 1) 06/18/2011 1056 EST Body Mass Index 32.12 06/18/2011 1056 EST documented in this encounter Discharge Disposition Disposition Code Departure Means Destination Auto Discharge documented in this encounter Progress Notes * Osmar Benavides MD - 06/18/2011 1615 EST Just a note to keep you updated with regards to your patient, Marisol Lawson. 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 Campos successfully completed 6 courses of Taxol/carboplatin chemotherapy. She presents today for reassessment for her history of ovarian cancer. Of note, She denies any nausea, vomiting, constipation or diarrhea. She denies any abnormal vaginal bleeding, odor, or discharge. Remainder of review of systems is negative. Marisol does complain of some edema of the lower extremities and she has had work with physical therapy at [facility] and she is contemplating going back to see the physical thera py at [facility]. It should be noted that in 2010, Marisol developed a situation where she had an elevated CA-125 of unclear etiology but that CA-125 has spontaneously resolved and has come back down to normal values. Given this, it is suspected that that elevated CA-125 was related to inflammatory nonmalignant conditions. Current Outpatient Prescriptions Medication Sig Dispense Refill ??? clobetasol (TEMOVATE) 0.05 % cream Apply [...] Nausea And Vomiting Nausea & Vomiting with SUPERVISOR YARD dilaudid 4/24/10 ??? Oxycodone Shortness Of Breath, Nausea And [...] and ROS is otherwise negative. Objective: BP 130/78 Pulse 82 Ht 154.9 cm (61) Wt 77.111 kg (170 lb) BMI 32.12 kg/m2 SpO2 98% Physical Exam Pt is A&Ox3 and in NAD HEENT: NC/AT Neck: no cervical or supra-clavicular lymphadenopathy Heart: S1S2 Lungs: Clear; no wheezing Abdomen: soft, NT,ND, no rebound or guarding, no hepatosplenomegaly Pelvic: Ext: no exophytic lesion; Vagina: no lesions; Uterus:absent; Cervix:absent; Adnexa:no mass;renata-urethral and pre-anal area:normal Ext: no CCE Assessment & Plan: Today, I explained to Marisol that overall I am very pleased with how she is doing. She is clinically without any evidence of disease. With regards to the edema of the lower extremity, I explained to Marisol that sometimes it will take several months to years to have this resolve with physical therapy and I have encouraged her to go back to the physical therapist in [facility], where she states that she will make an appointment to see. At this time, I will see her back in 6 months. As always, I thank you very much for allowing me to participate in the care of your patient. I willkeep you informed of progress. Sincerely and Respectfully, Osmar Benavides MD Director of Gynecologic Oncology [facility] documented in this encounter Plan of Treatment Not on file documented as of this encounter Visit Diagnoses Diagnosis Ovarian cancer (HCC-CMS)- Primary Malignant neoplasm of ovary documented in this encounter Care Teams Novelty Balloon Assembler And Packer Relationship Specialty Start Date End Date Angel Chilel MD PCP - General 12/16/09 05/13/12 documented as of this encounter
--- OUTSIDE RECORDS SUMMARY | 2024-01-20 19:54 | XMS_ITS | Encounter Summary ---
Author Organization [facility] Address [address] [place] [address] Care Team Providers Care Pilot Control Operator Helper Name Role Phone None, Provider Primary Care Provider Unavailabl e Encounter Details Date Type Department Care Team (Late st Contact Info) Description 09/24/2013 Orders Only [facility] OBGYN Services - [facility] [address] [place], [place] [address] Mag Calhoun RN Malignant neoplasm of ovary [...] as of this encounter Miscellaneous Notes * Addendum Note - Eric Ornelas RN - 01/22/2014 0816 EDTAddended by: ERIC ORNELAS on: 01/22/2014 08:16 Modules accepted: Orders documented in this encounter Plan of Treatment Not on file documented as of this encounter Procedures Procedure Name Priority Date/Time Associated Diagnosis Comments ZZCA 125 Routine 01/19/2014 16:46 EDT Malignant neoplasm of ovary (HCC-CMS) ZZCA 125 Routine 09/23/2013 Malignant neoplasm of ovary (HCC-CMS) documented in this encounter Results * CA 125 (01/19/2014 16:46 EDT) CA 125, External 10 0 - 35 U/ml [facility] Blood specimen (specimen) 01/19/2014 16:46 EDT Osmar Benavides MD CHEMISTRY & BLOOD GA S ORDERABLES POINT OF CARE * CA 125 (09/23/2013) CA 125, External 11 0 - 35 U/mL [facility] Blood specimen (specimen) 09/23/2013 Osmar Benavides MD CHEMISTRY & BLOOD GA S ORDERABLES [facility] documented in this encounter Visit Diagnoses Diagnosis Malignant neoplasm of ovary (HCC-CMS)- Primary Malignant neoplasm of ovary documented in this encounter Care Teams Pilot Control Operator Helper Relationship Specialty Start Date End Date None, Provider PCP - General 05/14/12 03/11/14 documented as of this encounter
--- OUTSIDE RECORDS SUMMARY | 2024-01-20 19:54 | XMS_ITS | Encounter Summary ---
Author Organization [facility] Address [address] [place] [address] Care Team Providers Care Business Planner Name Role Phone Angel Chilel MD Primary Care Provider Unav ailable Encounter Details Date Type Department Care Team (Late st Contact Info) Description 09/26/2017 Results Only [facility] Hematology & Oncology - Main [place] [address] [place] [address] [place] [id number] [place] [phone] Social History Tobacco Use Types Packs/Day Years [...] Procedure Name Priority Date/Time Associated Diagnosis Comments REFERRAL TEST 1 Routine 09/26/2017 14:51 EDT documented in this encounter Results * REFERRAL TEST 1 (09/26/2017 14:51 EDT) Test Name INVITA BREAST AND MEDICAL PRACTICE ADMINISTRATOR CANCERS GUIDELINES BASED PANEL 09/26/2017 15:28 EDT [facility] Result See Pathology Scanned Report in PRISM. 10/08/2017 11:24 EDT [facility] Comment:Assayed at [facility], [place], [place] Ref Lab INVITAE 09/26/2017 15:28 EDT [facility] Date Sample Shipped 09/26/17 09/26/2017 15:28 EDT [facility] TOPOGRAPHY UNKNOWN / Unknown 09/26/2017 14:51 EDT 09/26/2017 15:26 EDT Susan Munoz MD LAB INFO SERVICE AND SUPPORT & PHONE RESULT Performing Organization Address City/State/[facility] Co de Phone Number [facility] [address] [place] [address] documented in this encounter Visit Diagnoses Not on filedocumented in this encounter Care Teams Business Planner Relationship Specialty Start Date End Date Angel Chilel MD PCP - General 03/12/14 12/01/18 documented as of this encounter
--- OUTSIDE RECORDS SUMMARY | 2024-01-20 19:54 | XMS_ITS | Encounter Summary ---
Author Organization [facility] Address [address] [place] [address] Care Team Providers Care Tool Room Gear Machine Operator Name Role Phone Angel Chilel MD Primary Care Provider Unav ailable Encounter Details Date Type Department Care Team (Late st Contact Info) Description 11/13/2010 Results Only [facility] [phone] Point, Of Care User [address] [place] [address] Social History Tobacco Use Types Packs/Day Years [...] Name Priority Date/Time Associated Diagnosis Comments POCT URINALYSIS Routine 11/13/2010 16:16 EDT CYTOPATHOLOGY Routine 11/13/2010 0:00 EDT documented in this encounter Results * (ABNORMAL) POCT URINALYSIS (11/13/2010 16:16 EDT) Color YELLOW [facility] Clarity, UA Clear [facility] Glucose Neg NEG [facility] Bilirubin Neg NEG [facility] Ketones Neg NEG [facility] Specific [place] >=1.030 1.001 - 1.035 [facility] Blood 3+(A) NEG [facility] pH 5.5 4.6 - 8.0 [facility] Protein Neg NEG [facility] Urobilinogen 0.2 0.2 - 1.0 E.U./dl [facility] Nitrite Neg NEG [facility] Leuk Esterase Neg NEG MARIBELL MAHSA RALPH RAMSEY Tech ID [id number] Test performed at [facility] 11/13/2010 16:1 6 EDT 11/13/2010 16:20 EDT Of Care User Point POINT OF CARE TEST O RDERABLES [facility] [address] [place] [address] * CYTOPATHOLOGY (11/13/2010 0:00 EDT) Pathologist [facility] Pathology Report: CYTOPATHOLOGY REPORT ? Reports generated via electronic interface contain original data; ? however they are lacking the format of the original report. ? Caution should be taken when reading/interpreting unformatted reports. ? Name: ? MICHELLE, MARISOL A ? Accession #: ? [id number] ? : ? 1960 (Age: 50) ??F ?Collect Date: ? 11/13/2010 ? Location: ? [facility] ? Receive Date: ? 11/14/2010 ? Provider: ? JAYY B ALISHA PA ? Copy to: ? CYTOLOGIC DIAGNOSIS: ? Urine, voided, cytologic evaluation: ? -Atypical urothelial cells present. ??See comment. ? COMMENT: ? Scattered atypical urothelial cells are present, mostly single, with ? features that may represent polyoma virus. ??However, there are also scattered ?? clusters of atypical urothelial cells present with nuclear membrane ? irregularities. ??Clusters of urothelial cells are an atypical finding in voided urine in the absence of recent instrumentation and/or stones. ??Clinical ? follow-up is recommended. ??This case was reviewed at the intradepartmental ? consultation conference on 11/15/10. ? Document reviewed and electronically signed by: ? YADIRA COBIAN MD ? Report Date: ??11/15/2010 08:36 ? By the signature above, the attending physician certifies that he/she has ? personally conducted a gross and/or microscopic examination of the described ? specimens and rendered or confirmed the above diagnosis. ? Specimen Type: ? Urine, Voided ? Clinical History: ? +3 blood on UA 7/11/11; lower back pain; clinical diagnosis code: 724.2 ? Gross Description: ? 20 cc of opaque yellow fluid were received and processed by selective ? cellular enhancement technique. ? End of Report ? [facility] 11/13/2010 11/14/2010 7:3 6 EDT Jayy Christianson PA-C PATHOLOGY [facility] [place] Performing Organization Address City/State/[facility] Co de Phone Number [facility] [address] [place] [address] documented in this encounter Visit Diagnoses Not on filedocumented in this encounter Care Teams Tool Room Gear Machine Operator Relationship Specialty Start Date End Date Angel Chilel MD PCP - General 12/16/09 05/13/12 documented as of this encounter
--- OUTSIDE RECORDS SUMMARY | 2024-01-20 19:54 | XMS_ITS | Encounter Summary ---
Author Organization [facility] Address [address] [place] [address] Care Team Providers Care College Intern Name Role Phone Angel Chilel MD Primary Care Provider Unav ailable Encounter Details Date Type Department Care Team (Late st Contact Info) Description 05/04/2011 Orders Only [facility] OBGYN Services - [facility] [address] [place], [place] [address] Mag Calhoun, RN Malignant neoplasm of ovary (HCC-CMS) (Primary [...] ovary documented in this encounter Care Teams College Intern Relationship Specialty Start Date End Date Angel Chilel MD PCP - General 12/16/09 05/13/12 documented as of this encounter
--- OUTSIDE RECORDS SUMMARY | 2024-01-20 19:54 | XMS_ITS | Encounter Summary ---
Author Organization [facility] Address [address] [place] [address] Care Team Providers Care Daycare Provider Name Role Phone Angel Chilel MD Primary Care Provider Unav ailable Reason for Referral * Radiology Services (Routine/Next Available) - Closed Specialty Diagnoses / Procedures Referred By Renita pratt Referred To Contact Diagnoses Malignant neoplasm of ovary (HCC-CMS) Procedures IR REMOVE PORT Mag Calhoun RN Referral ID Status Reason Start Date Expiration Date Visits Re quested Visits Authorized [id number] Closed 04/10/2012 1 1 Encounter Details Date Type Department Care Team (Late st Contact Info) Description 04/10/2012 Orders Only [facility] OBGYN Services - [address] [address] Mag Calhoun RN Malignant neoplasm of ovary [...] Progress Notes * Mag Calhoun RN - 04/10/2012 2704 EST Pt scheduled for chest port removal on , May 15, 2012. Check in at registration at 12:45 pm. No special prep required, pt will have corporate driver available. Pt advised of appt date time and instructions. Mag Calhoun RN 04/10/2012 14:28 documented in this encounter Plan of Treatment Not on file documented as of this encounter Procedures Procedure Name Priority Date/Time Associated Diagnosis Comments IR REMOVE PORT Routine 05/15/2012 14:18 EST Malignant neoplasm of ovary (HCC-CMS) ZZCA 125 Routine 03/20/2012 documented in this encounter Results * IR REMOVE PORT (05/15/2012 14:18 EST) Anatomical Region Laterality Modality Other 05/15/2012 14:1 8 EST 05/19/2012 15:53 EST Narrative 05/19/2012 15:53 EST RIGHT CHEST PORT REMOVAL ??May 15, 2012 14:19 SIGNS AND SYMPTOMS/COMMENTS: ??Finished chemotherapy for ovarian neoplasm. Technique and Findings: Written consent was obtained. The patient was prepped and draped in sterile fashion. 1% lidocaine was used for local analgesia over the existing chest port and catheter tract. An incision was made over the existing chest port and the port and catheter dissected from the surrounding tissues using sharp and blunt dissection and removed without difficulty. The port pocket was flushed and closed with absorbable monofilament suture and Dermabond. A sterile bandage was applied. The patient tolerated the procedure well without complication. No images were obtained. Impression: Successful, uncomplicated removal of the patient's existing chest port. Dr. Saúl Camp was present for and supervised the entire procedure. PRUDENCIO Vann and Dr. Donald Santos were also present for the procedure. I have personally reviewed the images and the above interpretation and agree with the findings. Procedure Note Donald Santos MD - 05/19/2012 RIGHT CHEST PORT REMOVAL May 15, 2012 14:19 SIGNS AND SYMPTOMS/COMMENTS: Finished chemotherapy for ovarian neoplasm. Technique and Findings: Written consent was obtained. The patient was prepped and draped in sterile fashion. 1% lidocaine was used for local analgesia over the existing chest port and catheter tract. An incision was made over the existing chest port and the port and catheter dissected from the surrounding tissues using sharp and blunt dissection and removed without difficulty. The port pocket was flushed and closed with absorbable monofilament suture and Dermabond. A sterile bandage was applied. The patient tolerated the procedure well without complication. No images were obtained. Impression: Successful, uncomplicated removal of the patient's existing chest port. Dr. Saúl Camp was present for and supervised the entire procedure. PRUDENCIO Vann and Dr. Donald Santos were also present for the procedure. I have personally reviewed the images and the above interpretation and agree with the findings. Osmar Benavides MD IMG IR ORDERABLES * CA 125 (03/20/2012) CA 125, External 9 0 - 35 [facility] Blood specimen (specimen) Osmar Benavides MD CHEMISTRY & BLOOD GA S ORDERABLES [facility] documented in this encounter Visit Diagnoses Diagnosis Malignant neoplasm of ovary (HCC-CMS)- Primary Malignant neoplasm of ovary documented in this encounter Care Teams Daycare Provider Relationship Specialty Start Date End Date Angel Chilel MD PCP - General 12/16/09 05/13/12 documented as of this encounter
--- OUTSIDE RECORDS SUMMARY | 2024-01-20 19:54 | XMS_ITS | Encounter Summary ---
Author Organization [facility] Address [address] [place] [address] Care Team Providers Care Dietetics Teacher Name Role Phone Angel Chilel MD Primary Care Provider Unav ailable Reason for Visit * Reason Onset Date Comments Labs Only 09/27/2010 Encounter Details Date Type Department Care Team (Late st Contact Info) Description 09/27/2010 Orders Only [facility] OBGYN Services - [address] [id number] Mag Calhoun RN Ovarian cancer (CMS-HCC) ([facility]) (Primary Dx) Social History Tobacco Use Types [...] Date/Time Associated Diagnosis Comments ZZCA 125 Routine 09/22/2010 Ovarian cancer (CMS-HCC) ([facility]) ZZCA 125 Routine 08/15/2010 Ovarian cancer ([facility]) ([facility]) documented in this encounter Results * CA 125 (09/22/2010) CA 125, External 8 0 - 35 u/ml [facility] Blood specimen (specimen) Historical Provider CHEMISTRY & BLOOD GAS ORDERABLES [facility] * CA 125 (08/15/2010) CA 125, External 8 0 - 35 u/ml [facility] Blood specimen (specimen) Historical Provider CHEMISTRY & BLOOD GAS ORDERABLES Performing Organization Address City/[facility]/ZIP Co de Phone Number [facility] documented in this encounter Visit Diagnoses Diagnosis Ovarian cancer (HCC-CMS)- Primary Malignant neoplasm of ovary documented in this encounter Care Teams Dietetics Teacher Relationship Specialty Start Date End Date Angel Chilel MD PCP - General 12/16/09 05/13/12 documented as of this encounter
--- OUTSIDE RECORDS SUMMARY | 2024-01-20 19:54 | XMS_ITS | Encounter Summary ---
Author Organization [facility] Address [address] [place] [address] Care Team Providers Care Political Science Instructor Name Role Phone Angel Chilel MD Primary Care Provider Unav ailable Reason for Visit * Reason Onset Date Comments Appointment Related 10/10/2017 Encounter Details Date Type Department Care Team (Late st Contact Info) Description 10/10/2017 Telephone [facility] Surgical Oncology - [facility] [address] [place], [place] [phone] Delores Puga, MS [address] [place], [place] [phone] Appointment Related Social History Tobacco Use Types [...] * Telephone Encounter - Leticia Perez - 10/10/2017 1343 EDT Requested past 5 years of imaging from [facility] documented in this encounter Plan of Treatment Not on file documented as of this encounter Visit Diagnoses Not on filedocumented in this encounter Care Teams Political Science Instructor Relationship Specialty Start Date End Date Angel Chilel MD PCP - General 03/12/14 12/01/18 documented as of this encounter
--- OUTSIDE RECORDS SUMMARY | 2024-01-20 19:54 | XMS_ITS | Encounter Summary ---
Author Organization [facility] Address [address] [place] [address] Care Team Providers Care Director Of Creative Services Name Role Phone None, Provider Primary Care Provider Unavailabl e Reason for Visit * Reason Comments Follow-up Encounter Details Date Type Department Care Team (Late st Contact Info) Description 03/19/2013 9:45 EST Office Visit [facility] Gynecologic Oncology [facility] [address] [place], [place] [address] Osmar Benavides MD [address] [facility], [address] [place] [address] Malignant neoplasm of ovary (HCC-CMS) [...] Sign Reading Time Taken Comments Blood Pressure 142/88 03/19/2013 1040 EST Pulse 84 03/19/2013 1040 EST Temperature 36.7 ??C (98 ??F) 03/19/2013 1040 EST Respiratory Rate 18 03/19/2013 1040 EST Oxygen Saturation - - Inhaled Oxygen Concentration - - Weight 76.7 kg (169 lb) 03/19/2013 1040 EST Height 152.4 cm (5') 03/19/2013 1040 EST Body Mass Index 33.01 03/19/2013 1040 EST documented in this encounter Progress Notes * Osmar Benavides MD - 03/19/2013 1040 EST Just a note to keep you [...] for MARISOL MARTINEZ ( ) as of 03/19/2013 10:41 Ref. Range 11/06/2011 00:00 12/10/2011 12:30 01/08/2012 00:00 03/20/2012 00:00 03/16/2013 00:00 CA 125, External Latest Range: 0-35 U/mL 10 8 9 9 13 Current Outpatient Prescriptions Medication Status Sig Dispense Refill ??? albuterol (PROVENTIL, VENTOLIN) 90 mcg/Actuation inhaler Active Inhale 1 Puff as directed every4 hours as needed for Wheezing. 2 Inhaler 0 ??? ibuprofen (MOTRIN) 400 mg tablet Active Take 1 Tab by mouth every 4 hours. 1 Tab 0 No current facility-administered medications for this visit. Allergies Allergen Reactions ??? Other - See Comments Hives and Angioedema CT CONTRAST- IV ??? Adhesive Tape-Silicones Rash ??? Codeine Nausea And Vomiting ??? Dilaudid (Hydromorphone (Pf)) Nausea And Vomiting Nausea & Vomiting with GARMENT PATTERNMAKER dilaudid 08/27/09 ??? Oxycodone Shortness Of Breath, [...] and ROS is otherwise negative. Objective: BP 142/88 Pulse 84 Temp(Src) 36.7 ??C (98 ??F) Resp 18 Ht 152.4 cm (60) Wt 76.658 kg (169 lb) BMI 33.01 kg/m2 Physical ExamPt is A&Ox3 and in NAD HEENT: NC/AT Abdomen: soft, NT,ND, no rebound or guarding, no hepatosplenomegaly Pelvic: Ext: no exophytic lesion; Vagina: no lesions; Uterus:absent; Cervix:absent; Adnexa:no mass;renata-urethral and pre-anal area:normal Ext: no CCE Assessment & Plan: Today, I explained to Marisol that I am pleased with how she is doing. Based on her physical exam and lab data, she is currently without any evidence of disease. I will see her back in one year. With regards to her CA 125, while it is still normal, it has slightly increased from 9 to 13. Potential false positive and negative causes were discussed with her. She understands and we will repeat CA 125in 3 months. As always, thank you very much for allowing me to participate in the care of your patient. Sincerely, Osmar Benavides MD Director, Division of Director Of Student Financial Services Oncology [facility] documented in this encounter Miscellaneous Notes * Addendum Note - Eric Ornelas RN - 03/27/2013 1008 ESTAddended by: ERIC ORNELAS on: 03/27/2013 10:08 Modules accepted: Orders documented in this encounter Plan of Treatment Not on file documented as of this encounter Visit Diagnoses Diagnosis Malignant neoplasm of ovary (HCC-CMS)- Primary Malignant neoplasm of ovary documented in this encounter Care Teams Director Of Creative Services Relationship Specialty Start Date End Date None, Provider PCP - General 05/14/12 03/11/14 documented as of this encounter
--- OUTSIDE RECORDS SUMMARY | 2024-01-20 19:54 | XMS_ITS | Encounter Summary ---
Author Organization [facility] Address [address] [place] [address] Care Team Providers Care Overhead Crane Inspector Name Role Phone Angel Chilel MD Primary Care Provider Unav ailable Reason for Visit * Reason Onset Date Comments Results 05/05/2015 Encounter Details Date Type Department Care Team (Late st Contact Info) Description 05/05/2015 Telephone [facility] OBGYN Services - [address] [phone] Elidia Christianson PA-C [address] [facility], [address] [place] [address] Results Social History Tobacco Use Types Packs/Day [...] Telephone Encounter - Elidia Christianson PA - 05/05/2015 5915 EST Message left on Marisol's voice mail, notifying her CA 125 is within normal limits, and stable from past years at 12. Would see her for annual follow up in September, or sooner if she is having any concerns, asked that she call back to confirm receipt of message, and if having any concerns or symptoms. documented in this encounter Plan of Treatment Not on file documented as of this encounter Visit Diagnoses Not on filedocumented in this encounter Care Teams Overhead Crane Inspector Relationship Specialty Start Date End Date Angel Chilel MD PCP - General 03/12/14 12/01/18 documented as of this encounter
--- OUTSIDE RECORDS SUMMARY | 2024-01-20 19:54 | XMS_ITS | Encounter Summary ---
Author Organization [facility] Address [address] [place] [address] Care Team Providers Care Gas Stove Servicer Helper Name Role Phone Angel Chilel MD Primary Care Provider Unav ailable Encounter Details Date Type Department Care Team (Late st Contact Info) Description 09/26/2017 Phlebotomy Only [facility] [address] [place] [address] Collection Administrator, Outpatient Social History Tobacco Use Types Packs/Day Years [...] on filedocumented in this encounter Care Teams Gas Stove Servicer Helper Relationship Specialty Start Date End Date Angel Chilel MD PCP - General 03/12/14 12/01/18 documented as of this encounter
--- OUTSIDE RECORDS SUMMARY | 2024-01-20 19:54 | XMS_ITS | Encounter Summary ---
Author Organization [facility] Address [address] [place] [address] Care Team Providers Care Group Leader Semiconductor Testing Name Role Phone Angel Chilel MD Primary Care Provider Unav ailable Reason for Visit * Reason Onset Date Comments Results 10/10/2017 Encounter Details Date Type Department Care Team (Late st Contact Info) Description 10/10/2017 Telephone [facility] Hematology & Oncology - [facility] [address] [place], [place] [address] Delores Puga, MS [address] [place], [place] [address] Results Social History Tobacco Use Types Packs/Day [...] Miscellaneous Notes * Telephone Encounter - Delores Puga - 10/10/2017 0856 EDT Spoke to Marisol regarding positive genetic test result for BRCA1. She would like to return to [facility] as well as have a consultation with the [facility] to discuss screening options. Would like to return to as well, she stopped going a while back for follow up of her history of ovarian cancer. I willplace those referrals. documented in this encounter Plan of Treatment Not on file documented as of this encounter Visit Diagnoses Not on filedocumented in this encounter Care Teams Group Leader Semiconductor Testing Relationship Specialty Start Date End Date Angel Chilel MD PCP - General 03/12/14 12/01/18 documented as of this encounter
--- OUTSIDE RECORDS SUMMARY | 2024-01-20 19:54 | XMS_ITS | Encounter Summary ---
Author Organization [facility] Address [address] [place] [address] Care Team Providers Care First Aid Nurse Name Role Phone Angel Chilel MD Primary Care Provider Unav ailable Encounter Details Date Type Department Care Team (Late st Contact Info) Description 05/04/2015 Orders Only [facility] OBGYN Services - [facility] [address] [place], [place] [address] Mag Calhoun RN History of ovarian cancer (Primary Dx) Social [...] Date/Time Associated Diagnosis Comments ZZCA 125 Routine 05/02/2015 History of ovarian cancer documented in this encounter Results * CA 125 (05/02/2015) CA 125, External 12 0 - 35 U/mL [facility] Blood specimen (specimen) 05/02/2015 Elidia Christianson PA-C CHEMISTRY & BL OOD GAS ORDERABLES [facility] documented in this encounter Visit Diagnoses Diagnosis History of ovarian cancer- Primary Personal history of malignant neoplasm of ovary documented in this encounter Care Teams First Aid Nurse Relationship Specialty Start Date End Date Angel Chilel MD PCP - General 03/12/14 12/01/18 documented as of this encounter
--- OUTSIDE RECORDS SUMMARY | 2024-01-20 19:54 | XMS_ITS | Encounter Summary ---
Author Organization [facility] Address [address] [place] [address] Care Team Providers Care Chemicals Distiller Name Role Phone Angel Chilel MD Primary Care Provider Unav ailable None, Provider Primary Care Provider Unavailabl e Angel Chilel MD Primary Care Provider Unav ailable None, Provider Primary Care Provider Unavailabl e Encounter Details Date Type Department Care Team (Late st Contact Info) Description 11/23/2010 Historical Results Only [facility] - [facility] [address] [place] [address] Elidia Christianson PA-C [address] [facility], [address] [place] [address] Social History Tobacco Use Types [...] Procedure Name Priority Date/Time Associated Diagnosis Comments CYTOLOGY (NON-GYNECOLOGIC INCLUDING FLUIDS AND FINE NEEDLE ASPIRATION)- ORDER ONLY Routine 11/23/2010 documented in this encounter Results * CYTOLOGY (NON-GYNECOLOGIC INCLUDING FLUIDS AND FINE NEEDLE ASPIRATION)- ORDER ONLY (11/23/2010) 11/23/2010 11/24/2010 9:2 4 EDT Narrative [facility] - 11/27/2010 7:49 EDT ----- ------- Name: MARISOL MARTINEZ ?: 56 ?Age/Sex: 58/F ?Unit#: [id number] ? Loc: LAB.OPD ? Status: REG CLI ?? Reg Date: 11/23/10 ? Pt.Phone Number: ? ----- ------- Specimen: [id number] ? STATUS: SOUT ?Spec Date:11/23/10 ? Physician Copies: ?Elidia Christianson Tissues: ? Urine (VOIDED) ? ChilelAngel ?? CPT: 80086 ?? Units: ??1 ----- ------- ?? NON FISHING VESSEL DECKHAND CYTOLOGY DIAGNOSIS Urine, voided: - Atypical urothelial cells present. ??SEE COMMENT. Comment: The atypical cells have high nuclear to cytoplasmic ratios and hyperchromatic nuclei. ??Squamous contamination with bacteria is prominent in the background. ??The specimen is to be further evaluated by FISH, as requested by the clinician. ??A separate report with the test result will follow. ----- ------- ? SPECIMEN DESCRIPTION ? 50ML CLEAR LIGHT YELLOW FLUID ?? 30ML PROCESSED ?1 CYTOSPIN Signed ____(signature on file)____ Aretha Solano M.D. 11/27/10 By the signature above, the attending physician certifies that he/she has personally conducted a gross and/or microscopic examination of the described specimens and rendered or confirmed the above diagnosis. Test Performed by [facility], [address] [place] [address] Assistant Football Coach: Aretha Solano MD PHD ----- ------- Elidia Christianson PA-C PATHOLOGY ORDGisela [place] [facility] documented in this encounter Visit Diagnoses Not on filedocumented in this encounter Care Teams Chemicals Distiller Relationship Specialty Start Date End Date Angel Chilel MD PCP - General 12/16/09 05/13/12 None, Provider PCP - General 05/14/12 03/11/14 Angel Chilel MD PCP - General 03/12/14 12/01/18 None, Provider PCP - General 12/02/18 documented as of this encounter
--- OUTSIDE RECORDS SUMMARY | 2024-01-20 19:54 | XMS_ITS | Encounter Summary ---
Author Organization [facility] Address [address] [place] [address] Care Team Providers Care Chief Telephone Operator Name Role Phone Angel Chilel MD Primary Care Provider Unav ailable Reason for Visit * Reason Onset Date Comments Results 04/25/2010 Encounter Details Date Type Department Care Team (Late st Contact Info) Description 04/25/2010 Telephone [facility] OBGYN Services - [facility] [address] [place], [place] [phone] Alexus Mcwilliams, NICK Results Social History Tobacco Use Types Packs/Day [...] encounter Miscellaneous Notes * Telephone Encounter - Alexus Mcwilliams - 04/25/2010 1604 EST Pt made aware of normal CA 125 results of 12 from 04/20/2010. Alexus Mcwilliams RN documented in this encounter Plan of Treatment Not on file documented as of this encounter Procedures Procedure Name Priority Date/Time Associated Diagnosis Comments ZZCA 125 Routine 04/20/2010 13:23 EST documented in this encounter Results * CA 125 (04/20/2010 13:23 EST) CA 125, External 12 0 - 35 u/ml POINT OF CARE Blood specimen (specimen) 04/20/2010 13:23 EST Osmar Benavides MD CHEMISTRY & BLOOD GA S ORDERABLES POINT OF CARE documented in this encounter Visit Diagnoses Not on filedocumented in this encounter Care Teams Chief Telephone Operator Relationship Specialty Start Date End Date Angel Chilel MD PCP - General 12/16/09 05/13/12 documented as of this encounter
--- OUTSIDE RECORDS SUMMARY | 2024-01-20 19:54 | XMS_ITS | Encounter Summary ---
Author Organization [facility] Address [address] [place] [address] Care Team Providers Care Packaging Associate Name Role Phone Angel Chilel MD Primary Care Provider Unav ailable Encounter Details Date Type Department Care Team (Late st Contact Info) Description 01/14/2012 Orders Only [facility] OBGYN Services - [facility] [address] [place], [place] [address] Mag Calhoun RN Malignant neoplasm of ovary [...] Date/Time Associated Diagnosis Comments ZZCA 125 Routine 01/08/2012 Malignant neoplasm of ovary (HCC-CMS) documented in this encounter Results * CA 125 (01/08/2012) CA 125, External 9 0 - 35 [facility] Blood specimen (specimen) Osmar Benavides MD CHEMISTRY & BLOOD GA S ORDERABLES [facility] documented in this encounter Visit Diagnoses Diagnosis Malignant neoplasm of ovary (HCC-CMS)- Primary Malignant neoplasm of ovary documented in this encounter Care Teams Packaging Associate Relationship Specialty Start Date End Date Angel Chilel MD PCP - General 12/16/09 05/13/12 documented as of this encounter
--- OUTSIDE RECORDS SUMMARY | 2024-01-20 19:54 | XMS_ITS | Encounter Summary ---
Author Organization [facility] Address [address] [place] [address] Care Team Providers Care Chain Pegger Name Role Phone Angel Chilel MD Primary Care Provider Unav ailable Reason for Visit * Reason Onset Date Comments Appointment Related 10/10/2017 Encounter Details Date Type Department Care Team (Late st Contact Info) Description 10/10/2017 Telephone [facility] OBGYN Services - [address] [phone] Elidia Christianson PA-C [address] [facility], [address] [place] [address] Appointment Related Social History Tobacco [...] Telephone Encounter - Tran Webber - 10/10/2017 1602 EDT Called patient and she was in the car, driving. She will call back to schedule. Per Claudia, please schedule a TAPPER HELPER appt with Elidia. documented in this encounter Plan of Treatment Not on file documented as of this encounter Visit Diagnoses Not on filedocumented in this encounter Care Teams Chain Pegger Relationship Specialty Start Date End Date Angel Chilel MD PCP - General 03/12/14 12/01/18 documented as of this encounter
--- OUTSIDE RECORDS SUMMARY | 2024-01-20 19:54 | XMS_ITS | Encounter Summary ---
Author Organization [facility] Address [address] [place] [address] Care Team Providers Care Buffet Server Name Role Phone Karen Hermosillo MD Primary Care Provider Unav ailable Reason for Visit * Reason Comments Follow-up History of BCC - lef t cheek Encounter Details Date Type Department Care Team (Late st Contact Info) Description 12/29/2010 10:30 EDT Office Visit [facility] Dermatology 5[address] [id number] Willie Menjivar MD [address] [place] [address], [address] [place] [address] Personal history of other malignant neoplasm of skin (Primary Dx); Other psoriasis Social History Tobacco Use Types Packs/Day Years Used Date Smoking Tobacco: Every Day Cigarettes 1 35 Smokeless Tobacco: Never Alcohol Use Standard Drinks/Week Comments Yes 0 (1 standard drink = 0.6 oz pur e alcohol) Sex and Gender Information Value Date Recorded Sex Assigned at Not on file Gender Identity Not on file Sexual Orientation Not on file documented as of this encounter Patient Instructions * Patient Instructions* Willie Menjivar MD - 12/29/2010 10:47 EDT SUN PROTECTION AND SUN SCREENS Repeated and prolonged exposure to sunlight greatly increases your risk of all types of skin cancer. In addition, chronic sun exposure is the major cause of wrinkles, spotty, unhealthy appearing skin. It???s important to have a healthy and active lifestyle and we encourage you to continue this. However, some common sense guidelines will help to keep your skin and eyes safe. ?? Avoid the hot mid-day sun. Try to schedule your outdoor activities for director of hotel or early evening. ?? Make clothing a regular part of protection. Keep your shirt on- wear long sleeves and a wide brimmed hat. ?? Be especially careful when on the water, snow or sand as sunlight is reflected upwards from these surfaces. ?? Don???t forget your eyes! Wear sunglasses- Sun exposure increases your risk for cataracts. ?? Make sure your children practice good sun protection. Early sun damage increases their risk of developing skin cancer. ?? Wear a sunscreen. We recommend using a sunscreen with both UVA and UVB protection and a SPF of at least 15. If you sunburn more easily or are in more intense sun, you will need a higher SPF. A ???waterproof?? sunscreen is usually good for about 4 hours, even if you???re swimming. A ???water resistant?? sunscreen should be reapplied every 2 hours and after swimming. Remember to put sunscreen on your ears and lips. There are many lip balms available with sunscreen. For more information about sun protection and skin cancer: www.skincancer.org Sunscreens: Sunlight is made up of different wavelengths, some of which we can see as the various colors of therainbow, or ???visible?? light. UVA and UVB are invisible wavelengths, which penetrate into the skin and in excess amounts, cause injury. When the injury is severe, skin cells and become inflamed and we see sunburn. UVB causes sunburn more quickly than UVA and most sunscreens are targeted towards this wavelength. Tanning while wearing sunscreen may mean that primarily UVA light is reaching the skin. This is the same UVA light that is used in tanning beds and is responsible for causing wrinkles, brown spots and possibly melanoma. For this reason, we recommend that you don???t use tanning b eds and that you use sunscreen with both UVA and UVB protection. Most sunscreen ingredients are good at blocking UVB light. The only ingredients that also do a goodjob blocking UVA light are listed below. Make sure your sunscreen contains one of these ingredients. CAUTION: in some people Parasol may cause staining of white clothing. ?? Parasol (avobenzone) ?? Zinc Oxide ?? See other side for sunscreen recommendationsTitanium Oxide Some recommended brands: ?? Blue Lizard Baby suncream - SPF 30 o Contains titanium dioxide and zinc oxide and is chemical/fragrance free o Good for sensitive skin and babies ?? Coppertone Spectra - SPF 30 and 50 o Contains zinc oxide ?? Coppertone Sport - SPF 30 and 50 o ???Sweatproof? Neutrogena Ultra Sheer Dry Touch - SPF 30, 45, 55, 70 and 85 o Sensitive skin formula available ?? NO-AD Sunblock - SPF 30 o Sensitive skin formula available ?? La Fabiola-Posay Anthelios - SPF 40 o Long acting sunscreen with excellent UVA and UVB coverage ?? Bullfrog - SPF 36 o ???[place]?? and ???Sweatproof?? o Alcohol based - goes on quickly and good for skin with hair Good ???everyday?? moisturizer for the face: ?? Oil of Olay Complete Sun Protection - SPF 15 ?? Cetaphil daily facial moisturizer - SPF 15 ?? La Fabiola-Posay Anthelios SX - SPF 15 documented in this encounter Ordered Prescriptions Prescription Sig Dispensed Refills Start Date End Da te clobetasol (TEMOVATE) 0.05 % cream Apply topically. Apply topically twice daily as needed for psoriasis. 60 g 3 12/29/2010 05/15/2012 documented in this encounter Progress Notes * Willie Menjivar MD - 12/29/2010 1047 EDT Mohs Follow Up Note Chief Complaint Patient presents with ??? Follow-up History of BCC - left cheek SUBJECTIVE Marisol is approximately 6 months status post Mohs surgery for a BCC on the left cheek and she returns today for follow up. She has no concerns about the surgical site and notes that it has healed up nicely. She has not noticed any new or changing skin lesions but does complain of dry scaly plaques on her knees and elbows and would like treatment advice. She has a family history of psoriasis in her son. OBJECTIVE The patient is a healthy, alert, smiling and interactive 50 y.o.-year-old female sitting comfortably on the examination table. A focused cutaneous examination of the scalp, face, ears and neck is performed. There is a well healed, soft supple surgical scar with minimal surrounding neovascu larizationon the left medial cheek without nodularity, ulceration or other concerning signs of recurrence. There are no cutaneous lesions worrisome for malignancy. Examination of the knees and elbowsrevealed 2 to 3cm in diameter pink plaques with overlying micaceous scale. ASSESSMENT 1. Well healed with no evidence of recurrence 2. No evidence of new skin cancers on the head and neck 3. Mild localized psoriasis PLAN 1. Patient education: The importance of sun avoidance, sun protection and regular self skin examinations for the prevention and detection of new skin cancers reviewed. Vitamin D supplementation encouraged for health maintenance particularly in the winter and while practicing good photoprotection techniques. I discussed with Ms. Lawson that while she is at low risk for recurrence of her skin cancer she is at risk for the development of new additional skin cancers elsewhere an for that reasonregular ongoing follow up for skin surveillance examinations is encouraged. 2. For mild localized psoriasis I recommended and prescribed Clobetasol cream which she will apply twice daily as needed for flairs. 3. Patient will follow up with KAREN HERMOSILLO MD for ongoing skin surveillance examinations andreturn to see me as needed. WILLIE MENJIVAR MD 12/29/2010 10:47 * Leo Betty Galvan - 12/29/2010 1032 EDT A complete 12 point review of systems was obtained and reviewed. All systems are negative except for: blurred vision, environmental allergies, unexpected weight loss/gain. Betty Bailey 12/29/2010 10:31 WILLIE MENJIVAR MD 12/29/2010 10:47 documented in this encounter Plan of Treatment Not on file documented as of this encounter Visit Diagnoses Diagnosis Personal history of other malignant neoplasm of skin- Primary Other psoriasis documented in this encounter Care Teams Buffet Server Relationship Specialty Start Date End Date Karen Hermosillo MD PCP - General 12/16/09 05/13/12 documented as of this encounter
--- OUTSIDE RECORDS SUMMARY | 2024-01-20 19:54 | XMS_ITS | Encounter Summary ---
Author Organization [facility] Address [address] [place] [address] Care Team Providers Care Public Health Epidemiologist Name Role Phone Angel Chilel MD Primary Care Provider Unav ailable Encounter Details Date Type Department Care Team (Late st Contact Info) Description 09/18/2011 Orders Only [facility] OBGYN Services - [facility] [address], [place] [address] Mag Calhoun RN Malignant neoplasm of ovary [...] Date/Time Associated Diagnosis Comments ZZCA 125 Routine 09/06/2011 Malignant neoplasm of ovary (HCC-CMS) documented in this encounter Results * CA 125 (09/06/2011) CA 125, External 10 0 - 35 [facility] Blood specimen (specimen) Osmar Benavides MD CHEMISTRY & BLOOD GA S ORDERABLES [facility] documented in this encounter Visit Diagnoses Diagnosis Malignant neoplasm of ovary (HCC-CMS)- Primary Malignant neoplasm of ovary documented in this encounter Care Teams Public Health Epidemiologist Relationship Specialty Start Date End Date Angel Chilel MD PCP - General 12/16/09 05/13/12 documented as of this encounter
--- OUTSIDE RECORDS SUMMARY | 2024-01-20 19:54 | XMS_ITS | Encounter Summary ---
Author Organization [facility] Address [address] [place] [address] Care Team Providers Care Process Improvement Analyst Name Role Phone Angel Chilel MD Primary Care Provider Unav ailable Reason for Visit * Reason Onset Date Comments Follow-up 01/19/2015 Encounter Details Date Type Department Care Team (Late st Contact Info) Description 01/19/2015 Telephone [facility] OBGYN Services - [address] [id number] Mag Calhoun RN Follow-up Social History Tobacco Use Types Packs/Day [...] Telephone Encounter - Mag Calhoun RN - 01/19/2015 1612 EDT Phone call from Marisol Lawson. Last seen for surveillance of ovarian cancer September 2014. Was supposed to complete additional testing as ordered by Elidia Christianson PA-C after visit, but had other health issue with her kidney. She is now calling to see if Elidia can re-order exams. Juany Liz I would forward this info on to Elidia for her review. documented in this encounter Plan of Treatment Not on file documented as of this encounter Visit Diagnoses Not on filedocumented in this encounter Care Teams Process Improvement Analyst Relationship Specialty Start Date End Date Angel Chilel MD PCP - General 03/12/14 12/01/18 documented as of this encounter
--- OUTSIDE RECORDS SUMMARY | 2024-01-20 19:54 | XMS_ITS | Encounter Summary ---
Author Organization [facility] Address [address] [place] [address] Care Team Providers Care Screen Room Operator Name Role Phone Angel Chilel MD Primary Care Provider Unav ailable Reason for Visit * Reason Comments Follow-up three month visit Cancer on 08/25/2009 amada nt an exploratory laparotomy and cytoreductive surgery for a final pathology report which demonstrated stage 3c papillary serous ovarian cancer. Marisol has successfully completed 6 treatments of Taxol carboplatin chemotherapy. Her last treatment was in January of 2010 Encounter Details Date Type Department Care Team (Late st Contact Info) Description 08/17/2010 13:00 EDT Office Visit [facility] OBGYN Services - [address] [id number] Osmar Benavides MD [address] [facility], [address] [place] [address] Malignant neoplasm of ovary (HCC-CMS) (Primary Dx) Discharge Disposition: Auto Discharge [...] Sign Reading Time Taken Comments Blood Pressure 100/70 08/17/2010 1318 EDT Pulse - - Temperature - - Respiratory Rate - - Oxygen Saturation - - Inhaled Oxygen Concentration - - Weight 70.3 kg (155 lb) 08/17/2010 1318 EDT Height 154.9 cm (5' 1) 08/17/2010 1318 EDT Body Mass Index 29.29 08/17/2010 1318 EDT documented in this encounter Discharge Disposition Disposition Code Departure Means Destination Auto Discharge documented in this encounter Progress Notes * Osmar Benavides MD - 08/17/2010 1340 EDT [place] [address] Richards: Just a note to keep you updated with regards to your patient, Marisol Martinez. 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 Campos successfully completed 6 courses of Taxol/carboplatin chemotherapy. She presents today for reassessment for her history of ovarian cancer. Of note, she states that she is having some right lower quadrant pain, in particular when she has intercourse. She denies any nausea, vomiting, constipationor diarrhea. She denies any abnormal vaginal bleeding, odor, or discharge. Remainder of review of systems is negative. Results for MARISOL MARTINEZ ( ) as of 08/17/2010 13:37 Ref. Range 04/20/2010 13:23 05/19/2010 15:50 06/02/2010 00:00 06/20/2010 00:00 07/18/2010 00:00 CA 125, External Latest Range: 0-35 U/ml 12 626 (A) 154 23 9 Current outpatient prescriptions Medication Sig Dispense Refill [...] Nausea And Vomiting Nausea & Vomiting with TRACER CLERK dilaudid 08/27/09 ??? Oxycodone Shortness Of Breath, Nausea And Vomiting and Other (See Comments) Per pt & confirmed by daughter: previous SOB/N&V, diaphoresis with OXYCODONE. Review of Systems Pertinent items are noted in Subjective/HPI Objective: BP 100/70 Ht 154.9 cm (61) Wt 70.308 kg (155 lb) BMI 29.29 kg/m2 Pt is A&Ox3 and in NAD HEENT: NC/AT Neck: no cervical or supra-clavicular lymphadenopathy Heart: S1S2 Lungs: Clear; no wheezing Abdomen: soft, NT,ND, no rebound or guarding, no hepatosplenomegaly Pelvic: Ext: no exophytic lesion; Vagina: no lesions; Uterus:absent; Cervix:absent; Adnexa:no masses; renata-urethral and pre-anal area:normal Ext: no CCE Assessment and Plan: Today, I explained to Marisol that I am pleased with how she is doing. Based on her physical exam and lab data, she is currently without any evidence of disease. I will see her back in 3 months. As always, I thank you for allowing me to participate in the care of your patients. I will keep youinformed of her progress. Sincerely, Osmar Benavides MD Director, Division of Chief Of Party Oncology [facility] documented in this encounter Plan of Treatment Not on file documented as of this encounter Visit Diagnoses Diagnosis Malignant neoplasm of ovary (HCC-CMS)- Primary Malignant neoplasm of ovary documented in this encounter Care Teams Screen Room Operator Relationship Specialty Start Date End Date Angel Chilel MD PCP - General 12/16/09 05/13/12 documented as of this encounter
--- OUTSIDE RECORDS SUMMARY | 2024-01-20 19:54 | XMS_ITS | Encounter Summary ---
Author Organization [facility] Address [address] [place] [address] Care Team Providers Care Psych Coordinator Name Role Phone Angel Chilel MD Primary Care Provider Unav ailable Reason for Visit * Reason Onset Date Comments Labs Only 05/23/2010 external results Encounter Details Date Type Department Care Team (Late st Contact Info) Description 05/23/2010 Orders Only [facility] OBGYN Services - [place] [address] [place] [address] Mag Calhoun, NICK Malignant neoplasm of ovary [...] Date/Time Associated Diagnosis Comments ZZCA 125 Routine 05/19/2010 15:50 EST documented in this encounter Results * (ABNORMAL) CA 125 (05/19/2010 15:50 EST) CA 125, External 626(A) 0 - 35 [facility] Blood specimen (specimen) Historical Provider CHEMISTRY & BLOOD GAS ORDERABLES [facility] documented in this encounter Visit Diagnoses Diagnosis Malignant neoplasm of ovary (HCC-CMS)- Primary Malignant neoplasm of ovary documented in this encounter Care Teams Psych Coordinator Relationship Specialty Start Date End Date Angel Chilel MD PCP - General 12/16/09 05/13/12 documented as of this encounter
--- OUTSIDE RECORDS SUMMARY | 2024-01-20 19:54 | XMS_ITS | Encounter Summary ---
Author Organization [facility] Address [address] [place] [address] Care Team Providers Care Brim Ironer Hand Name Role Phone None, Provider Primary Care Provider Unavailabl e Encounter Details Date Type Department Care Team (Late st Contact Info) Description 06/26/2013 Orders Only [facility] OBGYN Services - [facility] [address] [place], [place] [id number] Mag Calhoun RN Malignant neoplasm of ovary [...] Date/Time Associated Diagnosis Comments ZZCA 125 Routine 06/25/2013 Malignant neoplasm of ovary (HCC-CMS) documented in this encounter Results * CA 125 (06/25/2013) CA 125, External 12 0 - 35 U/mL [facility] Blood specimen (specimen) 06/25/2013 Osmar Benavides MD CHEMISTRY & BLOOD GA S ORDERABLES [facility] documented in this encounter Visit Diagnoses Diagnosis Malignant neoplasm of ovary (HCC-CMS)- Primary Malignant neoplasm of ovary documented in this encounter Care Teams Brim Ironer Hand Relationship Specialty Start Date End Date None, Provider PCP - General 05/14/12 03/11/14 documented as of this encounter
--- OUTSIDE RECORDS SUMMARY | 2024-01-20 19:54 | XMS_ITS | Encounter Summary ---
Author Organization [facility] Address [address] [place] [address] Care Team Providers Care Autotransfusionist Name Role Phone Angel Chilel MD Primary Care Provider Unav ailable Reason for Referral * Consult, Test and Treat (Routine) - Closed Specialty Diagnoses / Procedures Referred By Contac t Referred To Contact Diagnoses Screening for colon cancer Procedures COLONOSCOPY Elidia Christianson PA-C [address] [place] [phone] Referral ID Status Reason Start Date Expiration Date Visits Re quested Visits Authorized [id number] Closed 09/09/2014 1 1 * Radiology Services (Routine) - Closed Specialty Diagnoses / Procedures Referred By Contjam pratt Referred To Contact Diagnoses Other screening mammogram Procedures MA MAMMO DIAG BILAT DIGITAL Elidia Christianson PA-C [address] [place] [phone] Referral ID Status Reason Start Date Expiration Date Visits Re quested Visits Authorized [id number] Closed 09/09/2014 1 1 Reason for Visit * Reason Comments Follow-up hx of stage IIIC pap illary serous ovarian carcinoma; no complaints today Encounter Details Date Type Department Care Team (Late st Contact Info) Description 09/09/2014 13:30 EDT Office Visit [facility] OBGYN Services - [address] [address] Elidia Christianson PA-C [address] [place] [address], [address] [place] [phone] Personal history of ovarian cancer (Primary Dx); Other screening mammogram; Screening for colon cancer; Follow-up examination, following other surgery Discharge Disposition: Auto Discharge Social History Tobacco [...] Sign Reading Time Taken Comments Blood Pressure 140/82 09/09/2014 1332 EDT Pulse - - Temperature - - Respiratory Rate - - Oxygen Saturation - - Inhaled Oxygen Concentration - - Weight 73 kg (161 lb) 09/09/2014 1332 EDT Height 152.4 cm (5') 09/09/2014 1332 EDT Body Mass Index 31.44 09/09/2014 1332 EDT documented in this encounter Discharge Diagnoses Diagnosis V10.43 PERS HX OF OVARIAN MALIGNANCY[ICD-9-CM] V76.12 OTHER SCREENING MAMMOGRAM FOR MALIGNANT NEOPLASM OF BREAST[ICD-9-CM] V76.51 SPECIAL SCREENING FOR MALIGNANT NEOPLASMS, COLON[ICD-9-CM] V67.09 FOLLOW-UP EXAMINATION, FOLLOWING OTHER SURGERY[ICD-9-CM] documented in this encounter Ordered Prescriptions Prescription Sig Dispensed Refills Start Date End Da te PEG 3350-Electrolytes (GOLYTELY) 227.1-21.5-6.36 gram powder in packet Instructions mailed once procedure scheduled. Questions: [facility] Gastroenterology: [phone] or GI Doctor's Office. 4 L 0 09/09/2014 01/20/2015 documented in this encounter Discharge Disposition Disposition Code Departure Means Destination Auto Discharge documented in this encounter Progress Notes * Elidia Christianson PA - 09/09/2014 1337 EDT Subjective: Patient ID: Marisol Lawson is an 53 y.o. female. Chief Complaint Patient presents with ??? Follow-up hx of stage IIIC papillary serous ovarian carcinoma; no complaints today HPI HPI Marisol Lawson is a 53 y.o. female who was initially diagnosed with [...] 9. She has received no further therapy. She has been followed regularly since that time and her CA 125 has remained in the range of 9-10. She was last seen by Dr. Benavides one year ago. Today she continues to feel well, specifically denies any fevers, chills, chest pain, shortness of breath, nausea, vomiting, abdominal pain, pressure or bloating, any changes in her bowel or bladder habits or any change in her urinary habits. She denies any vaginal bleeding or pain or swelling in her lower extremities. Of note, she has not had a mammogram in quite some time, stating that they always find something leading to ultrasounds. She also has not yet had a screening colonoscopy. Patient Active Problem List Diagnosis ??? Basosquamous carcinoma ??? Ovarian cancer ??? Microhematuria Past Medical History Diagnosis Date ??? Diabetes mellitus diet control ??? Depression ??? Hyperlipidemia ??? Asthma ??? GERD (gastroesophageal reflux disease) ??? Bronchospasm ??? Urinary tract infection ??? IBS (irritable bowel syndrome) ??? Ovarian carcinoma stage 3 ??? Basal cell carcinoma 12/2008 Left Cheek ??? Ovarian cancer 09/27/2010 ??? Microhematuria 12/26/2010 Past Surgical History Procedure Laterality Date ??? Cholecystectomy 1980 ??? Laparoscopy 2002 [...] Never Used ??? Alcohol Use: Yes Current Outpatient Prescriptions on File Prior [...] Nausea And Vomiting Nausea & Vomiting with SYSTEMS ANALYST DEVELOPER dilaudid 08/27/09 ??? Oxycodone Shortness Of Breath, Nausea And Vomiting and Other (See Comments) Per pt & confirmed by daughter: previous SOB/N&V, diaphoresis with OXYCODONE. Review of Systems - See HPI Objective: BP 140/82 Ht 152.4 cm (60) Wt 73.029 kg (161 lb) BMI 31.44 kg/m2 Physical Exam Constitutional: She is oriented [...] no tenderness. Thereis no rebound. Genitourinary: Vagina normal and uterus normal. There is no rash, tenderness, no lesion or injury on the right labia. There is no rash, tenderness, no lesion or injury on the left labia. [...] of stage IIIC papillary serous ovarian cancer, doing well and LEIGH. Plan: There are no diagnoses linked to this encounter. Today, I discussed with Marisol that she is without any symptoms or findings on physical exam that would be worrisome for recurrent ovarian cancer. She will proceed to the lab to have her CA-125 leveldrawn, which she will do at her local lab, [facility], and I will call her with these results when theyreturn. Assuming that they return stable and within normal limits we will see her back for surveillance visit one year's time. I did perform a breast exam today and also gave her an order to have a mammogram done locally and also did order for her a colonoscopy. She knows to see us sooner should she have any new or different complaints of abdominal pain, pressure, bloating or change in her bowel or bladder habits, otherwise we will see her back in 1 year's time. PRUDENCIO Gleason documented in this encounter Plan of Treatment Scheduled Orders Name Type Priority Associated Diagnoses Orde r Schedule MA MAMMO DIAG BILAT DIGITAL Imaging Routine Other screening mammogram Ordered: 09/09/2014 COLONOSCOPY GI Routine Screening for colon cancer Ordered: 09/09/2014 documented as of this encounter Visit Diagnoses Diagnosis Personal history of ovarian cancer- Primary Personal history of malignant neoplasm of ovary Other screening mammogram Screening for colon cancer Special screening for malignant neoplasms, colon Follow-up examination, following other surgery documented in this encounter Care Teams Autotransfusionist Relationship Specialty Start Date End Date Angel Chilel MD PCP - General 03/12/14 12/01/18 documented as of this encounter
--- OUTSIDE RECORDS SUMMARY | 2024-01-20 19:54 | XMS_ITS | Encounter Summary ---
Author Organization [facility] Address [address] [place] [address] Care Team Providers Care Toll Test Desk Worker Name Role Phone Angel Chilel MD Primary Care Provider Unav ailable Encounter Details Date Type Department Care Team (Late st Contact Info) Description 12/11/2010 Orders Only [facility] OBGYN Services - [address] [id number] Elidia Christianson PA-C [address] [place] [address], [address] [place] [address] Hematuria (Primary Dx) Social History Tobacco Use Types [...] Procedure Name Priority Date/Time Associated Diagnosis Comments RAD US RETROPERITONEAL COMPLETE Routine 12/25/2010 14:41 EDT Hematuria documented in this encounter Results * RAD US RETROPERITONEAL COMPLETE (12/25/2010 14:41 EDT) Anatomical Region Laterality Modality Other 12/25/2010 14:4 1 EDT 12/25/2010 16:50 EDT Narrative 12/25/2010 16:50 EDT US RETROPERITONEAL COMPLETE ??Dec 25, 2010 02:41:00 PM SIGNS AND SYMPTOMS/COMMENTS: ??[id number] Microscopic hematuria, atypical urothelial cells present. COMPARISON: ??CT abdomen pelvis 08/19/2009. TECHNIQUE: Static and cine grayscale and Doppler ultrasound images used to evaluate the organs of the retroperitoneum. FINDINGS: The right kidney measures 11.6 cm and shows normal echotexture without sonographic evidence of or mass. Multiple small nonobstructing calculi identified in the right kidney. The left kidney measures 11.6 cm and shows normal echotexture without sonographic evidence of or mass. ??Multiple small nonobstructing calculi identified in the left kidney. Both kidneys show normal color Doppler flow. Multiple ??echogenic foci within the spleen, likely from prior granulomatous disease. The spleen measures 7.8 x 9.7 x 4.7 cm. The visualized portions of the bladder wall are normal. ?? IMPRESSION: 1. Multiple bilateral small nonobstructing renal calculi. 2. Multiple focal calcifications incidentally noted in the spleen, likely from prior granulomatous disease. ?? I have personally reviewed the images and the above interpretation and agree with the findings. Procedure Note Murali Paula MD - 12/25/2010 US RETROPERITONEAL COMPLETE Dec 25, 2010 02:41:00 PM SIGNS AND SYMPTOMS/COMMENTS: [id number] Microscopic hematuria, atypical urothelial cells present. COMPARISON: CT abdomen pelvis 08/19/2009. TECHNIQUE: Static and cine grayscale and Doppler ultrasound images used to evaluate the organs of the retroperitoneum. FINDINGS: The right kidney measures 11.6 cm and shows normal echotexture without sonographic evidence of or mass. Multiple small nonobstructing calculi identified in the right kidney. The left kidney measures 11.6 cm and shows normal echotexture without sonographic evidence of or mass. Multiple small nonobstructing calculi identified in the left kidney. Both kidneys show normal color Doppler flow. Multiple echogenic foci within the spleen, likely from prior granulomatous disease. The spleen measures 7.8 x 9.7 x 4.7 cm. The visualized portions of the bladder wall are normal. IMPRESSION: 1. Multiple bilateral small nonobstructing renal calculi. 2. Multiple focal calcifications incidentally noted in the spleen, likely from prior granulomatous disease. I have personally reviewed the images and the above interpretation and agree with the findings. Elidia Christianson PA-C IMG US ORDERAB LES documented in this encounter Visit Diagnoses Diagnosis Hematuria- Primary Hematuria, unspecified documented in this encounter Care Teams Toll Test Desk Worker Relationship Specialty Start Date End Date Angel Chilel MD PCP - General 12/16/09 05/13/12 documented as of this encounter
--- OUTSIDE RECORDS SUMMARY | 2024-01-20 19:55 | XMS_ITS | Encounter Summary ---
Author Organization [facility] Address [address] [place] [address] Care Team Providers Care Shipping And Receiving Specialist Name Role Phone Angel Chilel MD Primary Care Provider Unav ailable Reason for Referral * (Routine) - Closed Specialty Diagnoses / Procedures Referred By Contjam t Referred To Contact Diagnoses Malignant neoplasm of ovary (HCC-CMS) Procedures CBC WITH AUTO DIFF - ONCOLOGY USE ONLY Mag Calhoun RN Referral ID Status Reason Start Date Expiration Date Visits Re quested Visits Authorized [id number] Closed 12/16/2009 1 1 Encounter Details Date Type Department Care Team (Late st Contact Info) Description 12/16/2009 Orders Only [facility] OBGYN Services - [facility] [address] [place] [address] Mag Calhoun RN Malignant neoplasm of ovary [...] of this encounter Plan of Treatment Scheduled Orders Name Type Priority Associated Diagnoses Orde r Schedule CBC WITH AUTO DIFF - ONCOLOGY USE ONLY Lab STAT Malignant neoplasm of ovary (HCC-CMS) Expected: 12/21/2009, Expires: 12/16/2010 documented as of this encounter Visit Diagnoses Diagnosis Malignant neoplasm of ovary (HCC-CMS)- Primary Malignant neoplasm of ovary documented in this encounter Care Teams Shipping And Receiving Specialist Relationship Specialty Start Date End Date Angel Chilel MD PCP - General 12/16/09 05/13/12 documented as of this encounter
--- OUTSIDE RECORDS SUMMARY | 2024-01-20 19:55 | XMS_ITS | Encounter Summary ---
Author Organization [facility] Address [address] [place] [address] Care Team Providers Care Store Gift Wrap Associate Name Role Phone Hunter Richards MD Primary Care Provider Un available Reason for Referral * (Routine) - Closed Specialty Diagnoses / Procedures Referred By Renita t Referred To Contact Diagnoses Malignant neoplasm of ovary (HCC-CMS) Procedures COMPREHENSIVE METABOLIC PANEL Mag Calhoun RN Referral ID Status Reason Start Date Expiration Date Visits Re quested Visits Authorized [id number] Closed 11/11/2009 1 1 * (Routine) - Closed Specialty Diagnoses / Procedures Referred By Renita t Referred To Contact Diagnoses Malignant neoplasm of ovary (HCC-CMS) Procedures CBC WITH AUTO DIFF - ONCOLOGY USE ONLY Mag Calhoun RN Referral ID Status Reason Start Date Expiration Date Visits Re quested Visits Authorized [id number] Closed 11/11/2009 1 1 * (Routine) - Closed Specialty Diagnoses / Procedures Referred By Renita pratt Referred To Contact Diagnoses Malignant neoplasm of ovary (HCC-CMS) Procedures CA 125 Mag Calhoun RN Referral ID Status Reason Start Date Expiration Date Visits Re quested Visits Authorized [id number] Closed 11/11/2009 1 1 Encounter Details Date Type Department Care Team (Late st Contact Info) Description 11/11/2009 Orders Only [facility] OBGYN Services - [address] [place] [address] [place], [place] [address] Mag Calhoun RN Malignant neoplasm of ovary [...] Type Priority Associated Diagnoses Orde r Schedule CA 125 Lab Routine Malignant neoplasm of ovary ([facility]) Expected: 11/23/2009 (Approximate), Expires: 11/11/2010 CBC WITH AUTO DIFF - ONCOLOGY USE ONLY Lab STAT Malignant neoplasm of ovary ([facility]) Expected: 11/23/2009 (Approximate), Expires: 11/11/2010 COMPREHENSIVE METABOLIC PANEL Lab STAT Malignant neoplasm of ovary ([facility]) Expected: 11/23/2009 (Approximate), Expires: 11/11/2010 documented as of this encounter Visit Diagnoses Diagnosis Malignant neoplasm of ovary ([facility])- Primary Malignant neoplasm of ovary documented in this encounter Care Teams Store Gift Wrap Associate Relationship Specialty Start Date End Date Hunter Richards MD PCP - General 09/21/09 12/15/09 documented as of this encounter
--- OUTSIDE RECORDS SUMMARY | 2024-01-20 19:55 | XMS_ITS | Encounter Summary ---
Author Organization [facility] Address [address] [place] [address] Care Team Providers Care Mantel Craftsman Name Role Phone Hunter Richards MD Primary Care Provider Un available Reason for Referral * (Routine) - Closed Specialty Diagnoses / Procedures Referred By Renita t Referred To Contact Diagnoses Malignant neoplasm of ovary (HCC-CMS) Procedures COMPREHENSIVE METABOLIC PANEL Mag Calhoun RN Referral ID Status Reason Start Date Expiration Date Visits Re quested Visits Authorized [id number] Closed 10/13/2009 1 1 * (Routine) - Closed Specialty Diagnoses / Procedures Referred By Renita t Referred To Contact Diagnoses Malignant neoplasm of ovary (HCC-CMS) Procedures CBC WITH AUTO DIFF - ONCOLOGY USE ONLY Mag Calhoun RN Referral ID Status Reason Start Date Expiration Date Visits Re quested Visits Authorized [id number] Closed 10/13/2009 1 1 * (Routine) - Closed Specialty Diagnoses / Procedures Referred By Renita pratt Referred To Contact Diagnoses Malignant neoplasm of ovary (HCC-CMS) Procedures CA 125 Mag Calhoun RN Referral ID Status Reason Start Date Expiration Date Visits Re quested Visits Authorized [id number] Closed 10/13/2009 1 1 Encounter Details Date Type Department Care Team (Late st Contact Info) Description 10/13/2009 Orders Only [facility] OBGYN Services - [address] [place] [address] [place], [place] [id number] Mag Calhoun RN Malignant neoplasm of ovary [...] 125 Lab Routine Malignant neoplasm of ovary ([facility]) Expected: 11/02/2009, Expires: 10/13/2010 CBC WITH AUTO DIFF - ONCOLOGY USE ONLY Lab STAT Malignant neoplasm of ovary ([facility]) Expected: 11/02/2009, Expires: 10/13/2010 COMPREHENSIVE METABOLIC PANEL Lab STAT Malignant neoplasm of ovary ([facility]) Expected: 11/02/2009, Expires: 10/13/2010 documented as of this encounter Visit Diagnoses Diagnosis Malignant neoplasm of ovary (HCC-CMS)- Primary Malignant neoplasm of ovary documented in this encounter Care Teams Mantel Craftsman Relationship Specialty Start Date End Date Hunter Richards MD PCP - General 09/21/09 12/15/09 documented as of this encounter
--- OUTSIDE RECORDS SUMMARY | 2024-01-20 19:55 | XMS_ITS | Encounter Summary ---
Author Organization [facility] Address [address] [place] [address] Care Team Providers Care Shuttle Driver Name Role Phone Angel Chilel MD Primary Care Provider Unav ailable Reason for Visit * Reason Onset Date Comments Results 02/22/2010 CA 125 Encounter Details Date Type Department Care Team (Late st Contact Info) Description 02/22/2010 Telephone [facility] OBGYN Services - [address] [id number] Alexus Mcwilliams, NICK Results (CA 125) Social History Tobacco Use Types Packs/Day Years [...] * Telephone Encounter - Alexus Mcwilliams - 02/22/2010 1342 EDT Pt calling for CA 125 results. Pt made aware of normal CA 125 results of 11 from 02/16/2010. Alexus Mcwilliams RN documented in this encounter Plan of Treatment Not on file documented as of this encounter Visit Diagnoses Not on filedocumented in this encounter Care Teams Shuttle Driver Relationship Specialty Start Date End Date Angel Chilel MD PCP - General 12/16/09 05/13/12 documented as of this encounter
--- OUTSIDE RECORDS SUMMARY | 2024-01-20 19:55 | XMS_ITS | Encounter Summary ---
Author Organization [facility] Address [address] [place] [address] Care Team Providers Care Chemistry Lab Instructor Name Role Phone Hunter Richards MD Primary Care Provider Un available Encounter Details Date Type Department Care Team (Late st Contact Info) Description 09/15/2009 Orders Only [facility] OBGYN Services - [facility] [address] [place], [place] [id number] Mag Calhoun RN Malignant neoplasm of ovary (HCC-CMS) (Primary Dx) Social History Tobacco Use Types Packs/Day Years Used Date Smoking Tobacco: Every Day Cigarettes 1 35 Alcohol Use Standard Drinks/Week Comments No 0 (1 standard drink = 0.6 oz pur e alcohol) Sex and Gender Information Value Date Recorded Sex Assigned at Not on file Gender Identity Not on file Sexual Orientation Not on file documented as of this encounter Progress Notes * Mag Calhoun RN - 09/15/2009 1630 EDT Port scheduled for 09/22/09 at 08:30am. NPO after midnoc, pt needs driver trainer. Pt aware of apptand instructions. Will meet with gynecologist onc RN after port to review chemo and return for C1 taxol/carbo on Saturday 09/23 at 10:00am. Pt also advises that she was seen and evaluated by primary MD yesterday for UTI. Prescribed abx (doc-qlace per pt.) 100mg twice a day for [address] Benavides aware. documented in this encounter Plan of Treatment Not on file documented as of this encounter Procedures Procedure Name Priority Date/Time Associated Diagnosis Comments IR CHEST PORT Routine 09/22/2009 12:00 EDT Malignant neoplasm of ovary (HCC-CMS) documented in this encounter Results * IR CHEST PORT (09/22/2009 12:00 EDT) Anatomical Region Laterality Modality Other 09/22/2009 12:0 0 EDT 09/23/2009 14:57 EDT Narrative 09/23/2009 14:57 EDT Single lumen chest port placement. ??September 22, 2009 12:00:00 PM Signs and Symptoms/Comments: ??Stage III ovarian cancer, poor venous access, need port to start chemo please Technique: After explaining the benefits and risks of the procedure and conscious sedation, informed written consent was obtained for both. Conscious sedation was achieved using IV Versed and fentanyl. Vital signs monitored include heart rate, respiratory rate, oxygen saturation, and blood pressure. Local anesthesia was achieved using buffered 1% lidocaine. The area of the right chest and the right neck was sterilely prepped and draped in the usual fashion. After the administration of buffered 1% lidocaine, the right internal jugular vein was accessed using a micropuncture kit. Ultrasound guidance was used for the puncture. Ultrasound confirmed patency of the vessel. An image was placed in the patient's permanent record. ??The microwire was left in place and the needle was removed and exchanged for a microsheath. The right chest was anesthetized with local anesthesia. A transverse incision was made with a #15 scalpel blade. A pocket for the chest port was created at the incision site using blunt dissection. The chest port catheter was then tunneled from the incision site in the right neck and out the right chest pocket. ??The micro- wire and sheath were exchanged for a stiff wire and peel-away sheath. The distal end of the chest port catheter was advanced into the peel-away sheath. The catheter was trimmed to length. ??It was connected to the single lumen chest port and the port was placed in the pocket. ?? The peel away sheath was removed. ??Fluoroscopy was used to ensure proper positioning of the catheter and port. ??The tip was placed in the right atrium. ?? The pocket was closed using absorbable sutures. ??Steri strips were applied to both the neck venotomy site and the right chest pocket. ?? The port was accessed and a sterile dressing was applied. The port was accessed. The port flushed easily and there was normal blood return. The patient tolerated the procedure well and there were no immediate complications. ?? Impression: 1. ??Successful placement of a single lumen chest port using ultrasound and fluoroscopic guidance. 2. ??The chest port was accessed and functioned normally. The attending physician, Clementina, was present for the entire procedure. ? I have personally reviewed the images and the above interpretation and agree with the findings. Procedure Note Raymon Pandey MD / Raymon Pandey MD / Raymon Pandey MD - 09/23/2009 Single lumen chest port placement. September 22, 2009 12:00:00 PM Signs and Symptoms/Comments: Stage III ovarian cancer, poor venous access, need port to start chemo please Technique: After explaining the benefits and risks of the procedure and conscious sedation, informed written consent was obtained for both. Conscious sedation was achieved using IV Versed and fentanyl. Vital signs monitored include heart rate, respiratory rate, oxygen saturation, and blood pressure. Local anesthesia was achieved using buffered 1% lidocaine. The area of the right chest and the right neck was sterilely prepped and draped in the usual fashion. After the administration of buffered 1% lidocaine, the right internal jugular vein was accessed using a micropuncture kit. Ultrasound guidance was used for the puncture. Ultrasound confirmed patency of the vessel. An image was placed in the patient's permanent record. The microwire was left in place and the needle was removed and exchanged for a microsheath. The right chest was anesthetized with local anesthesia. A transverse incision was made with a #15 scalpel blade. A pocket for the chest port was created at the incision site using blunt dissection. The chest port catheter was then tunneled from the incision site in the right neck and out the right chest pocket. The micro- wire and sheath were exchanged for a stiff wire and peel-away sheath. The distal end of the chest port catheter was advanced into the peel-away sheath. The catheter was trimmed to length. It was connected to the single lumen chest port and the port was placed in the pocket. The peel away sheath was removed. Fluoroscopy was used to ensure proper positioning of the catheter and port. The tip was placed in the right atrium. The pocket was closed using absorbable sutures. Steri strips were applied to both the neck venotomy site and the right chest pocket. The port was accessed and a sterile dressing was applied. The port was accessed. The port flushed easily and there was normal blood return. The patient tolerated the procedure well and there were no immediate complications. Impression: 1. Successful placement of a single lumen chest port using ultrasound and fluoroscopic guidance. 2. The chest port was accessed and functioned normally. The attending physician, Clementina, was present for the entire procedure. I have personally reviewed the images and the above interpretation and agree with the findings. Osmar Benavides MD IM IR ORDERABLES documented in this encounter Visit Diagnoses Diagnosis Malignant neoplasm of ovary (HCC-CMS)- Primary Malignant neoplasm of ovary documented in this encounter Care Teams Chemistry Lab Instructor Relationship Specialty Start Date End Date Hunter Richards MD PCP - General 03/14/09 09/19/09 documented as of this encounter
--- OUTSIDE RECORDS SUMMARY | 2024-01-20 19:55 | XMS_ITS | Encounter Summary ---
Author Organization [facility] Address [address] [place] [address] Care Team Providers Care Clay Mixer Name Role Phone Hunter Richards MD Primary Care Provider Un available Encounter Details Date Type Department Care Team (Latest Contact Info) Description 09/23/2009 9:50 EDT - 09/23/2009 23:59 EDT Hospital Encounter [facility] - [facility] [address] [place], [place] [address] Unknown, Provider, Discharge Disposition: Home or Self [...] Sig Dispensed Refills Start Date End Date ibuprofen (MOTRIN) 400 mg tablet Take 400 mg by mouth every 6 hours as needed. Rarely uses due to BP meds 1 Tab 0 05/31/2020 acetaminophen (TYLENOL) 325 mg tablet Take 1-2 Tabs by mouth every 4 hours. 1 Tab 0 08/31/2009 05/15/2012 albuterol (PROVENTIL HFA, VENTOLIN HFA) 90 mcg/Actuation inhalerIndications:Abdom inal or pelvic swelling, mass, or lump, other specified site Inhale 2 Puffs as directed as needed for Wheezing. 01/12/2010 dexamethasone (DECADRON) 4 mg tablet Take 1 Tab by mouth 2 times daily. 36 Tab 0 09/22/2009 01/12/2010 docusate sodium (COLACE) 100 mg capsule Take 1 Cap by mouth 2 times daily. 60 Cap 0 08/31/2009 05/25/2010 lorazepam (ATIVAN) 1 mg tablet Take 1 Tab by mouth every 6 hours as needed for Anxiety. Nausea 20 Tab 3 09/22/2009 12/25/2010 morphine (MS IR) 15 mg tablet Take 1 Tab by mouth every 4 hours as needed for Pain. 25 Tab 0 08/31/2009 11/25/2009 prochlorperazine (COMPAZINE) 10 mg tablet Take 1 Tab by mouth every 6 hours as needed for Nausea. 30 Tab 3 09/22/2009 11/25/2009 documented as of this encounter Discharge Disposition Disposition Code Departure Means Destination Home or Self Snf documented in this encounter Progress Notes * Inpatient, Physician - 10/10/200933 EDT documented in this encounter Procedure Notes * Inpatient, Physician - 10/10/2009 0932 EDTAssociated Order(s): ORDERS - SCANNED documented in this encounter Miscellaneous Notes * Scanned Note-Null - Inpatient, Physician - 10/10/2009931 EDT documented in this encounter Plan of Treatment Not on file documented as of this encounter Procedures Procedure Name Priority Date/Time Associated Diagnosis Comments ORDERS - SCANNED 10/10/2009 9:32 EDT documented in this encounter Results * ORDERS - SCANNED (10/10/2009 9:32 EDT) 10/10/2009 9:32 EDT Narrative Procedure Note Inpatient, Physician - 10/10/2009 9:32 EDT Physician Inpatient MD ADMISSION ORDERAB LES documented in this encounter Visit Diagnoses Not on filedocumented in this encounter Care Teams Clay Mixer Relationship Specialty Start Date End Date Hunter Richards MD PCP - General 09/21/09 12/15/09 documented as of this encounter
--- OUTSIDE RECORDS SUMMARY | 2024-01-20 19:55 | XMS_ITS | Encounter Summary ---
Author Organization [facility] Address [address] [place] [address] Care Team Providers Care Chef German Name Role Phone Hunter Richards MD Primary Care Provider Un available Encounter Details Date Type Department Care Team (Late st Contact Info) Description 10/14/2009 10:18 EDT - 10/14/2009 23:59 EDT Hospital Encounter [facility]ematology & Oncology - [facility] [address] [place], [place] [address] Unknown, MD Giovani Osmar Benavides MD [address] [facility], [address] [place] [address] Discharge Disposition: Home or Self Care Social [...] as directed as needed for Wheezing. 01/12/2010 azithromycin (ZITHROMAX) 250 mg tablet Take 1 Tab by mouth. Take 2 tablets (500 mg) on Day 1, followed by 1 tablet (250 mg) once daily on Days 2 through 5. 6 Tab 0 10/14/2009 11/25/2009 dexamethasone (DECADRON) 4 mg tablet Take 1 [...] for Nausea. 30 Tab 3 09/22/2009 11/25/2009 UNABLE TO FIND Take 1 Tab by mouth 2 times daily. Med Name: Emma Root 05/15/2012 documented as of this encounter Discharge Disposition Disposition Code Departure Means Destination Home or Self Intermediate documented in this encounter Plan of Treatment Not on file documented as of this encounter Visit Diagnoses Not on filedocumented in this encounter Care Teams Chef German Relationship Specialty Start Date End Date Hunter Richards MD PCP - General 09/21/09 12/15/09 documented as of this encounter
--- OUTSIDE RECORDS SUMMARY | 2024-01-20 19:55 | XMS_ITS | Encounter Summary ---
Author Organization [facility] Address [address] [place] [address] Care Team Providers Care Electrician Elevator Maintenance Name Role Phone Karen Hermosillo MD Primary Care Provider Unav ailable Reason for Visit * Reason Comments Chemotherapy C6 taxol/carbo Cancer stage 3c papillary s erous ovarian cancer dx 08/25/09. Peripheral Neuropathy fingertips to 1st joint and bottoms of feet, numbness Encounter Details Date Type Department Care Team (Late st Contact Info) Description 01/12/2010 8:15 EDT Office Visit [facility] OBGYN Services - [facility] [address] [place], [place] [address] Osmar Benavides MD [address] [place] [address], [address] [place] [address] Malignant neoplasm of ovary (HCC-CMS) [...] Sign Reading Time Taken Comments Blood Pressure 118/80 01/12/2010 0822 EDT Pulse - - Temperature - - Respiratory Rate - - Oxygen Saturation - - Inhaled Oxygen Concentration - - Weight 66 kg (145 lb 8.1 oz) 01/12/2010 0822 EDT Height 155 cm (5' 1.02) 01/12/2010 0822 EDT Body Mass Index 27.47 01/12/2010 0822 EDT documented in this encounter Ordered Prescriptions Prescription Sig Dispensed Refills Start Date End Da te albuterol (PROVENTIL, VENTOLIN) 90 mcg/Actuation inhaler Inhale 1 Puff as directed every 4 hours as needed for Wheezing. 2 Inhaler 0 01/12/2010 dexamethasone (DECADRON) 4 mg tablet Take 1 Tab by mouth 2 times daily. For three days following chemotherapy 4 Tab 0 01/12/2010 05/25/2010 documented in this encounter Progress Notes * Inpatient, Physician - 02/02/2010 0508 EDT * Osmar Benavides MD - 01/12/2010 0903 EDT DIAMOND ROJAS MD [address] ?? [facility] [address] Rojas: Just a note to keep you updated to your patient, Marisol Lawson. As you recall, Marisol Lawson is a 48 y.o. 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 Marisol is currently receiving Taxol/carboplatin chemotherapy. She presents today for her pre- treatment evaluation of course 6 of Taxol/carboplatin. Of note, She denies any shortness of breath, chest pain, nausea, vomiting, constipation or diarrhea. She denies any abnormal vaginal bleeding, odor or discharge. She denies any urinary symptoms. She does c/o some numbness of the fingers and soles of the feet.She also c/o weakness of the both legs which has limited her ability to walk. Remainder of ROS is negative Lab data: Pre-chemotherapy labs are satisfactory. Ca 125 is 14. Current outpatient prescriptions Medication Sig Dispense Refill ??? prochlorperazine (COMPAZINE) 10 mg tablet Take 1 Tab by mouth every 6 hours as needed for Nausea. 30 Tab 0 ??? UNABLE TO FIND Take 1 Tab by mouth 2 times daily. Med Name: Emma Root ??? dexamethasone (DECADRON) 4 mg tablet Take 1 Tab by mouth 2 times daily. 36 Tab 0 ??? lorazepam (ATIVAN) 1 mg tablet Take 1 Tab by mouth every 6 hours as needed for Anxiety. Nausea 20 Tab 3 ??? acetaminophen (TYLENOL) 325 mg tablet Take 1-2 Tabs by mouth every 4 hours. 1 Tab 0 ??? docusate sodium (COLACE) 100 mg capsule Take 1 Cap by mouth 2 times daily. 60 Cap 0 ??? ibuprofen (MOTRIN) 400 mg tablet Take 1 Tab by mouth every 4 hours. 1 Tab 0 ??? albuterol (PROVENTIL HFA, VENTOLIN HFA) 90 mcg/Actuation inhaler Inhale 2 Puffs as directed as needed for Wheezing. Allergies Allergen Reactions ??? Other - See Comments Hives and Angioedema CT CONTRAST- IV ??? Codeine Nausea And Vomiting ??? Adhesive Tape-silicons Rash ??? Dilaudid (Hydromorphone (Pf)) Nausea And Vomiting Nausea & Vomiting with STATION MECHANIC APPRENTICE dilaudid 08/27/09 ??? Oxycodone Shortness Of Breath, Nausea And Vomiting and Other (See Comments) Per pt & confirmed by daughter: previous SOB/N&V, diaphoresis with OXYCODONE. Review of Systems Pertinent items are noted in Subjective/HPI Objective: BP 118/80 Ht 1.55 m (5' 1.02) Wt 66 kg (145 lb 8.1 oz) Pt is A&Ox3 and in NAD HEENT: NC/AT Neck: no cervical or supra-clavicular lymphadenopathy Heart: S1S2 Lungs: Clear; no wheezing Abdomen: soft, NT,ND, no rebound or guarding, no hepatosplenomegaly Pelvic: deferred Ext: no CCE; decreased motor strength of both lower legs Assessment: Today, I explained to Marisol that I am pleased with how she is doing. Her CA 125 has normalized. 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 With regards to her leg weakness, I recommend that she be evaluated by PT. Given that her physical exam and legs are satisfactory, I will write and sign her chemotherapy orders and she will be treated today. As always, I thank you for allowing me to participate in the care of your patients. I will keep youinformed of her progress. Sincerely, Osmar Benavides MD Director, Division of Crew Member Oncology [facility] CC: KAREN HERMOSILLO MD documented in this encounter Miscellaneous Notes * Scanned Note-Null - Inpatient, Physician - 02/02/2010 0359 EDTAssociated Order(s): ORDERS - SCANNED documented in this encounter Plan of Treatment Not on file documented as of this encounter Procedures Procedure Name Priority Date/Time Associated Diagnosis Comments ORDERS - SCANNED 02/02/2010 3:59 EDT documented in this encounter Results * ORDERS - SCANNED (02/02/2010 3:59 EDT) 02/02/2010 3:59 EDT Narrative Procedure Note Inpatient, Physician - 02/02/2010 3:59 EDT Physician Inpatient MD ADMISSION ORDERAB LES documented in this encounter Visit Diagnoses Diagnosis Malignant neoplasm of ovary ([facility])- Primary Malignant neoplasm of ovary documented in this encounter Discontinued Medications Medication Sig Discontinue Reason Start Date End Da te zolpidem (AMBIEN) 10 mg tablet Take 1 Tab by mouth at bedtime as needed for Sleep. Therapy completed 11/04/2009 01/12/2010 albuterol (PROVENTIL HFA, VENTOLIN HFA) 90 mcg/Actuation inhalerIndications:Abdo alvarado or pelvic swelling, mass, or lump, other specified site Inhale 2 Puffs as directed as needed for Wheezing. 01/12/2010 dexamethasone (DECADRON) 4 mg tablet Take 1 Tab by mouth 2 times daily. Reorder 09/22/2009 01/12/2010 documented as of this encounter Care Teams Electrician Elevator Maintenance Relationship Specialty Start Date End Date Karen Hermosillo MD PCP - General 12/16/09 05/13/12 documented as of this encounter
--- OUTSIDE RECORDS SUMMARY | 2024-01-20 19:55 | XMS_ITS | Encounter Summary ---
Author Organization [facility] Address [address] [place] [address] Care Team Providers Care Malt House Supervisor Name Role Phone Hunter Richards MD Primary Care Provider Un available Encounter Details Date Type Department Care Team (Late st Contact Info) Description 11/04/2009 8:53 EDT - 11/04/2009 23:59 EDT Hospital Encounter [facility] Hematology & Oncology - [facility] [address] [place], [place] [address] Unknown, MD Giovani Osmar Benavides MD [address] [facility], [address] [place] [address] Discharge Disposition: Home or Self [...] times daily. Med Name: Emma Root 05/15/2012 zolpidem (AMBIEN) 10 mg tablet Take 1 Tab by mouth at bedtime as needed for Sleep. 30 Tab 0 11/04/2009 01/12/2010 documented as of this encounter Discharge Disposition Disposition Code Departure Means Destination Home or Self [facility] documented in this encounter Progress Notes * Inpatient, Physician - 11/21/2009 1249 EDT documented in this encounter Procedure Notes * Inpatient, Physician - 11/21/2009 1249 EDTAssociated Order(s): ORDERS - SCANNED documented in this encounter Miscellaneous Notes * Scanned Note-Null - Inpatient, Physician - 11/21/2009 1248 EDT documented in this encounter Plan of Treatment Not on file documented as of this encounter Procedures Procedure Name Priority Date/Time Associated Diagnosis Comments ORDERS - SCANNED 11/21/2009 12:4 9 EDT documented in this encounter Results * ORDERS - SCANNED (11/21/2009 12:49 EDT) 11/21/2009 12:4 9 EDT Narrative Procedure Note Inpatient, Physician - 11/21/2009 12:49 EDT Physician Inpatient MD ADMISSION ORDERAB LES documented in this encounter Visit Diagnoses Not on filedocumented in this encounter Care Teams Malt House Supervisor Relationship Specialty Start Date End Date Hunter Richards MD PCP - General 09/21/09 12/15/09 documented as of this encounter
--- OUTSIDE RECORDS SUMMARY | 2024-01-20 19:55 | XMS_ITS | Encounter Summary ---
Author Organization [facility] Address [address] [place] [address] Care Team Providers Care Gate Cutter Name Role Phone Angel Chilel MD Primary Care Provider Unav ailable Encounter Details Date Type Department Care Team (Late st Contact Info) Description 12/27/2009 Orders Only [facility] OBGYN Services - Main [place] [address] [place], [place] [id number] Mag Calhoun, RN Malignant neoplasm of ovary [...] ovary documented in this encounter Care Teams Gate Cutter Relationship Specialty Start Date End Date Angel Chilel MD PCP - General 12/16/09 05/13/12 documented as of this encounter
--- OUTSIDE RECORDS SUMMARY | 2024-01-20 19:55 | XMS_ITS | Encounter Summary ---
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 Encounter Details Date Type Department Care Team (Late st Contact Info) Description 11/25/2009 9:30 EDT Office Visit [facility] OBGYN Services - [address] [address] Osmar Benavides MD [address] [place] [address], [address] [place] [address] Malignant neoplasm of ovary (HCC-CMS) [...] Sign Reading Time Taken Comments Blood Pressure 122/78 11/25/2009 0920 EDT Pulse - - Temperature - - Respiratory Rate - - Oxygen Saturation - - Inhaled Oxygen Concentration - - Weight 61.2 kg (135 lb) 11/25/2009 0920 EDT Height 154.9 cm (5' 1) 11/25/2009 0920 EDT Body Mass Index 25.51 11/25/2009 0920 EDT documented in this encounter Ordered Prescriptions Prescription Sig Dispensed Refills Start Date End Da te prochlorperazine (COMPAZINE) 10 mg tablet Take 1 Tab by mouth every 6 hours as needed for Nausea. 30 Tab 0 11/25/2009 05/25/2010 documented in this encounter Progress Notes * Inpatient, Physician - 12/12/2009 1223 EDT * Osmar Benavides MD - 11/25/2009 0930 EDT DIAMOND ROJAS MD [address] [facility] [address] Rojas: Just a note to [...] for her pre- treatment evaluation of course 4 of Taxol/carboplatin. Of note, She denies any shortness of breath, chest pain, nausea, vomiting, constipation or diarrhea. She denies any abnormal vaginal bleeding, odor or discharge. She denies any urinary symptoms. Remainder of ROS is negative Lab data: Pre-chemotherapy labs are satisfactory. Ca 125 is 32 on 11/2009. Current outpatient prescriptions Medication Sig Dispense Refill ??? prochlorperazine (COMPAZINE) 10 mg tablet Take 1 Tab by mouth every 6 hours as needed for Nausea. 30 Tab 0 ??? zolpidem (AMBIEN) 10 mg tablet Take 1 Tab by mouth at bedtime as needed for Sleep. 30 Tab 0 ??? UNABLE TO FIND [...] needed for Wheezing. Allergies Allergen Reactions ??? Codeine Nausea And Vomiting ??? Adhesive Tape-silicons Rash ??? Dilaudid (Hydromorphone (Pf)) Nausea And Vomiting Nausea & Vomiting with [employer] dilaudid 08/27/09 ??? Oxycodone Shortness Of Breath, Nausea And Vomiting and Other (See Comments) Per pt & confirmed by daughter: previous SOB/N&V, diaphoresis with OXYCODONE. Review of Systems Pertinent items are noted in Subjective/HPI Objective: BP 122/78 Ht 1.549 m (5' 1) Wt 61.236 kg (135 lb) LMP Postmenopausal Pt is A&Ox3 and in NAD HEENT: NC/AT Neck: no cervical or supra-clavicular lymphadenopathy Heart: S1S2 Lungs: Clear; no wheezing Abdomen: soft, NT,ND, no rebound or guarding, no hepatosplenomegaly Pelvic: deferred Ext: no CCE Assessment: Today, I explained to Marisol that I am pleased with how she is doing. She is tolerating chemotherapy well and she is responding well to chemotherapy. Today, I will write and sign chemotherapy orders and she will be treated today. As always, I thank you for allowing me to participate in the care of your patients. I will keep youinformed of her progress. Sincerely, Osmar Benavides MD Director, Division of Inventory Control Planner Oncology [facility] documented in this encounter Miscellaneous Notes * Scanned Note-Null - Inpatient, Physician - 12/12/2009 1223 EDT * Scanned Note-Null - Inpatient, Physician - 12/12/2009 1034 EDTAssociated Order(s): ORDERS - SCANNED documented in this encounter Plan of Treatment Not on file documented as of this encounter Procedures Procedure Name Priority Date/Time Associated Diagnosis Comments ORDERS - SCANNED 12/12/2009 10:3 4 EDT documented in this encounter Results * ORDERS - SCANNED (12/12/2009 10:34 EDT) 12/12/2009 10:3 4 EDT Narrative Procedure Note Inpatient, Physician - 12/12/2009 10:34 EDT Physician Inpatient MD ADMISSION ORDERAB LES documented in this encounter Visit Diagnoses Diagnosis Malignant neoplasm of ovary (HCC-CMS)- Primary Malignant neoplasm of ovary documented in this encounter Discontinued Medications Medication Sig Discontinue Reason Start Date End Da te morphine (MS IR) 15 mg tablet Take 1 Tab by mouth every 4 hours as needed for Pain. Therapy completed 08/31/2009 11/25/2009 azithromycin (ZITHROMAX) 250 mg tablet Take 1 Tab by mouth. Take 2 tablets (500 mg) on Day 1, followed by 1 tablet (250 mg) once daily on Days 2 through 5. Therapy completed 10/14/2009 11/25/2009 prochlorperazine (COMPAZINE) 10 mg tablet Take 1 Tab by mouth every 6 hours as needed for Nausea. Reorder 09/22/2009 11/25/2009 documented as of this encounter Care Teams Fruit And Vegetable Factory Worker Relationship Specialty Start Date End Date Diamond Rojas MD PCP - General 09/21/09 12/15/09 documented as of this encounter
--- OUTSIDE RECORDS SUMMARY | 2024-01-20 19:55 | XMS_ITS | Encounter Summary ---
Author Organization [facility] Address [address] [place] [address] Care Team Providers Care Internal Audit Manager Name Role Phone Angel Chilel MD Primary Care Provider Unav ailable Reason for Visit * Reason Onset Date Comments Other 03/22/2010 PT HAS GROWING H AIR ON THE CHEEK & CHIN. PT WANTS TO TALK ABOUT IT & WHAT TO DO ABOUT IT Encounter Details Date Type Department Care Team (Late st Contact Info) Description 03/22/2010 Telephone [facility] Dermatology 5th Floor [facility] [address] [place] [address] Tahira Granados MD [address] [place] [address] Other (PT HAS GROWING HAIR ON THE CHEEK & CHIN. PT WANTS TO TALK ABOUT IT & WHAT TO DO ABOUT IT) Social History Tobacco Use Types Packs/Day Years [...] encounter Miscellaneous Notes * Telephone Encounter - Tahira Granados MD - 05/24/2010 1516 EST If pt is concerned about hair on face and chin, it would be most appropriate for her to schedule anappt to discuss. Please let her know if she is still concerned about this. TAHIRA GRANADOS MD 05/24/2010 15:16 documented in this encounter Plan of Treatment Not on file documented as of this encounter Visit Diagnoses Not on filedocumented in this encounter Care Teams Internal Audit Manager Relationship Specialty Start Date End Date Angel Chilel MD PCP - General 12/16/09 05/13/12 documented as of this encounter
--- OUTSIDE RECORDS SUMMARY | 2024-01-20 19:55 | XMS_ITS | Encounter Summary ---
Author Organization [facility] Address [address] [place] [address] Care Team Providers Care Dry Mill Operator Name Role Phone Angel Chilel MD Primary Care Provider Unav ailable Reason for Referral * (Routine) - Closed Specialty Diagnoses / Procedures Referred By Renita pratt Referred To Contact Diagnoses Malignant neoplasm of ovary (HCC-CMS) Procedures CA 125 Mag Calhoun RN Referral ID Status Reason Start Date Expiration Date Visits Re quested Visits Authorized [id number] Closed 01/05/2010 1 1 * (Emergency) - Closed Specialty Diagnoses / Procedures Referred By Renita pratt Referred To Contact Diagnoses Malignant neoplasm of ovary (HCC-CMS) Procedures COMPREHENSIVE METABOLIC PANEL Mag Calhoun RN Referral ID Status Reason Start Date Expiration Date Visits Re quested Visits Authorized [id number] Closed 01/05/2010 1 1 * (Routine) - Closed Specialty Diagnoses / Procedures Referred By Renita pratt Referred To Contact Diagnoses Malignant neoplasm of ovary (HCC-CMS) Procedures CBC WITH AUTO DIFF - ONCOLOGY USE ONLY Mag Calhoun RN Referral ID Status Reason Start Date Expiration Date Visits Re quested Visits Authorized [id number] Closed 01/05/2010 1 1 Encounter Details Date Type Department Care Team (Late st Contact Info) Description 01/05/2010 Orders Only [facility] OBGYN Services - Main [place] [address] [place] [address] Mag Calhoun RN Malignant neoplasm of ovary [...] STAT Malignant neoplasm of ovary (HCC-CMS) Expected: 01/10/2010 (Approximate), Expires: 01/05/2011 COMPREHENSIVE METABOLIC PANEL Lab STAT Malignant neoplasm of ovary (HCC-CMS) Expected: 01/10/2010 (Approximate), Expires: 01/05/2011 CA 125 Lab Routine Malignant neoplasm of ovary (HCC-CMS) Expected: 01/10/2010, Expires: 01/05/2011 documented as of this encounter Visit Diagnoses Diagnosis Malignant neoplasm of ovary ([facility])- Primary Malignant neoplasm of ovary documented in this encounter Care Teams Dry Mill Operator Relationship Specialty Start Date End Date Angel Chilel MD PCP - General 12/16/09 05/13/12 documented as of this encounter
--- OUTSIDE RECORDS SUMMARY | 2024-01-20 19:55 | XMS_ITS | Encounter Summary ---
Author Organization [facility] Address [address] [place] [address] Care Team Providers Care Senior Partner Name Role Phone Hunter Richards MD Primary Care Provider Un available Reason for Visit * Reason Onset Date Comments Medications Refill 11/04/2009 Encounter Details Date Type Department Care Team (Late st Contact Info) Description 11/04/2009 Refill [facility] OBGYN Services - [facility] [address] [place], [place] [id number] Mag Calhoun, NICK Medications Refill Social History Tobacco Use Types Packs/Day Years [...] Dispensed Refills Start Date End Da te zolpidem (AMBIEN) 10 mg tablet Take 1 Tab by mouth at bedtime as needed for Sleep. 30 Tab 0 11/04/2009 01/12/2010 documented in this encounter Plan of Treatment Not on file documented as of this encounter Visit Diagnoses Not on filedocumented in this encounter Care Teams Senior Partner Relationship Specialty Start Date End Date Hunter Richards MD PCP - General 09/21/09 12/15/09 documented as of this encounter
--- OUTSIDE RECORDS SUMMARY | 2024-01-20 19:55 | XMS_ITS | Encounter Summary ---
Author Organization [facility] Address [address] [place] [address] Care Team Providers Care Data Recovery Planner Name Role Phone Hunter Richards MD Primary Care Provider Un available Encounter Details Date Type Department Care Team (Late st Contact Info) Description 08/25/2009 11:29 EDT - 08/31/2009 12:26 EDT Hospital Encounter [facility] [address] [place] [address] Osmar Benavides MD [address] [facility] [address] [place] [id number] Discharge Disposition: Home or Self Care Social [...] Sign Reading Time Taken Comments Blood Pressure 100/60 08/31/2009 1106 EDT Pulse 76 08/31/2009 1106 EDT Temperature 36 ??C (96.8 ??F) 08/31/2009 1106 EDT Respiratory Rate 16 08/31/2009 1106 EDT Oxygen Saturation 95% 08/31/2009 1106 EDT Inhaled Oxygen Concentration - - Weight 68 kg (150 lb) 08/18/2009 1613 EDT Height 154.9 cm (5' 1) 08/18/2009 1613 EDT Body Mass Index 28.34 08/18/2009 1613 EDT documented in this encounter Discharge Summaries * Meilssa Pat - 08/28/2009 1040 EDT Discharge Summary Chief Complaint: Post menopausal bleeding, adnexal mass Principal Procedure: Total Abdominal Hysterectomy, Bilateral Salpingo- Oophorectomy, and partial omentectomy Condition at Discharge: Good Hospital Course: Marisol Lawson is a 48 y.o. female that was admitted to the gynecology oncology service on 08/25/09 following an uncomplicated total abdominal hysterectomy, bilateral salpingo-oophorectomy, and partial omentectomy for an ovarian mass, for full details please see dictated operative report. On POD 1 her pain was controlled, she was tolerating clears, her frey was removed and she was ambulating. On POD 2 her Dilaudid CHAR PULLER caused severe nausea and stomach pain, so that was changed to morphine. She had not yet passed flatus. On POD 3 had a fever to 38.4 along with mild tachycardia. She also had desaturations to the 80's. She was given albuterol and a CXR was taken. Of note, she does have a history of asthma, and she had quit smoking the day before surgery. The CXR showed left lower lobe consolidation concerning for pneumonia vs atelectasis. She was placed on supplementalO2. A UA was also done and was consistent with UTI, so she was started on Levofloxacin to cover both pneumonia and the UTI. She improved over POD 4 and 5, was weaned off the O2 and transitioned onto PO pain meds. She still had not passed flatus, but was tolerating a regular diet with no nausea or vomiting. She was ambulating and voiding well. On POD 6 she was discharged to home in good condition.She was sent home with Colace, PO Morphine IR, and 7 More days of Levofloxacin. She will continue her usual asthma inhalers at home, and follow up with Dr Benavides next week. Relevant Studies at Discharge: none Last Lab Results at Discharge: CBC: Lab Results Component Value Date/Time ??? WBC 5.93 08/31/09 5:47 AM ??? RBC 3.35 08/31/09 5:47 AM ??? HGB 10.1 08/31/09 5:47 AM ??? HCT 29.8 4/28/10 5:47 AM ??? MCV 89 08/31/09 5:47 AM ??? MCH 30.2 08/31/09 5:47 AM ??? MCHC 34.0 08/31/09 5:47 AM ??? PLT 249 08/31/09 5:47 AM ??? DIFFTYPE Automated 08/31/09 5:47 AM Discharge Summary Completed: 08/31/2009 documented in this encounter Discharge Instructions * Discharge Instructions* Melissa Pat - 08/31/2009 8:31 EDT Diet: Regular Activity: No heavy lifting (over 10 pounds) or strenuous activity for 4 weeks Skin/Wound Care: Okay to get wound wet, but pat dry. Do NOT rub the wound area. Let Steri-Strips fall off on their own. Call your provider for problems with stiches, redness, pain, drainage or if stiches pull apart. Bathing: No restrictions Pending Results: Not applicable Symptoms to Call Your Doctor About: Chest pain (angina) Dizziness or fainting Decreased urine output Fever greater than 100.5 or chills Increased or new pain Nausea or vomiting Pain unrelieved by medication Shortness of breath or rapid breathing Signs of infection such as pain, redness, swelling or drainage at procedure or wound site Appointments: See Osmar Mitchell MD. His nurse will call you with an appointment. Follow-up Services Contacted at Discharge: none Health Risk and Disease Information: Not applicable documented in this encounter Medications at Time [...] as directed as needed for Wheezing. 01/12/2010 albuterol-ipratropium (COMBIVENT) 18-103 mcg/Actuation inhalerIndications:Abdom inal or pelvic swelling, mass, or lump, other specified site Inhale 2 Puffs as directed 4 times daily. 09/05/2009 docusate sodium (COLACE) 100 mg capsule Take 1 Cap by mouth 2 times daily. 60 Cap 0 08/31/2009 05/25/2010 levofloxacin (LEVAQUIN) 500 mg tablet Take 1 Tab by mouth daily for 10 days. 7 Tab 0 08/31/2009 09/10/2009 morphine (MS IR) 15 mg tablet Take 1 Tab by mouth every 4 hours as needed for Pain. 25 Tab 0 08/31/2009 11/25/2009 documented as of this encounter Ordered Prescriptions Prescription Sig Dispensed Refills Start Date End Da te morphine (MS IR) 15 mg tablet Take 1 Tab by mouth every 4 hours as needed for Pain. 25 Tab 0 08/31/2009 11/25/2009 levofloxacin (LEVAQUIN) 500 mg tablet Take 1 Tab by mouth daily for 10 days. 7 Tab 0 08/31/2009 09/10/2009 docusate sodium (COLACE) 100 mg capsule Take 1 Cap by mouth 2 times daily. 60 Cap 0 08/31/2009 05/25/2010 documented in this encounter Discharge Disposition Disposition Code Departure Means Destination Home or Self Care documented in this encounter Progress Notes * Margaret Chávez RN - 08/31/2009 1715 EDT DC NOTE: Pt dcd to home today without services. Pt arranged own transport to home. Roberto Chávez RN * Mandi Johnson - 08/31/2009 1020 EDT Pt reviewed discharge instructions, all questions answered, no barriers to learning. Pt was successful with Bm today. Ambulating in hallway independently. Pain is well controlled. Pt awaiting ride, discharge delayed due to that. * Donato Doan MD - 08/31/2009 0647 EDT POD: 6 CC: Marisol Lawson is a 48 y.o. female on POD4 s/p KEE, BSO, omenectomy for ovarian Ca S: Yet to pass gas. Is belching. Does not feel distended. -sob/co/ -n/v. Ambulating. Tolerating diet. Pain is well controlled on po meds. Able to void well. Lost her IS O: VS: BP 90/56 Pulse 65 Temp(Src) 35 ??C (95 ??F) (Tympanic) Resp 16 Ht 1.549 m (5' 1) Wt 68.04 kg (150 lb) SpO2 97% LMP Postmenopausal UOP - 150 cc in toilet in last hour Physical Exam: Gen: NAD CV:RRR Resp:not on supplemental O2, CTA-B Abd: increased bowel sounds, appropriately tender, mildly distended, -rebound Ext:no edema bilaterally, warm and well profused. venodynes in place Incision/Wound: c/d/i A/P: 48 y.o. female on POD 6 s/p KEE, BSO, omenectomy for ovarian Ca currently on antibx for UTI and pna. Pain:pain well controlled by oral pain meds CV:no active issues Resp: On levofloxacin for 3/10 days 750 mg for UTI and PNA. noted to have recent quit smoking. Off supplemental O2. On Proventil and ventolin albuterol inhaler for asthma for prexisting inflammatory airway dz/asthma. Encourage IS for pulm toilet. Pending rt recs GI: Tolerating reg diet. Encourage ambulation for flatus. Fluids/Electrolytes/Nutrition: sliv fulls diet, pending labs this am Endo:no current issues Heme:check cbc this am,heparin injection 5000units, SubQ ID:UTI and PNA currently on levafloxacin. Pending urine cx Ext: continue to encourage ambulation Prophylaxis: Ambulate , SCD, heparin 5000units, protonix, IS. Benedryl/phergan/zofran/colace. I have personally seen interviewed and examined the patient. I agree with the resident A/P and havediscussed care with team and patient. Cont abx, SL IV, PO pain meds. Awaiting flatus. Likely d/c tomorrow. I have personally seen interviewed and examined the patient. I agree with the resident A/P and havediscussed care with team and patient. Possible d/c today. * Ford Hunt - 08/31/2009 0455 EDT Gynecology Progress Note Admit Date: 08/25/2009 Hospital Day: LOS: 6 days Date of Service: 08/31/2009 POD: 6 CC: Marisol Lawson is a 48 y.o. female on POD6 s/p KEE/BSO, omentectomy for ovarian carcinoma. S: pain well controlled by oral pain meds 3 out of 10, no headaches, dizziness, no SOB, CP, no N/V, tolerating regular diet, no flatus, BM, has not gotten up to void this morning, not ambulated this morning, no calf pain. Current hospital medications Medication Route Frequency ??? simethicone (MYLICON) chewable tablet 80 mg Oral Q6H PRN ??? ibuprofen (MOTRIN) tablet 400 mg Oral Q4H ??? acetaminophen (TYLENOL) tablet 325-650 mg Oral Q4H ??? pantoprazole (PROTONIX) tablet 40 mg Oral BID ??? morphine (MS IR) tablet 15 mg Oral Q4H PRN ??? morphine (MS IR) 15 mg tablet ??? levofloxacin (LEVAQUIN) tablet 500 mg Oral DAILY ??? albuterol (PROVENTIL HFA, VENTOLIN HFA) inhaler 2 Puff Inhalation Q4H ??? nalbuphine (NUBAIN) injection 2.5 mg Intravenous Q4H PRN ??? sodium chloride 0.9 % (NS) infusion Intravenous CONTINUOUS ??? albuterol (PROVENTIL HFA, VENTOLIN HFA) inhaler 2 Puff Inhalation Q4H PRN ??? promethazine (PHENERGAN) injection 12.5-25 mg Intramuscular Q6H PRN ??? promethazine (PHENERGAN) tablet 12.5-25 mg Oral Q6H PRN ??? morphine injection 2-5 mg Intravenous Q4H PRN ??? diphenhydrAMINE (BENADRYL) capsule 25-50 mg Oral Q6H PRN ??? diphenhydrAMINE (BENADRYL) injection 25-50 mg Intravenous Q6H PRN ??? ondansetron (PF) (ZOFRAN) 4 mg/2 mL injection 4 mg Intravenous Q6H PRN ??? ondansetron (ZOFRAN-ODT) disintegrating tablet 4 mg Oral Q6H PRN ??? docusate sodium (COLACE) capsule 100 mg Oral BID ??? heparin injection 5,000 Units Subcutaneous Q8H O: VS: Patient Vital Signs in the past 8 hrs: BP Pulse Resp Temp SpO2 O2 Flow Rate (L/min) O2 Device FIO2 % 08/31/09 0401 - - - 35 ??C (95 ??F) - - - - 08/31/09 0359 90/56 mmHg 65 16 35.1 ??C (95.2 ??F) 97 % - - - 08/30/09 2319 98/50 mmHg 71 16 36.7 ??C (98.1 ??F) 99 % - - - Temp. Max (last 24hrs): 36.7 Pain: Patient Numeric Pain Scale in the past 8 hrs: Numeric Pain Level (Scale 1-10) 08/31/09 0359 5 Glucose Readings (last 8 hours): No results found for this basename: GLUCOSEFINGE:8 in the last 72 hours I&O: Intake/Output Summary (Last 24 hours) at 08/31/09 0455 Last data filed at 08/30/09 2337 Gross per 24 hour Intake 1859.17 ml Output 625 ml Net 1234.17 ml UOP: had not been recorded past six hours. Patient had not gotten up to void this morning Physical Exam: Gen:NAD, responsive alert to questions CV:RRR Resp:some mild rhonchi and wheezed heard in lower lung bases bilaterally, no crackles Abd:very soft bowel sounds, mildly distended, slight tenderness in lower abdomen, incision sites c/d/i :frey out Ext:no edema bilaterally, warm and well profused. Incision/Wound: c/d/i Is PICC or Central line present? No, PICC/Central line not present. A/P: Marisol Lawson is a 48 y.o. female on POD6 s/p KEE/BSO, omentectomy for ovarian carcinoma. Sheis doing well. Pain:pain well controlled by medications,continue oral pain regimen: tylenol q4, motrin q4, morphine 15mg tablet q4 as needed, morphine injection IV q4 as needed. CV:no issues Resp: Off supplemental O2, continue levaquin q24, oral (0900) for possible pneumonia, continue Incentive spirometry(IS) GI:Tolerating regular diet. : continue to monitor urine output. Continue levaquin oral q24 for possible UTI Fluids/Electrolytes/Nutrition:off normal saline IVF (08/30), continue regular diet, order labs this am Endo:no issues Heme:check cbc this am Psych:no issues ID:no signs/symptoms of infection Ext: sequential compression device (venodyne) placed, and ambulate. Discharge Plan: d/c for home today per patient status. DVT Prophylaxis: Pharmacologic Prophylaxis: Heparin 5000 units SQ Tid , SCD, encourage ambulation Ford Hunt 08/31/2009 4:55 AM M3 * Donato Doan MD - 08/30/2009 0640 EDT POD: 5 CC: Marisol Lawson is a 48 y.o. female on POD4 s/p KEE, BSO, omenectomy for ovarian Ca S: Pain is well controlled w/ morphine fur finisher. Minimal sob. On reg diet and almas -flatus/-bm. Able to void well. Off supplemental O2 O: VS: BP 110/63 Pulse 103 Temp(Src) 36.2 ??C (97.2 ??F) (Tympanic) Resp 16 Ht 1.549 m (5' 1) Wt 68.04 kg (150 lb) SpO2 93% LMP Postmenopausal UOP 250 cc/7 hr. Physical Exam: Gen: NAD CV:RRR Resp:not on supplemental O2, crackles in bases bilaterally Abd: min bowel sounds, appropriately tender, mildly distended, -rebound Ext:no edema bilaterally, warm and well profused. venodynes in place Incision/Wound: c/d/i A/P: 48 y.o. female on POD 5 s/p KEE, BSO, omenectomy for ovarian Ca currently on antibx for UTI and pna. Pain:pain well controlled by medications,morphine CHAR PULLER, Morphine IV 2-5mg q4, tylenol q4, motrin q 6. On nubain for itching. Will transition to oral pain meds CV:no active issues Resp: On levofloxacin for 10 days 750 mg for UTI and PNA. noted to have recent quit smoking. Off supplemental O2. On Proventil and ventolin albuterol inhaler for asthma for prexisting inflammatory airway dz/asthma. Encourage IS for pulm toilet GI: Tolerating reg diet. Encourage ambulation for flatus. Fluids/Electrolytes/Nutrition:normal saline 50cc/hr IVF, fulls diet, pending labs this am Endo:no current issues Heme:check cbc this am,heparin injection 5000units, SubQ ID:UTI and PNA currently on levafloxacin. Pending urine cx Ext: continue to encourage ambulation Prophylaxis: Ambulate , SCD, heparin 5000units, protonix, IS. Benedryl/phergan/zofran/colace. I have personally seen interviewed and examined the patient. I agree with the resident A/P and havediscussed care with team and patient. Cont abx, SL IV, PO pain meds. Awaiting flatus. Likely d/c tomorrow. * Ford Hunt - 08/30/2009 0443 EDT Gynecology Progress Note Admit Date: 08/25/2009 Hospital Day: LOS: 5 days Date of Service: 08/30/2009 POD: 5 CC: Marisol Lawson is a 48 y.o. female on POD5 s/p KEE/BSO, omentectomy for ovarian cancer. S: pain well controlled by morphine CHAR PULLER, tylenol. Mentions feeling a lot better than yesterday with pain 1 out of 10. No headaches, dizziness, some SOB had coughed up some brown sputum, no CP,on regulardiet, had some mashed potatoes last night. no N/V, No flatus, BM.Had gotten up on her own to void, and is ambulating often. No calf pain. Is hoping to go home today. Current hospital medications Medication Route Frequency ??? levofloxacin (LEVAQUIN) tablet 500 mg Oral DAILY ??? albuterol (PROVENTIL HFA, VENTOLIN HFA) inhaler 2 Puff Inhalation Q4H ??? nalbuphine (NUBAIN) injection 2.5 mg Intravenous Q4H PRN ??? sodium chloride 0.9 % (NS) infusion Intravenous CONTINUOUS ??? albuterol (PROVENTIL HFA, VENTOLIN HFA) inhaler 2 Puff Inhalation Q4H PRN ??? promethazine (PHENERGAN) injection 12.5-25 mg Intramuscular Q6H PRN ??? promethazine (PHENERGAN) tablet 12.5-25 mg Oral Q6H PRN ??? pantoprazole (PROTONIX) injection 40 mg Intravenous BID ??? morphine injection 2-5 mg Intravenous Q4H PRN ??? morphine 2 mg/ml (DURAMORPH) CHAR PULLER, 30 ml syringe Intravenous CHAR PULLER ??? diphenhydrAMINE (BENADRYL) capsule 25-50 mg Oral Q6H PRN ??? diphenhydrAMINE (BENADRYL) injection 25-50 mg Intravenous Q6H PRN ??? ondansetron (PF) (ZOFRAN) 4 mg/2 mL injection 4 mg Intravenous Q6H PRN ??? ondansetron (ZOFRAN-ODT) disintegrating tablet 4 mg Oral Q6H PRN ??? docusate sodium (COLACE) capsule 100 mg Oral BID ??? acetaminophen (TYLENOL) tablet 325-650 mg Oral Q4H ??? ibuprofen (MOTRIN) tablet 600 mg Oral Q6H PRN ??? heparin injection 5,000 Units Subcutaneous Q8H O: VS: Patient Vital Signs in the past 8 hrs: BP Pulse Resp Temp SpO2 O2 Flow Rate (L/min) O2 Device FIO2 % 08/30/09 0407 110/63 mmHg 103 16 36.2 ??C (97.2 ??F) 93 % - - - 08/29/09 2329 - - - 34.6 ??C (94.3 ??F) - - - - 08/29/09 2327 96/54 mmHg 93 16 35.3 ??C (95.5 ??F) 93 % - - - 08/29/09 2205 - 88 16 - - - - 21 % Temp. Max (last 24hrs): 37 Pain: Patient Numeric Pain Scale in the past 8 hrs: Numeric Pain Level (Scale 1-10) 08/30/09 0407 1 Glucose Readings (last 8 hours): No results found for this basename: GLUCOSEFINGE:8 in the last 72 hours I&O: Intake/Output Summary (Last 24 hours) at 08/30/09 0443 Last data filed at 08/30/09 0051 Gross per 24 hour Intake 1995.83 ml Output 1800 ml Net 195.83 ml Lab Results Component Value Date/Time ??? WBC 9.82 08/29/09 7:03 AM ??? HGB 12.5 08/29/09 7:03 AM ??? HCT 36.4 08/29/09 7:03 AM ??? MCV 89 08/29/09 7:03 AM ??? PLT 224 08/29/09 7:03 AM UOP frey out, last 6hours:200cc, Drains: removed 08/29. Physical Exam: Gen:NAD, responsive and alert to questions. CV:RRR, BP 110/63 Resp:mild rhonchi bilaterally on auscultation, no wheezes or crackles heard bilaterally. Taken off supplemental O2 yesterday. Abd:very soft bowel sounds. Appropriately tender diffusely, non-distended. Incision clear dry intact. :voiding often, UOP adequate. Ext:no edema bilaterally, warm and well profused. Incision/Wound: c/d/i Is PICC or Central line present? No, PICC/Central line not present. A/P: Marisol Lawson is a 48 y.o. female on POD5 s/p KEE/BSO, omentectomy for ovarian cancer. She isdoing much better than yesterday. Pain:pain well controlled by medications, morphine CHAR PULLER, tylenol q4, and morphine injection q4, ibuprofen q6 as needed. CV:no issues. Resp:taken off supplemental O2 requirements, continue Incentive spirometry(IS), continue albuterol inhaler as needed. Continue to monitor, portable cxr per pathology reports There is coalescent opacity in the left mid and lower lung, and some ill-defined opacity in the medial right lung base. this could possibly reflect atelectasis vs. pneumonia. Patient placed on levofloxacin. GI:place on regular diet. : Urine output adequate Fluids/Electrolytes/Nutrition:normal saline 50cc/hr IVF, regular diet, order labs this am Endo:no issues Heme:no current issues, heparin, order cbc this am Psych:no issues ID:place on levofloxacin daily. Pending Urine culture ( collected 08/29) Ext: sequential compression device (venodyne) placed, and ambulate Discharge Plan: pending patient status and physician request. DVT Prophylaxis: heparin sq 5000units q8, ambulate, SCD. Ford Hunt 08/30/2009 4:43 AM M3 * Margaret Chávez RN - 08/29/2009 1219 EDT Brief Case Management Assessment Reason for Hospitalization: To OR 08/25: Exploratory laparotomy, total abdominal hysterectomy, bilateral salpingo-oophorectomy and omentectomy, and aspiration of ascites. Current Living Arrangements: Pt lives alone in a mobil home in [facility]. Current Social, Health Care and Community Supports: Pt is independent with ADLs and has no DME or community services. She has [place] [employer] Access Plan with Rx coverage. Pt has support from her sister and daughter who are nearby. Her daughter will be staying with her for a few days when she gets home and her sister will be driving her home when she is ready for DC. Identified Case Management/Social Work Needs and Issues : No needs are identified at this time. Case Management Actions : CM will continue to follow for any needs. Roberto Chávez RN # [id number] * Gunnar Mcdonald MD - 08/29/2009 2039 EDT POD: 4 CC: Marisol Lawson is a 48 y.o. female on POD4 s/p KEE, BSO, omenectomy for ovarian Ca S: Minimal flatus however feels bloated. Able to only tolerate tomato soup and pudding on her full diet. Ambulating in halls. Called last night to [facility] for tachycardia and O2 desat to 84%. Given albuterol mdi. Pain controlled with CHAR PULLER morphine. Has been ambulating in hallways but not this morning. - cp/n/v. Current hospital medications Medication Route Frequency ??? albuterol (PROVENTIL HFA, VENTOLIN HFA) inhaler 2 Puff Inhalation Q4H ??? nalbuphine (NUBAIN) injection 2.5 mg Intravenous Q4H PRN ??? sodium chloride 0.9 % (NS) infusion Intravenous CONTINUOUS ??? albuterol (PROVENTIL HFA, VENTOLIN HFA) inhaler 2 Puff Inhalation Q4H PRN ??? promethazine (PHENERGAN) injection 12.5-25 mg Intramuscular Q6H PRN ??? promethazine (PHENERGAN) tablet 12.5-25 mg Oral Q6H PRN ??? pantoprazole (PROTONIX) injection 40 mg Intravenous BID ??? morphine injection 2-5 mg Intravenous Q4H PRN ??? morphine 2 mg/ml (DURAMORPH) CHAR PULLER, 30 ml syringe Intravenous CHAR PULLER ??? diphenhydrAMINE (BENADRYL) capsule 25-50 mg Oral Q6H PRN ??? diphenhydrAMINE (BENADRYL) injection 25-50 mg Intravenous Q6H PRN ??? ondansetron (PF) (ZOFRAN) 4 mg/2 mL injection 4 mg Intravenous Q6H PRN ??? ondansetron (ZOFRAN-ODT) disintegrating tablet 4 mg Oral Q6H PRN ??? docusate sodium (COLACE) capsule 100 mg Oral BID ??? acetaminophen (TYLENOL) tablet 325-650 mg Oral Q4H ??? ibuprofen (MOTRIN) tablet 600 mg Oral Q6H PRN ??? heparin injection 5,000 Units Subcutaneous Q8H O: VS: BP 102/65 Pulse 108 Temp(Src) 36.8 ??C (98.2 ??F) (Tympanic) Resp 16 Ht 1.549 m (5' 1) Wt 68.04 kg (150 lb) SpO2 96% LMP Postmenopausal UOP 450cc/6 hr. Drains: nehemiah drain, 10cc Physical Exam: Gen: NAD CV:RRR Resp:not reactive upper airway disease noises, diffuse wheezing and rhonchi sounds heard bilaterally, Abd:very soft bowel sounds, appropriately tender, mildly distended, incision sites clear dry intact, mild erythema around drain site Ext:no edema bilaterally, warm and well profused. venodynes in place Incision/Wound: c/d/i A/P: 48 y.o. female on POD 4 s/p KEE, BSO, omenectomy for ovarian Ca with febrile episodes and tachycardia concerning for UTI vs PNA vs PE Pain:pain well controlled by medications,morphine CHAR PULLER, Morphine IV 2-5mg q4, tylenol q4, motrin q 6. On nubain for itching CV:no active issues Resp:noted to have recent quit smoking. had and episode of desat and tachycardia last night. Will order cxr portable to r/o pna. Will do CT for rule out PE if CXR negative. Increased supp O2 2 -->4 L. Will call RT. On Proventil and ventolin albuterol inhaler for asthma for prexisting inflammatory airway dz/asthma GI: Maintain fulls diet. Encourage ambulation for flatus. Will dc nehemiah drain protonix for ulcer ppx Fluids/Electrolytes/Nutrition:normal saline 50cc/hr IVF, fulls diet, pending labs this am Endo:no current issues Heme:check cbc this am,heparin injection 5000units, SubQ ID:must investigate infectious source due to febrile episode, tachycardia. Will order UA. Ext: continue to encourage ambulation Prophylaxis: Ambulate , SCD, heparin 5000units, protonix, IS. Benedryl/phergan/zofran/colace. * Ford Hunt - 08/29/2009 3135 EDT Gynecology Progress Note Admit Date: 08/25/2009 Hospital Day: LOS: 4 days Date of Service: 08/29/2009 POD: 4 CC: Marisol Lawson is a 48 y.o. female on POD4 s/p KEE, BSO, omenectomy for ovarian Ca S: pain currently well controlled on CHAR PULLER morphine, tylenol 4 out of 10 and better than last night, no headaches, dizziness, + SOB, No CP, noN/V, had some tomato soup yesterday and chocholate pudding, fulls diet, still no flatus, BM as of this morning, frey removed on 08/27, no ambulation this morning but had been for past couple of days, no calf pain. Patient had an episode of tachycardia and desat to 91%02 last night, patient was placed on supplemental 02. Patients daughter also mentions that shewas falling asleep in the middle of some conversations. Current hospital medications Medication Route Frequency ??? albuterol (PROVENTIL HFA, VENTOLIN HFA) inhaler 2 Puff Inhalation Q4H ??? nalbuphine (NUBAIN) injection 2.5 mg Intravenous Q4H PRN ??? sodium chloride 0.9 % (NS) infusion Intravenous CONTINUOUS ??? albuterol (PROVENTIL HFA, VENTOLIN HFA) inhaler 2 Puff Inhalation Q4H PRN ??? promethazine (PHENERGAN) injection 12.5-25 mg Intramuscular Q6H PRN ??? promethazine (PHENERGAN) tablet 12.5-25 mg Oral Q6H PRN ??? pantoprazole (PROTONIX) injection 40 mg Intravenous BID ??? morphine injection 2-5 mg Intravenous Q4H PRN ??? morphine 2 mg/ml (DURAMORPH) CHAR PULLER, 30 ml syringe Intravenous CHAR PULLER ??? diphenhydrAMINE (BENADRYL) capsule 25-50 mg Oral Q6H PRN ??? diphenhydrAMINE (BENADRYL) injection 25-50 mg Intravenous Q6H PRN ??? ondansetron (PF) (ZOFRAN) 4 mg/2 mL injection 4 mg Intravenous Q6H PRN ??? ondansetron (ZOFRAN-ODT) disintegrating tablet 4 mg Oral Q6H PRN ??? docusate sodium (COLACE) capsule 100 mg Oral BID ??? acetaminophen (TYLENOL) tablet 325-650 mg Oral Q4H ??? ibuprofen (MOTRIN) tablet 600 mg Oral Q6H PRN ??? heparin injection 5,000 Units Subcutaneous Q8H O: VS: Patient Vital Signs in the past 8 hrs: BP Pulse Resp Temp SpO2 O2 Flow Rate (L/min) O2 Device FIO2 % 08/29/09 0339 112/59 mmHg 114 16 37 ??C (98.6 ??F) 92 % 2 l/min - - 08/28/09 2321 101/56 mmHg 105 16 35.6 ??C (96.1 ??F) 94 % 2 l/min - - Temp. Max (last 24hrs): 38.4 (101) @ 1537 08/28 Pain: Patient Numeric Pain Scale in the past 8 hrs: Numeric Pain Level (Scale 1-10) 08/29/09 0339 6 08/29/09 0226 7 08/28/09 2321 3 Glucose Readings (last 8 hours): No results found for this basename: GLUCOSEFINGE:8 in the last 72 hours I&O: Intake/Output Summary (Last 24 hours) at 08/29/09 0447 Last data filed at 08/29/09 0200 Gross per 24 hour Intake 1771.66 ml Output 1793 ml Net -21.34 ml UOP last 6 hours:450cc. Drains: nehemiah drain, 10cc Physical Exam: Gen:mildly diaphoretic, but in no acute distress, responsive to questions. CV:RRR Resp:mild wheezing and rhonchi sounds heard bilaterally, Abd:very soft bowel sounds, appropriately tender, non distended incision sites clear dry intact, :frey removed 08/27, had voided prior to encounter Ext:no edema bilaterally, warm and well profused. venodynes in place Incision/Wound: c/d/i Is PICC or Central line present? No, PICC/Central line not present. A/P: Marisol Lawson is a 48 y.o. female on POD4 s/p KEE, BSO, omenectomy for ovarian Ca. She is doing better than last night. Pain:pain well controlled by medications,morphine CHAR PULLER, Morphine IV 2-5mg q4, tylenol q4, CV:no issues, Resp:had and episode of desat and tachycardia last night. Placed on supplemental O2 2l/min continueto monitor, but does not warranted CT scan per PE protocol. Continue Incentive spirometry(IS), continue albuterol inhaler GI: Tolerating fulls diet. : Urine output adequate Fluids/Electrolytes/Nutrition:normal saline 50cc/hr IVF, fulls diet, order labs this am Endo:no current issues Heme:check cbc this am,heparin injection 5000units, SubQ Psych:no current issues ID:no signs/symptoms of infection, but continue to monitor due to elevated temp 38.4 yesterday. Ext: continue to encourage ambulation Discharge Plan: possibly this mid week per patients status and physician request. DVT Prophylaxis: Ambulate , SCD, heparin 5000units. Ford Hunt 08/29/2009 4:47 AM M3 * Melida Perez MD - 08/28/20092014 EDT Event Note: Tachycardia, desats Cc: POD #3 s/p KEE, BSO for ovarian Ca S: No CP/ SOB/ leg pain. Has been coughing since admission, has been productive until this am. Usedalbuterol this am, helped with cough. Respiratory saw her this am, did not feel she needed a nebulizer Tx. Just quit smoking day of surgery. Feels otherwise well. Ate some pudding for dinner, no nausea. Has not passed flatus. Per nursing, found patient without oxygen, took O2 sat and found to be 84% with HR 114. Put pt backon 2L O2, sats returned to 94%. O: Blood pressure 123/64, pulse 108, temperature 36.9 ??C (98.4 ??F), temperature source Tympanic, resp. rate 16, height 1.549 m (5' 1), weight 68.04 kg (150 lb), last menstrual period Postmenopausal, SpO2 91%. Gen: NAD, looks well, answers appropriately, smiles, is pleasant CV: Mildly tachycardic, reg rhythm, no murmurs Resp: Inspiratory and expiratory wheezes throughout, some rhonchi, no crackles, good air movement to bases Ext: + DPPs, SCDs off, NT, non erythematous, no edema, negative Robert's --> SCDs placed on patient's legs A: 48 y.o. female POD #3 s/p KEE, BSO, omentectomy for ovarian cancer, with O2 desats and mild tachycardia, likely 2/2 reactive airway (asthma, tobacco). PE cannot be ruled out, but as patient looks well, will hold off on working this up for now. Pulmonary effusions, PNA less likely. P: -Respiratory called by nursing to give nebulizer treatment -continue to monitor -Prophy: SCDs and heparin MELIDA PEREZ MD * Melissa Pat - 08/28/2009 0854 EDT R2 Lab Addendum Lab Results Component Value Date/Time ??? WBC 9.50 08/28/09 6:10 AM ??? HGB 12.3 08/28/09 6:10 AM ??? HCT 35.9 08/28/09 6:10 AM ??? MCV 90 08/28/09 6:10 AM ??? PLT 189 08/28/09 6:10 AM ??? ALT 20 08/15/09 3:52 PM ??? AST 23 08/15/09 3:52 PM ??? ALKPHOS 117 08/15/09 3:52 PM ??? CREATININE 0.61 08/28/09 6:10 AM ??? BUN 4 08/28/09 6:10 AM ??? NA 138 08/28/09 6:10 AM ??? K 3.6 08/28/09 6:10 AM ??? CL 105 08/28/09 6:10 AM ??? CO2 28 08/28/09 6:10 AM ??? MG 1.6 08/28/09 6:10 AM ??? PHOS 3.4 08/28/09 6:10 AM Mag low, will replete * Donato Doan MD - 08/27/2009 2141 EDT Gynecology R4 Progress Note Admit Date: 08/25/2009 Hospital Day: LOS: 2 days POD: 3 Chief Complaint: POD 3 s/p KEE-BSO Feeling better today. +productive cough, no SOB and breathing feels better with cough. Using IS andinhalers with good results. Tolerating clears + toast. No N/V. No flatus. No CP. Pain well controlled. Current hospital medications Medication Route Frequency ??? nalbuphine (NUBAIN) injection 2.5 mg Intravenous Q4H PRN ??? sodium chloride 0.9 % (NS) infusion Intravenous CONTINUOUS ??? albuterol (PROVENTIL HFA, VENTOLIN HFA) inhaler 2 Puff Inhalation Q4H PRN ??? promethazine (PHENERGAN) injection 12.5-25 mg Intramuscular Q6H PRN ??? promethazine (PHENERGAN) tablet 12.5-25 mg Oral Q6H PRN ??? pantoprazole (PROTONIX) injection 40 mg Intravenous BID ??? morphine injection 2-5 mg Intravenous Q4H PRN ??? morphine 2 mg/ml (DURAMORPH) CHAR PULLER, 30 ml syringe Intravenous CHAR PULLER ??? diphenhydrAMINE (BENADRYL) capsule 25-50 mg Oral Q6H PRN ??? diphenhydrAMINE (BENADRYL) injection 25-50 mg Intravenous Q6H PRN ??? ondansetron (PF) (ZOFRAN) 4 mg/2 mL injection 4 mg Intravenous Q6H PRN ??? ondansetron (ZOFRAN-ODT) disintegrating tablet 4 mg Oral Q6H PRN ??? docusate sodium (COLACE) capsule 100 mg Oral BID ??? acetaminophen (TYLENOL) tablet 325-650 mg Oral Q4H ??? ibuprofen (MOTRIN) tablet 600 mg Oral Q6H PRN ??? heparin injection 5,000 Units Subcutaneous Q8H On Exam: Filed Vitals: 08/27/2009 11:15 PM 08/28/2009 12:49 AM 08/28/2009 2:01 AM 08/28/2009 3:39 AM BP: 118/64 122/70 112/56 Pulse: 95 94 100 Temp: 36.1 ??C (97 ??F) 36.6 ??C (97.9 ??F) 35.9 ??C (96.6 ??F) TempSrc: Tympanic Tympanic Tympanic Resp: 20 18 Height: Weight: SpO2: 95% 94% 96% 97% I/O: 950cc UOP X 7 hrs 65cc from nehemiah drain X 24hrs Cardiac: RRR Resp: CTAB Abdo:hypoactive BS. Soft, mildly distended. Jer tender. Drain with scant serous d/C Incision: C/D/I (benigno) Extremities: non-tender, no edema Assessment/Problems/Plan: 48 yo POD 3 s/p KEE-BSO for ovarian cancer GI - maintain on clears until flatus. abdo slightly distended today. ppx - heparin F/E/N - f/u am labs. IVF @ 50cc/hr. Consider removing drain today I have personally seen interviewed and examined the patient. I agree with the resident A/P and havediscussed care with team and patient. * Donato Doan MD - 08/26/2009 1697 EDT CC: Likely ovarian cancer POD 2 S: Switched to dilaudid CHAR PULLER given itching with morphine CHAR PULLER, however, dilaudid caused significant nausea, and the patient returned to a morphine CHAR PULLER, which is working very well without nausea. Patient sitting up in bed working on her computer. Pain controlled. Denies CP, SOB, Nausea, calf tenderness. No flatus yet. Desires to ambulate. O: BP 110/62 Pulse 74 Temp(Src) 35.7 ??C (96.3 ??F) (Tympanic) Resp 18 Ht 1.549 m (5' 1) Wt 68.04 kg (150 lb) SpO2 94% LMP Postmenopausal I&O By Type - 3 Shifts Including Current In: 1778.12 (1030 P.O. 748.12 I.V.) Out: 1880 (1825 Urine 55 Drains) UOP in 5 hours: 3-400 in frey bag. NEHEMIAH DRAIN in 5 hours: CV: RRR RESP: CTAB after coughing ABD: +BS (Decreased), Soft, NT, ND INC: C/D/I with benigno EXT: Warm, NT, no edema, venos in place. A/P: 48 yo POD 2 s/p KEE BSO omentectomy for ovarian cancer. 1) Pain: Morphine CHAR PULLER working well other than itching. 2) CV: Stable, no issues 3) RESP: Asthma -written for home inhalers. Stable, no active issues. 4) GI: Nauseated last night. Added IV phenergan and protonix. Better. Advance diet with flatus. 5) : D/C frey with ambulation. Adequate UOP. 6) PPx: Venos, IS, heparin, encourage ambulation. 7) Dispo: Likely mid week. Luisa Sommer MD 08/27/09 9834 I have personally seen interviewed and examined the patient. I agree with the resident A/P and havediscussed care with team and patient. Clears toast and crackers. Frey out today. * Dorinda Todd - 08/26/2009 2030 EDT CM Note; Attempted to meet with Ms. Lawson to begin assessment for discharge planning. She had many visitors in with her and she asked me if we could meet another day. I did meet her daughter whoseems to be very close to her Mom. Pt will have good support system when she is discharged. Pt to be here through the weekend and may be discharged early next week, prior to starting chemotherapy. CM will follow up with her at a later time. Dorinda Todd RN, CCM #[id number] * Leni Gutiérrez - 08/26/2009 1246 EDT Tobacco Cessation Initial Consult Note Subjective: I want to quit smoking Objective: Last cigarette smoked: before admission Started smoking at age: 16 - 23 Number of quit attempts over the past year: 1 Quantity of tobacco products used: Cigarettes: 1 ppd Assessment: Readiness to quit tobacco use: Quit Date set 08/25/2009 Nicotine Withdrawal symptoms being reported: restlessness Current Management of Withdrawal symptoms: No current management She is interested in starting 21 mg patch to facilitate quit. Plan: Discussed management of withdrawal symptoms and cravings while hospitalized NRT bedside order form initiated for patient withdrawal management Reviewed [facility] smoking policy Educational booklet left with patient Patient interested in referral at discharge to address quitting Leni Gutiérrez 08/26/2009 12:46 PM * Kyler Stroud CRNA - 08/26/2009 1234 EDT Post Anesthesia Evaluation Date of Service: 08/26/2009 The patient has been evaluated and assessed. If present, post anesthetic events are documented below. Procedure detail: Anesthesia Type: General Level of Consciousness: Awake BP 111/56 Pulse 60 Temp(Src) 36.8 ??C (98.2 ??F) (Tympanic) Resp 16 Ht 1.549 m (5' 1) Wt68.04 kg (150 lb) SpO2 100% LMP Postmenopausal Vital Signs: Stable Post Op Pain: Taking PO/IV pain meds with good effect Ambulatory Status: Out of bed in chair Additional follow up needed: No Perioperative events: General Events: None Recall: Absent KYLER STROUD CRNA 08/26/2009 12:34 PM * Osmar Benavides MD - 08/26/2009 0602 EDT Cc: POD# S. Pt with pain but otherwise controlled. -cp/sob/leg pain. -n/v/d. Able to tolerate her clear liquid diet. Has yet to ambulate. O: BP 114/64 Pulse 62 Temp(Src) 35.5 ??C (95.9 ??F) (Tympanic) Resp 16 Ht 1.549 m (5' 1) Wt68.04 kg (150 lb) SpO2 98% LMP Postmenopausal Intake/Output Summary (Last 24 hours) at 08/26/09 0602 Last data filed at 08/26/09 0595 Gross per 24 hour Intake 4537.5 ml Output 1355 ml Net 3182.5 ml UOP = 825 cc/ 7 hr CAL drain - 20 cc/ 7 hr Gen: NAD CV: RRR LUNGS: nasal cannula, CTA -B with mild wheezes ABD: soft, mildly distended, approp tender, - rebound or guarding, CAL drain with serosang fluid : frey in place EXT: venodynes in place, warm, no edema edema, WOUND: Lab Results Component Value Date/Time ??? WBC 9.02 08/15/09 3:52 PM ??? HGB 15.1 08/15/09 3:52 PM ??? HCT 44.5 08/15/09 3:52 PM ??? MCV 88 08/15/09 3:52 PM ??? PLT 315 08/15/09 3:52 PM A: 48 y.o. with h/o asthma and mixed basal squamous carcinoma s/p POD# 1 s/p KEE BSO omentectomy for ovarian cancer AVSS with good urine output. Pt recovering well. P: #Pain - Continue Morphine CHAR PULLER. Continue toradol, tylenol. #CV: Stable. #Pulm: +Hx asthma, uses inhalers at home. Has albuterol nebulizer treatments. #GI: Continue on clear diet. Advance as tolerated #: Good UOP, will continue to monitor. Plan to d/c frey with ambulation. #HEME: Sanguinous drainage in CAL. Pending CBC this morning. #PPX: IS, venos, encourage ambulation. Heparin TID. On colace for constipation, zofran and phenergan for nausea, and benadryl for itching. Incentive spirometry # Dispo: Will cont to monitor clinical status. Likely discharge mid-week next week. Have discussed need for further chemo tx. Add: I have personally examined and interviewed pt. I agree with plan and note. * Ford Hunt - 08/26/2009 0443 EDT Gynecology Progress Note Admit Date: 08/25/2009 Hospital Day: LOS: 1 day Date of Service: 08/26/2009 POD: 1 CC: Marisol Lawson is a 48 y.o. female on POD1s/p KEE/BSO/omenectomy for ovarian carcinoma S: pain is controlled (4 out of 10) by IV morphine @0140, tylenol@0400, had some itching around extremities so benadryl was given last night. No headaches, dizziness, no SOB, CP, does mention having some congestion, no N/V, had nothing to eat since last night, but mentions wanting some jello this morning and has been drinking water, no flatus, BM, frey in place nurse just drained before encounter at 525cc, no ambulation no calf pain Current hospital medications Medication Route Frequency ??? albuterol-ipratropium (COMBIVENT) 18-103 mcg/Actuation inhaler 2 Puff Inhalation QID ??? diphenhydrAMINE (BENADRYL) capsule 25-50 mg Oral Q6H PRN ??? diphenhydrAMINE (BENADRYL) injection 25-50 mg Intravenous Q6H PRN ??? ondansetron (PF) (ZOFRAN) 4 mg/2 mL injection 4 mg Intravenous Q6H PRN ??? ondansetron (ZOFRAN-ODT) disintegrating tablet 4 mg Oral Q6H PRN ??? promethazine (PHENERGAN) tablet 12.5-25 mg Oral Q6H PRN ??? docusate sodium (COLACE) capsule 100 mg Oral BID ??? lactated ringers (LR) infusion Intravenous CONTINUOUS ??? morphine injection 2-4 mg Intravenous Q2H PRN ??? acetaminophen (TYLENOL) tablet 325-650 mg Oral Q4H ??? ketorolac (TORADOL) injection 15 mg Intravenous Q6H ??? ibuprofen (MOTRIN) tablet 600 mg Oral Q6H PRN ??? heparin injection 5,000 Units Subcutaneous Q8H ??? albuterol (PROVENTIL) 2.5 mg /3 mL (0.083 %) nebulizer solution 2.5 mg Nebulization Q4H PRN O: VS: Patient Vital Signs in the past 8 hrs: BP Pulse Resp Temp SpO2 O2 Flow Rate (L/min) O2 Device FIO2 % 08/26/09 0205 - 84 14 - 98 % 3 l/min - 32 % 08/25/09 2348 143/67 mmHg 82 12 35.3 ??C (95.5 ??F) 98 % 3 l/min - - 08/25/092222 138/77 mmHg 60 16 35.4 ??C (95.7 ??F) 98 % 3 l/min - - 08/25/092099 131/81 mmHg - 16 - 100 % 3 l/min - - Temp. Max (last 24hrs): 36.1 (97) Pain: Patient Numeric Pain Scale in the past 8 hrs: Numeric Pain Level (Scale 1-10) 08/26/09 0307 3 08/25/09 2313 3 08/25/09 2239 3 08/25/09 2100 5 Glucose Readings (last 8 hours): Recent Labs Basename 08/25/09 1221 ??? GLUCOSEFINGE 91 I&O: Intake/Output Summary (Last 24 hours) at 08/26/09 0547 Last data filed at 08/26/09 0527 Gross per 24 hour Intake 4537.5 ml Output 1355 ml Net 3182.5 ml UOP last 6 hours:525cc, nurse just drained this morining Drains: 55cc in nehemiah last 7 hrs , roughly 30cc in pouch. Physical Exam: Gen:NAD, patient pleasant and responsive to questions CV:no murmurs rubs gallops, normal s1/s2, RRR Resp:some mild ronchi bilaterally heard, patient on supplemental 02, 3.5 liters left, IS Abd:soft bowel sounds, tender to palpation, non distended. Dressings clear dry intact. :frey in place, 525cc in bag before drained. Ext:no edema bilaterally, warm and well profused. Incision/Wound: dressings clear dry intact. Is PICC or Central line present? No, PICC/Central line not present. A/P: Marisol Lawson is a 48 y.o. female on POD1s/p KEE/BSO/omenectomy for ovarian carcinoma. She isdoing well. Mentions her pain is 4/10 and controlled by morphine IV and tylenol. Pain:pain well controlled by medications, Morphine IV q2 2-4mg. Continue toradol discontinue today at 1814, tylenol q4 oral. CV:no issues, BP is 114/67. Resp:patient has a history of asthma, will place on albuterol-ipratropium inhaler as well as albuterol nebulizer. Continue supplemental O2, encourage Incentive spirometry(IS) GI:Place on clears diet. : Urine output adequate, 525cc in past 6 hrs. Fluids/Electrolytes/Nutrition:Lactated ringers IVF 125ml/hr continuous, clears diet Endo:has a history of diabetes glucose reading at 91 on 08/25 @ 1221, diet controlled, currently no issues Heme: Order labs this am. Psych:no issues ID:no signs/symptoms of infection Ext: sequential compression device (venodyne) placed, and ambulate Discharge Plan: possibly within the next couple days per patient status. DVT Prophylaxis: Pharmacologic Prophylaxis: Heparin 5000 units SQ Tid , SCD, and encourage abulation. Ford Hunt 08/26/2009 4:43 AM M3 * Mahendra Guerra MD - 08/25/20092139 EDT OB R3 POC CC: POD#1 s/p KEE/BSO/omentectomy for ovarian carcinoma S: Feeling somewhat increased abdominal pain. Denies CP/SOB/leg pain. No ambulation yet. +frey. Noflatus. Tolerating sips of clears without nausea. O: BP 131/81 Pulse 94 Temp 36 ??C (96.8 ??F) Resp 16 Ht 1.549 m (5' 1) Wt 68.04 kg (150 lb) SpO2 100% LMP Postmenopausal on 3L NC Tmax 36.1 Intake/Output Summary (Last 24 hours) at 08/25/092140 Last data filed at 08/25/09 1935 Gross per 24 hour Intake 4150 ml Output 675 ml Net 3475 ml UOP ~125cc/5 hours CAL ~40cc/5 hours GEN: A&Ox3, NAD CV: RRR, no murmurs PULM: Rhonchi throughout bilaterally, no audible wheezes. Patient attempting to cough but not producing any sputum 2/2 abdominal pain. ABD: No BS. Diffusely TTP throughout, greatest lower quadrants. No rebound/guarding. +Midline abdominal dressing c/d/i. +CAL with sanguinous- appearing drainage. EXT: No calf tenderness, no edema, 2+DPP A/P: 48 yo woman POD#0 s/p KEE/BSO/omentectomy for ovarian carcinoma currently AVSS with borderlineUOP and CAL with sanguinous-appearing drainage. #Pain - Continue Morphine CHAR PULLER. Continue toradol, tylenol. #CV: Stable. #Pulm: +Hx asthma, uses inhalers at home. Will order albuterol nebulizer treatments. Plan CT chest to r/o PE if patient has oxygen desaturations overnight. #GI: Clears. ADAT. #: Borderline UOP, will continue to monitor. Plan to d/c frey with ambulation. #HEME: Sanguinous drainage in CAL. Will order CBC at this time. Abdomen benign and otherwise AVSS, do not suspect active intraabdominal bleeding. #PPX: IS, venos, encourage ambulation. Heparin TID. MAHENDRA GUERRA MD 08/25/2009 10:14 PM * Lilo Alegria RN - 08/25/2009 2116 EDT Attempted to call repost twice but nurse unavailable. * Lilo Alegria RN - 08/25/2009 1947 EDT Patient on delay due to room not being available. * Inpatient, Physician - 08/23/2009 0837 EDT * Simona Dyson RN - 08/18/2009 1632 EDT Marisol Jasmyne Lawson has been instructed as follows regarding medication administration for the day of the scheduled procedure. Date of Surgery: 08.25.09 Instructions for Taking Medications Day of Surgery Medication Last Dose Hold DOS Take DOS albuterol (PROVENTIL HFA, VENTOLIN HFA) 90 mcg/Actuation inhaler X if needed documented in this encounter H&P Notes * Osmar Benavides MD - 08/18/2009 5783 EDT This is H&P for surgery on 08/25/2009. Marisol Lawson is a 48 y.o. female P2 LMP in 2006 who states that about 3 weeks ago she had anepisode of post-menopausal bleeding. She states that on the first day, she had some milky dischargebut then the next day, she had bright red bleeding per vagina. She states that the bleeding has decreased. She denies that there is any chest pain or shortness of breath with the bleeding. She recently had an endometrial bx performed by Dr Renteria which does not demonstrate any evidence of malignancy. Marisol does c/o nausea, early satiety and lower pelvic pain and pressure. She denies any vomiting, constipation or diarrhea. She denies any urinary symptoms. The remainder of her ROS is negative. Medical records was reviewed and it demonstrates that she has a large pelvic mass (16 cm) and an elevated CA 125 at 4120. She presents today for evaluation and treatment options. Menstrual History: Obstetric History T2 E0 M0 L3 Patient is postmenopausal. Period Cycle (Days): (Menopause 2006. Pt reports she started bleeding 3 weeks ago) Past Medical History Diagnosis Date ??? Diabetes mellitus diet control ??? Depression ??? Hyperlipidemia ??? Asthma Past Surgical History Procedure Date ??? Cholecystectomy 1980 ??? Laparoscopy 2001 removal of ovarian cyst (right?) Patient Active Problem List Diagnoses Code ??? Mixed Basal-Squamous Cell Carcinoma 173.9DF Family History Problem Relation ??? Cancer Maternal Grandmother Ovarian Cancer Current outpatient prescriptions Medication Sig Dispense Refill ??? albuterol (PROVENTIL HFA, VENTOLIN HFA) 90 mcg/Actuation inhaler Inhale 2 Puffs as directed as needed for Wheezing. ??? albuterol-ipratropium (COMBIVENT) 18-103 mcg/Actuation inhaler Inhale 2 Puffs as directed 4 times daily. Allergies Allergen Reactions ??? Codeine Nausea And Vomiting History Social History ??? Marital Status: Legally Spouse Name: N/A Number of Children: N/A ??? Years of Education: N/A Occupational History ??? Not on file. Social History Main Topics ??? Tobacco Use: Yes -- 1.0 packs/day for 35 years ??? Alcohol Use: No ??? Drug Use: No ??? Sexually Active: Yes -- Male partner(s) Control/ Protection: Post-menopausal Other Topics Concern ??? Not on file Social History Narrative ??? No narrative on file Review of Systems Pertinent items are noted in Subjective/HPI Objective: BP 130/78 Ht 1.524 m (5') Wt 68.947 kg (152 lb) LMP Postmenopausal Pt is A&Ox3 and in NAD HEENT: NC/AT Neck: no cervical or supra-clavicular lymphadenopathy Heart: S1S2 Lungs: Clear; no wheezing Abdomen: soft, NT,ND, no rebound or guarding, no hepatosplenomeagly; large palpable lower pelvic mass to the level of the umbilicus Pelvic: Ext: no exophytic lesion; Vagina: no lesions; large pelvic mass to level of umbilicus-unable to distinguish uterus and adnexa; renata-urethral and pre-anal area:normal Ext: no CCE Assessment: Today, I explained to Marisol that she has a large pelvic mass and an elevated CA 125. The differential diagnosis of benign ovarian tumor/cyst, borderline ovarian tumor, and ovarian cancer were fully discussed with her. I explained to her that given the pelvic sonogram results and CA 125, I am very concern that this is a malignant process. Also, the treatments options discussed were: 1) Do nothing and ignore the pelvic mass, which I do not recommend. 2) Follow up sonogram. We can continue to follow the mass with follow up sonogram in 8 weeks. However, I explained to Marisol that it is very unlikely that the pelvic mass will significantly decrease in size. Furthermore, because of the size of the mass, I am quite certain that she will continue to have the same symptoms that she is currently troubled with. 3) Surgical treatment. I explained to her that we can remove the pelvic mass. I explained to her that given the size of this mass and her current symptoms, I would recommend removal of the uterus andovaries. At the time of surgery, I would send the specimen out for a frozen section and , if the frozen section demonstrates cancer, she will need to undergo surgical staging. Given the current situation I would recommend that she have a laparotomy and not a laparoscopy. 4) Radiographic guided drainage and/or biopsy. I explained to her that we could send her to radiology to biopsy this mass and consider chemotx if the mass demonstrates cancer. After a long discussion of the treatment options and asking her questions, Marisol decided that she wants to undergo surgical treatment. Today, I have discussed the risk/benefits of all options and I have answered her questions. Inform consent was obtained for the surgery. My nursing staff has obtained pre- op labs. Given the concern of a malignancy, I have taken the liberty of ordering a CT scan of the chest, abdomen and pelvis to determine if there is any other masses. Today, I have also invited Marisol to participate in GOG 136. In this study, we collect blood and specimens to study the etiology of cancer. Risk/benefits of participating in the study was discussed. She has signed inform consent to participate in the study. Marisol is scheduled for surgery on 08/25/2009. My nursing staff has given her the pre-op instructions. Given her medical condition, Marisol will need medical clearance by her PCP. Add: There is no change in H&P. documented in this encounter Procedure Notes * Inpatient, Physician - 09/03/2009 0837 EDTAssociated Order(s): ECG REPORT - SCANNED * Luisa Sommer MD - 08/25/2009 1329 EDTProcedure(s): NH TOTAL ABDOMINAL HYSTERECT W/WO RMVL TUBE OVARY; NH BSO W/TOT OMENTECTOMY & HYSTERECTOMY MALIGNANC Department of Obstetrics and Gynecology Brief operative Note Surgeon: Osmar Benavides MD Axle Bearing Polisher: Luisa Sommer MD, MAHESH Lewis Pre-Op Dx/Indications: Adnexal mass and elevated Ca 125 Post-op Dx: Ovarian cancer Procedure: Exploratory Laparotomy Total Abdominal Hysterectomy and Bilateral Salpingoopherectomy, Omentectomy. Anesthesia: General Findings: Bilateral ovarian masses with excresences on surface. Miliary tumor nodules on bowel and diaphragm. Blood Loss: 300cc Replacement IVF/Blood: 3400cc LR Urine Output: 300cc clear at end Specimens sent: Uterus and cervix, tubes and ovaries, washings, omentum Cultures obtained: None Drains/Packs/Foreign Material Retained: Frey catheter, nehemiah Drain, surgicel, gel foam. Complications: None Condition: Good Disposition: PACU--> M6 Luisa Sommer MD 08/25/09 1713 documented in this encounter Nursing Notes * Inpatient, Physician - 08/26/2009 1609 EDT documented in this encounter OR Notes * OR PreOp - Inpatient, Physician - 09/03/2009 0837 EDT * Anesthesia Procedure Notes - Inpatient, Physician - 08/25/2009 1736 EDT * OR PreOp - Inpatient, Physician - 08/25/2009 1729 EDT * OR PreOp - Inpatient, Physician - 08/25/2009 1719 EDT * Anesthesia Preprocedure Evaluation - Inpatient, Physician - 08/25/2009 1405 EDT * OR Surgeon - Osmar Benavides MD - 08/25/2009 0000 EDT OPERATIVE REPORT SERVICE DATE: 08/25/2009 SURGEON: Osmar Benavides MD COMMUNICATIONS INTERN: Luisa Sommer MD PREOPERATIVE DIAGNOSIS: Pelvic mass and elevated CA-125. POSTOPERATIVE DIAGNOSIS: Pelvic mass and elevated CA-125. Frozen section demonstrates carcinoma consistent with ovarian primary. PROCEDURE: Exploratory laparotomy, total abdominal hysterectomy, bilateral salpingo-oophorectomy and omentectomy, and aspiration of ascites. ANESTHESIA: General. COMPLICATIONS: None. ESTIMATED BLOOD LOSS: 75 to 100 mL. FLUIDS: Please see anesthesia sheet. INDICATIONS: The patient recently was found to have a large pelvic mass. Preoperative workup demonstrated that she had a large pelvic mass with elevated CA-125 suggestive of ovarian carcinoma. Treatment options were discussed with patient and patient opted for surgical therapy. FINDINGS: At the time of surgery, she was noted to have two large pelvic masses on either adnexa. The one on the left side was approximately 7 to 10 cm and one on the right side was approximately 5 cm. The uterus was grossly within normal limits. There was a small miliary disease on the serosa of the sigmoid colon and the right hemidiaphragm. The distal portion of the omentum demonstrated bulky tu mor in the distal omentum. At the end of the surgical procedure, patient underwent optimal cytoreductive surgery. NARRATIVE: The patient was brought to the operating room and after successful attainment of anesthesia patient was prepped and draped in the usual sterile fashion. At this time, a time-out was taken.The patient was identified, the preoperative diagnosis was stated and the proposed surgical procedure was stated and concurred with nursing and anesthesia. At this point, a vertical skin incision was made from the pubic bone around the umbilicus. The fascia was opened cephalad and caudal. The peritoneal cavity was then entered and yellow ascites was noted to come from the abdominopelvic cavity and this was aspirated. At this point, the Bookwalter retractor was used to maintain the operative field and the above findings were noted. At this point, it was noted that the epiploica from the rectosigmoid colon was adherent to the left ovary and with meticulous dissection the epiploica was dissected off the left adnexa. At this point, the retroperitoneal space was opened on the patient's left side and the ureter was identified. The ovarian vessels were also identified and they were doubly clamped, cut and ligated. At this point, the round ligament was identified. The round ligament was then doubly clamped, cut and ligated and the proximal fallopian tube and the uteroovarian ligament on patient's left side were then doubly clamped, cut, ligated and the entire specimen was delivered to pathology, which demonstrated that was consistent with ovarian carcinoma.It should be noted that there was tumor along the posterior portion of the peritoneum and this tumor was removed with the specimen. Next, attention was then turned to the patient's right side. The round ligament was identified. It was doubly clamped, cut and ligated and the retroperitoneal space was then opened. The ureter was identified and the ovarian vessels were identified and they were also doubly clamped, cut and ligated.The proximal fallopian tube and the uteroovarian ligament on the patient's right side was also identified and it was clamped, cut and ligated with good hemostasis. The specimen was then delivered to pathology. At this point, the bladder flap was then created, pushing the bladder out of the operative field. The uterine vessels on the patient's left side was skeletonized, as was the right side and t he uterine vessels was then clamped, cut and ligated with good hemostasis. Descending bites were taken along the cervix in a fashion of clamp, cut, ligation with good hemostasis. The cervix was amputated from the upper vagina and the vaginal cuff was then reapproximated. At this point, copious irrigation was performed. All areas of resection were noted to be hemostatic. The bowel at this point was explored as was the upper abdomen and it was noted that the patient had bulky tumor at the distal portion of her omentum and there was a small miliary disease at the right hemidiaphragm and also a small miliary disease at the rectosigmoid colon. The remainder of the mesentery of the large and small bowel was negative for any gross disease. At this point, omentectomy was then performed in a fashion of clamp, cut, ligation from the level of the hepatic flexure to the splenic flexure. The omentumwas then sent for permanent pathology. Once again, copious irrigation was performed. All areas of resection were noted to be hemostatic. A Nehemiah drain was placed in the right lower quadrant. The fascia was reapproximated and the skin was reapproximated. At the end of the surgical procedure, the patient tolerated the procedure well. The patient was transferred to recovery room in good stable condition. Dr Benavides was present throughout entire procedure. SPECIMENS: Bilateral tubes and ovaries, uterus, cervix and omentum and pelvic washings. At the end of the surgical procedure, patient underwent optimal cytoreductive surgery with only small miliary disease at the right hemidiaphragm and on the serosa in the rectosigmoid colon. Unless otherwise noted, there were no complications, no blood loss, no cultures obtained, no specimens removed, and no drains retained. Dictated by: Osmar Benavides MD Osmar Benavides MD 05 16 PM / css Confirmation: [id number] Dictation ID: [id number] cc: Osmar Renteria MD documented in this encounter Miscellaneous Notes * Scanned Note-Null - Inpatient, Physician - 09/03/200937 EDT * Scanned Note-Null - Inpatient, Physician - 09/03/200937 EDT * Scanned Note-Null - Inpatient, Physician - 09/03/200937 EDT * Plan of Care - Saima White - 08/31/2009 0452 EDT Problem: PAIN Goal: Patient's Pain And Discomfort Are Adequately Managed Outcome: Ongoing Active Multi-Disciplinary problems: HOSPITAL ORIENTATION/SAFETY [96379] (08/26/09) PAIN [34806] (08/26/09) MOBILITY [67838] (08/26/09) HEMODYNAMIC STATUS [07860] (08/26/09) RESPIRATORY FUNCTION/OXYGENATION [84460] (08/28/09) ELIMINATION [85591] (08/31/09) Data: Pt reporting pain and discomfort in abdominal incision. Action: Assess pain level and location, administer pain medication as ordered, reposition for comfort. Response: Pt reporting 5 out of 10 pain in incision. Pt given scheduled tylenol and ibuprophen as scheduled. Pt currently resting comfortably in bed with eyes closed. Will continue to monitor. Saima White RN 08/31/2009 4:50 AM * Plan of Care - Gia Menjivar RN - 08/31/2009 0009 EDT Problem: ELIMINATION Goal: Assess Bowel Sounds, Flatus And Stools Active Multi-Disciplinary problems: HOSPITAL ORIENTATION/SAFETY [03572] (08/26/09) PAIN [05936] (08/26/09) MOBILITY [30622] (08/26/09) HEMODYNAMIC STATUS [94959] (08/26/09) RESPIRATORY FUNCTION/OXYGENATION [20490] (08/28/09) ELIMINATION [08431] (08/31/09) Data: POD #5. +BS, Minimal flatus, no BM. Action: encouraged ambulation, PO fluids, bowel meds. Contacted for MOM & simethacone orders. GI teaching done. Response: Abd distended, pain @ suture line & discomfort r/t constipation. Pt Backing off narcotic doses. CTM Gia Menjivar RN 08/31/2009 12:07 AM * Plan of Care - Michelle Merritt RN - 08/30/2009 0309 EDT Problem: MOBILITY Goal: Mobility/Activity Is Maintained At Optimum Level For Patient Data: Pt ambulating frequently. Action: Up to bathroom independently, no c/o pain at this time. Pressing CHAR PULLER button appropriately. Response: Will continue to encourage independence, monitor for pain. MICHELLE MERRITT RN 08/30/2009 3:07 AM * Plan of Care - Eleonora Suarez RN - 08/29/20092041 EDT Problem: RESPIRATORY FUNCTION/OXYGENATION Goal: Patient Will Maintain Patent Airway Outcome: Met This Shift Data: Pt was on 4L O2 at beginning of the shift with an order to wean o2 as able. Action: O2 weaned to RA with sats in the mid nineties. Pt using MDI's as ordered and ambulating frequently in the hauser Response: Sats maintained on RA. Eleonora Suarez RN 08/29/2009 8:38 PM * Plan of Care - Stella Teran RN - 08/29/2009 0312 EDT Problem: PAIN Goal: Patient's Pain And Discomfort Are Adequately Managed Active Multi-Disciplinary problems: HOSPITAL ORIENTATION/SAFETY [14438] (08/26/09) PAIN [47877] (08/26/09) MOBILITY [74430] (08/26/09) HEMODYNAMIC STATUS [18529] (08/26/09) RESPIRATORY FUNCTION/OXYGENATION [39925] (08/28/09) Data: Pt c/o 02/12 when care assumed. Pt had not used CHAR PULLER in hours only 2 mg morphine from approx [id number]. Action: Advised pt to push CHAR PULLER button whenever she was in pain. Pt got max dose of morphine during the next 2 hours. Response: Pt is now sleeping. Dtr at bedside. Stella Teran RN 08/29/2009 3:06 AM * Plan of Care - Michelle Merritt RN - 08/28/2009 1837 EDT Problem: RESPIRATORY FUNCTION/OXYGENATION Goal: Patient Will Maintain Patent Airway Data: Lungs coarse, diminished, pt c/o SOB, sating 80% on RA. Action: Pt placed on 2L NC, sating 94%. Pt able to cough up moderate amount of brown sputum, which improved breathing. Response: Continue to encourage coughing and deep breathing, monitor respiratory status, O2 sat. MICHELLE MERRITT RN 08/28/2009 6:35 PM * Plan of Care - Piper White - 08/28/2009 1312 EDT Active Multi-Disciplinary problems: HOSPITAL ORIENTATION/SAFETY [13445] (08/26/09) PAIN [07615] (08/26/09) MOBILITY [64083] (08/26/09) HEMODYNAMIC STATUS [82262] (08/26/09) RESPIRATORY FUNCTION/OXYGENATION [52014] (08/28/09) Data: Pt states she took a bowel prep prior to surgery and has had no solid food since that time. Action: Assessed for bowel function, bowel sounds and po intake. Encouraged pt to ambulate. Response: MD ordered full liquid diet and pt taking pudding. Pt ambulated length of hauser x 2. CTM. Piper White RN 08/28/2009 1:12 PM * Plan of Care - Gia Menjivar RN - 08/28/2009 0546 EDT Problem: RESPIRATORY FUNCTION/OXYGENATION Goal: Patient Will Maintain Patent Airway Outcome: Ongoing Active Multi-Disciplinary problems: HOSPITAL ORIENTATION/SAFETY [96057] (08/26/09) PAIN [11919] (08/26/09) MOBILITY [69999] (08/26/09) HEMODYNAMIC STATUS [66919] (08/26/09) RESPIRATORY FUNCTION/OXYGENATION [86460] (08/28/09) Data: pt c/o dyspnea @ rest, asthma attack, pruritis, rash (Morphine mild reaction). Ineffective cough. Action: Frequent assessments, Diesel Automotive Technician Resident (Alecia) notified & updated. IS use encouraged. O2 2L NC. Respiratory Therapy Consult/Eval obtained. Benadryl 50mg PO given q6 hours; Nubian 2.5mg IV given q 4 hours. Response: pt reports feeling better. Rash resolved, pruritis minimized. Some exertional dyspnea persists. Continue to cue pt to move slowly, avoid holding breath while moving, encourage IS/Acapella use. RT to do airway clearance QID. Recommend continuing Benadryl & Nubian while pt is using Morphine CHAR PULLER. Gia Menjivar RN 08/28/2009 5:33 AM * Plan of Care - Piper White - 08/27/2009 1500 EDT Problem: PAIN Goal: Patient's Pain And Discomfort Are Adequately Managed Active Multi-Disciplinary problems: HOSPITAL ORIENTATION/SAFETY [04551] (08/26/09) PAIN [72517] (08/26/09) MOBILITY [76853] (08/26/09) HEMODYNAMIC STATUS [30134] (08/26/09) Data: Pt has a morphine fur finisher for pain control. Action: Assessed pt's use of her fur finisher every 2 hours. Response: Pt using fur finisher infrequently, states she feels much better on the morphine and that her paincontrol is adequate. CTM. Piper White RN 08/27/2009 2:59 PM * Plan of Care - Radha Gomes - 08/27/2009 0400 EDT Problem: PAIN Goal: Patient's Pain And Discomfort Are Adequately Managed Outcome: Ongoing Active Multi-Disciplinary problems: HOSPITAL ORIENTATION/SAFETY [98627] (08/26/09) PAIN [93976] (08/26/09) MOBILITY [95830] (08/26/09) HEMODYNAMIC STATUS [60139] (08/26/09) Data: Assumed care of pt at 23:30. Pt s/p total hysterectomy with CHAR PULLER, recently changed from Morphine to Dilaudid due to itching. Action: Pt presented with nausea and vomiting, despite administration of Zofran IV and Phenergan poby evening nurse. Pt requested to switch back to Morphine for pain control, as itching was more tolerable than nausea. Response: Pt's pain needs currently met by Morphine CHAR PULLER, pt reports nausea subsiding. Will continueto monitor. Radha Gomes RN 08/27/2009 3:48 AM * Plan of Care - Gerardo Clements RN - 08/26/20092123 EDT Problem: HEMODYNAMIC STATUS Goal: Patient Has Stable VS & Fluid Balance Outcome: Ongoing Active Multi-Disciplinary problems: HOSPITAL ORIENTATION/SAFETY [67140] (08/26/09) PAIN [02227] (08/26/09) MOBILITY [85065] (08/26/09) HEMODYNAMIC STATUS [62536] (08/26/09) Data: Pt was itchy and her skin on her face and neck started getting red. Action: Gave pt PRN Benedryl and wet wash cloth per pt request. Both helped the itching short term but the symptoms continued and worsened. Called team, Dr Sommer changed Morphine CHAR PULLER to Dilaudid because pt was thinking that was the cause. Response: Pt's symptoms have improved and are continuing to improve. Will continue to monitor and assess for pt comfort. Will notify team of any changes. GERARDO CLMEENTS RN 08/26/2009 9:19 PM * Plan of Care - Fidelina Garber - 08/26/2009 1504 EDT Problem: PAIN Goal: Patient's Pain And Discomfort Are Adequately Managed Outcome: Ongoing Active Multi-Disciplinary problems: HOSPITAL ORIENTATION/SAFETY [77665] (08/26/09) PAIN [74920] (08/26/09) MOBILITY [06321] (08/26/09) Data: Pt c/o 01/13 pain in abdomen. States that the pain is deep, and not at her incision sites, andthat it feels like 'someone dug up my insides'. Action: Gave PRN pain meds (see eMAR). PRUDENCIO Gleason on the floor to see pt. Stated that pt should be on a CHAR PULLER following surgery and that she will write for one. Set up CHAR PULLER, oriented pt to CHAR PULLER usage. Response: Pt currently using CHAR PULLER appropriately. States that pain is better under control. Will continue to monitor. FIDELINA GARBER RN 08/26/2009 3:02 PM * Plan of Care - Sandra Em - 08/26/2009 0009 EDT Problem: HOSPITAL ORIENTATION/SAFETY Goal: Oriented To Hospital Environment Data: Pt arrived on unit day of exploratory lap and total hysterectomy. A and Ox3. In 3/10 pain. LRrunning at 125ml/hr. Action: Oriented pt to the room. Gave pt PO benadryl for itching related to analgesics. Gave pt's family info on hotels in the area and got them parking vouchers. Response: went to reassess pt and she is was in 5/10 pain, gave scheduled toradol. Will continue tomonitor Sandra Em RN 08/26/2009 12:06 AM * Scanned Note-Null - Inpatient, Physician - 08/25/2009 1132 EDT * Scanned Note-Null - Inpatient, Physician - 08/25/2009 1132 EDT documented in this encounter Plan of Treatment Not on file documented as of this encounter Procedures Procedure Name Priority Date/Time Associated Diagnosis Comments ECG REPORT - SCANNED 09/03/2009 8:37 EDT COMPLETE BLOOD COUNT AND DIFFERENTIAL Routine 08/31/2009 5:47 EDT BUN Routine 08/31/2009 5:47 EDT PHOSPHORUS Routine 08/31/2009 5:47 EDT MAGNESIUM Routine 08/31/2009 5:47 EDT CREATININE Routine 08/31/2009 5:47 EDT CALCIUM Routine 08/31/2009 5:47 EDT ELECTROLYTES Routine 08/31/2009 5:47 EDT COMPLETE BLOOD COUNT AND DIFFERENTIAL Routine 08/30/2009 5:59 EDT BUN Routine 08/30/2009 5:59 EDT PHOSPHORUS Routine 08/30/2009 5:59 EDT MAGNESIUM Routine 08/30/2009 5:59 EDT CREATININE Routine 08/30/2009 5:59 EDT CALCIUM Routine 08/30/2009 5:59 EDT ELECTROLYTES Routine 08/30/2009 5:59 EDT URINE MICROSCOPIC Routine 08/29/2009 9:1 2 EDT URINALYSIS WITH MICROSCOPIC IF POSITIVE STAT 08/29/2009 9:12 EDT URINE CULTURE IF POSITIVE STAT 08/29/2009 9:12 EDT BACTERIAL CULTURE, URINE Routine 08/29/2009 9:12 EDT PORTABLE CHEST 1 VIEW STAT 08/29/2009 7:27 EDT COMPLETE BLOOD COUNT AND DIFFERENTIAL Routine 08/29/2009 7:03 EDT BUN Routine 08/29/2009 7:03 EDT PHOSPHORUS Routine 08/29/2009 7:03 EDT MAGNESIUM Routine 08/29/2009 7:03 EDT CREATININE Routine 08/29/2009 7:03 EDT CALCIUM Routine 08/29/2009 7:03 EDT ELECTROLYTES Routine 08/29/2009 7:03 EDT AIRWAY CLEARANCE THERAPY Routine 08/28/2009 6:47 EDT AIRWAY CLEARANCE THERAPY Routine 08/28/2009 6:47 EDT AIRWAY CLEARANCE THERAPY Routine 08/28/2009 6:47 EDT AIRWAY CLEARANCE THERAPY Routine 08/28/2009 6:47 EDT COMPLETE BLOOD COUNT AND DIFFERENTIAL Routine 08/28/2009 6:10 EDT BUN Routine 08/28/2009 6:10 EDT PHOSPHORUS Routine 08/28/2009 6:10 EDT MAGNESIUM Routine 08/28/2009 6:10 EDT CREATININE Routine 08/28/2009 6:10 EDT CALCIUM Routine 08/28/2009 6:10 EDT ELECTROLYTES Routine 08/28/2009 6:10 EDT COMPLETE BLOOD COUNT AND DIFFERENTIAL Routine 08/27/2009 5:13 EDT BUN Routine 08/27/2009 5:13 EDT PHOSPHORUS Routine 08/27/2009 5:13 EDT MAGNESIUM Routine 08/27/2009 5:13 EDT CREATININE Routine 08/27/2009 5:13 EDT CALCIUM Routine 08/27/2009 5:13 EDT ELECTROLYTES Routine 08/27/2009 5:13 EDT DRY POWDERED OR METERED DOSE INHALER Routine 08/26/2009 13:27 EDT COMPLETE BLOOD COUNT AND DIFFERENTIAL Routine 08/26/2009 5:30 EDT BUN Routine 08/26/2009 5:30 EDT PHOSPHORUS Routine 08/26/2009 5:30 EDT MAGNESIUM Routine 08/26/2009 5:30 EDT CREATININE Routine 08/26/2009 5:30 EDT CALCIUM Routine 08/26/2009 5:30 EDT ELECTROLYTES Routine 08/26/2009 5:30 EDT NEBULIZER TX INTERMITTENT Routine 08/25/2009 22:25 EDT documented in this encounter Results * ECG REPORT - SCANNED (09/03/2009 8:37 EDT) 09/03/2009 8:37 EDT Narrative Procedure Note Inpatient, Physician - 09/03/2009 8:37 EDT Physician Inpatient PROCEDURE/MINOR S URGICAL ORDERABLES * (ABNORMAL) HEMAGRAM AND DIFFERENTIAL (08/31/2009 5:47 EDT) WBC 5.93 4.0 - 12.4 K/cmm [facility] RBC 3.35(L) 3.86 - 5.04 M/cmm [facility] Hemoglobin 10.1(L) 11.6 - 15.2 gm/dl [facility] HCT 29.8(L) 34.9 - 44.4 % [facility] MCV 89 81 - 98 fl [facility] MCH 30.2 26.7 - 33.3 pg [facility] MCHC 34.0 32.1 - 35.9 gm/dl [facility] PLT 249 141 - 320 K/cmm [facility] RDW-CV 14.4 11.7 - 14.6 % [facility] % Neutrophils 67.2 45.5 - 79.7 % [facility] % Lymphocytes 23.8 15.0 - 46.8 % [facility] % Monocytes 3.3 1.8 - 12.0 % [facility] % Eosinophils 5.4 0.6 - 6.9 % [facility] % Basophils 0.3 0.2 - 1.4 % [facility] ABS Neutrophils 3.99 2.20 - 8.85 K/cmm [facility] ABS Lymphs 1.41 1.09 - 3.30 K/cmm [facility] ABS Monocytes 0.20 0.1 - 0.8 K/cmm [facility] ABS Eosinophils 0.32 0.03 - 0.61 K/cmm [facility] ABS Basophils 0.02 0.01 - 0.11 K/cmm [facility] Type of Diff: Automated FLESLIM [facility] Blood specimen (specimen) 08/31/2009 5:47 EDT 08/31/2009 6:37 EDT Luisa Terrazas MD PACKAGES & DNA PRO BE ORDERABLES [facility] [address] [place] [address] * (ABNORMAL) CALCIUM (08/31/2009 5:47 EDT) Calcium 8.1(L) 8.5 - 10.5 mg/dl [facility] Calculated Calcium 10.2 8.5 - 10.5 mg/dl [facility] Blood specimen (specimen) 08/31/2009 5:47 EDT 08/31/2009 6:37 EDT Luisa Terrazas MD CHEMISTRY & BLOOD GAS ORDERABLES Performing Organization Address City/[facility] Co de Phone Number [facility] [address] [place] [address] * PHOSPHORUS (08/31/2009 5:47 EDT) Phosphorus 2.9 2.5 - 4.5 mg/dl [facility] Blood specimen (specimen) 08/31/2009 5:47 EDT 08/31/2009 6:37 EDT Luisa Terrazas MD CHEMISTRY & BLOOD GAS ORDERABLES Performing Organization Address [facility] Co de Phone Number [facility] [address] [place] [address] * MAGNESIUM (08/31/2009 5:47 EDT) Magnesium 2.2 1.7 - 2.8 mg/dl [facility] Blood specimen (specimen) 08/31/2009 5:47 EDT 08/31/2009 6:37 EDT Luisa Terrazas MD CHEMISTRY & BLOOD GAS ORDERABLES Performing Organization Address City/[facility] Co de Phone Number [facility] [address] [place] [address] * (ABNORMAL) CREATININE (08/31/2009 5:47 EDT) Creatinine 0.60(L) 0.7 - 1.5 mg/dl [facility] GFR, Calculated >60 ml/min/1.7 3m2 [facility] Blood specimen (specimen) 08/31/2009 5:47 EDT 08/31/2009 6:37 EDT Luisa Terrazas MD CHEMISTRY & BLOOD GAS ORDERABLES Performing Organization Address [facility] de Phone Number [facility] [address] [place] [address] * (ABNORMAL) BUN (08/31/2009 5:47 EDT) BUN 7(L) 10 - 26 mg/dl [facility] Blood specimen (specimen) 08/31/2009 5:47 EDT 08/31/2009 6:37 EDT Luisa Terrazas MD CHEMISTRY & BLOOD GAS ORDERABLES Performing Organization Address [facility] Phone Number [facility] [address] [place] [address] * (ABNORMAL) ELECTROLYTES (08/31/2009 5:47 EDT) Sodium 141 136 - 145 mEq/L [facility] Potassium 3.2(L) 3.5 - 5.0 mEq/L [facility] Chloride 105 96 - 110 mEq/L [facility] CO2 29 24 - 32 mEq/L [facility] Blood specimen (specimen) 08/31/2009 5:47 EDT 08/31/2009 6:37 EDT Luisa Terrazas MD CHEMISTRY & BLOOD GAS ORDERABLES Performing Organization Address [facility] de Phone Number [facility] [address] [place] [address] * (ABNORMAL) HEMAGRAM AND DIFFERENTIAL (08/30/2009 5:59 EDT) WBC 7.10 4.0 - 12.4 K/cmm [facility] RBC 3.74(L) 3.86 - 5.04 M/cmm [facility] Hemoglobin 11.4(L) 11.6 - 15.2 gm/dl [facility] HCT 33.0(L) 34.9 - 44.4 % [facility] MCV 88 81 - 98 fl [facility] MCH 30.4 26.7 - 33.3 pg [facility] MCHC 34.4 32.1 - 35.9 gm/dl [facility] PLT 225 141 - 320 K/cmm [facility] RDW-CV 14.4 11.7 - 14.6 % [facility] Neutrophils 73.0 45.5 - 79.7 % [facility] Lymphocytes 19.0 15.0 - 46.8 % [facility] Monocytes 4.0 1.8 - 12.0 % [facility] Eosinophils 4.0 0.6 - 6.9 % [facility] ABS Neutrophils 5.19 2.20 - 8.85 K/cmm [facility] ABS Lymphs 1.35 1.09 - 3.30 K/cmm [facility] ABS Monocytes 0.28 0.1 - 0.8 K/cmm [facility] ABS Eosinophils 0.28 0.03 - 0.61 K/cmm [facility] RBC Morphology 1+ Poikilocytosis [facility] Type of Diff: Manual [facility] Blood specimen (specimen) 08/30/2009 5:59 EDT 08/30/2009 6:31 EDT Luisa Terrazas MD PACKAGES & DNA PRO BE ORDERABLES Performing Organization Address City/[facility] Co de Phone Number [facility] [address] [place] [address] * (ABNORMAL) CALCIUM (08/30/2009 5:59 EDT) Calcium 8.1(L) 8.5 - 10.5 mg/dl [facility] Calculated Calcium 10.1 8.5 - 10.5 mg/dl [facility] Blood specimen (specimen) 08/30/2009 5:59 EDT 08/30/2009 6:31 EDT Luisa Terrazas MD CHEMISTRY & BLOOD GAS ORDERABLES [facility] [address] [place] [address] * PHOSPHORUS (08/30/2009 5:59 EDT) Phosphorus 2.6 2.5 - 4.5 mg/dl [facility] Blood specimen (specimen) 08/30/2009 5:59 EDT 08/30/2009 6:31 EDT Luisa Terrazas MD CHEMISTRY & BLOOD GAS ORDERABLES Performing Organization Address [facility] de Phone Number [facility] [address] [place] [address] * MAGNESIUM (08/30/2009 5:59 EDT) Magnesium 2.0 1.7 - 2.8 mg/dl [facility] Blood specimen (specimen) 08/30/2009 5:59 EDT 08/30/2009 6:31 EDT Luisa Terrazas MD CHEMISTRY & BLOOD GAS ORDERABLES Performing Organization Address [facility] Phone Number [facility] [address] [place] [address] * (ABNORMAL) CREATININE (08/30/2009 5:59 EDT) Creatinine 0.58(L) 0.7 - 1.5 mg/dl [facility] GFR, Calculated >60 ml/min/1.7 3m2 [facility] Blood specimen (specimen) 08/30/2009 5:59 EDT 08/30/2009 6:31 EDT Luisa Terrazas MD CHEMISTRY & BLOOD GAS ORDERABLES Performing Organization Address [facility] de Phone Number [facility] [address] [place] [address] * (ABNORMAL) BUN (08/30/2009 5:59 EDT) BUN 5(L) 10 - 26 mg/dl [facility] Blood specimen (specimen) 08/30/2009 5:59 EDT 08/30/2009 6:31 EDT Luisa Terrazas MD CHEMISTRY & BLOOD GAS ORDERABLES Performing Organization Address [facility] Co de Phone Number [facility] [address] [place] [address] * (ABNORMAL) ELECTROLYTES (08/30/2009 5:59 EDT) Sodium 138 136 - 145 mEq/L [facility] Potassium 3.1(L) 3.5 - 5.0 mEq/L [facility] Chloride 105 96 - 110 mEq/L [facility] CO2 27 24 - 32 mEq/L [facility] Blood specimen (specimen) 08/30/2009 5:59 EDT 08/30/2009 6:31 EDT Luisa Terrazas MD CHEMISTRY & BLOOD GAS ORDERABLES Performing Organization Address [facility] de Phone Number [facility] [address] [place] [address] * BACTERIAL CULTURE, URINE (08/29/2009 9:12 EDT) Specimen Description Urine Clean catch specimen [facility] Result Greater than 100,000 CFU/ml ESCHERICHIA COLI [facility] Report Status Final 08/31/2009 [facility] 08/29/2009 9:12 EDT 08/29/2009 10:29 EDT Narrative Organism Antibiotic Method Susceptibility Greater than 100,000 cfu/ml escherichia coli Ampicillin SUSCEPTIBILITY (FIOR) <=2 Susceptible Greater than 100,000 cfu/ml escherichia coli Cefazolin SUSCEPTIBILITY (FIOR) <=4 Susceptible Greater than 100,000 cfu/ml escherichia coli Gentamicin SUSCEPTIBILITY (FIOR) <=1 Susceptible Greater than 100,000 cfu/ml escherichia coli Trimethoprim-Sulfametho xazole SUSCEPTIBILITY (FIOR) <=20 Susceptible Greater than 100,000 cfu/ml escherichia coli Nitrofurantoin SUSCEPTIBILITY (FIOR) <=16 Susceptible Greater than 100,000 cfu/ml escherichia coli Tobramycin SUSCEPTIBILITY (FIOR) <=1 Susceptible Greater than 100,000 cfu/ml escherichia coli Amikacin SUSCEPTIBILITY (FIOR) <=2 Susceptible Greater than 100,000 cfu/ml escherichia coli Ceftriaxone SUSCEPTIBILITY (FIOR) <=1 Susceptible Greater than 100,000 cfu/ml escherichia coli Ciprofloxacin SUSCEPTIBILITY (FIOR) <=0.25 Susceptible Greater than 100,000 cfu/ml escherichia coli Piperacillin Tazobactam SUSCEPTIBILITY (FIOR) <=4 Susceptible Greater than 100,000 cfu/ml escherichia coli Meropenem SUSCEPTIBILITY (FIOR) <=0.25 Susceptible Osmar Benavides MD MICROBIOLOGY - GENER AL ORDERABLES Performing Organization Address [facility] de Phone Number [facility] [address] [place] [address] * (ABNORMAL) URINE MICROSCOPIC (08/29/2009 9:12 EDT) WBC, UA 5 to 10 0 - 5 /HPF [facility] RBC, UA 1 to 5 0 - 5 /HPF [facility] Squam Epithel, UA Frequent(A) NS /HPF [facility] Renal Epithel, UA None seen NS /HPF [facility] Bacteria, UA Rare(A) NS /HPF [facility] Crystals, UA None seen /HPF [facility] Hyaline Casts, UA None seen /LPF [facility] UA Comment Microscopic results are unreliable on urines unrefrig >2hrs or refrig >8hrs. [facility] 08/29/2009 9:12 EDT 08/29/2009 9:51 EDT Gunnar Mcdonald MD URINALYSIS ORDERABLES Performing Organization Address [facility] de Phone Number [facility] [address] [place] [address] * CULTURE IF UA POSITIVE (08/29/2009 9:12 EDT) Culture if Indicated Culture indicated by urinalysis results. [facility] Urine specimen (specimen) 08/29/2009 9:12 EDT 08/29/2009 9:51 EDT Gunnar Mcdonald MD MICROBIOLOG Y - GENERAL ORDERABLES Performing Organization Address [facility] Co de Phone Number [facility] [address] [place] [address] * (ABNORMAL) URINALYSIS (08/29/2009 9:12 EDT) Color, UA Yellow [facility] Clarity, UA Clear [facility] Glucose, UA Neg NEG [facility] Bilirubin, UA Neg NEG [facility] Ketones, UA 3+(A) NEG [facility] Specific [place], Urine 1.010 1.001 - 1.035 [facility] Blood, UA 3+(A) NEG [facility] pH, UA 6.0 4.6 - 8.0 [facility] Protein, UA Trace(A) NEG [facility] Urobilinogen, UA 1.0 0.2 - 1.0 E.U./dl [facility] Nitrite, UA Pos(A) NEG [facility] Leuk Esterase 1+(A) NEG [facility] Urine specimen (specimen) 08/29/2009 9:12 EDT 08/29/2009 9:51 EDT Gunnar Mcdonald MD URINALYSIS ORDERABLES Performing Organization Address [facility] Co de Phone Number [facility] [address] [place] [address] * PORTABLE CHEST 1 VIEW (08/29/2009 7:27 EDT) Anatomical Region Laterality Modality Other 08/29/2009 7:27 EDT 08/29/2009 11:08 EDT Narrative 08/29/2009 11:08 EDT Portable Chest 1 View ??Aug 29, 2009 07:27:00 AM Signs and Symptoms/Comments: ??48-year-old with ovarian CA, s/p surgery. Findings: No chest x-ray comparison: Study compared to CT scan from 08/19/2009. ?? Portable AP view of the chest demonstrates normal bones and soft tissues. The lower left cardiomediastinal contours are obscured due to adjacent airspace opacity in left lower lobe and lingula. There is coalescent opacity in the left mid and lower lung, and some ill-defined opacity in the medial right lung base. Correlation for clinical symptoms is recommended, as this could reflect atelectasis or pneumonia. More likely this reflects some atelectasis and pleural effusion related to recent surgery. Procedure Note 08/29/2009 Portable Chest 1 View Aug 29, 2009 07:27:00 AM Signs and Symptoms/Comments: 48-year-old with ovarian CA, s/p surgery. Findings: No chest x-ray comparison: Study compared to CT scan from 08/19/2009. Portable AP view of the chest demonstrates normal bones and soft tissues. The lower left cardiomediastinal contours are obscured due to adjacent airspace opacity in left lower lobe and lingula. There is coalescent opacity in the left mid and lower lung, and some ill-defined opacity in the medial right lung base. Correlation for clinical symptoms is recommended, as this could reflect atelectasis or pneumonia. More likely this reflects some atelectasis and pleural effusion related to recent surgery. Gunnar Mcdonald MD IMG DIAGNOS TIC IMAGING ORDERABLES * (ABNORMAL) HEMAGRAM AND DIFFERENTIAL (08/29/2009 7:03 EDT) WBC 9.82 4.0 - 12.4 K/cmm [facility] RBC 4.10 3.86 - 5.04 M/cmm [facility] Hemoglobin 12.5 11.6 - 15.2 gm/dl [facility] HCT 36.4 34.9 - 44.4 % [facility] MCV 89 81 - 98 fl [facility] MCH 30.4 26.7 - 33.3 pg [facility] MCHC 34.3 32.1 - 35.9 gm/dl [facility] PLT 224 141 - 320 K/cmm [facility] RDW-CV 13.9 11.7 - 14.6 % [facility] Neutrophils 75.0 45.5 - 79.7 % [facility] % Bands 5.0 % [facility] Lymphocytes 11.0(L) 15.0 - 46.8 % [facility] Monocytes 8.0 1.8 - 12.0 % [facility] Eosinophils 1.0 0.6 - 6.9 % [facility] ABS Neutrophils 7.36 2.20 - 8.85 K/cmm [facility] ABS Bands 0.49 K/cmm [facility] ABS Lymphs 1.08(L) 1.09 - 3.30 K/cmm [facility] ABS Monocytes 0.79 0.1 - 0.8 K/cmm [facility] ABS Eosinophils 0.10 0.03 - 0.61 K/cmm [facility] RBC Morphology 1+ Poikilocytosis [facility] Type of Diff: Manual [facility] Blood specimen (specimen) 08/29/2009 7:03 EDT 08/29/2009 8:28 EDT Luisa Terrazas MD PACKAGES & DNA PRO BE ORDERABLES Performing Organization Address [facility] Co de Phone Number [facility] [address] [place] [address] * (ABNORMAL) CALCIUM (08/29/2009 7:03 EDT) Calcium 7.9(L) 8.5 - 10.5 mg/dl [facility] Calculated Calcium 9.7 8.5 - 10.5 mg/dl [facility] Blood specimen (specimen) 08/29/2009 7:03 EDT 08/29/2009 8:28 EDT Luisa Terrazas MD CHEMISTRY & BLOOD GAS ORDERABLES Performing Organization Address City/[facility] Co de Phone Number [facility] [address] [place] [address] * PHOSPHORUS (08/29/2009 7:03 EDT) Phosphorus 4.2 2.5 - 4.5 mg/dl [facility] Blood specimen (specimen) 08/29/2009 7:03 EDT 08/29/2009 8:28 EDT Luisa Terrazas MD CHEMISTRY & BLOOD GAS ORDERABLES Performing Organization Address [facility] de Phone Number [facility] [address] [place] [address] * MAGNESIUM (08/29/2009 7:03 EDT) Magnesium 1.9 1.7 - 2.8 mg/dl [facility] Blood specimen (specimen) 08/29/2009 7:03 EDT 08/29/2009 8:28 EDT Luisa Terrazas MD CHEMISTRY & BLOOD GAS ORDERABLES Performing Organization Address [facility] de Phone Number [facility] [address] [place] [address] * (ABNORMAL) CREATININE (08/29/2009 7:03 EDT) Creatinine 0.57(L) 0.7 - 1.5 mg/dl [facility] GFR, Calculated >60 ml/min/1.7 3m2 [facility] Blood specimen (specimen) 08/29/2009 7:03 EDT 08/29/2009 8:28 EDT Luisa Terrazas MD CHEMISTRY & BLOOD GAS ORDERABLES Performing Organization Address [facility] de Phone Number [facility] [address] [place] [address] * (ABNORMAL) BUN (08/29/2009 7:03 EDT) BUN 3(L) 10 - 26 mg/dl [facility] Blood specimen (specimen) 08/29/2009 7:03 EDT 08/29/2009 8:28 EDT Luisa Terrazas MD CHEMISTRY & BLOOD GAS ORDERABLES Performing Organization Address [facility] de Phone Number [facility] [address] [place] [address] * ELECTROLYTES (08/29/2009 7:03 EDT) Sodium 138 136 - 145 mEq/L [facility] Potassium 3.7 3.5 - 5.0 mEq/L [facility] Chloride 102 96 - 110 mEq/L [facility] CO2 25 24 - 32 mEq/L [facility] Blood specimen (specimen) 08/29/2009 7:03 EDT 08/29/2009 8:28 EDT Luisa Terrazas MD CHEMISTRY & BLOOD GAS ORDERABLES [facility] [address] [place] [address] * (ABNORMAL) HEMAGRAM AND DIFFERENTIAL (08/28/2009 6:10 EDT) WBC 9.50 4.0 - 12.4 K/cmm [facility] RBC 4.00 3.86 - 5.04 M/cmm [facility] Hemoglobin 12.3 11.6 - 15.2 gm/dl [facility] HCT 35.9 34.9 - 44.4 % [facility] MCV 90 81 - 98 fl [facility] MCH 30.8 26.7 - 33.3 pg [facility] MCHC 34.4 32.1 - 35.9 gm/dl [facility] PLT 189 141 - 320 K/cmm [facility] RDW-CV 13.9 11.7 - 14.6 % [facility] Neutrophils 80.0(H) 45.5 - 79.7 % [facility] Lymphocytes 13.0(L) 15.0 - 46.8 % [facility] Monocytes 5.0 1.8 - 12.0 % [facility] Eosinophils 2.0 0.6 - 6.9 % [facility] ABS Neutrophils 7.59 2.20 - 8.85 K/cmm [facility] ABS Lymphs 1.24 1.09 - 3.30 K/cmm [facility] ABS Monocytes 0.48 0.1 - 0.8 K/cmm [facility] ABS Eosinophils 0.19 0.03 - 0.61 K/cmm [facility] RBC Morphology [facility] WBC Morphology 1+ Toxic granulation [facility] Type of Diff: Manual [facility] Blood specimen (specimen) 08/28/2009 6:10 EDT 08/28/2009 6:35 EDT Luisa Terrazas MD PACKAGES & DNA PRO BE ORDERABLES Performing Organization Address [facility] de Phone Number [facility] [address] [place] [address] * (ABNORMAL) CALCIUM (08/28/2009 6:10 EDT) Calcium 7.9(L) 8.5 - 10.5 mg/dl [facility] Calculated Calcium 9.7 8.5 - 10.5 mg/dl [facility] Blood specimen (specimen) 08/28/2009 6:10 EDT 08/28/2009 6:35 EDT Luisa Terrazas MD CHEMISTRY & BLOOD GAS ORDERABLES Performing Organization Address [facility] de Phone Number [facility] [address] [place] [address] * PHOSPHORUS (08/28/2009 6:10 EDT) Phosphorus 3.4 2.5 - 4.5 mg/dl [facility] Blood specimen (specimen) 08/28/2009 6:10 EDT 08/28/2009 6:35 EDT Luisa Terrazas MD CHEMISTRY & BLOOD GAS ORDERABLES Performing Organization Address [facility] de Phone Number [facility] [address] [place] [address] * (ABNORMAL) MAGNESIUM (08/28/2009 6:10 EDT) Magnesium 1.6(L) 1.7 - 2.8 mg/dl [facility] Blood specimen (specimen) 08/28/2009 6:10 EDT 08/28/2009 6:35 EDT Luisa Terrazas MD CHEMISTRY & BLOOD GAS ORDERABLES Performing Organization Address [facility] de Phone Number [facility] [address] [place] [address] * (ABNORMAL) CREATININE (08/28/2009 6:10 EDT) Creatinine 0.61(L) 0.7 - 1.5 mg/dl [facility] GFR, Calculated >60 ml/min/1.7 3m2 [facility] Blood specimen (specimen) 08/28/2009 6:10 EDT 08/28/2009 6:35 EDT Luisa Terrazas MD CHEMISTRY & BLOOD GAS ORDERABLES Performing Organization Address [facility] de Phone Number [facility] [address] [place] [address] * (ABNORMAL) BUN (08/28/2009 6:10 EDT) BUN 4(L) 10 - 26 mg/dl [facility] Blood specimen (specimen) 08/28/2009 6:10 EDT 08/28/2009 6:35 EDT Luisa Terrazas MD CHEMISTRY & BLOOD GAS ORDERABLES Performing Organization Address [facility] de Phone Number [facility] [address] [place] [address] * ELECTROLYTES (08/28/2009 6:10 EDT) Sodium 138 136 - 145 mEq/L [facility] Potassium 3.6 3.5 - 5.0 mEq/L [facility] Chloride 105 96 - 110 mEq/L [facility] CO2 28 24 - 32 mEq/L [facility] Blood specimen (specimen) 08/28/2009 6:10 EDT 08/28/2009 6:35 EDT Luisa Terrazas MD CHEMISTRY & BLOOD GAS ORDERABLES Performing Organization Address [facility] de Phone Number [facility] [address] [place] [address] * (ABNORMAL) HEMAGRAM AND DIFFERENTIAL (08/27/2009 5:13 EDT) WBC 9.07 4.0 - 12.4 K/cmm [facility] RBC 3.76(L) 3.86 - 5.04 M/cmm [facility] Hemoglobin 11.5(L) 11.6 - 15.2 gm/dl [facility] HCT 34.1(L) 34.9 - 44.4 % [facility] MCV 91 81 - 98 fl [facility] MCH 30.6 26.7 - 33.3 pg [facility] MCHC 33.8 32.1 - 35.9 gm/dl [facility] PLT 190 141 - 320 K/cmm [facility] RDW-CV 13.8 11.7 - 14.6 % [facility] Neutrophils 63.0 45.5 - 79.7 % [facility] Lymphocytes 26.0 15.0 - 46.8 % [facility] Monocytes 8.0 1.8 - 12.0 % [facility] Eosinophils 3.0 0.6 - 6.9 % [facility] ABS Neutrophils 5.71 2.20 - 8.85 K/cmm [facility] ABS Lymphs 2.36 1.09 - 3.30 K/cmm [facility] ABS Monocytes 0.73 0.1 - 0.8 K/cmm [facility] ABS Eosinophils 0.27 0.03 - 0.61 K/cmm [facility] RBC Morphology [facility] Type of Diff: Manual [facility] Blood specimen (specimen) 08/27/2009 5:13 EDT 08/27/2009 6:46 EDT Luisa Terrazas MD PACKAGES & DNA PRO BE ORDERABLES [facility] [address] [place] [address] * (ABNORMAL) CALCIUM (08/27/2009 5:13 EDT) Calcium 7.9(L) 8.5 - 10.5 mg/dl [facility] Calculated Calcium 9.7 8.5 - 10.5 mg/dl [facility] Blood specimen (specimen) 08/27/2009 5:13 EDT 08/27/2009 6:46 EDT Luisa Terrazas MD CHEMISTRY & BLOOD GAS ORDERABLES Performing Organization Address [facility] de Phone Number [facility] [address] [place] [address] * PHOSPHORUS (08/27/2009 5:13 EDT) Phosphorus 3.7 2.5 - 4.5 mg/dl [facility] Blood specimen (specimen) 08/27/2009 5:13 EDT 08/27/2009 6:46 EDT Luisa Terrazas MD CHEMISTRY & BLOOD GAS ORDERABLES Performing Organization Address [facility] de Phone Number [facility] [address] [place] [address] * MAGNESIUM (08/27/2009 5:13 EDT) Magnesium 1.9 1.7 - 2.8 mg/dl [facility] Blood specimen (specimen) 08/27/2009 5:13 EDT 08/27/2009 6:46 EDT Luisa Terrazas MD CHEMISTRY & BLOOD GAS ORDERABLES Performing Organization Address [facility] de Phone Number [facility] [address] [place] [address] * (ABNORMAL) CREATININE (08/27/2009 5:13 EDT) Creatinine 0.62(L) 0.7 - 1.5 mg/dl [facility] GFR, Calculated >60 ml/min/1.7 3m2 [facility] Blood specimen (specimen) 08/27/2009 5:13 EDT 08/27/2009 6:46 EDT Luisa Terrazas MD CHEMISTRY & BLOOD GAS ORDERABLES [facility] [address] [place] [address] * (ABNORMAL) BUN (08/27/2009 5:13 EDT) Pathologist [facility] [place] BUN 5(L) 10 - 26 mg/dl [facility] Blood specimen (specimen) 08/27/2009 5:13 EDT 08/27/2009 6:46 EDT Luisa Terrazas MD CHEMISTRY & BLOOD GAS ORDERABLES Performing Organization Address [facility] de Phone Number [facility] [address] [place] [address] * ELECTROLYTES (08/27/2009 5:13 EDT) [facility] Sodium 139 136 - 145 mEq/L [facility] Potassium 4.2 3.5 - 5.0 mEq/L [facility] Chloride 108 96 - 110 mEq/L [facility] CO2 27 24 - 32 mEq/L [facility] Blood specimen (specimen) 08/27/2009 5:13 EDT 08/27/2009 6:46 EDT Luisa Terrazas MD CHEMISTRY & BLOOD GAS ORDERABLES Performing Organization Address [facility] de Phone Number [facility] [address] [place] [address] * (ABNORMAL) HEMAGRAM AND DIFFERENTIAL (08/26/2009 5:30 EDT) Pathologist [facility] [place] WBC 11.52 4.0 - 12.4 K/cmm [facility] RBC 4.32 3.86 - 5.04 M/cmm [facility] Hemoglobin 13.1 11.6 - 15.2 gm/dl [facility] HCT 38.3 34.9 - 44.4 % [facility] MCV 89 81 - 98 fl [facility] MCH 30.3 26.7 - 33.3 pg [facility] MCHC 34.1 32.1 - 35.9 gm/dl [facility] PLT 216 141 - 320 K/cmm [facility] RDW-CV 13.7 11.7 - 14.6 % [facility] % Neutrophils 83.1(H) 45.5 - 79.7 % [facility] % Lymphocytes 11.2(L) 15.0 - 46.8 % [facility] % Monocytes 5.3 1.8 - 12.0 % [facility] % Eosinophils 0.1(L) 0.6 - 6.9 % [facility] % Basophils 0.3 0.2 - 1.4 % [facility] ABS Neutrophils 9.57(H) 2.20 - 8.85 K/cmm [facility] ABS Lymphs 1.29 1.09 - 3.30 K/cmm [facility] ABS Monocytes 0.61 0.1 - 0.8 K/cmm [facility] ABS Eosinophils 0.01(L) 0.03 - 0.61 K/cmm [facility] ABS Basophils 0.04 0.01 - 0.11 K/cmm [facility] Type of Diff: Automated [facility] Blood specimen (specimen) 08/26/2009 5:30 EDT 08/26/2009 6:27 EDT Luisa Terrazas MD PACKAGES & DNA PRO BE ORDERABLES Performing Organization Address City/[facility] Co de Phone Number [facility] [address] [place] [address] * (ABNORMAL) CALCIUM (08/26/2009 5:30 EDT) Calcium 8.4(L) 8.5 - 10.5 mg/dl [facility] Calculated Calcium 9.8 8.5 - 10.5 mg/dl [facility] Blood specimen (specimen) 08/26/2009 5:30 EDT 08/26/2009 6:27 EDT Luisa Terrazas MD CHEMISTRY & BLOOD GAS ORDERABLES Performing Organization Address [facility] Co de Phone Number [facility] [address] [place] [address] * PHOSPHORUS (08/26/2009 5:30 EDT) Phosphorus 4.1 2.5 - 4.5 mg/dl [facility] Blood specimen (specimen) 08/26/2009 5:30 EDT 08/26/2009 6:27 EDT Luisa Terrazas MD CHEMISTRY & BLOOD GAS ORDERABLES Performing Organization Address [facility] de Phone Number [facility] [address] [place] [address] * MAGNESIUM (08/26/2009 5:30 EDT) Magnesium 2.0 1.7 - 2.8 mg/dl [facility] Blood specimen (specimen) 08/26/2009 5:30 EDT 08/26/2009 6:27 EDT Luisa Terrazas MD CHEMISTRY & BLOOD GAS ORDERABLES Performing Organization Address [facility] de Phone Number [facility] [address] [place] [address] * (ABNORMAL) CREATININE (08/26/2009 5:30 EDT) Pathologist [facility] [place] Creatinine 0.63(L) 0.7 - 1.5 mg/dl [facility] GFR, Calculated >60 ml/min/1.7 3m2 [facility] Blood specimen (specimen) 08/26/2009 5:30 EDT 08/26/2009 6:27 EDT Luisa Terrazas MD CHEMISTRY & BLOOD GAS ORDERABLES Performing Organization Address [facility] de Phone Number [facility] [address] [place] [address] * (ABNORMAL) BUN (08/26/2009 5:30 EDT) BUN 6(L) 10 - 26 mg/dl [facility] Blood specimen (specimen) 08/26/2009 5:30 EDT 08/26/2009 6:27 EDT Luisa Terrazas MD CHEMISTRY & BLOOD GAS ORDERABLES Performing Organization Address City/[facility] Co de Phone Number [facility] [address] [place] [address] * ELECTROLYTES (08/26/2009 5:30 EDT) Sodium 137 136 - 145 mEq/L [facility] Potassium 5.0 3.5 - 5.0 mEq/L [facility] Chloride 103 96 - 110 mEq/L [facility] CO2 29 24 - 32 mEq/L [facility] Blood specimen (specimen) 08/26/2009 5:30 EDT 08/26/2009 6:27 EDT Luisa Terrazas MD CHEMISTRY & BLOOD GAS ORDERABLES Performing Organization Address [facility] Co de Phone Number [facility] [address] [place] [address] documented in this encounter Visit Diagnoses Not on filedocumented in this encounter Administered Medications Inactive Administered Medications - up to 3 most recent administrations Medication Order MAR Action Action Date Dose Rate Site acetaminophen (TYLENOL) tablet 325-650 mg 325-650 mg, oral, EVERY 4 HOURS, First dose on Sat08/26/09 at 0000, Until Discontinued, Routine, On Unit Given 08/30/2009 3:24 EDT 650 mg Given 08/29/2009 23:29 EDT 650 mg Given 08/29/2009 20:24 EDT 650 mg acetaminophen (TYLENOL) tablet 325-650 mg 325-650 mg, oral, EVERY 4 HOURS, First dose (after last modification) on Sat08/30/09 at 0800, Until Discontinued, Routine, On Unit Given 08/31/2009 12:00 EDT 650 mg Given 08/31/2009 8:00 EDT 650 mg Given 08/31/2009 4:00 EDT 650 mg albuterol (PROVENTIL HFA, VENTOLIN HFA) inhaler 2 Puff 2 Puff, inhalation, EVERY 4 HOURS PRN, Starting on Sat08/26/09 at 1326, Until Sat08/31/09 at 1429, Wheezing, Routine Given 08/28/2009 22:00 EDT 2 Puffs Given 08/28/2009 11:22 EDT 2 Puffs Given 08/28/2009 6:15 EDT 2 Puffs albuterol (PROVENTIL HFA, VENTOLIN HFA) inhaler 2 Puff 2 Puff, inhalation, EVERY 4 HOURS, First dose on [place] 08/28/09 at 2045, Until Discontinued, Routine Given 08/31/2009 12:00 EDT 2 Puffs Given 08/31/2009 8:00 EDT 2 Puffs Given 08/31/2009 4:00 EDT 2 Puffs albuterol-ipratropium (COMBIVENT) 18-103 mcg/Actuation inhaler 2 Puff 2 Puff, inhalation, 4 TIMES DAILY, First dose on [place] 08/25/09 at 2245, Until Discontinued, Routine Given 08/25/2009 22:45 EDT 2 Puffs CEFAZolin (ANCEF) syringe 2 g 2 g, intravenous, Administer over 10 Minutes, PRE-OP ONCE, 1 dose, On [place] 08/25/09 at 1300, Routine Given by Other 08/25/2009 14:30 EDT 2 g diphenhydrAMINE (BENADRYL) capsule 25-50 mg 25-50 mg, oral, EVERY 6 HOURS PRN, Starting on [place] 08/25/09 at 2225, Until Sat08/31/09 at 1429, Itching, Routine Given 08/28/2009 9:16 EDT 25 mg Given 08/28/2009 2:12 EDT 50 mg Given 08/27/2009 20:15 EDT 25 mg docusate sodium (COLACE) capsule 100 mg 100 mg, oral, 2 TIMES DAILY, First dose on [place] 08/25/09 at 2245, Until Discontinued, Routine, On Unit Given 08/31/2009 9:00 EDT 100 mg Given 08/30/2009 21:51 EDT 100 mg Given 08/30/2009 8:35 EDT 100 mg fentanyl citrate (PF) 50 mcg/mL injection 25-100 mcg 25-100 mcg, intravenous, EVERY 5 MIN PRN, Starting on [place] 08/25/09 at 1507, Until [place] 08/25/09 at 2223, Pain, Routine, Recovery (only) Given 08/25/2009 2 1:01 EDT 50 mcg Given 08/25/2009 18:27 EDT 50 mcg Given 08/25/2009 17:56 EDT 50 mcg fentanyl citrate (PF) 50 mcg/mL injection 1 dose, Starting on Sat08/25/09 at 1755, Until Sat08/25/09 at 1756 heparin injection 5,000 Units 5,000 Units, subcutaneous, PRE-OP ONCE, 1 dose, On Sat08/25/09 at 1300, Routine Given 08/25/2009 13:01 EDT 5,000 Un its heparin injection 5,000 Units 5,000 Units, subcutaneous, EVERY 8 HOURS, First dose on Sat08/25/09 at 2300, Until Discontinued, Routine, On Unit Given 08/31/2009 8:00 EDT 5,000 Units Given 08/31/2009 0:00 EDT 5,000 Units Given 08/30/2009 16:00 EDT 5,000 Units HYDROmorphone 1 mg/ml (DILAUDID) CHAR PULLER syringe, 30 ml intravenous, CONTINUOUS, Starting on Sat08/26/09 at 1945, Until Sat08/26/09 at 2340, Intravenous, CHAR PULLER, CHAR PULLER Dose: 0.2 mg LOCKOUT Interval: 10 minutes ONE HOUR Dose Limit: 1.2 mg See PRN bolus orders for breakthrough pain., Routine New Bag 08/26/2009 19:45 EDT m L/hr ibuprofen (MOTRIN) tablet 400 mg 400 mg, oral, EVERY 4 HOURS, First dose (after last modification) on Sat08/30/09 at 0800, Until Discontinued, Routine Given 08/31/2009 12:00 EDT 400 mg Given 08/31/2009 8:00 EDT 400 mg Given 08/31/2009 4:00 EDT 400 mg ketorolac (TORADOL) 30 mg/mL (1 mL) injection 1 dose, Starting on Sat08/25/09 at 1755, Until Sat08/25/09 at 1757 ketorolac (TORADOL) injection 15 mg 15 mg, intravenous, EVERY 6 HOURS, 4 doses, First dose on Sat08/25/09 at 1815, Last dose on Sat08/26/09 at 1215, Routine Given 08/26/2009 13:28 EDT 15 mg Given 08/26/2009 5:58 EDT 15 mg Given 08/25/2009 23:58 EDT 15 mg lactated ringers (LR) infusion at 25 mL/hr, intravenous, CONTINUOUS, Starting on Sat08/25/09 at 1230, Until Daisha 08/25/09 at 1509, Routine, Pre Op Day of Surgery New Bag 08/25/2009 12:24 EDT 25 mL/hr lactated ringers (LR) infusion at 100 mL/hr, intravenous, CONTINUOUS, Starting on Daisha 08/25/09 at 1530, Until Daisha 08/25/09 at 1831, Routine, Recovery (only) Rate Change 08/25/2009 17:30 EDT 100 mL/hr lactated ringers (LR) infusion at 125 mL/hr, intravenous, CONTINUOUS, Starting on Daisha 08/25/09 at 1815, Until Sat08/26/09 at 0845, Routine, On Unit New Bag 08/26/2009 3:46 EDT 125 mL/hr Rate Documented 08/25/2009 22:29 EDT 125 mL/hr Rate Documented 08/25/2009 19:00 EDT 125 mL/hr levofloxacin (LEVAQUIN) tablet 500 mg 500 mg, oral, DAILY, 10 doses, First dose on Sat08/29/09 at 1330, Last dose on Sat09/07/09 at 0900, Routine Given 08/31/2009 9:00 EDT 500 mg Given 08/30/2009 8:35 EDT 500 mg Given 08/29/2009 13:41 EDT 500 mg magnesium sulfate 1,000 mg in dextrose (D5W) 50 mL IVPB 1,000 mg, intravenous, Administer over 30 Minutes, NOW X1, 1 dose, On Sat08/28/09 at 0915, Routine Given 08/28/2009 9:15 EDT 1,000 mg morphine (MS IR) tablet 15 mg 15 mg, oral, EVERY 4 HOURS PRN, Starting on Sat08/30/09 at 1710, Until Sat08/31/09 at 1429, Pain, Routine Given 08/30/2009 17:32 EDT 15 mg morphine 2 mg/ml (DURAMORPH) CHAR PULLER, 30 ml syringe intravenous, CHAR PULLER, Starting on Sat08/26/09 at 1330, Until Sat08/26/09 at 1919, CHAR PULLER Dose: 1 mg LOCKOUT Interval: 10 minutes ONE HOUR Dose Limit: 6 mg See PRN bolus orders for breakthrough pain., Routine Rate Documented 08/26/2009 17:40 EDT mL /hr New Bag 08/26/2009 13:30 EDT mL/hr morphine 2 mg/ml (DURAMORPH) CHAR PULLER, 30 ml syringe intravenous, CHAR PULLER, Starting on 08/27/09 at 0000, Until Tu08/30/09 at 0653, Intravenous, CHAR PULLER, CHAR PULLER Dose: 1 mg LOCKOUT Interval: 10 minutes ONE HOUR Dose Limit: 6 mg See PRN bolus orders for breakthrough pain., Routine New Bag 08/29/2009 13:15 ED T mL/hr Rate Documented 08/29/2009 8:08 EDT mL/hr New Bag 08/28/2009 18:45 EDT mL/hr morphine injection 1-4 mg 1-4 mg, intravenous, EVERY 5 MIN PRN, Starting on Daisha 08/25/09 at 1507, Until Daisha 08/25/09 at 2223, Pain, Routine, Recovery (only) Given 08/25/2009 21:58 EDT 2 mg morphine injection 2-4 mg 2-4 mg, intravenous, EVERY 2 HOURS PRN, Starting on Daisha 08/25/09 at 2225, Until Sat08/26/09 at 1919, Pain, Routine, On Unit Given 08/26/2009 13:15 EDT 4 mg Given 08/26/2009 11:09 EDT 2 mg Given 08/26/2009 7:57 EDT 2 mg morphine injection 2-5 mg 2-5 mg, intravenous, EVERY 4 HOURS PRN, Starting on Sat08/26/09 at 2339, Until Sat08/31/09 at 1429, Pain, Routine Given 08/30/2009 18:48 EDT 4 mg Given 08/29/2009 2:26 EDT 1 mg nalbuphine (NUBAIN) injection 2.5 mg 2.5 mg, intravenous, EVERY 4 HOURS PRN, Starting on 08/27/09 at 0843, Until Sat08/31/09 at 1429, Itching, Routine Given 08/28/2009 4:38 EDT 2.5 mg Given 08/28/2009 0:12 EDT 2.5 mg Given 08/27/2009 20:20 EDT 2.5 mg ondansetron (PF) (ZOFRAN) 4 mg/2 mL injection 4 mg 4 mg, intravenous, EVERY 6 HOURS PRN, Starting on Daisha 08/25/09 at 2225, Until Sat08/31/09 at 1429, Nausea, Routine Given 08/29/2009 14:49 EDT 4 mg Given 08/26/2009 22:05 EDT 4 mg pantoprazole (PROTONIX) injection 40 mg 40 mg, intravenous, 2 TIMES DAILY, First dose on Sat08/26/09 at 2330, Until Discontinued, Routine Given 08/30/2009 9:56 EDT 40 mg Given 08/29/2009 20:23 EDT 40 mg Given 08/29/2009 9:49 EDT 40 mg pantoprazole (PROTONIX) tablet 40 mg 40 mg, oral, 2 TIMES DAILY, First dose on Sat08/30/09 at 2100, Until Discontinued, Routine Given 08/31/2009 9:00 EDT 40 mg Given 08/30/2009 21:51 EDT 40 mg potassium chloride SA (K-DUR, KLOR-CON M20) tablet 40 mEq 40 mEq, oral, NOW X1, 1 dose, On Sat08/30/09 at 0845, Routine Given 08/30/2009 8:38 EDT 40 mEq sodium chloride 0.9 % (NS) infusion at 50 mL/hr, intravenous, CONTINUOUS, Starting on Sat08/26/09 at 0915, Until Sat08/31/09 at 1429, Routine Rate Documented 08/30/2009 7:44 EDT 50 mL/ hr Rate Documented 08/29/2009 13:51 EDT 50 mL/hr New Bag 08/29/2009 12:28 EDT 50 mL/hr documented in this encounter Historical Medications * [...] 4 hours. 1 Tab 0 08/31/2009 05/15/2012 added in this encounter Active and Recently Administered Medications Times are shown in EDT. Scheduled Medication Order 08/29/2009 08/30/2009 08/31/2009 acetaminophen (TYLENOL) tablet 325-650 mg (CANCELED) 325-650 mg, oral, EVERY 4 HOURS, First dose on Sat08/26/09 at 0000, Until Discontinued, Routine, On Unit 0200 (Given - Provider: Stella Teran RN)0551 (Given - Provider: Stella Teran RN)0800 (Given - Provider: Kiarra Kearns RN)1221 (Given - Provider: Kiarra Kearns RN)163 (Given - Provider: Eleonora Suarez RN)2023 (Given - Provider: Eleonora Suarez, NICK)2328 (Given - Provider: Michelle Merritt RN) 032 (Given - Provider: Michelle Merritt RN) acetaminophen (TYLENOL) tablet 325-650 mg 325-650 mg, oral, EVERY 4 HOURS, First dose (after last modification) on Sat08/30/09 at 0800, Until Discontinued, Routine, On Unit 0834 (Given - Provider: Kiarra Kearns RN)1257 (Given - Provider: Kiarra Kearns RN)1600 (Given - Provider: Gia Menjivar RN)1924 (Given - Provider: Gia Menjivar RN) 0000 (Given - Provider: Saima White)0400 (Given - Provider: Saima White)0800 (Given - Provider: Mandi Johnson)1200 (Given - Provider: Mandi Johnson) albuterol (PROVENTIL HFA, VENTOLIN HFA) inhaler 2 Puff (CANCELED) 2 Puff, inhalation, EVERY 4 HOURS, First dose on Sat08/28/09 at 2045, Until Discontinued, Routine 0000 (Given - Provider: Stella Teran RN)0400 (Given - Provider: Stella Teran RN)0943 (Given - Provider: Kiarra Kearns RN)1221 (Given - Provider: Kiarra Kearns RN)163 (Given - Provider: Eleonora Suarez RN)2023 (Given - Provider: Eleonora Suarez RN)2328 (Given - Provider: Michelle Merritt RN) 0324 (Given - Provider: Michelle Merritt RN)0844 (Given - Provider: Kiarra Kearns RN)1257 (Given - Provider: Kiarra Kearns RN)1600 (Given - Provider: Gia Menjivar RN)1924 (Given - Provider: Gia Menjivar RN) 0000 (Given - Provider: Saima White)0400 (Given - Provider: Saima White)0800 (Given - Provider: Mandi Johnson)1200 (Given - Provider: Mandi Johnson) docusate sodium (COLACE) capsule 100 mg 100 mg, oral, 2 TIMES DAILY, First dose on Sat08/25/09 at 2245, Until Discontinued, Routine, On Unit 0949 (Given - Provider: Kiarra Kearns RN)202 (Given - Provider: Eleonora Suarez RN) 0835 (Given - Provider: Kiarra Kearns RN)215 (Given - Provider: Gia Menjivar RN) 0900 (Given - Provider: Mandi Johnson) heparin injection 5,000 Units (CANCELED) 5,000 Units, subcutaneous, EVERY 8 HOURS, First dose on Sat08/25/09 at 2300, Until Discontinued, Routine, On Unit 0000 (Given - Provider: Stella Teran RN)0943 (Given - Provider: Kiarra Kearns RN)1637 (Given - Provider: Eleonora Suarez RN)2329 (Given - Provider: Michelle Merritt RN) 0844 (Given - Provider: Kiarra Kearns RN)1600 (Given - Provider: Gia Menjivar RN) 0000 (Given - Provider: Saima White)0800 (Given - Provider: Mandi Johnson) ibuprofen (MOTRIN) tablet 400 mg(Linked Group 1) 400 mg, oral, EVERY 4 HOURS, First dose (after last modification) on Sat08/30/09 at 0800, Until Discontinued, Routine 0835 (Given - Provider: Kiarra Kearns RN)1257 (Given - Provider: Kiarra Kearns RN)1600 (Given - Provider: Gia Menjivar RN)1924 (Given - Provider: Gia Menjivar RN) 0000 (Given - Provider: Saima White)0400 (Given - Provider: Saima White)0800 (Given - Provider: Mandi Johnson)1200 (Given - Provider: Mandi Johnson) levofloxacin (LEVAQUIN) tablet 500 mg 500 mg, oral, DAILY, 10 doses, First dose on Sat08/29/09 at 1330, Last dose on Sat09/07/09 at 0900, Routine 1341 (Given - Provider: Kiarra Kearns RN) 0835 (Given - Provider: Kiarra Kearns RN) 0749 (Not Given - Provider: Mandi Johnson - Reason: Other)0900 (Given - Provider: Mandi Johnson) pantoprazole (PROTONIX) injection 40 mg (CANCELED) 40 mg, intravenous, 2 TIMES DAILY, First dose on Sat08/26/09 at 2330, Until Discontinued, Routine 0949 (Given - Provider: Kiarra Kearns RN)202 (Given - Provider: Eleonora Suarez RN) 0956 (Given - Provider: Kiarra Kearns RN) pantoprazole (PROTONIX) tablet 40 mg (CANCELED) 40 mg, oral, 2 TIMES DAILY, First dose on Sat08/30/09 at 2100, Until Discontinued, Routine 2151 (Given - Provider: Gia Menjivar RN) 0900 (Given - Provider: Mandi Johnson) potassium chloride SA (K-DUR, KLOR-CON M20) tablet 40 mEq (COMPLETED) 40 mEq, oral, NOW X1, 1 dose, On Sat08/30/09 at 0845, Routine 0838 (Given - Provider: Kiarra Kearns RN) Continuous Medication Order 08/29/2009 08/30/2009 08/31/2009 morphine 2 mg/ml (DURAMORPH) CHAR PULLER, 30 ml syringe (CANCELED) intravenous, CHAR PULLER, Starting on 08/27/09 at 0000, Until Sat08/30/09 at 0653, Intravenous, CHAR PULLER, CHAR PULLER Dose: 1 mg LOCKOUT Interval: 10 minutes ONE HOUR Dose Limit: 6 mg See PRN bolus orders for breakthrough pain., Routine 0808 (Rate Documented - Provider: Kiarra Kearns RN)1315 (New Bag - Provider: Kiarra Kearns RN) 0744 (Completed - Provider: Kiarra Kearns RN) sodium chloride 0.9 % (NS) infusion (CANCELED) at 50 mL/hr, intravenous, CONTINUOUS, Starting on Sat08/26/09 at 0915, Until Sat08/31/09 at 1429, Routine 0808 (Rate Documented - Provider: Kiarra Kearns RN)0958 (Rate Documented - Provider: Kiarra Kearns RN)1228 (New Bag - Provider: Kiarra Kearns RN)1351 (Rate Documented - Provider: Kiarra Kearns RN) 0744 (Rate Documented - Provider: Kiarra Kearns RN)0840 (Completed - Provider: Kiarra Kearns RN) PRN Medication Order 08/29/2009 08/30/2009 08/31/2009 morphine (MS IR) tablet 15 mg 15 mg, oral, EVERY 4 HOURS PRN, Starting on Sat08/30/09 at 1710, Until Sat08/31/09 at 1429, Pain, Routine 1732 (Given - Provider: Gia Menjivar RN) morphine injection 2-5 mg (CANCELED) 2-5 mg, intravenous, EVERY 4 HOURS PRN, Starting on Sat08/26/09 at 2339, Until Sat08/31/09 at 1429, Pain, Routine 0226 (Given - Provider: Stella Teran RN) 1848 (Given - Provider: Gia Menjivar RN) ondansetron (PF) (ZOFRAN) 4 mg/2 mL injection 4 mg (CANCELED)(Linked Group 2) 4 mg, intravenous, EVERY 6 HOURS PRN, Starting on Daisha 08/25/09 at 2225, Until Sat08/31/09 at 1429, Nausea, Routine 1449 (Given - Provider: Kiarra Kearns RN) Linked Groups Order Group 1: ibuprofen (MOTRIN) tablet 400 mgJump to med 400 mg, oral, EVERY 4 HOURS, First dose (after last modification) on Sat08/30/09 at 0800, Until Discontinued, Routine Group 2: ondansetron (PF) (ZOFRAN) 4 mg/2 mL injection 4 mg (CANCELED)Jump to med 4 mg, intravenous, EVERY 6 HOURS PRN, Starting on Daisha 08/25/09 at 2225, Until Sat08/31/09 at 1429, Nausea, Routine Or ondansetron (ZOFRAN-ODT) disintegrating tablet 4 mg (CANCELED) 4 mg, oral, EVERY 6 HOURS PRN, Starting on Daisha 08/25/09 at 2225, Until 08/31/09 at 1429, Nausea, Routine documented in this encounter Orders Medications Ordered That Den ht Not Have Been Administered Count Last Ordered Date First Ordered Date simethicone (MYLICON) chewab le tablet 80 mg 1 08/31/2009 HYDROmorphone (DILAUDID) tablet 2-4 mg 1 morphine (MS IR) 15 mg tablet 1 08/30/2009 oxycodone (ROXICODONE) immed iate release tablet 5-10 mg 1 08/30/2009 albuterol-ipratropium (COMBI VENT) 18-103 mcg/Actuation inhaler 2 Puff 1 08/28/2009 HYDROmorphone (PF) (DILAUDID ) 1 mg/mL injection 0.4-1 mg 1 08/26/2009 promethazine (PHENERGAN) inj ection 12.5-25 mg 1 08/26/2009 promethazine (PHENERGAN) tablet 12.5-25 mg 2 08/26/2009 08/25/2009 albuterol (PROVENTIL) 2.5 mg /3 mL (0.083 %) nebulizer solution 2.5 mg 1 08/25/2009 atropine 0.1 mg/mL 10 mL syringe 0.5 mg 1 0 08/25/2009 diphenhydrAMINE (BENADRYL) i njection 25-50 mg 1 08/25/2009 HYDROmorphone (PF) (DILAUDID ) 1 mg/mL injection 0.2 mg 1 08/25/2009 ibuprofen (MOTRIN) tablet 600 mg 1 08/26/19 10 meperidine (PF) (DEMEROL) 25 mg/0.5 mL injection 25 mg 1 08/25/2009 naloxone (NARCAN) injection 0.2 mg 1 2009 ondansetron (PF) (ZOFRAN) 4 mg/2 mL injection 2 mg 1 08/25/2009 ondansetron (ZOFRAN-ODT) dis integrating tablet 4 mg 1 08/25/2009 promethazine (PHENERGAN) injection 12.5 mg 1 08/25/2009 CEFAZolin (ANCEF) syringe 2 g 1 08/23/2009 heparin injection 5,000 Units 1 08/23/2009 Lab Orders Without Results Count Last Ordered D ate First Ordered Date POCT GLUCOSE 1 08/25/2009 Diet Count Last Ordered Date First Orde red Date DIET REGULAR 1 08/29/2009 Nursing Count Last Ordered Date First Orde red Date NURSING COMMUNICATION 1 08/29/2009 FREY CATHETER - DISCONTINUE 1 08/27/2009 MISCELLANEOUS NURSING CARE ORDER (SPECIFY) 2 08/26/2009 VITAL SIGNS 1 08/26/2009 CATHETER CARE 1 08/25/2009 INSERT PERIPHERAL IV 1 08/25/[address] SEQUENTIAL COMPRESSION DEVICE 1 08/25 Respiratory Care Count Last Ordered Date First Ordered Date AIRWAY CLEARANCE THERAPY 4 08/28/2009 METERED DOSE INHALER 1 08/26/2009 NEBULIZER TX INTERMITTENT 1 08/25/2009 IV Count Last Ordered Date First Orde red Date IV REQUEST 1 08/28/2009 Admission Count Last Ordered Date First Orde red Date NOTIFY PPS OF DISCHARGE COMPLETE 1 09/01/19 10 ADMIT TO INPATIENT 1 08/25/2009 ADMITTING CONDITION 1 08/25/2009 NOTIFY PPS PATIENT TRANSFERRED OUT OF PACU 1 08/25/2009 TEACHING SERVICE 1 08/25/2009 Transfer Count Last Ordered Date First Orde red Date TRANSFER PATIENT 2 08/29/2009 08/25/2009 Discharge Count Last Ordered Date First Orde red Date DISCHARGE PATIENT 1 08/31/2009 documented in this encounter Care Teams Data Recovery Planner Relationship Specialty Start Date End Date Hunter Richards MD PCP - General 03/14/09 09/19/09 documented as of this encounter
--- OUTSIDE RECORDS SUMMARY | 2024-01-20 19:55 | XMS_ITS | Encounter Summary ---
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 Encounter Details Date Type Department Care Team (Late st Contact Info) Description 10/14/2009 9:45 EDT Office Visit [facility] - [address] [address] Osmar Benavides MD [address] [place] [address], [address] [place] [address] Malignant neoplasm of ovary (HCC-CMS); Encounter for antineoplastic chemotherapy Social History Tobacco Use Types Packs/Day Years [...] Sign Reading Time Taken Comments Blood Pressure 122/80 10/14/2009 0931 EDT Pulse 72 10/14/2009 0931 EDT Temperature - - Respiratory Rate - - Oxygen Saturation - - Inhaled Oxygen Concentration - - Weight 61.2 kg (135 lb) 10/14/2009 0931 EDT Height 154.9 cm (5' 1) 10/14/2009 0931 EDT Body Mass Index 25.51 10/14/2009 0931 EDT documented in this encounter Progress Notes * Inpatient, Physician - 10/31/2009 1316 EDT * Osmar Benavides MD - 10/14/2009 1013 EDT DIAMOND ROJAS MD [address] [facility] [id number] Rojas: Just a note to [...] for her pre- treatment evaluation of course 2 of Taxol/carboplatin. Of note, She denies any shortness of breath, chest pain, nausea, vomiting, constipation or diarrhea. She denies any abnormal vaginal bleeding, odor or discharge. She denies any urinary symptoms. Remainder of ROS is negative. Current outpatient prescriptions Medication Sig Dispense Refill ??? UNABLE TO FIND Take 1 Tab by mouth 2 times daily. Med Name: Emma Root ??? dexamethasone (DECADRON) 4 mg tablet Take 1 Tab by mouth 2 times daily. 36 Tab 0 ??? prochlorperazine (COMPAZINE) 10 mg tablet Take 1 Tab by mouth every 6 hours as needed for Nausea. 30 Tab 3 ??? lorazepam (ATIVAN) 1 mg tablet Take [...] every 4 hours. 1 Tab 0 ??? morphine (MS IR) 15 mg tablet Take 1 Tab by mouth every 4 hours as needed for Pain. 25 Tab 0 ??? albuterol (PROVENTIL HFA, VENTOLIN HFA) 90 mcg/Actuation inhaler Inhale 2 Puffs as directed as needed for Wheezing. Allergies Allergen Reactions ??? Codeine Nausea And Vomiting ??? Adhesive Tape-silicons Rash ??? Dilaudid (Hydromorphone (Pf)) Nausea And Vomiting Nausea & Vomiting with WOOL WASHER FEEDER dilaudid 08/27/09 ??? Oxycodone Shortness Of Breath, Nausea And Vomiting and Other (See Comments) Per pt & confirmed by daughter: previous SOB/N&V, diaphoresis with OXYCODONE. Review of Systems Pertinent items are noted in Subjective/HPI Objective: BP 122/80 Pulse 72 Ht 1.549 m (5' 1) Wt 61.236 kg (135 lb) LMP Postmenopausal Pt is A&Ox3 and in NAD HEENT: NC/AT Neck: no cervical or supra-clavicular lymphadenopathy Heart: S1S2 Lungs: Clear; no wheezing Abdomen: soft, NT,ND, no rebound or guarding, no hepatosplenomegaly Pelvic: deferred Ext: no CCE Assessment: Pre-chemotherapy labs were reviewed and are normal for treatment. Today, I explained to Marisol that I am pleased with how she is doing. Her physical exam is satisfactory for treatment. I have written and signed her chemotherapy orders. She will get treated today. As always, I thank you for allowing me to participate in the care of your patients. I will keep youinformed of her progress. Sincerely, Osmar Benavides MD Director, Division of [employer] Oncology [facility] documented in this encounter Miscellaneous Notes * Scanned Note-Null - Inpatient, Physician - 10/31/2009 1316 EDT * Scanned Note-Null - Inpatient, Physician - 10/31/2009 1245 EDTAssociated Order(s): ORDERS - SCANNED documented in this encounter Plan of Treatment Not on file documented as of this encounter Procedures Procedure Name Priority Date/Time Associated Diagnosis Comments ORDERS - SCANNED 10/31/2009 12:4 5 EDT documented in this encounter Results * ORDERS - SCANNED (10/31/2009 12:45 EDT) 10/31/2009 12:4 5 EDT Narrative Procedure Note Inpatient, Physician - 10/31/2009 12:45 EDT Physician Inpatient MD ADMISSION ORDERAB LES documented in this encounter Visit Diagnoses Diagnosis Malignant neoplasm of ovary (HCC-CMS) Malignant neoplasm of ovary Encounter for antineoplastic chemotherapy documented in this encounter Historical Medications * This list may reflect changes made after this encounter. Medication Sig Dispensed Refills Start Date End Date UNABLE TO FIND Take 1 Tab by mouth 2 times daily. Med Name: Emma Root 02/2013 added in this encounter Care Teams Assistant Casino Shift Manager Relationship Specialty Start Date End Date Diamond Rojas MD PCP - General 09/21/09 12/15/09 documented as of this encounter
--- OUTSIDE RECORDS SUMMARY | 2024-01-20 19:55 | XMS_ITS | Encounter Summary ---
Author Organization [facility] Address [address] [place] [address] Care Team Providers Care Catcher Helper Name Role Phone Hunter Richards MD Primary Care Provider Un available Encounter Details Date Type Department Care Team (Late st Contact Info) Description 09/22/2009 8:22 EDT - 09/22/2009 21:42 EDT Hospital Encounter [facility] Cardiovascular Unit [address] [place] [address] Osmar Benavides MD [address] [facility] [address] [place] [id number] Discharge Disposition: Home or Self Care Social [...] Sign Reading Time Taken Comments Blood Pressure 119/79 09/22/2009 1252 EDT Pulse 80 09/22/2009 1252 EDT Temperature 36.3 ??C (97.3 ??F) 09/22/2009 1200 EDT Respiratory Rate 18 09/22/2009 1252 EDT Oxygen Saturation 100% 09/22/2009 1252 EDT Inhaled Oxygen Concentration - - Weight - - Height - - Body Mass Index - - documented in this encounter Discharge Instructions * Discharge Instructions* Yudi Chau RN - 09/22/2009 13:21 EDT documented in this encounter Medications at Time [...] encounter Progress Notes * Inpatient, Physician - 10/10/2009 1131 EDT * Yudi Chau RN - 09/22/2009 1316 EDT 1240 Assumed care of patient- sleeps in naps.No s/s of bleeding noted. 1300 Patient tolerated orthostatic vital signs well- steady on feet to ambulate in hauser to BR. Up in wheelchair- IV removed per protocol. Reinerated Home care discharge instructions & all questions answered. Patient discharged to home with daughter via wheelchair without problem. * Shirley Sharpe RN - 09/22/2009 1220 EDT 1200 pt arrived cvu s/p implanted port placement. Awake and oriented x3, denies pain. Right chest dressing clean dry and intact. No redness or swelling noted. Food and drink given, Daughter at bedside. 1230 Right subc dressing clean dry and intact denies pain. Tylenol given for head ache which pt hadprior to procedure. Discharge instruction gone over with pt and daughter. Both verbalized understanding copy given. khjt * Alfonzo Vaughn - 09/22/2009 0930 EDT Pt here for chest port placement, has chemo tomorrow. Daughter at side, safety measures in effect. * Yudi Chau RN - 09/21/2009 1422 EDT Marisol Lawson was not available to speak with when called by phone. Detailed message left on answering machine regarding pre-procedure instructions including NPO status, milk delivery driver needed, check intime, bringing medication list and inhalers if applicable. Information with CVU contact phone number left if patient wishes to call if patient has any questions. documented in this encounter Procedure Notes * Raymon Pandey - 09/22/2009 1200 EDT INTERVENTIONAL RADIOLOGY PROCEDURE NOTE: Radiologist: Clementina/Katherin Procedure: Single lumen chest port. Diagnosis/Reason: Ovarian cancer. Chemo access. Anesthesia: Conscious sedation, local anesthesia. Approach: Right internal jugular vein. Medications: IV midazolam, IV fentanyl, local buffered 1% lidocaine Contrast: None Fluoro time: See PACS EBL: Minimal Specimens: None Cultures: None Preliminary Findings: Placed a single lumen chest port in the right chest via the right internal jugular vein. Accessed and flushes normally. Complications: None Recommendations: OK to use. Raymon Pandey MD Interventional Radiology Fellow, PGY-6 Pager [phone] documented in this encounter OR Notes * Anesthesia Procedure Notes - Inpatient, Physician - 09/27/2009829 EDT documented in this encounter Miscellaneous Notes * Scanned Note-Null - Inpatient, Physician - 09/27/2009829 EDT * Scanned Note-Null - Inpatient, Physician - 09/27/2009829 EDT * Scanned Note-Null - Inpatient, Physician - 09/27/2009829 EDT * Scanned Note-Null - Inpatient, Physician - 09/22/2009825 EDT * Scanned Note-Null - Inpatient, Physician - 09/22/2009825 EDT documented in this encounter Plan of Treatment Not on file documented as of this encounter Visit Diagnoses Not on filedocumented in this encounter Administered Medications Inactive Administered Medications - up to 3 most recent administrations Medication Order MAR Action Action Date Dose Rate Site acetaminophen (TYLENOL) 325 mg tablet 1 dose, Starting on Daisha 09/22/09 at 1214, Until Dasiha 09/22/09 at 1216 acetaminophen (TYLENOL) tablet 650 mg 650 mg, oral, EVERY 4 HOURS PRN, Starting on Daisha 09/22/09 at 1203, Until Daisha 09/22/09 at 2342, Pain, Routine, Postprocedure Given 09/22/2009 12:16 EDT 650 mg fentanyl citrate (PF) 50 mcg/mL injection 25-250 mcg 25-250 mcg, intravenous, ONCE PRN, 1 dose, Starting on Daisha 09/22/09 at 0938, Until Daisha 09/22/09 at 1156, Pain, Routine, Intraprocedure Given 09/22/2009 11:56 EDT 150 mcg midazolam (VERSED) injection 0.5-10 mg 0.5-10 mg, intravenous, ONCE PRN, 1 dose, Starting on Daisha 09/22/09 at 0938, Until Daisha 09/22/09 at 1136, Sedation, Routine, Intraprocedure Given 09/22/2009 11:36 EDT 5 mg sodium chloride 0.9 % (NS) infusion 50 mL/hr, intravenous, CONTINUOUS, Starting on Daisha 09/22/09 at 0915, Until Daisha 09/22/09 at 2342, Routine, Preprocedure Rate Documented 09/22/2009 12:20 EDT 50 mL/hr 50 mL/hr documented in this encounter Active and Recently Administered Medications Times are shown in EDT. Continuous Medication Order 09/20/2009 09/21/2009 09/22/2009 sodium chloride 0.9 % (NS) infusion (CANCELED) 50 mL/hr, intravenous, CONTINUOUS, Starting on Daisha 09/22/09 at 0915, Until Daisha 09/22/09 at 2342, Routine, Preprocedure 1220 (Rate Documente d - Provider: Yudi Chau RN)1245 (Completed - Provider: Yudi Chau RN) PRN Medication Order 09/20/2009 09/21/2009 09/22/2009 acetaminophen (TYLENOL) tablet 650 mg (CANCELED) 650 mg, oral, EVERY 4 HOURS PRN, Starting on Daisha 09/22/09 at 1203, Until Daisha 09/22/09 at 2342, Pain, Routine, Postprocedure 1216 (Given - Provid er: Shirley Sharpe RN) fentanyl citrate (PF) 50 mcg/mL injection 25-250 mcg (COMPLETED) 25-250 mcg, intravenous, ONCE PRN, 1 dose, Starting on Daisha 09/22/09 at 0938, Until Daisha 09/22/09 at 1156, Pain, Routine, Intraprocedure 1156 (Given - Provid er: Nesha Webber RN - Comment: given in 25mcg increments throughout IR procedure) midazolam (VERSED) injection 0.5-10 mg (COMPLETED) 0.5-10 mg, intravenous, ONCE PRN, 1 dose, Starting on Daisha 09/22/09 at 0938, Until Daisha 09/22/09 at 1136, Sedation, Routine, Intraprocedure 1136 (Given - Provid er: Nesha Webber RN - Comment: given in 0.5-1mg increments throughout IR procedure) documented in this encounter Orders Diet Count Last Ordered Date First Orde red Date DIET REGULAR 1 09/22/2009 Nursing Count Last Ordered Date First Orde red Date BEDREST 1 09/22/2009 INSERT PERIPHERAL IV 1 09/22/2009 NOTIFY PHYSICIAN (SPECIFY) 1 09/22/2009 NURSING COMMUNICATION 1 09/22/2009 OXYGEN THERAPY 1 09/22/2009 REMOVE IV 1 09/22/2009 VITAL SIGNS 1 09/22/2009 Admission Count Last Ordered Date First Orde red Date ADMIT TO OUTPATIENT 1 09/22/2009 NOTIFY PPS OF DISCHARGE COMPLETE 1 09/23/19 10 Discharge Count Last Ordered Date First Orde red Date DISCHARGE PATIENT 1 09/22/2009 documented in this encounter Care Teams Catcher Helper Relationship Specialty Start Date End Date Hunter Richards MD PCP - General 09/21/09 12/15/09 documented as of this encounter
--- OUTSIDE RECORDS SUMMARY | 2024-01-20 19:55 | XMS_ITS | Encounter Summary ---
Author Organization [facility] Address [address] [place] [address] Care Team Providers Care Police Clerk Name Role Phone Angel Chilel MD Primary Care Provider Unav ailable Encounter Details Date Type Department Care Team (Late st Contact Info) Description 12/23/2009 9:02 EDT - 12/23/2009 23:59 EDT Hospital Encounter [facility] Hematology & Oncology - [facility] [address] [place], [place] [id number] Robbie, MD Giovani Osmar Benavides MD [address] [facility], [address] [place] [address] Discharge Disposition: Home or Self [...] Anxiety. Nausea 20 Tab 3 09/22/2009 12/25/2010 prochlorperazine (COMPAZINE) 10 mg tablet Take 1 Tab by mouth every 6 hours as needed for Nausea. 30 Tab 0 11/25/2009 05/25/2010 UNABLE TO FIND Take 1 Tab by mouth 2 times daily. Med Name: Emma Root 05/15/2012 zolpidem (AMBIEN) 10 mg tablet Take 1 Tab by mouth at bedtime as needed for Sleep. 30 Tab 0 11/04/2009 01/12/2010 documented as of this encounter Discharge Disposition Disposition Code Departure Means Destination Home or Self Skilled Nursing documented in this encounter Plan of Treatment Not on file documented as of this encounter Visit Diagnoses Not on filedocumented in this encounter Care Teams Police Clerk Relationship Specialty Start Date End Date Angel Chilel MD PCP - General 12/16/09 05/13/12 documented as of this encounter
--- OUTSIDE RECORDS SUMMARY | 2024-01-20 19:55 | XMS_ITS | Encounter Summary ---
Author Organization [facility] Address [address] [place] [address] Care Team Providers Care Overnight Houseperson Name Role Phone Hunter Richards MD Primary Care Provider Un available Encounter Details Date Type Department Care Team (Late st Contact Info) Description 11/25/2009 9:43 EDT - 11/25/2009 23:59 EDT Hospital Encounter [facility] Hematology & Oncology - [facility] [address] [place], [place] [address] Unknown, MD Giovani Osmar Benavides MD [address] [facility], [address] [place] [address] Discharge Disposition: Home or Self [...] Code Departure Means Destination Home or Self Halfway documented in this encounter Plan of Treatment Not on file documented as of this encounter Visit Diagnoses Not on filedocumented in this encounter Care Teams Overnight Houseperson Relationship Specialty Start Date End Date Hunter Richards MD PCP - General 09/21/09 12/15/09 documented as of this encounter
--- OUTSIDE RECORDS SUMMARY | 2024-01-20 19:55 | XMS_ITS | Encounter Summary ---
Author Organization [facility] Address [address] [place] [address] Care Team Providers Care Parasitologist Name Role Phone Angel Chilel MD Primary Care Provider Unav ailable Encounter Details Date Type Department Care Team (Late st Contact Info) Description 02/15/2010 Orders Only [facility] OBGYN Services - [facility] [address] [place] [address] Mag Calhoun RN Malignant neoplasm of ovary [...] Progress Notes * Mag Calhoun RN - 02/15/2010 1308 EDT Standing order for monthly CA-125 and port flush faxed to [facility] registration @ [phone]. Confirmed MANAGER HEAVY DUTY available for port, best to come in between hours of 7:30 am and 3 pm Keith Calhoun RN documented in this encounter Plan of Treatment Not on file documented as of this encounter Visit Diagnoses Diagnosis Malignant neoplasm of ovary (HCC-CMS)- Primary Malignant neoplasm of ovary documented in this encounter Care Teams Parasitologist Relationship Specialty Start Date End Date Angel Chilel MD PCP - General 12/16/09 05/13/12 documented as of this encounter
--- OUTSIDE RECORDS SUMMARY | 2024-01-20 19:55 | XMS_ITS | Encounter Summary ---
Author Organization [facility] Address [address] [place] [address] Care Team Providers Care Maltster Name Role Phone Angel Chilel MD Primary Care Provider Unav ailable Reason for Visit * Reason Onset Date Comments Medications Refill 12/27/2009 Encounter Details Date Type Department Care Team (Late st Contact Info) Description 12/27/2009 Refill [facility] OBGYN Services - [facility] [address] [place] [address] Mag Calhoun RN Medications Refill Social History Tobacco Use Types [...] Dispensed Refills Start Date End Da te levofloxacin (LEVAQUIN) 500 mg tablet Take 1 Tab by mouth daily for 7 days. 7 Tab 0 12/27/2009 01/03/2010 documented in this encounter Miscellaneous Notes * Telephone Encounter - Mag Calhoun RN - 12/27/2009 1721 EDT Pt with persistent URI sx. Productive cough with clear to milky white sputum production and laryngitis. No fever or chills per pt. Completed a Z-Shon 3 days ago and notes sx have not improved. C5 taxol/carbo on 12/23. Discussed with Dr Doan, Levaquin 500mg po daily x 7 days prescribed. Pt advised to monitor temp, will call office for fever > or =100.5 F or with increased SOB. documented in this encounter Plan of Treatment Not on file documented as of this encounter Visit Diagnoses Not on filedocumented in this encounter Care Teams Maltster Relationship Specialty Start Date End Date Angel Chilel MD PCP - General 12/16/09 05/13/12 documented as of this encounter
--- OUTSIDE RECORDS SUMMARY | 2024-01-20 19:55 | XMS_ITS | Encounter Summary ---
Author Organization [facility] Address [address] [place] [address] Care Team Providers Care Corporate Buyer Name Role Phone Hunter Richards MD Primary Care Provider Un available Reason for Visit * Reason Onset Date Comments Medications Refill 10/14/2009 Encounter Details Date Type Department Care Team (Late st Contact Info) Description 10/14/2009 Refill [facility] OBGYN Services - [facility] [address] [place], [place] [id number] Mag Calhoun, NICK Medications Refill Social History [...] te azithromycin (ZITHROMAX) 250 mg tablet Take 1 Tab by mouth. Take 2 tablets (500 mg) on Day 1, followed by 1 tablet (250 mg) once daily on Days 2 through 5. 6 Tab 0 10/14/2009 11/25/2009 documented in this encounter Plan of Treatment Not on file documented as of this encounter Visit Diagnoses Not on filedocumented in this encounter Care Teams Corporate Buyer Relationship Specialty Start Date End Date Hunter Richards MD PCP - General 09/21/09 12/15/09 documented as of this encounter
--- OUTSIDE RECORDS SUMMARY | 2024-01-20 19:55 | XMS_ITS | Encounter Summary ---
Author Organization [facility] Address [address] [place] [address] Care Team Providers Care Glass Washer And Carrier Name Role Phone Hunter Richards MD Primary Care Provider Un available Reason for Referral * (Routine) - Closed Specialty Diagnoses / Procedures Referred By Contac t Referred To Contact Diagnoses Malignant neoplasm of ovary (HCC-CMS) Procedures COMPREHENSIVE METABOLIC PANEL Mag Calhoun RN Referral ID Status Reason Start Date Expiration Date Visits Re quested Visits Authorized [id number] Closed 11/29/2009 1 1 * (Routine) - Closed Specialty Diagnoses / Procedures Referred By Renita t Referred To Contact Diagnoses Malignant neoplasm of ovary (HCC-CMS) Procedures CBC WITH AUTO DIFF - ONCOLOGY USE ONLY Mag Calhoun RN Referral ID Status Reason Start Date Expiration Date Visits Re quested Visits Authorized [id number] Closed 11/29/2009 1 1 * (Routine) - Closed Specialty Diagnoses / Procedures Referred By Renita t Referred To Contact Diagnoses Malignant neoplasm of ovary (HCC-CMS) Procedures CA 125 Mag Calhoun RN Referral ID Status Reason Start Date Expiration Date Visits Re quested Visits Authorized [id number] Closed 11/29/2009 1 1 Encounter Details Date Type Department Care Team (Late st Contact Info) Description 11/29/2009 Orders Only [facility] OBGYN Services - [facility] [place] [address] [place], [place] [address] Mag Calhoun RN Malignant neoplasm of ovary [...] 125 Lab Routine Malignant neoplasm of ovary ([facility]) Expected: 12/14/2009 (Approximate), Expires: 11/29/2010 CBC WITH AUTO DIFF - ONCOLOGY USE ONLY Lab STAT Malignant neoplasm of ovary ([facility]) Expected: 12/14/2009 (Approximate), Expires: 11/29/2010 COMPREHENSIVE METABOLIC PANEL Lab STAT Malignant neoplasm of ovary ([facility]) Expected: 12/14/2009 (Approximate), Expires: 11/29/2010 documented as of this encounter Visit Diagnoses Diagnosis Malignant neoplasm of ovary ([facility])- Primary Malignant neoplasm of ovary documented in this encounter Care Teams Glass Washer And Carrier Relationship Specialty Start Date End Date Hunter Richards MD PCP - General 09/21/09 12/15/09 documented as of this encounter
--- OUTSIDE RECORDS SUMMARY | 2024-01-20 19:55 | XMS_ITS | Encounter Summary ---
Author Organization [facility] Address [address] [place] [address] Care Team Providers Care Information Technology Data Analyst Name Role Phone Angel Chilel MD Primary Care Provider Unav ailable Reason for Visit * Reason Onset Date Comments Results 03/23/2010 external CA-125 results Encounter Details Date Type Department Care Team (Late st Contact Info) Description 03/23/2010 Orders Only [facility] OBGYN Services - [address] [phone] Mag Calhoun, NICK Malignant neoplasm of ovary [...] Date/Time Associated Diagnosis Comments ZZCA 125 Routine 03/20/2010 10:55 EST documented in this encounter Results * CA 125 (03/20/2010 10:55 EST) CA 125, External 12 0 - 35 [facility] Blood specimen (specimen) 03/20/2010 10:55 EST Historical Provider CHEMISTRY & BLOOD GAS ORDERABLES [facility] documented in this encounter Visit Diagnoses Diagnosis Malignant neoplasm of ovary (HCC-CMS)- Primary Malignant neoplasm of ovary documented in this encounter Care Teams Information Technology Data Analyst Relationship Specialty Start Date End Date Angel Chilel MD PCP - General 12/16/09 05/13/12 documented as of this encounter
--- OUTSIDE RECORDS SUMMARY | 2024-01-20 19:55 | XMS_ITS | Encounter Summary ---
Author Organization [facility] Address [address] [place] [address] Care Team Providers Care Pug Machine Operator Name Role Phone Angel Chilel MD Primary Care Provider Unav ailable Encounter Details Date Type Department Care Team (Late st Contact Info) Description 01/06/2010 Abstract Used for ABSTRACTING Data [phone] Angel Chilel MD Social History Tobacco Use Types Packs/Day Years [...] on filedocumented in this encounter Care Teams Pug Machine Operator Relationship Specialty Start Date End Date Angel Chilel MD PCP - General 12/16/09 05/13/12 documented as of this encounter
--- OUTSIDE RECORDS SUMMARY | 2024-01-20 19:55 | XMS_ITS | Encounter Summary ---
Author Organization [facility] Address [address] [place] [address] Care Team Providers Care Data Analytics Chief Scientist Name Role Phone Hunter Richards MD Primary Care Provider Un available Reason for Referral * (Routine) - Closed Specialty Diagnoses / Procedures Referred By Renita t Referred To Contact Diagnoses Malignant neoplasm of ovary (HCC-CMS) Procedures MAGNESIUM Mag Calhoun RN Referral ID Status Reason Start Date Expiration Date Visits Re quested Visits Authorized [id number] Closed 09/23/2009 1 1 * (Routine) - Closed Specialty Diagnoses / Procedures Referred By Renita t Referred To Contact Diagnoses Malignant neoplasm of ovary (HCC-CMS) Procedures COMPREHENSIVE METABOLIC PANEL Mag Calhoun RN Referral ID Status Reason Start Date Expiration Date Visits Re quested Visits Authorized [id number] Closed 09/23/2009 1 1 * (Routine) - Closed Specialty Diagnoses / Procedures Referred By Renita t Referred To Contact Diagnoses Malignant neoplasm of ovary (HCC-CMS) Procedures CBC WITH AUTO DIFF - ONCOLOGY USE ONLY Mag Calhoun RN Referral ID Status Reason Start Date Expiration Date Visits Re quested Visits Authorized [id number] Closed 09/23/2009 1 1 * (Routine) - Closed Specialty Diagnoses / Procedures Referred By Renita pratt Referred To Contact Diagnoses Malignant neoplasm of ovary (HCC-CMS) Procedures CA 125 Mag Calhoun RN Referral ID Status Reason Start Date Expiration Date Visits Re quested Visits Authorized [id number] Closed 09/23/2009 1 1 Encounter Details Date Type Department Care Team (Late st Contact Info) Description 09/23/2009 Orders Only [facility] OBGYN Services - [address] [address] Mag Calhoun, RN Malignant neoplasm of ovary [...] Routine Malignant neoplasm of ovary (HCC-CMS) Expected: 10/12/2009, Expires: 09/23/2010 CBC WITH AUTO DIFF - ONCOLOGY USE ONLY Lab STAT Malignant neoplasm of ovary (HCC-CMS) Expected: 10/12/2009 (Approximate), Expires: 09/23/2010 COMPREHENSIVE METABOLIC PANEL Lab STAT Malignant neoplasm of ovary (HCC-CMS) Expected: 10/12/2009 (Approximate), Expires: 09/23/2010 MAGNESIUM Lab STAT Malignant neoplasm of ovary (HCC-CMS) Expected: 10/12/2009 (Approximate), Expires: 09/23/2010 documented as of this encounter Visit Diagnoses Diagnosis Malignant neoplasm of ovary (HCC-CMS)- Primary Malignant neoplasm of ovary documented in this encounter Care Teams Data Analytics Chief Scientist Relationship Specialty Start Date End Date Hunter Richards MD PCP - General 09/21/09 12/15/09 documented as of this encounter
--- OUTSIDE RECORDS SUMMARY | 2024-01-20 19:55 | XMS_ITS | Encounter Summary ---
Author Organization [facility] Address [address] [place] [address] Care Team Providers Care Carton Forming Machine Tender Name Role Phone Hunter Richards MD Primary Care Provider Un available Reason for Visit * Reason Comments Follow-up First post-operative visit for exploratory laparotomy, total abdominal hysterectomy, bilateral salpingo-oophorectomy and omentectomy, and aspiration of ascites 08/25/2009 Encounter Details Date Type Department Care Team (Late st Contact Info) Description 09/05/2009 14:15 EDT Office Visit [facility] OBGYN Services - [facility] [address], [place] [address] Osmar Benavides MD [address] [place] [address], [address] [place] [address] Malignant neoplasm of ovary (HCC-CMS) [...] Sign Reading Time Taken Comments Blood Pressure 144/84 09/05/2009 1435 EDT Pulse - - Temperature - - Respiratory Rate - - Oxygen Saturation - - Inhaled Oxygen Concentration - - Weight 64 kg (141 lb) 09/05/2009 1435 EDT Height 154.9 cm (5' 1) 09/05/2009 1435 EDT Body Mass Index 26.64 09/05/2009 1435 EDT documented in this encounter Discharge Disposition Disposition Code Departure Means Destination Auto Discharge documented in this encounter Progress Notes * Osmar Benavides MD - 09/05/2009 1512 EDT Subjective: Marisol Lawson is a 48 y.o. 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 She presents today for her first post-op check. Of note, she is on oral antibiotics because of a possible UTI (she has 2 days left of the antibiotics). She is weepy/sad about her diagnosis. She has good pain control and the remainder of the ROS is negative. Current outpatient prescriptions Medication Sig Dispense Refill ??? acetaminophen (TYLENOL) 325 mg tablet Take 1-2 Tabs by mouth every 4 hours. 1 Tab 0 ??? docusate sodium (COLACE) 100 mg capsule Take 1 Cap by mouth 2 times daily. 60 Cap 0 ??? ibuprofen (MOTRIN) 400 mg tablet Take 1 Tab by mouth every 4 hours. 1 Tab 0 ??? levofloxacin (LEVAQUIN) 500 mg tablet Take 1 Tab by mouth daily for 10 days. 7 Tab 0 ??? morphine (MS IR) 15 mg tablet Take 1 Tab by mouth every 4 hours as needed for Pain. 25 Tab 0 ??? albuterol (PROVENTIL HFA, VENTOLIN HFA) 90 mcg/Actuation inhaler Inhale 2 Puffs as directed as needed for Wheezing. Allergies Allergen Reactions ??? Codeine Nausea And Vomiting ??? Dilaudid (Hydromorphone (Pf)) Nausea And Vomiting Nausea & Vomiting with SPOOL CLE[employer]ER dilaudid 08/27/09 ??? Oxycodone Shortness Of Breath, Nausea And Vomiting and Other (See Comments) Per pt & confirmed by daughter: previous SOB/N&V, diaphoresis with OXYCODONE. Review of Systems Pertinent items are noted in Subjective/HPI Objective: BP 144/84 Ht 1.549 m (5' 1) Wt 63.957 kg (141 lb) LMP Postmenopausal Abdomen: benigno were removed. Incision is clean/dry and intact. Assessment: Today, I had a discussion with Marisol and her daughter with regards to her diagnosis of stage 3 ovarian cancer. I explained to her that she did undergo optimal cytoreductive surgery but she will now need to have chemotx. I explained to her that she will need carboplatin and Taxol. I had briefly discuss the regimen and potential side effects. Marisol states that she understands and agrees to undergo chemotx. She would like to have her treatments here at [facility]. I will be setting her up for an infusaport and we will start chemotx shortly. I have answered her questions. My nurse will be giving her a chemotx talk. documented in this encounter Plan of Treatment Not on file documented as of this encounter Procedures Procedure Name Priority Date/Time Associated Diagnosis Comments COMPLETE BLOOD COUNT AND DIFF, CHEMO Routine 09/05/2009 15:09 EDT Malignant neoplasm of ovary (HCC-CMS) PTT Routine 09/05/2009 15:09 EDT Malignant neoplasm of ovary (HCC-CMS) PROTIME Routine 09/05/2009 15:09 EDT Malignant neoplasm of ovary (HCC-CMS) ZZCA 125 Routine 09/05/2009 15:09 EDT Malignant neoplasm of ovary (HCC-CMS) COMPREHENSIVE METABOLIC PANEL (CMP) Routine 09/05/2009 15:09 EDT Malignant neoplasm of ovary (HCC-CMS) documented in this encounter Results * PTT (09/05/2009 15:09 EDT) PTT 33 24 - 35 secs [facility] Comment: Therapeutic Heparin range: ??60-90 seconds NOTE NEW REFERENCE RANGE EFFECTIVE 2009 NOTE: ??New Therapeutic Heparin range effective 08/10/2009 Blood specimen (specimen) 09/05/2009 15:09 EDT 09/05/2009 15:44 EDT Osmar Benavides MD HEMATOLOGY & PF4 ORD ERABLES [facility] [address] [place] [address] * PROTIME (09/05/2009 15:09 EDT) Pathologist [facility] Pro Time 12.8 9.9 - 13.1 secs [facility] Comment:NOTE NEW REFERENC E RANGE EFFECTIVE 2009 I.N.R. 1.1 0.9 - 1.1 Ratio [facility] Comment: Moderate Intensity Coumadin INR = 2.0-3.0 Adjustments in anticoagulant therapy dose should be based upon the INR and NOT the Pro Time. Blood specimen (specimen) 09/05/2009 15:09 EDT 09/05/2009 15:44 EDT Osmar Benavides MD HEMATOLOGY & PF4 ORD ERABLES [facility] [address] [place] [address] * (ABNORMAL) COMPREHENSIVE METABOLIC PANEL (09/05/2009 15:09 EDT) [facility] Potassium 3.3(L) 3.5 - 5.0 mEq/L [facility] Sodium 143 136 - 145 mEq/L [facility] Chloride 108 96 - 110 mEq/L [facility] CO2 27 24 - 32 mEq/L [facility] Total Alkaline Phosphatase 314(H) 38 - 126 U/L [facility] Bilirubin, Total <0.5 0.2 - 1.3 mg/dl [facility] AST 32 15 - 46 U/L [facility] ALT 12 9 - 52 U/L [facility] Albumin 3.0(L) 3.4 - 4.9 g/dl [facility] Total Protein 6.2(L) 6.5 - 8.3 g/dl [facility] Creatinine 0.50(L) 0.7 - 1.5 mg/dl [facility] GFR, Calculated >60 ml/min/1.7 3m2 [facility] BUN 12 10 - 26 mg/dl [facility] Calcium 8.5 8.5 - 10.5 mg/dl [facility] Calculated Calcium 9.9 8.5 - 10.5 mg/dl [facility] Glucose, Serum 120(H) 70 - 100 mg/dl [facility] Fasting? Unknown [facility] Magnesium 2.0 1.7 - 2.8 mg/dl [facility] Blood specimen (specimen) 09/05/2009 15:09 EDT 09/05/2009 15:44 EDT Osmar Benavides MD CHEMISTRY & BLOOD GA S ORDERABLES Performing Organization Address [facility] Co de Phone Number [facility] [address] [place] [address] * (ABNORMAL) CBC WITH AUTO DIFF - ONCOLOGY USE ONLY (09/05/2009 15:09 EDT) Pathologist [facility] WBC 8.22 4.0 - 12.4 K/cmm [facility] RBC 3.90 3.86 - 5.04 M/cmm [facility] Hemoglobin 12.0 11.6 - 15.2 gm/dl [facility] HCT 34.1(L) 34.9 - 44.4 % [facility] MCV 87 81 - 98 fl [facility] MCH 30.8 26.7 - 33.3 pg [facility] MCHC 35.2 32.1 - 35.9 gm/dl [facility] PLT 514(H) 141 - 320 K/cmm [facility] RDW-CV 14.5 11.7 - 14.6 % [facility] % Neutrophils 65.0 45.5 - 79.7 % [facility] ABS Neutrophils 5.34 2.20 - 8.85 K/cmm [facility] Type of Diff: Automated [facility] Blood specimen (specimen) 09/05/2009 15:09 EDT 09/05/2009 15:44 EDT Osmar Benavdies MD PACKAGES & DNA PROBE ORDERABLES Performing Organization Address [facility] Co de Phone Number [facility] [address] [place] [address] * (ABNORMAL) CA 125 (09/05/2009 15:09 EDT) Pathologist [facility] CA 125 841(H) 0 - 35 U/ml [facility] Comment: Serum CA125 concentrations should not be interpreted as absolute evidence for the presence or absence of malignant disease. Assayed utilizing [employer] technology. Values obtained by using different assay methods cannot be used interchangeably. PREVIOUS CA125 RESULT ON 08/09/09 WAS 4120 Blood specimen (specimen) 09/05/2009 15:09 EDT 09/05/2009 15:44 EDT Osmar Benavides MD CHEMISTRY & BLOOD GA S ORDERABLES [facility] [address] [place] [address] documented in this encounter Visit Diagnoses Diagnosis Malignant neoplasm of ovary (HCC-CMS)- Primary Malignant neoplasm of ovary documented in this encounter Discontinued Medications Medication Sig Discontinue Reason Start Date End Da te albuterol-ipratropium (COMBIVENT) 18-103 mcg/Actuation inhalerIndications:Abd ominal or pelvic swelling, mass, or lump, other specified site Inhale 2 Puffs as directed 4 times daily. Patient Stopped Taking 09/05/2009 documented as of this encounter Care Teams Carton Forming Machine Tender Relationship Specialty Start Date End Date Hunter Richards MD PCP - General 03/14/09 09/19/09 documented as of this encounter
--- OUTSIDE RECORDS SUMMARY | 2024-01-20 19:55 | XMS_ITS | Encounter Summary ---
Author Organization [facility] Address [address] [place] [address] Care Team Providers Care Credit Interviewer Name Role Phone Angel Chilel MD Primary Care Provider Unav ailable Encounter Details Date Type Department Care Team (Late st Contact Info) Description 01/12/2010 8:55 EDT - 01/12/2010 23:59 EDT Hospital Encounter [facility] Hematology & Oncology - [facility] [address] [place], [place] [id number] Robbie, MD Giovani Osmar Benavides MD [address] [facility], [address] [place] [address] Discharge Disposition: Home or Self [...] 4 hours. 1 Tab 0 08/31/2009 05/15/2012 dexamethasone (DECADRON) 4 mg tablet Take 1 Tab by mouth 2 times daily. For three days following chemotherapy 4 Tab 0 01/12/2010 05/25/2010 docusate sodium (COLACE) 100 mg capsule [...] mouth 2 times daily. Med Name: Emma Liu 05/15/2012 documented as of this encounter Discharge Disposition Disposition Code Departure Means Destination Home or Self Long-Term documented in this encounter Progress Notes * Osmar Benavides MD - 05/16/2010 1104 ESTQuick Note: Result of CT scan was reviewed with the patient. Pt's CA 125 in Apr 2010 is normal. It is unclear as to the exact etiology of the small amount of free fluid. At this time, I had discuss with her the possibility of repeating CA 125 in May and monitoring her CA 125-she is agreeable to this. I did discuss the possibility of surgery to evaluate the abdominal contents but we both agree to monitor her CA 125 rather than surgery. documented in this encounter Plan of Treatment Not on file documented as of this encounter Procedures Procedure Name Priority Date/Time Associated Diagnosis Comments SECONDARY READ NEURO CT 05/12/2010 7:50 EST documented in this encounter Results * SECONDARY READ NEURO (05/12/2010 7:50 EST) Anatomical Region Laterality Modality Other 05/12/2010 7:50 EST 05/12/2010 17:33 EST Narrative 05/12/2010 17:33 EST SECONDARY READ BODY IMAGING May 12, 2010 07:50:00 AM Clinical history/Comments: [facility] 12.30.10 MRI PELVIS FOR SECONDARY READ additional history provided by request form: Question recurrent ovarian cancer, new onset right lower quadrant pain. Patient with stage IIIc ovarian cancer, post surgery and chemotherapy. Comparison: Preoperative [facility] CT 08/18/2009 Findings: In comparison to the prior CT, there has been interval hysterectomy and bilateral salpingo-oophorectomy. The urinary bladder is unremarkable. There is small amounts of free fluid. Following the administration of intravenous contrast material, enhancement of the peritoneal surfaces noted. There is also mild colonic wall thickening. The marrow signal is without significant abnormality. Postsurgical changes anterior pelvic wall noted, no hernia. There is no retroperitoneal adenopathy. Sizable solid masses are not evident. Impression: 1. Interval hysterectomy and bilateral salpingo-oophorectomy. 2. Small amount of free fluid with peritoneal enhancement. Agree with outside report and that this raises concern for recurrent disease. However, would also include other etiologies given possible colonic wall thickening such as colitis. Recommend correlation with enhanced CT abdomen and pelvis using IV oral and rectal contrast. Procedure Note 05/12/2010 SECONDARY READ BODY IMAGING May 12, 2010 07:50:00 AM Clinical history/Comments: [facility] CD 12.30.10 MRI PELVIS FOR SECONDARY READ additional history provided by request form: Question recurrent ovarian cancer, new onset right lower quadrant pain. Patient with stage IIIc ovarian cancer, post surgery and chemotherapy. Comparison: Preoperative [facility] CT 08/18/2009 Findings: In comparison to the prior CT, there has been interval hysterectomy and bilateral salpingo-oophorectomy. The urinary bladder is unremarkable. There is small amounts of free fluid. Following the administration of intravenous contrast material, enhancement of the peritoneal surfaces noted. There is also mild colonic wall thickening. The marrow signal is without significant abnormality. Postsurgical changes anterior pelvic wall noted, no hernia. There is no retroperitoneal adenopathy. Sizable solid masses are not evident. Impression: 1. Interval hysterectomy and bilateral salpingo-oophorectomy. 2. Small amount of free fluid with peritoneal enhancement. Agree with outside report and that this raises concern for recurrent disease. However, would also include other etiologies given possible colonic wall thickening such as colitis. Recommend correlation with enhanced CT abdomen and pelvis using IV oral and rectal contrast. Osmar GRANADOS OTHER IMAGING OR DERABLES documented in this encounter Visit Diagnoses Not on filedocumented in this encounter Care Teams Credit Interviewer Relationship Specialty Start Date End Date Angel Chilel MD PCP - General 12/16/09 05/13/12 documented as of this encounter
--- OUTSIDE RECORDS SUMMARY | 2024-01-20 19:55 | XMS_ITS | Encounter Summary ---
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 08/25/09 Encounter Details Date Type Department Care Team (Late st Contact Info) Description 09/22/2009 13:00 EDT Office Visit [facility] OBGYN Services - [address] [id number] Osmar Benavides MD [address] [facility], [address] [place] [address] Malignant neoplasm of ovary (HCC-CMS) (Primary Dx); Other specified counseling Social History Tobacco Use Types Packs/Day Years [...] - - Weight 64 kg (141 lb) 09/22/2009 1532 EDT Height 154.9 cm (5' 1) 09/22/2009 1532 EDT Body Mass Index 26.64 09/22/2009 1532 EDT documented in this encounter Ordered Prescriptions Prescription Sig Dispensed Refills Start Date End Da te lorazepam (ATIVAN) 1 mg tablet Take 1 Tab by mouth every 6 hours as needed for Anxiety. Nausea 20 Tab 3 09/22/2009 12/25/2010 prochlorperazine (COMPAZINE) 10 mg tablet Take 1 Tab by mouth every 6 hours as needed for Nausea. 30 Tab 3 09/22/2009 11/25/2009 dexamethasone (DECADRON) 4 mg tablet Take 1 Tab by mouth 2 times daily. 36 Tab 0 09/22/2009 01/12/2010 documented in this encounter Progress Notes * Mag Calhoun RN - 09/22/2009 1541 EDT Marisol presents to clinic today with her daughter for discussion of chemotherapy with RN. She had her infusaport placed this morning and is scheduled for chemo C1 taxol/carbo tomorrow. Chemotherapy patient instruction form was reviewed in detail with Marisol. Information sheets on Paclitaxel and Carboplatin along with Eating Hints and Chemotherapy and You were given to pt for her review. Pre-chemo labs were obtained from right chest ivad which was accessed in interventional radiology after placement. Excellent blood return noted. Palma needle was left in place for chemo tomorrow. Flushed with 20mL NS and 5mL(100unit/mL) heparin. Patient Education Topic: Chemotherapy Method: Handout and Verbal Taught to: Patient and Family Barriers: None Outcomes: independent and verbalized understanding Signature: Claudia Calhoun RN, BSN, OCN I was directly supervised by Dr. Benavides, who was in the suite and immediately available for the entire time the service was provided. documented in this encounter Plan of Treatment Not on file documented as of this encounter Procedures Procedure Name Priority Date/Time Associated Diagnosis Comments COMPLETE BLOOD COUNT AND DIFF, CHEMO STAT 09/22/2009 13:15 EDT Malignant neoplasm of ovary (HCC-CMS) Other specified counseling ZZCA 125 Routine 09/22/2009 13:15 EDT Malignant neoplasm of ovary (HCC-CMS) Other specified counseling COMPREHENSIVE METABOLIC PANEL (CMP) STAT 09/22/2009 13:15 EDT Malignant neoplasm of ovary (HCC-CMS) Other specified counseling documented in this encounter Results * (ABNORMAL) COMPREHENSIVE METABOLIC PANEL (09/22/2009 13:15 EDT) Potassium 3.4(L) 3.5 - 5.0 mEq/L [facility] Sodium 143 136 - 145 mEq/L [facility] Chloride 107 96 - 110 mEq/L [facility] CO2 28 24 - 32 mEq/L [facility] Total Alkaline Phosphatase 103 38 - 126 U/L [facility] Bilirubin, Total <0.5 0.2 - 1.3 mg/dl [facility] AST 25 15 - 46 U/L [facility] ALT <11 9 - 52 U/L [facility] Albumin 3.5 3.4 - 4.9 g/dl [facility] Total Protein 6.1(L) 6.5 - 8.3 g/dl [facility] Creatinine 0.51(L) 0.7 - 1.5 mg/dl [facility] GFR, Calculated >60 ml/min/1.7 3m2 [facility] BUN 13 10 - 26 mg/dl [facility] Calcium 8.6 8.5 - 10.5 mg/dl [facility] Calculated Calcium 9.5 8.5 - 10.5 mg/dl [facility] Glucose, Serum 112(H) 70 - 100 mg/dl [facility] Fasting? Unknown [facility] Magnesium 2.0 1.7 - 2.8 mg/dl [facility] Blood specimen (specimen) 09/22/2009 13:15 EDT 09/22/2009 14:36 EDT Osmar Benavides MD CHEMISTRY & BLOOD GA S ORDERABLES [facility] [address] [place] [address] * (ABNORMAL) CBC WITH AUTO DIFF - ONCOLOGY USE ONLY (09/22/2009 13:15 EDT) WBC 5.39 4.0 - 12.4 K/cmm [facility] RBC 4.27 3.86 - 5.04 M/cmm [facility] Hemoglobin 13.2 11.6 - 15.2 gm/dl [facility] HCT 37.5 34.9 - 44.4 % [facility] MCV 88 81 - 98 fl [facility] MCH 30.8 26.7 - 33.3 pg [facility] MCHC 35.2 32.1 - 35.9 gm/dl [facility] PLT 231 141 - 320 K/cmm [facility] RDW-CV 14.3 11.7 - 14.6 % [facility] % Neutrophils 44.1(L) 45.5 - 79.7 % [facility] ABS Neutrophils 2.38 2.20 - 8.85 K/cmm [facility] Type of Diff: Automated [facility] Blood specimen (specimen) 09/22/2009 13:15 EDT 09/22/2009 14:36 EDT Osmar Benavides MD PACKAGES & DNA PROBE ORDERABLES Performing Organization Address [facility] Co de Phone Number [facility] [address] [place] [address] * (ABNORMAL) CA 125 (09/22/2009 13:15 EDT) CA 125 861(H) 0 - 35 U/ml [facility] Comment: Serum CA125 concentrations should not be interpreted as absolute evidence for the presence or absence of malignant disease. Assayed utilizing [employer] technology. Values obtained by using different assay methods cannot be used interchangeably. PREVIOUS CA125 RESULT ON 09/05/09 WAS 841 AND ON 08/09/09 WAS 4120 Blood specimen (specimen) 09/22/2009 13:15 EDT 09/22/2009 14:36 EDT Osmar Benavides MD CHEMISTRY & BLOOD GA S ORDERABLES Performing Organization Address [facility] Co de Phone Number [facility] [address] [place] [address] documented in this encounter Visit Diagnoses Diagnosis Malignant neoplasm of ovary (HCC-CMS)- Primary Malignant neoplasm of ovary Other specified counseling documented in this encounter Care Teams Seo Coordinator Relationship Specialty Start Date End Date Hunter Richards MD PCP - General 09/21/09 12/15/09 documented as of this encounter
--- OUTSIDE RECORDS SUMMARY | 2024-01-20 19:55 | XMS_ITS | Encounter Summary ---
Author Organization [facility] Address [address] [place] [address] Care Team Providers Care Roll Former Name Role Phone Hunter Richards MD Primary Care Provider Un available Reason for Visit * Reason Onset Date Comments Follow-up 09/01/2009 Post-Operative T elephone Call Encounter Details Date Type Department Care Team (Late st Contact Info) Description 09/01/2009 Telephone [facility] OBGYN Services - [address] [phone] Simona Manzo RN Follow-up (Post-Operative Telephone Call) Social History Tobacco Use Types Packs/Day Years [...] encounter Miscellaneous Notes * Telephone Encounter - Simona Manzo RN - 09/01/2009 1056 EDT ELECTROLOG OPERATOR NURSE POST OPERATIVE TRIAGE FORM Date: 09/01/2009 Time: 10:45 Date of Surgery: 08/25/2009 Type of surgery/surgical site: Exploratory laparotomy, total abdominal hysterectomy, bilateral salpingo-oophorectomy and omentectomy, and aspiration of ascites. Last Menstrual Period: Patient is postmenopausal. Medications at discharge: Marisol Lawson Home Medication Instructions ZAHRA: Printed on:09/01/09 1050 Medication Information acetaminophen (TYLENOL) 325 mg tablet Take 1-2 Tabs by mouth every 4 hours. docusate sodium (COLACE) 100 mg capsule Take 1 Cap by mouth 2 times daily. ibuprofen (MOTRIN) 400 mg tablet Take 1 Tab by mouth every 4 hours. levofloxacin (LEVAQUIN) 500 mg tablet Take 1 Tab by mouth daily for 10 days. morphine (MS IR) 15 mg tablet Take 1 Tab by mouth every 4 hours as needed for Pain. albuterol (PROVENTIL HFA, VENTOLIN HFA) 90 mcg/Actuation inhaler Inhale 2 Puffs as directed as needed for Wheezing. albuterol-ipratropium (COMBIVENT) 18-103 mcg/Actuation inhaler Inhale 2 Puffs as directed 4 times daily. Medications taken today: Morphine 15 mg PO Q 4 hours. Patient reports some mild nausea with medication. RN advises to make sure she is not taking medication on an empty stomach (try small bland meals more often throughout the day and small snack before medication). If pain is under control may try to space it out and take every 6-8 hours or try Tylenol/Motrin PRN instead. Pt likes this idea since her pain is well managed. Pt reports she will call our office if nausea continues. Pain level today: 0 Chief complaint: Chief Complaint Patient presents with ??? Follow-up Post-Operative Telephone Call GI: Nausea/Vomiting: Yes Patient reports mild nausea with medication. See note above Bowel elimination: Flatus: yes Last BM: This am : Frequency/Urgency: None Pain/pressure with urination: None Incision: benigno: Intact Patient denies s/s of infection Vaginal Bleeding/Discharge: no Temperature: is unknown Patient denies chills No further follow-up needed: No POV scheduled for 09/05/2009 for staple removal. Nurse Disposition: nurse to notify provider documented in this encounter Plan of Treatment Not on file documented as of this encounter Visit Diagnoses Not on filedocumented in this encounter Care Teams Roll Former Relationship Specialty Start Date End Date Hunter Richards MD PCP - General 03/14/09 09/19/09 documented as of this encounter
--- OUTSIDE RECORDS SUMMARY | 2024-01-20 19:56 | XMS_ITS | Encounter Summary ---
Author Organization [facility] Address [address] [place] [address] Care Team Providers Care Primary Special Education Teacher Name Role Phone Hunter Richards MD Primary Care Provider Un available Angel Chilel MD Primary Care Provider Unav ailable Hunter Richards MD Primary Care Provider Un available Angel Chilel MD Primary Care Provider Unav ailable None, Provider Primary Care Provider Unavailabl e Angel Chilel MD Primary Care Provider Unav ailable None, Provider Primary Care Provider Unavailabl e Encounter Details Date Type Department Care Team (Late st Contact Info) Description 08/05/2009 Historical Results Only [facility] [place] Lab - Main [address] [address] Wilver Renteria MD [address] [place] [id number] Social History Tobacco Use Types Packs/Day Years Used Date Smoking Tobacco: Never Assessed Sex and Gender Information Value Date Recorded Sex Assigned at Not on file Gender Identity Not on file Sexual Orientation Not on file documented as of this encounter Plan of Treatment Not on file documented as of this encounter Procedures Procedure Name Priority Date/Time Associated Diagnosis Comments SURGICAL PATHOLOGY Routine 08/05/2009 documented in this encounter Results * SURGICAL PATHOLOGY (08/05/2009) 08/05/2009 08/05/2009 15: 36 EDT Narrative [facility] - 08/08/2009 14:17 EDT PREOP PMB Procedure: ENDOMETRIAL BX Tissue Removed ENDOMETRIUM LMP: Prev.Abn Pap: POST MENOP ----- ------- Name: MARISOL MARTINEZ Jasmyne ?: 56 ?Age/Sex: 58/F ?Unit#: [id number] ? Loc: AGO ? Status: REG POV ?? Reg Date: 08/05/09 ? Pt.Phone Number: ? ----- ------- Specimen: [id number] ? STATUS: SOUT ?Spec Date:08/05/09 ? Physician Copies: ?Wilver Renteria Tissues: A ?? Female Reproductive System (ENDOMETRIUM) ? Jasmin Miramontes ? CPT: 55524 ?? Units: ??1 ?FINAL DIAGNOSIS ? Endometrium, biopsy; ? - Fragments of bleeding endometrium and blood clot. ? GROSS DESCRIPTION ? Received in formalin labeled with the patient's name and endometrial bx is an ? estimated 1 cc aggregate of hemorrhagic red-brown tissue fragments, filtered, ? e.s. 1. CP ?? PREOP DX/CLINICAL HISTORY ?PMB Signed ____(signature on file)____ Aretha Solano M.D. 08/08/09 By the signature above, the attending physician certifies that he/she has personally conducted a gross and/or microscopic examination of the described specimens and rendered or confirmed the above diagnosis. Test Performed by [facility], [address] [place] [address] Resaw Feeder: Aretha Solano MD PHD ----- ------- Wilver Renteria MD PATHOLOGY ORDERABL ES [facility] documented in this encounter Visit Diagnoses Not on filedocumented in this encounter Care Teams Primary Special Education Teacher Relationship Specialty Start Date End Date Hunter Richards MD PCP - General 09/21/09 12/15/09 Angel Chilel MD PCP - General 09/20/09 09/20/09 Hunter Richards MD PCP - General 03/14/09 09/19/09 Angel Chilel MD PCP - General 12/16/09 05/13/12 None, Provider PCP - General 05/14/12 03/11/14 Angel Chilel MD PCP - General 03/12/14 12/01/18 None, Provider PCP - General 12/02/18 documented as of this encounter
--- OUTSIDE RECORDS SUMMARY | 2024-01-20 19:56 | XMS_ITS | Encounter Summary ---
Author Organization [facility] Address [address] [place] [address] Care Team Providers Care Box Sorter Name Role Phone Hunter Richards MD Primary Care Provider Un available Encounter Details Date Type Department Care Team (Late st Contact Info) Description 08/19/2009 Results Only [facility] OBGYN Services - [address] [id number] Osmar Benavides MD [address] [facility], [address] [place] [phone] Social History Tobacco Use Types [...] Name Priority Date/Time Associated Diagnosis Comments CT ABDOMEN, PELVIS W CONTRAST 08/19/2009 15:21 EDT documented in this encounter Results * CT ABDOMEN, PELVIS W CONTRAST (08/19/2009 15:21 EDT) Anatomical Region Laterality Modality Other 08/19/2009 15:2 1 EDT 08/19/2009 17:00 EDT Narrative 08/19/2009 17:[address] ABDOMEN, PELVIS ??Aug 19, 2009 03:21:00 PM Clinical history/Comments: Pt with new diagnosis of pelvic mass and elevated CA-125 Comparison: None Technique: Helical images were obtained from the domes of the diaphragm to the iliac crests. Technique Pelvis: Immediately after the above preparation, axial images were obtained from the iliac crests to the ischial tuberosities. During the exam, intravenous administration of 100 cc of 370 mg% nonionic contrast at a rate of 2 cc/second was administered. Prior to scanning, oral and rectal contrast was administered. Findings: There is a very large complex cystic mass with numerous enhancing septations and solid components occupying the deep pelvis and encompassing the otherwise normal uterus. The appearance is consistent with ovarian neoplasm. ??Side of origin difficult to determine due to the size of mass, may well be bilateral involvement. Approximate dimensions are 15 cm transverse x 15 cm AP x 12 cm craniocaudad. There is a small to moderate amount of abdominal pelvic ascites. In addition, there is soft tissue nodularity and stranding of the omentum consistent with peritoneal spread of disease. The liver, spleen, pancreas, and adrenal glands and kidneys are without significant finding. Note is made of scattered small splenic granulomata. There is no hydronephrosis. Evaluation of the aorta shows mild atherosclerotic changes, there is no retroperitoneal adenopathy. Evaluation of the bowel shows no obstruction. The sigmoid colon is compressed a between the pelvic mass and the pelvic sidewall, both near the rectosigmoid junction and at the proximal sigmoid. There is no conclusive CT signs of direct involvement. The bladder is adjacent to portions of the mass remains thin-walled and normal in appearance. The anterior abdominal wall is intact. The osseous structures are notable for degenerative disc disease at L5/S1. For description of chest findings, see separate report. Impression: 1. Large complex cystic mass with solid components and enhancing septa combined with ascites and peritoneal nodules, findings consistent with ovarian carcinoma with peritoneal spread of disease. 2. Sigmoid colon compressed by mass in 2 locations, no obvious signs of invasion by CT, no bowel obstruction. 3. Prior granulomatous disease spleen. 4. No hydronephrosis. Procedure Note 08/19/2009 CT ABDOMEN, PELVIS Aug 19, 2009 03:21:00 PM Clinical history/Comments: Pt with new diagnosis of pelvic mass and elevated CA-125 Comparison: None Technique: Helical images were obtained from the domes of the diaphragm to the iliac crests. Technique Pelvis: Immediately after the above preparation, axial images were obtained from the iliac crests to the ischial tuberosities. During the exam, intravenous administration of 100 cc of 370 mg% nonionic contrast at a rate of 2 cc/second was administered. Prior to scanning, oral and rectal contrast was administered. Findings: There is a very large complex cystic mass with numerous enhancing septations and solid components occupying the deep pelvis and encompassing the otherwise normal uterus. The appearance is consistent with ovarian neoplasm. Side of origin difficult to determine due to the size of mass, may well be bilateral involvement. Approximate dimensions are 15 cm transverse x 15 cm AP x 12 cm craniocaudad. There is a small to moderate amount of abdominal pelvic ascites. In addition, there is soft tissue nodularity and stranding of the omentum consistent with peritoneal spread of disease. The liver, spleen, pancreas, and adrenal glands and kidneys are without significant finding. Note is made of scattered small splenic granulomata. There is no hydronephrosis. Evaluation of the aorta shows mild atherosclerotic changes, there is no retroperitoneal adenopathy. Evaluation of the bowel shows no obstruction. The sigmoid colon is compressed a between the pelvic mass and the pelvic sidewall, both near the rectosigmoid junction and at the proximal sigmoid. There is no conclusive CT signs of direct involvement. The bladder is adjacent to portions of the mass remains thin-walled and normal in appearance. The anterior abdominal wall is intact. The osseous structures are notable for degenerative disc disease at L5/S1. For description of chest findings, see separate report. Impression: 1. Large complex cystic mass with solid components and enhancing septa combined with ascites and peritoneal nodules, findings consistent with ovarian carcinoma with peritoneal spread of disease. 2. Sigmoid colon compressed by mass in 2 locations, no obvious signs of invasion by CT, no bowel obstruction. 3. Prior granulomatous disease spleen. 4. No hydronephrosis. Osmar Benavides MD IM CT ORDERABLES documented in this encounter Visit Diagnoses Not on filedocumented in this encounter Care Teams Box Sorter Relationship Specialty Start Date End Date Hunter Richards MD PCP - General 03/14/09 09/19/09 documented as of this encounter
--- OUTSIDE RECORDS SUMMARY | 2024-01-20 19:56 | XMS_ITS | Encounter Summary ---
Author Organization [facility] Address [address] [place] [address] Care Team Providers Care Filler Room Attendant Name Role Phone Hunter Richards MD Primary Care Provider Un available Encounter Details Date Type Department Care Team (Late st Contact Info) Description 03/29/2009 Abstract [facility] Dermatology 5th [address] [id number] Willie Menjivar MD [address] [place] [address], [address] [place] [phone] Mixed Basal-Squamous Cell Carcinoma Social History Tobacco Use Types Packs/Day Years Used Date Smoking Tobacco: Never Assessed Sex and Gender Information Value Date Recorded Sex Assigned at Not on file Gender Identity Not on file Sexual Orientation Not on file documented as of this encounter Plan of Treatment Not on file documented as of this encounter Visit Diagnoses Diagnosis Mixed basal-squamous cell carcinoma Other specified malignant neoplasm of skin, site unspecified documented in this encounter Care Teams Filler Room Attendant Relationship Specialty Start Date End Date Hunter Richards MD PCP - General 03/14/09 09/19/09 documented as of this encounter
--- OUTSIDE RECORDS SUMMARY | 2024-01-20 19:56 | XMS_ITS | Encounter Summary ---
Author Organization [facility] Address [address] [place] [address] Care Team Providers Care Control Analyst Name Role Phone Hunter Richards MD Primary Care Provider Un available Reason for Visit * Reason Comments New Patient Visit Pelvic Mass Encounter Details Date Type Department Care Team (Late st Contact Info) Description 08/15/2009 14:45 EDT Office Visit [facility] OBGYN Services - [address] [phone] Osmar Benavides MD [address] [facility], [address] [place] [phone] Abdominal or pelvic swelling, mass, or lump, other specified site (Primary Dx); Elevated cancer antigen 125 (CA 125) Discharge Disposition: Auto Discharge Social History Tobacco [...] Reading Time Taken Comments Blood Pressure 130/78 08/15/2009 1515 EDT Pulse - - Temperature - - Respiratory Rate - - Oxygen Saturation - - Inhaled Oxygen Concentration - - Weight 68.9 kg (152 lb) 08/15/2009 1515 EDT Height 152.4 cm (5') 08/15/2009 1515 EDT Body Mass Index 29.69 08/15/2009 1515 EDT documented in this encounter Patient Instructions * Patient Instructions* Simona Manzo RN - 08/15/2009 15:53 EDT You are scheduled for surgery on: 08/25/2009 Preoperative Home Instructions 1. The day before your surgery, eat a regular breakfast and light lunch. 2. Between 4 and 5 o???clock, take one bottle of Magnesium Citrate (10 oz. bottle). Drink this on ice with hollie sanjuana, sprite, 7-Up, or lemon juice. 3. A clear liquid dinner and only clear liquids until midnight. Clear liquid diet includes soup broth, bouillon, popsicles, jello, hollie sanjuana, sprite, 7-Up, water or sports drinks. 4. After midnight, nothing by mouth to eat or drink until after your surgery. 5. On the morning of surgery, NO candy, gum or mints, etc.! 6. No jewelry! This includes wedding bands and any body piercing, or any other valuables. 7. No make-up, No fingernail tur[place] and ca[place] islander, No contact lenses. *The following medications need to be discontinued at least 7 days prior to surgery* (Please notify the physician if you are taking any of the following medications). ASPIRIN, IBUPROFEN, ADVIL, ALEVE, MOTRIN, FLAX SEED OIL, FISH OIL, VITAMIN E, GARLIC, GINKGO BILOBA, GINSENG Call [phone] if you have questions. Please have your insurance card (prescription card) and means by paying for any prescription medication you may be discharged with documented in this encounter Discharge Disposition Disposition Code Departure Means Destination Auto Discharge documented in this encounter Progress Notes * Osmar Benavides MD - 08/15/2009 1908 EDT Subjective: Consult requested by Dr Wilver Renteria because of a large pelvic mass and elevated CA 125. Marisol Lawson is a 48 y.o. female [...] will need medical clearance by her PCP. 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 Labs drawn and sent per MD orders. Site unremarkable. documented in this encounter Miscellaneous Notes * Scanned Note-Null - Inpatient, Physician - 08/23/2009 1737 EDTAssociated Order(s): ECG REPORT - SCANNED documented in this encounter Plan of Treatment Scheduled Orders Name Type Priority Associated Diagnoses Orde r Schedule EKG 12-LEAD ECG Routine Abdominal or pelvic swelling, mass, or lump, other specified site Ordered: 08/15/2009 documented as of this encounter Procedures Procedure Name Priority Date/Time Associated Diagnosis Comments ECG REPORT - SCANNED 08/23/2009 17:[address] CHEST W CONTRAST 08/19/2009 1 5:19 EDT COMPLETE BLOOD COUNT AND DIFF, CHEMO Routine 08/15/2009 15:52 EDT Abdominal or pelvic swelling, mass, or lump, other specified site PTT Routine 08/15/2009 15:52 EDT Abdominal or pelvic swelling, mass, or lump, other specified site PROTIME Routine 08/15/2009 15:52 EDT Abdominal or pelvic swelling, mass, or lump, other specified site CEA Routine 08/15/2009 15:52 EDT Abdominal or pelvic swelling, mass, or lump, other specified site COMPREHENSIVE METABOLIC PANEL (CMP) Routine 08/15/2009 15:52 EDT Abdominal or pelvic swelling, mass, or lump, other specified site documented in this encounter Results * ECG REPORT - SCANNED (08/23/2009 17:37 EDT) 08/23/2009 17:3 7 EDT Narrative 08/23/2009 23:38 EDT Ordered by an unspecified provider. Transcriptions Inpatient, Physician - 08/23/2009 17:37 EDT Physician Inpatient MD PROCEDURE/MINOR S URGICAL ORDERABLES * CT CHEST W CONTRAST (08/19/2009 15:19 [...] findings. Osmar Benavides MD IMG CT ORDERABLES * CEA (08/15/2009 15:52 EDT) CEA 3.0 ng/ml [facility] Comment: % Distribution of CEA (ng/ml) 0-2.5 in 98.2% of non-smokers and 87.3% of smokers 2.6-5.0 in 1.8% of non-smokers and 8.0% of smokers 5.1-10.1 in 4.7% of smokers Serum CEA concentration should not be interpreted as absolute evidence for the presence or absence of malignant disease. Assayed utilizing Amiigo chemiluminescent technology. Values obtained by using different assay methods cannot be used interchangeably. Blood specimen (specimen) 08/15/2009 15:52 EDT 08/15/2009 16:32 EDT Osmar Benavides MD CHEMISTRY & BLOOD GA S ORDERABLES Performing Organization Address [facility] Co de Phone Number [facility] [address] [place] [address] * PTT (08/15/2009 15:52 EDT) Pathologist [facility] PTT 33 24 - 35 secs [facility] Comment: Therapeutic Heparin range: ??60-90 seconds NOTE NEW REFERENCE RANGE EFFECTIVE 2009 NOTE: ??New Therapeutic Heparin range effective 08/10/2009 Blood specimen (specimen) 08/15/2009 15:52 EDT 08/15/2009 16:32 EDT Osmar Benavides MD HEMATOLOGY & PF4 ORD ERABLES Performing Organization Address [facility] Co de Phone Number [facility] [address] [place] [address] * PROTIME (08/15/2009 15:52 EDT) Pathologist [facility] Pro Time 11.2 9.9 - 13.1 secs [facility] Comment:NOTE NEW REFERENC E RANGE EFFECTIVE 2009 I.N.R. 1.0 0.9 - 1.1 Ratio [facility] Comment: Moderate Intensity Coumadin INR = 2.0-3.0 Adjustments in anticoagulant therapy dose should be based upon the INR and NOT the Pro Time. Blood specimen (specimen) 08/15/2009 15:52 EDT 08/15/2009 16:32 EDT Osmar Benavides MD HEMATOLOGY & PF4 ORD ERABLES [facility] [address] [place] [address] * (ABNORMAL) COMPREHENSIVE METABOLIC PANEL (08/15/2009 15:52 EDT) Pathologist [facility] Potassium 4.1 3.5 - 5.0 mEq/L [facility] Sodium 141 136 - 145 mEq/L [facility] Chloride 106 96 - 110 mEq/L [facility] CO2 27 24 - 32 mEq/L [facility] Total Alkaline Phosphatase 117 38 - 126 U/L [facility] Bilirubin, Total 0.6 0.2 - 1.3 mg/dl [facility] AST 23 15 - 46 U/L [facility] ALT 20 9 - 52 U/L [facility] Albumin 4.0 3.4 - 4.9 g/dl [facility] Total Protein 6.7 6.5 - 8.3 g/dl [facility] Creatinine 0.70 0.7 - 1.5 mg/dl [facility] GFR, Calculated >60 ml/min/1.7 3m2 [facility] BUN 8(L) 10 - 26 mg/dl [facility] Calcium 9.2 8.5 - 10.5 mg/dl [facility] Calculated Calcium 9.6 8.5 - 10.5 mg/dl [facility] Glucose, Serum 86 70 - 100 mg/dl [facility] Fasting? Unknown [facility] Magnesium 2.1 1.7 - 2.8 mg/dl [facility] Blood specimen (specimen) 08/15/2009 15:52 EDT 08/15/2009 16:32 EDT Osmar Benavides MD CHEMISTRY & BLOOD GA S ORDERABLES Performing Organization Address [facility] de Phone Number [facility] [address] [place] [address] * (ABNORMAL) CBC WITH AUTO DIFF - ONCOLOGY USE ONLY (08/15/2009 15:52 EDT) WBC 9.02 4.0 - 12.4 K/cmm [facility] RBC 5.07(H) 3.86 - 5.04 M/cmm [facility] Hemoglobin 15.1 11.6 - 15.2 gm/dl [facility] HCT 44.5(H) 34.9 - 44.4 % [facility] MCV 88 81 - 98 fl [facility] MCH 29.8 26.7 - 33.3 pg [facility] MCHC 34.0 32.1 - 35.9 gm/dl [facility] PLT 315 141 - 320 K/cmm [facility] RDW-CV 13.7 11.7 - 14.6 % [facility] % Neutrophils 63.9 45.5 - 79.7 % [facility] ABS Neutrophils 5.77 2.20 - 8.85 K/cmm [facility] Type of Diff: Automated [facility] Blood specimen (specimen) 08/15/2009 15:52 EDT 08/15/2009 16:32 EDT Osmar Benavides MD PACKAGES & DNA PROBE ORDERABLES Performing Organization Address [facility] Co de Phone Number [facility] [address] [place] [address] documented in this encounter Visit Diagnoses Diagnosis Abdominal or pelvic swelling, mass, or lump, other specified site- Primary Elevated cancer antigen 125 (CA 125) Elevated cancer antigen 125 [CA 125] documented in this encounter Historical Medications * This list may reflect changes made after this encounter. Medication Sig Dispensed Refills Start Date End Date albuterol-ipratropium (COMBIVENT) 18-103 mcg/Actuation inhalerIndications:Abdom inal or pelvic swelling, mass, or lump, other specified site Inhale 2 Puffs as directed 4 times daily. 09/05/2009 albuterol (PROVENTIL HFA, VENTOLIN HFA) 90 mcg/Actuation inhalerIndications:Abdom inal or pelvic swelling, mass, or lump, other specified site Inhale 2 Puffs as directed as needed for Wheezing. 01/12/2010 added in this encounter Care Teams Control Analyst Relationship Specialty Start Date End Date Hunter Richards MD PCP - General 03/14/09 09/19/09 documented as of this encounter
--- OUTSIDE RECORDS SUMMARY | 2024-01-20 19:56 | XMS_ITS | Encounter Summary ---
Author Organization [facility] Address [address] [place] [address] Care Team Providers Care Salad Chef Name Role Phone Hunter Richards MD Primary Care Provider Un available Reason for Visit * Reason Onset Date Comments Follow-up 08/16/2009 Encounter Details Date Type Department Care Team (Late st Contact Info) Description 08/16/2009 Telephone [facility] OBGYN Services - [facility] [address] [place], [place] [id number] Simona Manzo, RN Follow-up Social History Tobacco Use Types [...] Telephone Encounter - Simona Manzo RN - 08/16/2009 1508 EDT Marisol made aware of her pre-op clearance appt booked with Dr. Chilel 08/18/2009 @ 9 am. documented in this encounter Plan of Treatment Not on file documented as of this encounter Visit Diagnoses Not on filedocumented in this encounter Care Teams Salad Chef Relationship Specialty Start Date End Date Hunter Richards MD PCP - General 03/14/09 09/19/09 documented as of this encounter
--- OUTSIDE RECORDS SUMMARY | 2024-01-20 19:56 | XMS_ITS | Encounter Summary ---
Author Organization [facility] Address [address] [place] [address] Care Team Providers Care Fleet Maintenance Foreman Name Role Phone Diamond Richards MD Primary Care Provider Un available Encounter Details Date Type Department Care Team (Late st Contact Info) Description 08/19/2009 14:01 EDT - 08/19/2009 23:59 EDT Hospital Encounter [address] [address] Dom Newton MD [address] [facility], [address] [place] [phone] Discharge Disposition: Home or Self Care Social [...] 08/31/2009 11/25/2009 documented as of this encounter Discharge Disposition Disposition Code Departure Means Destination Home or Self [facility]ci documented in this encounter Plan of Treatment Pending Results Name Type Priority Associated Diagnoses Date /Time PREPARE RED BLOOD CELLS Blood Bank Routine 0 08/25/2009 12:14 EDT PREPARE RED BLOOD CELLS Blood Bank Routine 0 08/25/2009 12:14 EDT PREPARE RED BLOOD CELLS Blood Bank Routine 0 08/25/2009 12:14 EDT PREPARE RED BLOOD CELLS Blood Bank Routine 0 08/25/2009 12:14 EDT PREPARE RED BLOOD CELLS Blood Bank Routine 0 08/25/2009 12:14 EDT PREPARE RED BLOOD CELLS Blood Bank Routine 0 08/25/2009 12:14 EDT PREPARE RED BLOOD CELLS Blood Bank Routine 0 08/25/2009 12:14 EDT PREPARE RED BLOOD CELLS Blood Bank Routine 0 08/25/2009 12:14 EDT TYPE AND SCREEN Blood Bank Routine 0 12:14 EDT TYPE AND SCREEN Blood Bank Routine 0 12:14 EDT GLUCOSE, GLUCOMETER Lab Routine 08/25 12:21 EDT Scheduled Orders Name Type Priority Associated Diagnoses Orde r Schedule PREPARE RED BLOOD CELLS Blood Bank Routine For medications that can be administered at any time during the hospitalization for visit such as immunizations. for 1 Occurrences starting 08/25/2009 PREPARE RED BLOOD CELLS Blood Bank Routine For medications that can be administered at any time during the hospitalization for visit such as immunizations. for 1 Occurrences starting 08/25/2009 PREPARE RED BLOOD CELLS Blood Bank Routine For medications that can be administered at any time during the hospitalization for visit such as immunizations. for 1 Occurrences starting 08/25/2009 PREPARE RED BLOOD CELLS Blood Bank Routine For medications that can be administered at any time during the hospitalization for visit such as immunizations. for 1 Occurrences starting 08/25/2009 PREPARE RED BLOOD CELLS Blood Bank Routine For medications that can be administered at any time during the hospitalization for visit such as immunizations. for 1 Occurrences starting 08/25/2009 PREPARE RED BLOOD CELLS Blood Bank Routine For medications that can be administered at any time during the hospitalization for visit such as immunizations. for 1 Occurrences starting 08/25/2009 PREPARE RED BLOOD CELLS Blood Bank Routine For medications that can be administered at any time during the hospitalization for visit such as immunizations. for 1 Occurrences starting 08/25/2009 PREPARE RED BLOOD CELLS Blood Bank Routine For medications that can be administered at any time during the hospitalization for visit such as immunizations. for 1 Occurrences starting 08/25/2009 TYPE AND SCREEN Blood Bank Routine For medic ations that can be administered at any time during the hospitalization for visit such as immunizations. for 1 Occurrences starting 08/25/2009 TYPE AND SCREEN Blood Bank Routine For medic ations that can be administered at any time during the hospitalization for visit such as immunizations. for 1 Occurrences starting 08/25/2009 GLUCOSE, GLUCOMETER Lab Routine For m edications that can be administered at any time during the hospitalization for visit such as immunizations. for 1 Occurrences starting 08/25/2009 documented as of this encounter Procedures Procedure Name Priority Date/Time Associated Diagnosis Comments GLUCOSE, GLUCOMETER Routine 08/25/2009 1 2:21 EDT PREPARE RED BLOOD CELLS Routine 08/25/2009 12:14 EDT PREPARE RED BLOOD CELLS Routine 08/25/2009 12:14 EDT PREPARE RED BLOOD CELLS Routine 08/25/2009 12:14 EDT PREPARE RED BLOOD CELLS Routine 08/25/2009 12:14 EDT TYPE AND SCREEN Routine 08/25/2009 12:14 EDT TYPE AND SCREEN Routine 08/25/2009 12:14 EDT CYTOPATHOLOGY Routine 08/25/2009 0:00 EDT SURGICAL PATHOLOGY Routine 08/25/2009 0: 00 EDT documented in this encounter Results * GLUCOSE, GLUCOMETER (08/25/2009 12:21 EDT) Glucose, Fingerstick 91 70 - 100 mg/dl [facility] Certified Prosthetist ID [id number] Test Performed by Nursing Services [facility] 08/25/2009 12:2 1 EDT 08/25/2009 12:23 EDT Dom Newton MD CHEMISTRY & BLOOD GA S ORDERABLES Performing Organization Address [facility] Co de Phone Number [facility] [address] [place] [address] * PREPARE RED BLOOD CELLS (08/25/2009 12:14 EDT) Product Code -3 RED BLOOD CELLS,ADENINE- SALINE ADDED,LEUKOCYT ES REDUCED [facility] Donor Number [id number] [facility] Unit ABO O [facility] Unit Rh POS [facility] Unit Status [facility] [place] [facility] 08/25/2009 12:1 4 EDT 08/25/2009 12:14 EDT Dom Newton MD BLOOD BANK ORDERABLE S Performing Organization Address [facility]/ZIP Co de Phone Number [facility] [address] [place] [address] * PREPARE RED BLOOD CELLS (08/25/2009 12:14 EDT) Product Code -3 RED BLOOD CELLS,ADENINE- SALINE ADDED,LEUKOCYT ES REDUCED [facility] Donor Number [id number] [facility] Unit ABO O [facility] Unit Rh POS [facility] Unit Status Released From [facility] 08/25/2009 12:1 4 EDT 08/25/2009 12:14 EDT Dom Newton MD BLOOD BANK ORDERABLE S Performing Organization Address [facility] Co de Phone Number [facility] [address] [place] [address] * PREPARE RED BLOOD CELLS (08/25/2009 12:14 EDT) Product Code -3 RED BLOOD CELLS,ADENINE- SALINE ADDED,LEUKOCYT ES REDUCED [facility] Donor Number [id number] [facility] Unit ABO O [facility] Rh POS [facility] Cross Match Interp Compatible [facility] Unit Status Cross[facility] 08/25/2009 12:1 4 EDT 08/25/2009 12:14 EDT Dom Newton MD BLOOD BANK ORDERABLE S Performing Organization Address [facility] de Phone Number [facility] [address] [place] [address] * PREPARE RED BLOOD CELLS (08/25/2009 12:14 EDT) Product Code -3 RED BLOOD CELLS,ADENINE- SALINE ADDED,LEUKOCYT ES REDUCED [facility] Donor Number [id number] [facility] Unit ABO O [facility] Unit Rh POS [facility] Cross Match Interp Compatible [facility] Unit Status Cross[facility] 08/25/2009 12:1 4 EDT 08/25/2009 12:14 EDT Dom Newton MD BLOOD BANK ORDERABLE S Performing Organization Address [facility] Co de Phone Number [facility] [address] [place] [address] * TYPE AND SCREEN (08/25/2009 12:14 EDT) Antibody Screen Negative [facility] Comment:SPECIMEN EXPIRES08/28@23:59 08/25/2009 12:1 4 EDT 08/25/2009 12:14 EDT Dom Newton MD BLOOD BANK TESTS Performing Organization Address City/[facility] Co de Phone Number [facility] [address] [place] [address] * TYPE AND SCREEN (08/25/2009 12:14 EDT) ABO O [facility] Rh Factor Positive [facility] 08/25/2009 12:1 4 EDT 08/25/2009 12:14 EDT Dom Newton MD BLOOD BANK TESTS Performing Organization Address City/[facility]/ZIP Co de Phone Number [facility] [address] [place] [address] * CYTOPATHOLOGY (08/25/2009 0:00 EDT) Pathologist [facility] Pathology Report: CYTOPATHOLOGY REPORT ? Reports generated via electronic interface contain original data; ? however they are lacking the format of the original report. ? Caution should be taken when reading/interpreti ng unformatted reports. ? Name: ? LULU, MARISOL A ? Accession #: ? [id number] ? : ? 1960 (Age: 48) ??F ?Collect Date: ? 08/25/2009 ? Location: ? SB03 ? Receive Date: ? 08/26/2009 ? Provider: ? FERNANDES NEWTON MD ? Copy to: ?DIAMOND TOWNSENDSTEIN MD ? CYTOLOGIC DIAGNOSIS: ? Ascitic fluid, cytological evaluation: ? - Positive for adenocarcinoma. ??See comment. ? COMMENT: ? The specimen is hypercellular and composed of three dimensional clusters of malignant cells containing apoptotic debris and conspicuous atypical mitotic ? figures. ??The clusters exhibit nuclear crowding and overlapping with increased ?? nuclear to cytoplasmic ratios, anisonucleosis, and prominent nucleoli. ? Occasional large cytoplasmic vacuoles and psammoma bodies are present. ??The ? features are consistent with adenocarcinoma. ??Please correlate with the ? concurrent surgical specimen ([id number]). ??This case was reviewed at the ? intradepartmental consultation conference. ??(Dr. Centeno)/kmm ? Document reviewed and electronically signed by: ? Fadi Brunner MD ? Report Date: ??08/26/2009 16:52 ? By the signature above, the attending physician certifies that he/she has ? personally conducted a gross and/or microscopic examination of the described ? specimens and rendered or confirmed the above diagnosis. ? Specimen Type: ? Ascitic Fluid ? Clinical History: ? Pelvic mass, elevated CA125. ? Gross Description: ? 200cc' s of opaque emily fluid were received and processed by selective ? cellular enhancement technique. ? End of Report ? [facility] 08/25/2009 08/26/2009 8:1 7 EDT Dom Newton MD PATHOLOGY ORDERABLES [facility] [address] [place] [address] * SURGICAL PATHOLOGY (08/25/2009 0:00 EDT) Pathology Report: SURGICAL PATHOLOGY REPORT ? Reports generated via electronic interface contain original data; ? however they are lacking the format of the original report. ? Caution should be taken when reading/interpreti ng unformatted reports. ? Name: ? MARISOL LAWSON ? Accession #: ? [id number] ? : ? 1960 (Age: 48) ??F ? Collect Date: ? 08/25/2009 ? Location: ? [facility] ? Receive Date: ? 08/25/2009 ? Provider: DOM NEWTON MD ? Copy to: DIAMOND CASTELLANOCRYSTAL MD ? Final Pathologic Diagnosis: ? A. ?Fallopian tube and ovary, left, salpingo-oophorect denise: ? 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 ? - Specimen integrity: ??Capsule intact. ? - Differentiation: ??Poorly differentiated (G3). ??See comment. ? - Primary tumor site: ??Bilateral ovarian involvement (see specimen B). ? - Tumor size: ??14.0 x 12.0 x 8.0 cm in left ovary, 10.4 x 7.2 x 4.2 cm in right ovary (see ?specimen B). ? - Ovarian surface involvement: ??Present (AJCC: pT3c, pNX) (FIGO IIIC) (see ? specimen C). ? - Right ovary involved by tumor (see specimen B). ? - Both fallopian tubes involved by tumor (see specimen B). ? - Peritoneal ascitic fluid: ??Positive for malignancy ([id number]). ? - Lymphovascular invasion: ??Not identified. ?2. ?? Additional findings include left fallopian tube with epithelial ?? hyperplasia. ? B. ?? Uterus, cervix, right fallopian tube, and ovary, hysterectomy and ? unilateral salpingo- ? oophorectomy: ? 1. ?Cervix: ?- Mild chronic cervicitis. ? 2. ?Endometrium: ?- Inactive endometrium with tubal metaplasia. ? 3. ?Myometrium: ?- Leiomyomata, intramural (0.9 cm in maximum dimension). ? 4. ?Right ovary: ?- Involved by serous carcinoma (see specimen A). ? 5. ?Right fallopian tube: ?- Involved by serous carcinoma (see specimen A). ?- Paratubal cyst (2.5 cm in greatest dimension). ? C. ?? Omentum, partial omentectomy: ? 1. ?Involved by carcinoma (see specimen A). ? Comment: ? According to the Melchor grading criteria, this carcinoma is poorly ? differentiated (architecture equals 3, cytologic atypia equals 3, and mitoses ?? equals 2, with a total score of 8). ??The concurrent peritoneal washing specimen ([id number]) is positive for malignant cells. ??(Dr. Ji)/tito ? Document reviewed and electronically signed by: ? Kiya Fournier MD ? Report ??Date: 08/30/2009 16:12 ? By the signature above, the attending physician certifies that he/she has ? personally conducted a gross and/or microscopic examination of the described ? specimens and rendered or confirmed the above diagnosis. ? Specimen(s) Received: ? A. ?Left tube and ovary ? B. ? Right uterus, cervix, right tube and ovary ? C. ? Portion of omentum ? Clinical History: ? Pelvic mass and elevated CA 123. B. For GOG study ? Intraoperative Interpretation: ? FS1. ??Ovary and fallopian tube, left, excision: Malignant epithelial ? neoplasm involving inside and outside of ?ovary ??favor ovarian primary on two enrollment representative sections. ? Communicated results to Dr. Newton in OR 14 at 3:58 PM, 08/25/2009 ??Dr. Nyla Izaguirre ? I personally reviewed the slides of FS1 with Dr. Izaguirre with Dr. Izaguirre's ? interpretation, and agree with the diagnosis ??Dr. Jaycob Sanabria; 08/25/2009 at 17:00 ? Gross Description: ? Received fresh labelled Lulu, Marisol and left tube and ovary is a 760 gram 14.0 x 12.0 x 8.0 cm intact cystic ovary with attached 3.5 x 0.4 cm ? fallopian tube. ??The cystic ovary contains 500 cc of yellow-brown serous fluid. The ovary contains a 6.0 x 4.0 x 2.0 cm firm, kendrick-white, friable, papillary mass with excrescences, which appears adherent to the cystic lining on the cut ? surface of the ovary. ??There are numerous red-kendrick excrescences on the outer ? surface of the ovary. Two enrollment representative sections of the ovarian mass are ? submitted for frozen section as FS1 with the interpretation rendered as above. ?? Tumor is procured for GOG 0136 study. ??The fallopian tube has a blunt end and ?? sectioning reveals a central pinpoint lumen. Material Preparation Worker sections are ? submitted as follows (approximately 25% of the mass is submitted): ? BLOCK MARLEY ? A1 ?Frozen section control ? A2-A5 ?Material Preparation Worker sections of the mass (A4, A5 include mass to ? external surface with papillary ?excrescences). ? A6, A7 ?Material Preparation Worker external surface with papillary excrescences ? (external surface is blue-inked ? for orientation purposes only). ? A8 ?Two enrollment representative sections of smooth-lined aspect of cyst ? A9 ?Additional section of ovarian mass ? A10 ?One-half of distal fimbriated fallopian tube and two additional ? sections of the fallopian tube ? Received in normal saline labelled Marisol Lawson and uterus, cervix, ? right tube and ovary is a 105 gram product of a hysterectomy which measures 9.2 cm cervix to fundus, 5.0 cm cornu to cornu and 2.8 cm from anterior to ? posterior. ??A portion of cervix is procured for GOG 936 study. ??The external ? surface of the ovary is kendrick-pink and focally hemorrhagic, focally ratty. ??The ?? ectocervix is kendrick-pink, smooth, glistening, focally hyperemic. ??Anterior and ? posterior cannot be definitively determined. ??The endometrium is red and ? measures less than 0.1 cm in thickness. ??The myometrium averages 2.0 cm in ? thickness and contains multiple intramural white, whorled nodules ranging in ? size from 0.3 cm in dimension to 0.9 cm in dimension. ??Also received in the ? specimen jar is a 220 gram right ovary which measures 10.4 x 7.2 x 4.2 cm. ??The ovary is received intact and there is an attached 3.0 cm in length by 1.0 cm in diameter fallopian tube. ??Sectioning of the fallopian tube demonstrates a ? pinpoint lumen and an attached 2.5 x 1.0 x 1.0 cm smooth-lined paratubal cyst. ?? The ovary is cystic and contains a 3.2 x 2.5 x 2.0 cm white, soft, friable, ? fungating mass. ??The remaining ? cyst lining is smooth. ??The external surface of the ovary contains an 8.0 x 4.0 x 0.8 cm portion of soft, friable, fungating excrescences. ??The external ? excrescences are blue-inked for orientation purposes only. ??Material Preparation Worker ? sections are submitted as follows: ? BLOCK MARLEY ? B1, B2 ?Cervix ? B3-B6 ?Material Preparation Worker sections of endomyometrium with white, whorled ? nodule ? B7-B12 ?Material Preparation Worker sections of mass and cyst wall ? B13 ?Paratubal cyst and two cross sections of fallopian tube ? B14 ?One-half of fimbriated fallopian tube ? Received in normal saline labelled Marisol Lawson and portion of omentum is a 22.0 x 8.0 x 1.0 cm portion of hyperemic omentum. ??Over a portion measuring 10.0 x 4.0 x 1.0 cm, there is a thin, somewhat fungating white nodularity. ??No ?? mass lesions are seen. ??The cut surface in the area with white micronodularity ?? is focally white and micronodular. ??Sectioning of the omentum reveals multiple ?? foci of nodularity, the largest of which measures 3.0 cm in greatest dimension. Material Preparation Worker sections are submitted as follows: ? BLOCK MARLEY ? C1 ?Largest contiguous firm focus ? C2 ?Additional nodular firm foci ? (Dr. Ji)/mpl ? End of Report ? KEVIN [facility]SE[facility] 08/25/2009 08/25/2009 15: 41 EDT Dom Newton MD PATHOLOGY ORDERABLES [facility] [address] [place] [address] documented in this encounter Visit Diagnoses Not on filedocumented in this encounter Care Teams Fleet Maintenance Foreman Relationship Specialty Start Date End Date Diamond Richards MD PCP - General 03/14/09 09/19/09 documented as of this encounter
--- OUTSIDE RECORDS SUMMARY | 2024-01-20 19:56 | XMS_ITS | Encounter Summary ---
Author Organization [facility] Address [address] [place] [address] Care Team Providers Care Crusher Loader Equipment Operator Name Role Phone Hunter Richards MD Primary Care Provider Un available Encounter Details Date Type Department Care Team (Late st Contact Info) Description 12/13/2008 Orders Only [facility] Dermatology 5th Floor [facility] [address] [place] [address] Tahira Granados MD [address] [place] [id number] Social History Tobacco Use Types Packs/Day Years Used Date Smoking Tobacco: Never Assessed Sex and Gender Information Value Date Recorded Sex Assigned at Not on file Gender Identity Not on file Sexual Orientation Not on file documented as of this encounter Plan of Treatment Not on file documented as of this encounter Procedures Procedure Name Priority Date/Time Associated Diagnosis Comments SURGICAL PATHOLOGY Routine 12/13/2008 0:00 EDT documented in this encounter Results * SURGICAL PATHOLOGY (12/13/2008 0:00 EDT) Pathology Report: SURGICAL PATHOLOGY REPORT ? Reports generated via electronic interface contain original data; ? however they are lacking the format of the original report. ? Caution should be taken when reading/interpreti ng unformatted reports. ? Name: ? MICHELLE, MARISOL A ? Accession #: ? [id number] ? : ? 1960 (Age: 48) ??F ? Collect Date: ? 12/13/2008 ? Location: ? [facility] ? Receive Date: ? 12/13/2008 ? Provider: TAHIRA SCHWARZENBERGER MD ? Copy to: MELIDA BELLA PRINCIPAL CYBER ENGINEER ? Final Pathologic Diagnosis: ? A. ?Skin of lateral canthus, left, shave biopsy: ? 1. ?Melanocytic nevus, intradermal type. ? B. ?Skin of cheek, left medial, shave biopsy: ? 1. ?Basal cell carcinoma, nodular type. ?Basal cell carcinoma extends to base of shave biopsy specimen. ? Microscopic Description: ? (A) ?Sections are of a papule with mild epidermal hyperplasia and ? hyperkeratosis. ??There is a proliferation of ? melanocytes within the dermis. ??The proliferation consists of nests, cords, and strands that diminish in size with descent into the dermis. ??The melanocytes are slightly enlarged but generally have round-oval nuclei and a moderate amount of cytoplasm. ??The melanocytes show employee placement specialist maturation. ? (B) Irregularly shaped islands of atypical basal cells infiltrate the ? dermis. ??The basal cells have scant cytoplasm and round dark nuclei. ??Mitotic ?? figures and apoptotic bodies are evident. ??The nuclei at the periphery of the ?? islands have a palisaded arrangement. ??The islands are associated with a ? fibromyxoid stroma and there is cleft formation between some of the islands and stroma. ??(Dr. Negron)/mpl ? Document reviewed and electronically signed by: ? Dorinda Negron MD ? Report ??Date: 12/14/2008 16:57 ? By the signature above, the attending physician certifies that he/she has ? personally conducted a gross and/or microscopic examination of the described ? specimens and rendered or confirmed the above diagnosis. ? Specimen(s) Received: ? A. ?Left lateral canthus skin shave (#1) ? B. ? Left medial cheek skin shave (#2) ? Clinical History: ? A. ??Umbilical papule ??stephania hyperplasia, BCC. ??B. BCC; clinical diagnosis ? code: ??239.2 ? Gross Description: ? Received in formalin labelled Rhea, Marisol and left lateral ? [facility] is a shave biopsy of kendrcik-white skin measuring 0.2 x 0.1 x 0.1 cm. ??The specimen is submitted entirely as (A). ? Received in formalin labelled Marisol Wilkerson and left medial cheek is a shave biopsy of kendrick skin measuring 0.4 x 0.3 x 0.1 cm. ??There is a central kendrick, slightly raised papule measuring 0.2 x 0.2 cm, the cutaneous surface of which is covered with blue ink. ??The specimen is bisected and submitted entirely as (B). (Orquidea Levi)/mpl ? End of Report ? KEVIN RAMSEY 12/13/2008 12/13/2008 19: 32 EDT Tahira Granados MD PATHOLOGY ORD [facility] [address] [place] [address] documented in this encounter Visit Diagnoses Not on filedocumented in this encounter Care Teams Crusher Loader Equipment Operator Relationship Specialty Start Date End Date Hunter Richards MD PCP - General 12/13/08 02/27/09 documented as of this encounter
== END 2024-01-20 19:39 | disposition home or self-care (01) ==
LOC: NCHCN 19:38
PROVIDERS: PCP Internal Medicine; Visit Provider Internal Medicine
DX: E11.9 Type 2 diabetes mellitus without complications (principal)
CPT/HCPCS: 82043; 82570

== ENCOUNTER → 2024-03-10 13:00 | Outpatient (BNVA) | payer MEDICARE, SELFPAY | PROVIDERS: PCP Internal Medicine; Referring Provider Internal Medicine; Visit Provider Physician Assistant Surgical | DX: J44.9 Chronic obstructive pulmonary disease, unspecified (principal); F17.200 Nicotine dependence, unspecified, uncomplicated | CPT/HCPCS: 99214 ==

== ENCOUNTER 2024-09-08 12:17 | Outpatient (REF) | payer MEDICARE, SELFPAY ==
[2024-09-08 15:09] LABS: Abs Immature Grans 0.02 10^3/uL (0.0-0.06); Absolute Basophil Count 0.09 10^3/uL (0.0-0.2); Absolute Eosinophil Count 0.38 10^3/uL (0.0-0.7); Absolute Monocyte Count 0.61 10^3/uL (0.1-0.8); Absolute Neutrophil Count 4.84 10^3/uL (1.2-6.7); HCT 54.9 % (36.0-46.0); Immature Grans % 0.2 %; Lymphocytes % 37.1 %; MCH 30.9 pg (27.0-33.0); MCHC 34.8 % (32.0-36.0); MCV 89 fL (80-95); Monocytes % 6.5 %; Neutrophils % 51.2 %; Platelet Count 219 10^3/uL (130-400); RDW 12.7 % (11.7-14.6); RDW-SD 41.7 fL; WBC 9.44 10^3/uL (4.4-10.8)
[2024-09-08 16:05] LABS: Diff Comment RBC Morph Reviewed; HGB 19.1 g/dL (11.2-15.7)
[2024-09-08 16:06] LABS: RBC Morphology Normal
[2024-09-08 16:07] LABS: RBC 6.18 10^6/uL (3.93-5.22)
[2024-09-08 16:11] LABS: Anion Gap 8.7 mmol/L (3-11); BUN 11 mg/dL (7-18); CO2 30.3 mmol/L (21.0-32.0); CREATININE 0.9 mg/dL (0.55-1.02); Chloride 101 mmol/L (98-107); Cholesterol 131 mg/dL (<200); Estimated GFR 70.95 (mL/min/1.73m2); Glucose 218 mg/dL (74-106); Potassium 3.3 mmol/L (3.5-5.1); Sodium 140 mmol/L (136-145); Triglyceride 172 mg/dL (<150); Vitamin D 25 Total 32 ng/mL (30-100)
[2024-09-08 18:22] LABS: Calculated LDL 50 mg/dL (<100); HDL Cholesterol 47 mg/dL (>or=50)
== END 2024-09-08 12:18 | disposition home or self-care (01) ==
LOC: NCHCN 12:17
PROVIDERS: PCP Internal Medicine; Visit Provider Internal Medicine
DX: E78.5 Hyperlipidemia, unspecified (principal); E55.9 Vitamin D deficiency, unspecified; R60.0 Localized edema; D75.1 Secondary polycythemia
CPT/HCPCS: 80048; 80061; 82306; 85025

== ENCOUNTER 2025-01-19 21:01 | Outpatient (REF) | payer MEDICARE, SELFPAY ==
[2025-01-19 21:28] LABS: HCT 54.6 % (36.0-46.0); HGB 18.4 g/dL (11.2-15.7); MCH 30.6 pg (27.0-33.0); MCHC 33.7 % (32.0-36.0); MCV 91 fL (80-95); MPV 12.3 fL (8.0-11.0); Platelet Count 188 10^3/uL (130-400); RDW 14.0 % (11.7-14.6); RDW-SD 46.0 fL; WBC 9.85 10^3/uL (4.4-10.8)
[2025-01-19 21:30] LABS: Anion Gap 10.9 mmol/L (3-11); BUN 10 mg/dL (7-18); CO2 29.1 mmol/L (21.0-32.0); Calcium 10.0 mg/dL (8.5-10.1); Chloride 101 mmol/L (98-107); Estimated GFR 95.32 (mL/min/1.73m2); Glucose 125 mg/dL (74-106); Potassium 3.9 mmol/L (3.5-5.1); Sodium 141 mmol/L (136-145)
[2025-01-19 21:43] LABS: RBC 6.02 10^6/uL (3.93-5.22)
[2025-01-20 14:48] LABS: Hemoglobin A1C 7.6 % (<5.7)
== END 2025-01-19 21:02 | disposition home or self-care (01) ==
LOC: NCHCN 21:01
PROVIDERS: PCP Internal Medicine; Visit Provider Internal Medicine
DX: E11.9 Type 2 diabetes mellitus without complications (principal); I10 Essential (primary) hypertension
CPT/HCPCS: 80048; 85027; 83036